=== PATIENT | female | born 1960 | race Caucasian/White ===

== ENCOUNTER 2018-04-24 11:05 | Emergency (ER) | payer MEDICARE, SELFPAY ==
[2018-04-24 11:06] VITALS: BP 139/82; PULSE 108; RESP 17; TEMP 36.9; O2SAT 99; BMI 28.5
--- NOTE | 2018-04-24 11:23 | RAD_ITS ---
STUDY: X-RAY CHEST REASON FOR EXAM: Female, 57 years old. cough TECHNIQUE: PA and lateral COMPARISON: None. FINDINGS: The lungs are clear and expanded. There is no demonstrated pleural abnormality. Normal size heart. Normal mediastinum and wilma. Normal visualized pulmonary arteries. There is atherosclerotic tortuosity of the aortic arch and descending thoracic aorta. Normal visualized thoracic spine. Normal visualized ribs, clavicles, and shoulders. There is no demonstrated abnormality of the visualized soft tissue structures of the upper abdomen. RAD/Chest PA and Lateral IMPRESSION: Normal x-ray examination of the chest. Electronically Signed: Gerardo Carl MD at 12:17 EST , Service support ,
[2018-04-24 11:25] VITALS: PULSE 108; TEMP 36.9
--- NOTE | 2018-04-24 11:26 | ED.VISSUMM ---
- ER Visit Summary Date of Service: 04/24/18 Chief Complaint: Fever, cough, short of breath, nausea and vomiting History of Present Illness: The patient is a 57 F who reports generalized body aches and joint pain for the past 3 days. She does get injections because of fibromyalgia and arthritis and states they are wearing off. She does, however, have a temperature reported of 103-104, cough with shortness of breath and wheezing. She also reports nausea, vomiting, and diarrhea. Her symptoms started on April 22. She did get flu vaccine this year. Physical Examination: Blood pressure is 139/82, temperature 98.5, heart rate 108, respiratory rate 17, pulse ox 99% on room air. Patient sitting upright in bed no acute distress. She is speaking full sentences. She is nontoxic appearing. Head neck examination reveals cerumen in the bilateral ear canals. She has moist mucous membranes with normal posterior pharynx. She does have bilateral anterior cervical lymphadenopathy. No meningismus. Heart is regular rate and rhythm. Lungs sounds are clear. Abdomen is soft with no focal tenderness. Extremity examination reveals no joint edema or erythema. She has full range of motion of all joints. Test Results: CBC was a white count 3.7, otherwise unremarkable. Chemistry studies normal. Urinalysis normal. Two-view chest x-ray is unremarkable. Emergency Department Course and Treatment: Patient was given IV fluids, Toradol, Zofran. She is also treated with Tamiflu. On repeat evaluation she is improved. She is able to tolerate p.o. She will be given home prescriptions for the same medication given here. Treatment Plan: [] Disposition: Discharge Impression: Influenza This note was generated with [employer] dictation software. It may contain incorrect words, spelling, and punctuation that were not noted in review of the chart prior to signing ED Disposition - Plan for ED Patient: Referrals: Brayden Rosas MD [STAFF PHYSICIAN] -
[2018-04-24] MEDS: Ketorolac 30 MG/ML Syringe IV (11:51)
[2018-04-24] MEDS: Ondansetron 4 MG/2 ML Vial IV (11:51)
[2018-04-24] MEDS: Oseltamivir Phosphate 75 MG Capsule PO (11:51)
[2018-04-24] MEDS: 0.9% Normal Saline 1,000 ML 1000 ML IV (11:51)
[2018-04-24 12:05] LABS: Absolute Lymphocyte Count 0.92 X10^3/ul (0.83-4.51); Absolute Neutrophil Count 2.5 X10^3/uL (2.0-7.7); Basophil# 0.02 X10^3/uL; Basophil% 0.5 % (0-1); Eosinophil# 0.02 X10^3/uL; Eosinophils% 0.5 % (0-5); Hematocrit 42.2 % (37-47); Hemoglobin 13.5 g/dl (12.0-15.0); Lymphocyte # 0.92 X10^3/ul (4.0); Lymphocyte % 24.9 % (19-41); Mean Corpuscular Hgb 27.7 pg (27.0-32.0); Mean Corpuscular Volume 86.7 fL (81-99); Mean Platelet Vol. 9.2 fl (6.2-12.0); Monocyte# 0.24 X10^3/uL; Monocyte% 6.5 % (0-10); Neutrophil # 2.49 X10^3/uL (2.7-7.7); Neutrophil % 67.3 % (47-70); POSITIVE COUNT NO; POSITIVE DIFFERENTIAL NO; POSITIVE MORPHOLOGY NO; Platelet Count 204 K/mm3 (150-450); RBC Distribution Width CV 13.6 % (11.6-14.6); RBC Distribution Width SD 42.9 fl (35.1-43.9); Red Blood Count 4.87 M/mm3 (4.2-5.4); White Blood Count 3.7 K/mm3 (4.4-11.0)
[2018-04-24 12:07] LABS: Bacteria 0 SEEN /hpf (None Seen); Mucous, Urine 0 SEEN /hpf (<or=2+); Red Blood Cells-Urine 0 SEEN /hpf (0-5); Squamous Epithelial Cells - UA 0 SEEN /hpf (5-10); White Blood Cells 0 SEEN /hpf (0-5)
[2018-04-24 12:09] LABS: Color, Urine Yellow (Yellow); Glucose, Dipstick Normal (Normal); Ketone-Dipstick Negative (Negative); Leukocyte Esterase-Dipstick Negative /ul (Negative); Nitrite-Dipstick Negative (Negative); Occult Blood-Urine Negative /ul (Negative); Protein-Dipstick Negative (Negative); Urine Bilirubin Dipstick Negative (Negative); Urine Clarity Clear (Clear); Urine Urobilinogen 1 mg/dl (Normal)
[2018-04-24 12:26] LABS: Anion Gap 8 (5-15); BUN 12 mg/dL (7-18); BUN/Creat Ratio 17.9 RATIO (10-20); Calcium,Total 9.4 mg/dL (8.5-10.1); Chloride 103 mmol/L (98-107); Creatinine, Serum 0.67 mg/dL (0.55-1.02); EST Glomerular Filtration Rate 96 mL/min (>60); Est Glom Filt Rate - Afr Amer 116 mL/min (>60); Estimated Creatinine Clearance 75.71 ml/min; Glucose 93 mg/dL (74-106); Potassium 3.6 mmol/L (3.5-5.1); Sodium Level 139 mmol/L (136-145)
--- NOTE | 2018-04-24 13:32 | ED.DEP ---
ED Disposition - Plan for ED Patient: Disposition: Home or Assisted Living Instructions: ED Flu Prescriptions: Ondansetron [Zofran Odt] 4 mg PO Q8H PRN PRN #10 tablet PRN Reason: Nausea Oseltamivir Phosphate [Tamiflu] 75 mg PO BID #10 capsule Ketorolac [Toradol] 10 mg PO Q6H PRN #20 tablet PRN Reason: Pain Referrals: David Rico MD [Primary Care Provider] - 1 Week
[2018-04-24 13:38] VITALS: BP 112/63; PULSE 72; RESP 16; TEMP 37.1; O2SAT 95
== END 2018-04-24 13:40 | disposition home or self-care (01) ==
PROVIDERS: Emergency Provider Emergency Medicine; Family Provider Family Medicine; PCP Family Medicine
DX: J11.1 Influenza due to unidentified influenza virus with other respiratory manifestations (principal); M79.7 Fibromyalgia; M19.90 Unspecified osteoarthritis, unspecified site; Z79.899 Other long term (current) drug therapy
CPT/HCPCS: 71046; 80048; 81001; 85025; 96361; 96374; 96375; 99284; J7030; A4216; J2405

== ENCOUNTER → 2018-08-01 | Outpatient (CLI) | payer MEDICARE, MEDICAID, SELFPAY ==
--- NOTE | 2018-08-01 15:07 | RAD_ITS ---
HISTORY: neck pain through shoulders EXAM/TECHNIQUE: XR Spine Cervical 2 or 3 Views: COMPARISON: None. FINDINGS: # of images incl. paperwork: 3 No fracture or dislocation or osseous destruction. Mild, 2 mm, anterolisthesis of C3 on C4 and retrolisthesis of C5 on C6. Prominent degenerative changes C3-6. No acute findings in the soft tissues. RAD/Cerv Spine 2 or 3 Views IMPRESSION: No acute findings. Prominent degenerative changes C3-6. at 0327 Reported and signed by: Roman Ji MD Electronically Signed: Roman Ji, at 3:26 EDT Tel , Service support ,
--- NOTE | 2018-08-01 15:07 | RAD_ITS ---
HISTORY: lower back pain EXAM/TECHNIQUE: XR Spine Lumbar 2 or 3 Views: COMPARISON: None. FINDINGS: # of images incl. paperwork: 3 No fracture or dislocation or osseous destruction. Alignment anatomic. Marked disc and facet degeneration L5-S1. No acute findings in the soft tissues. 2.6 cm oval calcification right upper abdomen. Pelvic surgical clips. RAD/Lumbar Spine 2 or 3 Views IMPRESSION: No acute findings. Marked disc and facet degeneration L5-S1. 2.6 cm oval calcification right upper abdomen. Most likely a gallstone. at 0328 Reported and signed by: Roman Ji MD Electronically Signed: Roman Ji, at 3:27 EDT Tel , Service support ,
== END | disposition home or self-care (01) ==
LOC: RAD 15:03
PROVIDERS: Family Provider Family Medicine; PCP Family Medicine; Referring Provider Anesthesiology Pain Medicine; Visit Provider Anesthesiology Pain Medicine
DX: M54.2 Cervicalgia (principal); M54.5 Low back pain
CPT/HCPCS: 72040; 72100

== ENCOUNTER 2018-09-26 11:30 | Outpatient (RCR) | payer MEDICARE, MEDICAID, SELFPAY ==
--- NOTE | 2018-08-15 12:53 | HP.PTEVAL_ITS ---
Patient's Visit Information BETY PERALES is a 58 year old F referred to Physical Therapy by Negra Watson MD with a diagnosis of NECK AND BACK PAIN. Date of Evaluation: 08/15/18 Physical Therapist: Dalton Spencer PT, Cert MDT, OCS - Visit Plan Frequency: 2x /Week Duration: 4 Weeks Plan: Aquatic PT for cervical /lumbar ROM,Strengthening BUE/LE,postural ex's ,DLS endurance - Subjective Findings: This 58 y/o female presents to physical therapy with neck and back pain. Patient has had cervical and lumbar pain since 2007. Intially,predisposing factors with a bed fell patient,then 2009 picking up trash ,felt a pop . Patient had PT in past. Most recent, patient had injections cervical spine which helped and patient planes to do injections in lumbar undercare of DR Fregoso. Location of symptoms in cervical spine and and lumbar pain symmmtrical with BUE/LE symptoms with parathesia/tingling. Aggraveting factors lifting,bending ,walking ,standing 10 mins ,stairs. Aleviating factors heat/MEDS. Bowel/bladder good. Coughing/sneezing -. Symptoms affect sleeping. Patient symptoms affect ADL'S and housework tasks. Symptom affect QOL. SOCIAL: single. VOCATION: disabled - Pain Bilateral Neck Pain Intensity (Out of 10): 2 Pain Intensity Range: 10 Bilateral Back Pain Intensity (Out of 10): 8 Pain Intensity Range: 10 - Objective POSTURE: mild foward posture. GAIT: ambulates with antalgic gait with cane slow triston. NEURO: c/o parathesia/tinglng,reflexes C5-6-7 ,L3-4,L4-5,L5-S1 1/3. PALPATION: L-S region. MMT: BUE 3+/5,Quads/hams/hip 3+/5 ,ankle 4-/5. CERVICAL ROM: flexion/extension /lateral flexion/rotation mod loss,retraction mod loss. FLEXABLITY: hams mod tight. LUMBAR ROM: flexion mod ,extension mod loss,side glides mod loss - Special Tests C/S Radiculapathy - Left Upper limb tension test: Negative C/S Radiculapathy - Right Upper limb tension test: Negative C/S Radiculapathy - Left Spurlings: Negative C/S Radiculapathy - Right Spurlings: Negative C/S Radiculapathy - Left Cervical distraction: Negative C/S Radiculapathy - Right Cervical distraction: Negative C/S Radiculapathy - Left Relief test: Negative C/S Radiculapathy - Right Relief test: Negative Sharp Josie: Negative Vertebral Artery Test: Negative Alar Ligament Test: Negative Cervical Sitting: Protrusion - Mechanical Response: No effect Cervical Sitting: Protrusion - Symptoms During Testing: Increases Cervical Sitting: Protrusion - Symptoms After Testing: Worse Cervical Sitting: Retraction - Mechanical Response: No effect Cervical Sitting: Retraction - Symptoms During Testing: Increases Cervical Sitting: Retraction - Symptoms After Testing: Worse L/S Slump test left side: Negative L/S Slump test right side: Negative L/S Left Straight Leg Raise: Negative L/S Right Straight Leg Raise: Negative Lumbar Standing: Flexion - Mechanical Response: No effect Lumbar Standing: Flexion - Symptoms During Testing: Increases Lumbar Standing: Flexion - Symptoms After Testing: Worse Lumbar Standing: Extension - Mechanical Response: No effect Lumbar Standing: Extension - Symptoms During Testing: Increases Lumbar Standing: Extension - Symptoms After Testing: Worse - Goals Goal 1:: Independant with Aquatic PT Goal Time Frame: 4-6 Weeks Goal 2:: Patient decrease neck and back pain by 40 % or greater to improve function. Goal Time Frame: 4-6 Weeks Goal 3:: Patient improve cervical and lumbar ROM for function pof recovery Goal Time Frame: 4-6 Weeks Goal 4:: Patient increase strength BUE/LE to 4-/5 to improve function Goal Time Frame: 4-6 Weeks Goal 5:: Patient to improve back owestry score by 5 points or greater to improve QOL. Goal Time Frame: 4-6 Weeks - Rehabilitation Potential Physical Therapy Diagnosis: This patient has neck and back pain with decrease ROM,strength ,impairs gait and ADL'S. Rehabilitation Potential: Fair - Anticipated Interventions Patient/Client Instruction: Educate patient on: Condition, Plan of Care For the Purpose of:: To decrease pain, To increase ROM, To improve muscle performance and motor function, To improve ability to perform ADL's, To increase tolerance to activity/condition/position, To improve performance and independence with ADL's, To improve ability of physical actions for home/community/work/leisure, To improve health of tissue, To decrease soft tissue restriction, To increase flexibility/ROM, To improve endurance, To improve ability to perform tasks related to life management Therapeutic Exercise to Include: Strength training, Power training, Body mechanics, Postural training, Flexibilty training, In an aquatic setting, Active ROM, Dynamic Lumbar Stabilization For the Purpose of:: To decrease pain, To increase ROM, To improve muscle performance and motor function, To improve ability to perform ADL's, To increase tolerance to activity/condition/position, To improve performance and independence with ADL's, To improve ability of physical actions for home/community/work/leisure, To improve health of tissue, To decrease soft tissue restriction, To increase flexibility/ROM, To improve endurance, To improve ability to perform tasks related to life management Thank you for the opportunity to evaluate your patient. For Medicare and Medicare HMO plans, please review the plan of care and approve it. It will need to be FAXED BACK to us at [phone] for Medicare purposes. For Medicare only, by signing this I certify the plan of care. Please let me know if there are questions or concerns regarding this plan of ca re. Physician Signature: Date:
--- NOTE | 2018-09-26 11:51 | HP.PTDCSUM ---
HP - PT D/C Summary It has been my pleasure to treat BETY PERALES under orders from Negra Watson MD, for the diagnosis of NECK AND BACK PAIN for a total of 7 visit(s). Discharge Date: Please see the following information for a summary of their discharge status. - Subjective Subjective: Doing well . Aquatic therapy has helped with walking and ADL'S. Patient seen Dr Castillo for injections in August. - Pain Bilateral Neck Pain Intensity (Out of 10): 3 Bilateral Back Pain Intensity (Out of 10): 3 - Overall Improvement % Improvement: 75 - Objective Objective/Function: POSTURE: mild foward posture. GAIT: reciprocal pattern. NEURO: denies parathesia/tingling 1/3 L3-4,L4-5,L5-S1. CERVICAL ROM: flexion min loss,extension min/mod loss,rotation/lateral flexion mod loss. MMT: ABUE 4/5 except shoulder 4-/5. quads/hams 4/5 hip flexion 4-/5. LUMBAR ROM: flexion min/mod ,extension mod - Goals Goal 1:: Independant with Aquatic PT Goal 2:: Patient decrease neck and back pain by 40 % or greater to improve function. Goal 3:: Patient improve cervical and lumbar ROM for function pof recovery Goal 4:: Patient increase strength BUE/LE to 4-/5 to improve function Goal 5:: Patient to improve back owestry score by 5 points or greater to improve QOL. - Plan Plan: D/C TO HEP - D/C Information If there are questions or concerns regarding this patient's physical therapy, please feel free to call me at [phone]. Thank you for the referral of this patient. Sincerely, Dalton Spencer, PT, Cert MDT, OCS
== END 2018-09-26 19:00 | disposition home or self-care (01) ==
LOC: PT 11:30
PROVIDERS: Family Provider Family Medicine; PCP Family Medicine; Referring Provider Anesthesiology Pain Medicine; Visit Provider Anesthesiology Pain Medicine
DX: M54.2 Cervicalgia (principal); M54.9 Dorsalgia, unspecified
CPT/HCPCS: 97113; 97162; 97530

== ENCOUNTER → 2018-12-07 | Outpatient (CLI) | payer MEDICARE, MEDICAID, SELFPAY ==
--- NOTE | 2018-12-07 09:37 | MRI_ITS ---
STUDY: MRI CERVICAL SPINE WITHOUT CONTRAST REASON FOR EXAM: Female, 58 years old. neck and arm pain, injury 2008, reinjury 2014, bilat extrremity pain/numbness TECHNIQUE: Standardized fat and water weighted pulse sequences were obtained in the sagittal and axial planes. COMPARISON: Cervical spine x-ray August 01, 2018 FINDINGS: Normal foramen magnum and brainstem-cervical cord junction. Normal craniovertebral junction. Normal anterior atlantoaxial articulation. Normal odontoid process. There is mild reversal of the normal cervical lordosis. Normal vertebral bodies and posterior osseous elements. C2-3: Disc desiccation is noted. There is no evidence of central canal stenosis. There is no evidence of significant foraminal encroachment. C3-4: Disc desiccation is noted. There is mild disc height loss and a subtle disc bulge as well as mild uncovertebral joint hypertrophy. There is mild to moderate right facet arthropathy and mild left facet arthropathy. There is mild right neural foraminal encroachment. The left neural foramen is patent. C4-5: Disc desiccation with disc height loss is noted. There is mild to moderate bilateral facet arthropathy. There is no evidence of significant central or right neural foraminal encroachment. Disc osteophyte complex and facet arthropathy contribute to moderate left neural foraminal encroachment. C5-6: Disc desiccation is noted with anterior and posterior marginal osteophytes. There is mild flattening of the ventral aspect of the thecal sac. AP diameter of the thecal sac measures approximately 0.74 cm. This is a mild central canal stenosis. There is minimal facet arthropathy asymmetric to the left with mild left neural foraminal encroachment. C6-7: Normal endplates. Normal disc height, signal and morphology. Normal central canal and intervertebral neural foramina. Mild left facet arthropathy. C7-T1: Normal endplates. Normal disc height, signal and morphology. Normal central canal and intervertebral neural foramina. Normal cervical cord. Normal visualized soft tissue structures. MRI/Spine Cervical (Routine) IMPRESSION: Degenerative spondylosis as described. There does appear mild central canal stenosis at C5-C6. See above for details. Electronically Signed: Roxy Dominique MD at 14:09 EDT , Service support ,
== END | disposition home or self-care (01) ==
LOC: MRI 09:35
PROVIDERS: Family Provider Family Medicine; PCP Family Medicine; Referring Provider Anesthesiology Pain Medicine; Visit Provider Anesthesiology Pain Medicine
DX: M54.2 Cervicalgia (principal); M79.603 Pain in arm, unspecified
CPT/HCPCS: 72141

== ENCOUNTER 2018-12-08 12:00 | Outpatient (RCR) | payer MEDICARE, MEDICAID, SELFPAY ==
--- NOTE | 2018-11-10 15:17 | HP.PTEVAL_ITS ---
Patient's Visit Information BETY PERALES is a 58 year old F referred to Physical Therapy by David Rico MD with a diagnosis of B Knee Pain. Date of Evaluation: 11/10/18 Physical Therapist: Alesia Lewis DPT - Visit Plan Frequency: 2x /Week Duration: 4 Weeks Plan: Aquatic Setting- focus on LE and core s/s - Subjective Findings: Pain at B knees (R>L), intermittent since 2013, has progressively gotten worse. Stabbing, dull, N/T. Pain at all times, relieving factors: heat & ice. Never pain free, at worst -12/22. Intermittent pain w/ walking, playing Grankids 2 years old & 10 years old. Has her grandchildren a lot. Stairs increase pain. 2 story house - steps into the house, and to 2nd floor. Walks small dog daily. Walks freq. (incline worse than decline). Pain w/ groceriy shopping, gets worse as the day goes on. Interrupts sleep on occassion (sleeping on back & sides). Ambulates with cane all the time. PMH: HTN, fibromylagia - Objective Posture: RS,FH - could correct, but not maintained. Gait: Increased stance phase on the left- poor heel/toe pattern- decreased triston- SOB with ambulation>300 feet. Stairs: Step-to pattern w/ use of AD and handrail to vault herself to next step. Descending was uncontrolled w/ bent-over posture- single rail with cane. HR/TR: 25% w/ increase in knee pain. SLS: unable to perform d/t pain & weakness- did not attempt to lift LE for SLS on either side. Palpation: TTP throughout R knee. R knee>L knee. Strength: R Knee: flex 3+/5 ext 3+/5, L knee: flex 4-/5 ext 4-/5, R Ankle: 3+ throughout, L ankle: 4-/5 throughout. ROM: L knee: ext -7 degrees, flex 115 degrees, R knee: ext -5 degrees, flex 120 degrees, Flexibility: SLR: B WFL - painful at end-range Gastroc: severe. - Goals Goal 1:: Pt. will be I w/ HEP & progression. Goal Time Frame: 4-6 Weeks Goal 2:: Pt. will be able to ambulate >300 ft w/ normalized gait pattern LRD Goal Time Frame: 4-6 Weeks Goal 3:: Pt. will be able to ascend/descend stairs with a reciprocal pattern with 1 HR Goal Time Frame: 4-6 Weeks Goal 4:: Pt. will be able to perform ADL's w/ pain level of 0/10. Goal Time Frame: 4-6 Weeks - Rehabilitation Potential Physical Therapy Diagnosis: Pt. presents w/ hypomobility, antlagic gait, deconditioning, poor posture, weakness, and pain which leads to impaired tolerance of ADL's. Rehabilitation Potential: Good - Anticipated Interventions Patient/Client Instruction: Educate patient on: Condition, Plan of Care For the Purpose of:: To decrease pain Therapeutic Exercise to Include: Strength training, Endurance training, Balance training, Body mechanics, Postural training, Flexibilty training, Gait and locomotor training, In an aquatic setting, Active ROM, Dynamic Lumbar Stabilization For the Purpose of:: To improve muscle performance and motor function Cryotherapy (ice pack, ice massage): Yes Thermo therapy (hot pack): Yes Thank you for the opportunity to evaluate your patient. For Medicare and Medicare HMO plans, please review the plan of care and approve it. It will need to be FAXED BACK to us at [phone] for Medicare purposes. For Medicare only, by signing this I certify the plan of care. Please let me know if there are questions or concerns regarding this plan of care. Physician Signature: Date:
--- NOTE | 2019-02-28 11:55 | HP.PT.NRP ---
HP - Discharge Summary (1) - Patient Information BETY PERALES was seen in my office for initial evaluation on 11/10/18. The following Plan of Care was established for this patient: Initial Frequency: 2x /Week Initial Duration: 4 Weeks - Anticipated Interventions Patient/Client Instruction: Educate patient on: Condition, Plan of Care For the Purpose of:: To decrease pain Therapeutic Exercise to Include: Strength training, Endurance training, Balance training, Body mechanics, Postural training, Flexibilty training, Gait and locomotor training, In an aquatic setting, Active ROM, Dynamic Lumbar Stabilization For the Purpose of:: To improve muscle performance and motor function Cryotherapy (ice pack, ice massage): Yes Thermo therapy (hot pack): Yes This patient was last seen in our office . Pertinent comments regarding their Physical therapy will appear below: Patient has not attended physical therapy in over 4 weeks- appropriate for d/c and return to MD as appropriate. At this point I will be discontinuing this patient from physical therapy. I would be happy to see this patient again in the future if found appropriate by the physician. Thank you! Alesia Lewis DPT
== END 2018-12-08 19:00 | disposition home or self-care (01) ==
LOC: PT 12:00
PROVIDERS: Family Provider Family Medicine; PCP Family Medicine; Referring Provider Family Medicine; Visit Provider Family Medicine
DX: M17.0 Bilateral primary osteoarthritis of knee (principal)
CPT/HCPCS: 97113; 97161

== ENCOUNTER → 2018-12-20 | Outpatient (CLI) | payer MEDICARE, MEDICAID, SELFPAY ==
[2018-12-20 11:54] LABS: Amphetamine Urine VISTA NEGATIVE (<1000 ng/mL); Barbiturate Urine VISTA NEGATIVE (< 200 ng/mL); Benzodiazepine Urine VISTA NEGATIVE (< 200 ng/mL); Cocaine Urine VISTA NEGATIVE (< 300 ng/mL); Ecstacy Urine VISTA NEGATIVE (< 500 ng/mL); Methadone Urine VISTA NEGATIVE (< 300 ng/mL); PCP Urine VISTA NEGATIVE (< 25 ng/mL); THC Urine VISTA NEGATIVE (< 50 ng/mL); Vista UDS pH Range 7
== END | disposition home or self-care (01) ==
PROVIDERS: Family Provider Family Medicine; PCP Family Medicine; Referring Provider Anesthesiology Pain Medicine; Visit Provider Anesthesiology Pain Medicine
DX: F11.20 Opioid dependence, uncomplicated (principal)
CPT/HCPCS: 80307

== ENCOUNTER → 2019-02-13 13:58 | Outpatient (CLI) | payer MEDICARE, MEDICAID, SELFPAY ==
[2019-02-13 15:25] LABS: Amphetamine Urine VISTA NEGATIVE (<1000 ng/mL); Barbiturate Urine VISTA NEGATIVE (< 200 ng/mL); Benzodiazepine Urine VISTA NEGATIVE (< 200 ng/mL); Cocaine Urine VISTA NEGATIVE (< 300 ng/mL); Ecstacy Urine VISTA NEGATIVE (< 500 ng/mL); Methadone Urine VISTA NEGATIVE (< 300 ng/mL); PCP Urine VISTA NEGATIVE (< 25 ng/mL); THC Urine VISTA NEGATIVE (< 50 ng/mL); Vista UDS pH Range 6
== END ==
PROVIDERS: Family Provider Family Medicine; PCP Family Medicine; Referring Provider Anesthesiology Pain Medicine; Visit Provider Anesthesiology Pain Medicine
DX: F11.20 Opioid dependence, uncomplicated (principal)
CPT/HCPCS: 80307

== ENCOUNTER 2019-09-05 08:26 | Emergency (ER) | payer MEDICARE, MEDICAID, SELFPAY ==
[2019-09-05 08:27] VITALS: BP 149/92; PULSE 103; RESP 16; TEMP 36.2; BMI 29.2
--- NOTE | 2019-09-05 08:44 | ED.DCSUM_ITS ---
History of Present Illness Chief Complaint: Rash Informant: Patient Narrative: Patient states that Wednesday she began to have some discomfort in the left forehead and left preauricular area. She states over the next couple days the pain increased and she developed headache in that area. She is woke today with rash on the forehead. She notes that the eye hurts. No change in her vision no redness of the eye no eye drainage. No fevers. No change in sensation of the tip of her nose. Past Medical History - Allergies and Home Meds Allergies/Adverse Reactions: Allergies atorvastatin [From Lipitor] Allergy (Verified 09/05/19 08:29) Rash Primary Care Physician: David Rico MD [Primary Care Provider] - Smoking Status: Never smoker Review of Systems General: Denies: Chills, Fever, Sweats Eyes: Reports: - - Left thigh pain. Denies: Visual changes - bilaterally, Diplopia ENT: Denies: Rhinorrhea, Sore throat Cardiovascular: Denies: Chest pain, Palpitations Respiratory: Denies: Dyspnea, Cough, Dyspnea on exertion Gastrointestinal: Denies: Abdominal pain, Nausea, Vomiting, Diarrhea, Melena, Hematochezia Genitourinary: Denies: Dysuria, Hematuria, Frequency Musculoskeletal: Denies: Back pain, Extremity Pain Skin: Reports: Rash. Denies: Wounds Neurological: Reports: Headache. Denies: Weakness, Numbness Physical Exam Vital Signs/Narrative: Vital Signs Temp Pulse Resp BP 09/05/19 08:27 97.2 F L 103 H 16 149/92 H Inital Vital Signs reviewed: Yes General: Well nourished, Well developed, No Acute Distress Head: Normocephalic, Atraumatic Eyes: Perrl, EOMI, - - There is no conjunctival injection. There are no obvious dendritic lesions of the eye. ENT: Moist mucous membranes, No rhinorrhea Neck: Supple, Nontender Cardiovascular: Regular rate, Regular rhythm, No murmurs Respiratory: No distress, CTA bilaterally, Chest nontender Abdomen: Soft, Nontender, Nondistended, Normal bowel sounds Back: Nontender, Normal Inspection Extremities: Nontender, No edema Skin: Normal color, - - There are vesicular lesions in V1 distribution. There are no lesions on the tip of the nose. There are no lesions in the ear canal around the tympanic membrane. Neurological: Alert, Oriented x3, Cranial nerves II-XII grossly intact, Normal Strength, Normal Sensation Psychological: Normal affect, Normal Mood Diagnostic/Tx/Re-eval - Medical Decision Making Patient was started on valacyclovir, [place], and prednisone. She is to follow-up with ophthalmology and primary care. ED Disposition - Plan for ED Patient: Disposition: Home or Assisted Living Diagnosis: Shingles Instructions: ED Shingles Prescriptions: Hydrocodone Bitart/Apap 5-325 [[place] 5MG-325MG] 1 tab PO Q6H PRN PRN 3 Days #12 tab PRN Reason: Pain Prescription Printed predniSONE tablet 60 mg PO DAILY #15 tab Prescription Printed Valacyclovir HCl [Valacyclovir] 1,000 mg PO TID #21 tab Prescription Printed Referrals: David Rico MD [Primary Care Provider] - 5-7 Days Lyndon Marina MD [STAFF PHYSICIAN] - As soon as possible
== END 2019-09-05 09:07 | disposition home or self-care (01) ==
PROVIDERS: Emergency Provider Emergency Medicine; PCP Family Medicine
DX: B02.9 Zoster without complications (principal)
CPT/HCPCS: 99282

== ENCOUNTER 2019-09-07 12:22 | Inpatient (IN) | payer MEDICARE, MEDICAID, SELFPAY ==
[2019-09-07 12:25] VITALS: BP 156/95; PULSE 89; RESP 16; TEMP 36.1; O2SAT 95; BMI 29.2
--- NOTE | 2019-09-07 13:08 | ED.DCSUM_ITS ---
- ER Visit Summary Date of Service: 09/07/19 Chief Complaint: Shingles History of Present Illness: The patient is a 59 F who was seen in this ED several days ago. She was diagnosed with shingles. This involves her left thigh and left upper face. She saw her director check earlier this week on Wednesday, and then again today. She was started on medications but has increasing lid swelling and was referred to the ED. Physical Examination: Afebrile and vital signs unremarkable. There is a vesicular rash to her left upper face involving her left thigh. She has left upper and lower lid edema and conjunctival injection on the left. Test Results: Pending Emergency Department Course and Treatment: IV placed. We will check basic labs and visual acuity. Ophthalmology was contacted for further guidance. Dr. Marina was concerned for a complicating or additional process such as bacterial infection. Her labs were unremarkable. CT showed periorbital cellulitis. Patient was started on vancomycin and Zosyn. Ophthalmology recommended continuing oral valacyclovir, which she is already on. Hospitalist was contacted to admit. Treatment Plan: As above Disposition: Admission Impression: Left face shingles, left eye periorbital cellulitis This note was generated with [employer] dictation software. It may contain incorrect words, spelling, and punctuation that were not noted in review of the chart prior to signing ED Disposition - Plan for ED Patient: Referrals: David Rico MD [Primary Care Provider] -
[2019-09-07 13:18] LABS: Absolute Lymphocyte Count 1.67 X10^3/uL (0.83-4.51); Absolute Neutrophil Count 4.5 X10^3/uL (2.0-7.7); Basophil# 0.02 X10^3/uL; Basophil% 0.3 % (0-1); Eosinophil# 0.05 X10^3/uL; Eosinophils% 0.7 % (0-5); Hematocrit 43.4 % (37-47); Hemoglobin 14.6 g/dL (12.0-15.0); Lymphocyte # 1.67 X10^3/ul (4.0); Lymphocyte % 24.3 % (19-41); Mean Corp Hgb Conc 33.6 g/dL (32-36); Mean Corpuscular Hgb 29.3 pg (27.0-32.0); Mean Platelet Vol. 9.4 fl (6.2-12.0); Monocyte# 0.55 X10^3/uL; NRBC Flagged by Analyzer 0 % (0-5); Neutrophil # 4.54 X10^3/uL (2.7-7.7); Neutrophil % 66.3 % (47-70); Platelet Count 237 K/mm3 (150-450); RBC Distribution Width CV 14.1 % (11.6-14.6); RBC Distribution Width SD 44.1 fl (35.1-43.9); Red Blood Count 4.99 M/mm3 (4.2-5.4); White Blood Count 6.9 K/mm3 (4.4-11.0)
--- NOTE | 2019-09-07 13:19 | CT_ITS ---
STUDY: CT FACIAL BONES WITH CONTRAST REASON FOR EXAM: Female, 59 years old. CELLULITIS LT EYE/SHINGLES, SWELLING, PUSTULES RADIATION DOSAGE (If Supplied By Facility): CTDIvol = ( 29.38 ) mGy, DLP = ( 576.84 ) mGycm TECHNIQUE: The patient was scanned in a multi detector CT scanner. Transaxial imaging was performed following the intravenous administration of IV 100mL Isovue-300. Sagittal and coronal images were reconstructed. Individualized dose optimization techniques were used for this CT. COMPARISON: None. FINDINGS: Diffuse soft tissue swelling anterior to the left globe with induration of the subcutaneous fat cellulitis. There is no evidence of involvement of the extraocular muscles or within the orbital cone. Right orbit and globe free of abnormality. There is also subtle induration of the subcutaneous fat along the left maxilla also suggestive of cellulitis. Normal orbital pearson and orbital contents. Normal nasal bones and anterior nasal spine. Normal facial bones. There is no demonstrated fracture. Normal visualized paranasal sinuses. CT/Sinus/Facial Bone WITH Contras IMPRESSION: Left periorbital cellulitis, there is no involvement of the left extraocular muscles or orbital cone Cellulitis of the soft tissues anterior to the left maxilla No fracture or suspicious osseous lesion Electronically Signed: Sarkis Law MD at 13:56 EDT , Service support ,
[2019-09-07 13:28] LABS: Anion Gap 7 (5-15); BUN 15 mg/dL (7-18); BUN/Creat Ratio 22.1 RATIO (10-20); Calcium,Total 9.4 mg/dL (8.5-10.1); Chloride 98 mmol/L (98-107); Creatinine, Serum 0.68 mg/dL (0.55-1.02); EST Glomerular Filtration Rate 94 mL/min (>60); Est Glom Filt Rate - Afr Amer 114 mL/min (>60); Estimated Creatinine Clearance 72.78 ml/min; Glucose 107 mg/dL (74-106); Sodium Level 137 mmol/L (136-145)
[2019-09-07 14:57] VITALS: BP 148/75; PULSE 87; RESP 16; TEMP 36.9; O2SAT 99
[2019-09-07 15:12] VITALS: BP 129/78; PULSE 73; RESP 16; TEMP 37.1; O2SAT 98
--- NOTE | 2019-09-07 15:21 | HP.PCM_ITS ---
<Rad Tan - Last Filed: 09/07/19 15:21> Problem List (1) Periorbital cellulitis Status: Acute (2) Shingles Status: Acute (3) HTN (hypertension) Status: Chronic History of Present Illness Date of Admission: 09/07/19 Chief Complaint: left eye swelling The patient is a 59 year old F with pmhx of recent dx of shingles on valtrex, who presents to the ER with c/o increased swelling in her right eye. On wednesday she began having severe headaches. The next day she developed a rash of the left forehead and side of face c/w zoster. She was placed on valtrex as an o/p. She later developed increased redness, pain, and swelling of the left eyelid and face. She has some increased discharge and difficulty opening the eyelid all the way. Her vision remains unchanged and without pain on moving the eye. She went to see the eye doctor today who advised her to come to the ER. She appears to have periorbital cellulitis in addition to the zoster rash on the left forehead. She does not appear septic.[] Past Medical History Past Medical History (Chronic Problems): Chronic Problems HTN (hypertension) (Chronic) Allergies atorvastatin [From Lipitor] Allergy (Verified 09/07/19 12:23) Rash Home Medications: Ambulatory Orders Medication Instructions Recorded cycloBENZAPRine HCl [Flexeril] 10 mg PO 4X/DAY PRN 05/29/13 Fluoxetine HCl 40 mg PO DAILY 04/24/18 Gabapentin 1,200 mg PO TID 04/24/18 Hydrochlorothiazide [Hctz] 25 mg PO DAILY 04/24/18 Ketorolac [Toradol] 10 mg PO Q6H PRN #20 tablet 04/24/18 Meloxicam 15 mg PO DAILY 04/24/18 traZODone [Desyrel] 100 mg PO QHS 04/24/18 Hydrocodone Bitart/Apap 5-325 1 tab PO Q6H PRN PRN 3 Days #12 tab 09/05/19 [[place] 5MG-325MG] Valacyclovir HCl [Valacyclovir] 1,000 mg PO TID #21 tab 09/05/19 predniSONE tablet 60 mg PO DAILY #15 tab 09/05/19 Albuterol IH (ProAir) [Proair Hfa] 2 puff INHALATION Q4H PRN PRN 09/07/19 Fenofibrate 160 mg PO DAILY 09/07/19 Fluoxetine HCl [Prozac] 20 mg PO DAILY 09/07/19 Mono/Polymyx B Sulf/Dexameth 3.5 gm OP 4X/DAY 09/07/19 [Altmgx-Yuaom-Rcewxsf Eye Ointm] Simvastatin 40 mg PO QHS 09/07/19 Surgical History: no surgical history Psychiatric History: No pertinent psych hx 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 Denies: Blurred vision, Double vision, Pain, Vision Change HEENT: Denies: Head Aches, Sinus Congestion, Sinus Drainage Cardiovascular: Denies: Chest Pain, Palpitations Respiratory: Denies: Cough, Shortness of breath at rest, Sputum production Gastrointestinal: Denies: Abdominal Pain, Nausea, Vomiting Genitourinary: Denies: Dysuria Musculoskeletal: Denies: Joint Pain, Joint Tenderness Skin: Reports: Rash - left forehead. Denies: Wounds Neurological: Denies: Numbness, Tingling, Focal weakness Psychiatric: Denies: Anxiety, Depression, Homicidal Ideations, Suicidal Ideations Hematologic/ Lymphatic: Denies: Easy Bruising, Easy Bleeding VTE Information - Inpt Only VTE Present on Admission: No VTE Mechan Device Prophylaxis: None VTE Pharm Prophylaxis ordered?: Yes Patient Problems: Active and Suspected Problems Periorbital cellulitis (Acute) Shingles (Acute) - Physical Exam Vitals/I&O's: Vital Signs Temp Pulse Resp BP Pulse Ox 98.5 F 87 16 148/75 H 99 09/07/19 14:57 09/07/19 14:57 09/07/19 14:57 09/07/19 14:57 09/07/19 14:57 Oxygen Delivery Method Room Air Weight: 165 lb Body Mass Index (BMI) 29.2 General: Alert, Oriented x3, Cooperative HEENT: Atraumatic, PERRLA, EOMI, Normocephalic, - - swelling around the left eyelid with increased erythema, tenderness, drainage. Neck: Supple, No JVD, Negative Carotid Bruits Lungs: Clear to auscultation, Normal air movement Cardiovascular: Regular rate, No murmurs Abdomen: Bowel Sounds Present, Soft, Non Tender Extremities: No edema, Capillary Refill Less than 3 Seconds Skin: - - zoster rash on left forehead Musculoskeletal: No Tenderness to Palpation of Joints or Extremities Neurological: Cranial nerves II-XII grossly intact Psych/Mental Status: Normal Affect, Appropriate Laboratory Results 09/07/19 13:05: WBC 6.9, RBC 4.99, Hgb 14.6, Hct 43.4, MCV 87.0, MCH 29.3, MCHC 33.6, RDW Std Deviation 44.1 H, RDW Coeff of Sheldon 14.1, Plt Count 237, MPV 9.4, Immature Gran % (Auto) 0.400, Neut % (Auto) 66.3, Lymph % (Auto) 24.3, Dent % (Auto) 8.0, Eos % (Auto) 0.7, Baso % (Auto) 0.3, Absolute Neuts (auto) 4.5, Absolute Lymphs (auto) 1.67, Nucleated RBC % 0 09/07/19 13:05: Sodium 137, Potassium 3.0 L, Chloride 98, Carbon Dioxide 32.0, Anion Gap 7, BUN 15, Creatinine 0.68, Estim Creat Clear Calc 72.78, Est GFR (MDRD) Af Amer 114, Est GFR (MDRD) Non-Af 94, BUN/Creatinine Ratio 22.1 H, Glucose 107 H, Calcium 9.4 Current Medications Acetaminophen (Tylenol) 650 mg PO Q6H PRN PRN PRN Reason: Pain Score 1-10/Temp > 100.7 F Al Hydroxide/Mg Hydroxide (Mylanta Ii) 30 ml PO Q6H PRN PRN PRN Reason: Gastric Burning Enoxaparin Sodium (Lovenox) 40 mg SC DAILY [facility] Sodium Chloride () 1,000 mls @ 75 mls/hr IV .[id number] [facility] Stop: 09/08/19 11:13 Ondansetron HCl (Zofran) 4 mg IV Q8H PRN PRN PRN Reason: NAUSEA/VOMITING Assessment/Plan All Active Problems Periorbital cellulitis (Acute) Shingles (Acute) 1. Periorbital cellulitis - vanc/zosyn. consult opthalmology. no fever/leukocytosis. CT of the face/sinus shows left periorbital cellulitis no involvement of the extraocular muscles or orbital cone, cellulitis of the anterior to the elft maxilla. Continue drops from opthalmo, nursing to confirm Rx. Nonseptic. 2. Shingles - continue valtrex 3. HTN - hctz 4. Anx/depresion - prozac, trazodone 5. HLD -statin, fenofibrate. 6. Chronic pain syndrome - pt of Dr. Watson - continue flexeril, meloxicam, norco, gabapentin DVT ppx: lovenox This patient was seen by Rad Tan PA-C under the supervision of Doctor Inga. <[place] - Last Filed: 09/07/19 15:58> History of Present Illness The patient is a 59 year old F [] Past Medical History Allergies atorvastatin [From Lipitor] Allergy (Verified 09/07/19 12:23) Rash - Physical Exam Vitals/I&O's: Vital Signs Temp Pulse Resp BP Pulse Ox 98.5 F 87 16 148/75 H 99 09/07/19 14:57 09/07/19 14:57 09/07/19 14:57 09/07/19 14:57 09/07/19 14:57 Oxygen Delivery Method Room Air Weight: 74.843 kg Body Mass Index (BMI) 29.2 Laboratory Results 09/07/19 13:05: WBC 6.9, RBC 4.99, Hgb 14.6, Hct 43.4, MCV 87.0, MCH 29.3, MCHC 33.6, RDW Std Deviation 44.1 H, RDW Coeff of Sheldon 14.1, Plt Count 237, MPV 9.4, Immature Gran % (Auto) 0.400, Neut % (Auto) 66.3, Lymph % (Auto) 24.3, Dent % (Auto) 8.0, Eos % (Auto) 0.7, Baso % (Auto) 0.3, Absolute Neuts (auto) 4.5, Absolute Lymphs (auto) 1.67, Nucleated RBC % 0 09/07/19 13:05: Sodium 137, Potassium 3.0 L, Chloride 98, Carbon Dioxide 32.0, Anion Gap 7, BUN 15, Creatinine 0.68, Estim Creat Clear Calc 72.78, Est GFR (MDRD) Af Amer 114, Est GFR (MDRD) Non-Af 94, BUN/Creatinine Ratio 22.1 H, Glucose 107 H, Calcium 9.4 Current Medications Acetaminophen (Tylenol) 650 mg PO Q6H PRN PRN PRN Reason: Pain Score 1-10/Temp > 100.7 F Hydrocodone Bitart/Acetaminophen ([place] 5mg-325mg) tablet PO Q6H PRN PRN PRN Reason: P Al Hydroxide/Mg Hydroxide (Mylanta Ii) 30 ml PO Q6H PRN PRN PRN Reason: Gastric Burning Albuterol Sulfate (Proair Hfa (Sp) Surgery/Vent Pts) 2 puff INHALATION Q4H PRN PRN PRN Reason: SOB &/OR WHEEZING Cyclobenzaprine HCl (Flexeril) 10 mg PO 4X/DAY PRN PRN Reason: MUSCLE SPASM Enoxaparin Sodium (Lovenox) 40 mg SC DAILY [facility] Fluoxetine HCl (Prozac) 20 mg PO DAILY [facility] Gabapentin (Neurontin) 1,200 mg PO TID [facility] Hydrochlorothiazide (Hctz) 25 mg PO DAILY [facility] Sodium Chloride () 1,000 mls @ 75 mls/hr IV .[id number] [facility] Stop: 09/08/19 11:13 Ketorolac Tromethamine (Toradol) 10 mg PO Q6H PRN PRN Reason: Pain Score 1-10/10 Meloxicam (Mobic) 15 mg PO DAILY [facility] Neomycin/Polymyxin/Dexamethasone (Maxitrol) applic OPHTHALMIC 4X/DAY [facility] Non-Formulary Medication (Fenofibrate) 160 mg PO DAILY [facility] Non-Formulary Medication (Fluoxetine Hcl) 40 mg PO DAILY [facility] Non-Formulary Medication (Simvastatin) 40 mg PO QHS [facility] Non-Formulary Medication (Valacyclovir Hcl [Valacyclovir]) 1,000 mg PO TID [facility] Ondansetron HCl (Zofran) 4 mg IV Q8H PRN PRN PRN Reason: NAUSEA/VOMITING Potassium Chloride (K-Dur) 60 meq PO X1 ONE Stop: 09/07/19 15:37 Prednisone () 60 mg PO DAILY [facility] Trazodone HCl (Desyrel) 100 mg PO QHS [facility] Assessment/Plan This patient was seen in conjunction with JORGE Chapa. I have independently interviewed and examined the patient and reviewed pertinent historical, laboratory, and other data. Please refer to JORGE Chapa note for his patient's presentation, findings, and recommendations. I have reviewed and his note and concur with his documentation 59-year-old female with past medical history of hypertension, hyperlipidemia, arthritis, back pain with chronic pain syndrome, on multiple pain regimens as well as steroid insulin injection to the back. Patient was seen in the ED on 09/05/19 with a 1 day history of rash, discomfort and swelling in the left forehead and periauricular region. She was diagnosed with shingles and went to see the office rn on 09/05/19. She developed headache on 09/06/19 which was on and off. This morning she realized that the swelling over her eyelids were progressively getting worse and she also had an eye discharge and decided to see the office rn. He reexamine her eyes and referred her to the ED. Denies any fever or chills or headaches or shortness of breath or chest pain at the time of admission. Discussed with Dr. Marina on phone, there was no eye involvement from heparin- induced, no iritis or vesicles seen. She has a follow-up appointment with him on 09/09/19 Physical Exam: Gen: Looks in some discomfort, not pale, not jaundiced, periorbital swelling, erythema and swelling of both eyelids, conjunctivitis present, discharge from left eye Erythematous rash over the left forehead and left pre-auricular/auricular region CVS:HS I +II, regular, no murmurs RESP: CTA GI: BS present and normal, soft, nontender, no palpable organs EXT:No edema CT scan of face/sinus ASSESSMENT: 1. Acute left periorbital cellulitis 2. Acute V1 herpes zoster infection, without involvement of the eye 3. Hypertension 4. Hyperlipidemia 5. Chronic back pain/chronic pain syndrome 6. Anxiety/depression Plan: Continue on IV vancomycin and Zosyn started in the ED De-escalate antibiotics if patient improves Continue on valacyclovir Continue with topical eyedrops Follow-up with ophthalmology planning outpatient, appointment on 09/09/[address] Marina's office Continue on home chronic pain regimen as well as antidepressant Inpatient E&M: [id number] Init Hosp L3
[2019-09-07 15:44] VITALS: BMI 29.2; BMI 29.9
[2019-09-07] MEDS: 0.9% Normal Saline 1,000 ML 75 ML IV (16:15)
[2019-09-07] MEDS: Vancomycin IV 1,000 MG/200 ML BAG 200 MG IV (16:16)
[2019-09-07 16:42] LABS: AST(SGOT) 128 U/L (15-37); Alanine Aminotransfer ALT/SGPT 134 U/L (13-56); Albumin, Serum 4.4 g/dL (3.2-5.0); Alkaline Phosphatase 235 U/L (45-117); Globulin 3.9 g/dL (2.2-4.2); Protein, Total 8.3 g/dL (6.4-8.2)
[2019-09-07] MEDS: Acyclovir 800 MG Tablet PO ×2 (18:34→22:49)
[2019-09-07] MEDS: Neomycin/Polymyxin/Dexameth 5ML OPTH.BTL 1 DRP OPHTHALMIC ×2 (18:35→22:48)
--- NOTE | 2019-09-07 18:51 | PCM.RX.CS ---
Consult Pharmacy has been consulted to manage selected antiobiotic: Vancomycin Type of Consult: New start Suspected Infection: Skin/Soft tissue Prior Doses of Antibiotics Received/Current Regimen: 1GM IV X 1 IN ER 09.07.19 @3829 Labs: Sodium 137 mmol/L (136-145) 09/07/19 13:05 Potassium 3.0 mmol/L (3.5-5.1) L 09/07/19 13:05 Chloride 98 mmol/L (98-107) 09/07/19 13:05 Carbon Dioxide 32.0 mmol/L (21.0-32.0) 09/07/19 13:05 Anion Gap 7 (5-15) 09/07/19 13:05 BUN 15 mg/dL (7-18) 09/07/19 13:05 Creatinine 0.68 mg/dL (0.55-1.02) 09/07/19 13:05 Est GFR (MDRD) Af Amer 114 mL/min (>60) 09/07/19 13:05 Est GFR (MDRD) Non-Af 94 mL/min (>60) 09/07/19 13:05 BUN/Creatinine Ratio 22.1 RATIO (10-20) H 09/07/19 13:05 Glucose 107 mg/dL (74-106) H 09/07/19 13:05 Weight used for dosin.7 kg Estimated Creatinine Clearance: ~73ML/MIN Goal Trough: 15-20 mcg/mL Pharmacy Plan for Drug Dosing: Will begin 1gm iv q12h per protocol. Trough level ordered for before 4th dose. Pharmacy Service will continue to monitor and adjust dosing as required. Follow-Up Labs: Trough Vancomycin - 09.09.19 @5863
[2019-09-07 20:50] VITALS: BP 148/80; PULSE 88; RESP 16; TEMP 36.9; O2SAT 95
--- NOTE | 2019-09-07 21:15 | NURSING ---
Gave report to Flower [id number] RN she will now be taking over for the patients care
[2019-09-07] MEDS: traZODone 100 MG Tablet PO (22:47)
[2019-09-07] MEDS: Gabapentin 600 MG Tablet 1200 MG PO (22:48)
[2019-09-07] MEDS: Simvastatin 20 MG Tablet 40 MG PO (22:48)
[2019-09-07] MEDS: HYDROcodone Bitartrate/Apap 5/325 Tablet PO (23:01)
[2019-09-08 03:14] VITALS: BP 120/80; PULSE 88; RESP 16; TEMP 37.1; O2SAT 96
[2019-09-08] MEDS: Vancomycin IV 1,000 MG/200 ML BAG 200 MG IV ×2 (04:07→18:15)
[2019-09-08 05:31] LABS: Absolute Lymphocyte Count 2.01 X10^3/uL (0.83-4.51); Absolute Neutrophil Count 3.3 X10^3/uL (2.0-7.7); Basophil# 0.03 X10^3/uL; Basophil% 0.5 % (0-1); Eosinophil# 0.08 X10^3/uL; Eosinophils% 1.3 % (0-5); Hematocrit 39.1 % (37-47); Hemoglobin 12.4 g/dL (12.0-15.0); Lymphocyte # 2.01 X10^3/ul (4.0); Lymphocyte % 33.3 % (19-41); Mean Corp Hgb Conc 31.7 g/dL (32-36); Mean Corpuscular Hgb 28.1 pg (27.0-32.0); Mean Corpuscular Volume 88.7 fL (81-99); Mean Platelet Vol. 9.4 fl (6.2-12.0); Monocyte# 0.55 X10^3/uL; Monocyte% 9.1 % (0-10); NRBC Flagged by Analyzer 0 % (0-5); Neutrophil # 3.33 X10^3/uL (2.7-7.7); Neutrophil % 55.3 % (47-70); Platelet Count 217 K/mm3 (150-450); RBC Distribution Width CV 14.4 % (11.6-14.6); RBC Distribution Width SD 46.2 fl (35.1-43.9); Red Blood Count 4.41 M/mm3 (4.2-5.4)
[2019-09-08 05:52] LABS: ALB/GLOB Ratio 1.3 RATIO (0.9-2.4); AST(SGOT) 94 U/L (15-37); Alanine Aminotransfer ALT/SGPT 124 U/L (13-56); Albumin, Serum 3.8 g/dL (3.2-5.0); Alkaline Phosphatase 211 U/L (45-117); Anion Gap 9 (5-15); BUN 13 mg/dL (7-18); BUN/Creat Ratio 16.4 RATIO (10-20); Calcium,Total 8.9 mg/dL (8.5-10.1); Chloride 102 mmol/L (98-107); EST Glomerular Filtration Rate 78 mL/min (>60); Est Glom Filt Rate - Afr Amer 95 mL/min (>60); Estimated Creatinine Clearance 61.86 ml/min; Glucose 155 mg/dL (74-106); Potassium 3.6 mmol/L (3.5-5.1); Protein, Total 6.8 g/dL (6.4-8.2); Sodium Level 139 mmol/L (136-145)
[2019-09-08] MEDS: Gabapentin 600 MG Tablet 1200 MG PO ×2 (05:59→22:09)
[2019-09-08] MEDS: Acyclovir 800 MG Tablet PO ×5 (05:59→22:09)
[2019-09-08] MEDS: predniSONE 20 MG Tablet 60 MG PO (09:00)
[2019-09-08] MEDS: FLUoxetine 20 MG Capsule 40 MG PO (10:47)
[2019-09-08] MEDS: Fenofibrate 145 MG Tablet PO (10:47)
[2019-09-08] MEDS: hydroCHLOROthiazide 25 MG Tablet PO (10:47)
[2019-09-08] MEDS: Meloxicam 15 MG Tablet PO (10:47)
[2019-09-08] MEDS: Enoxaparin 40 MG/0.4 ML Syringe SC (10:47)
[2019-09-08] MEDS: Neomycin/Polymyxin/Dexameth 5ML OPTH.BTL 1 DRP OPHTHALMIC ×4 (10:49→22:11)
--- NOTE | 2019-09-08 10:49 | PCM.PN.HOSP ---
<Rad Tan - Last Filed: 09/08/19 10:49> Patient Problems: Active and Suspected Problems Periorbital cellulitis (Acute) Shingles (Acute) Reason for Visit: left eyelid swelling Subjective: Left eyelid swelling and pain improved. No pain or itching around left forehead rash. No visual disturbance or pain with eye movement. No fever/chills. Vitals/I&O's: Vital Signs Temp Pulse Resp BP Pulse Ox 98.8 F 88 16 120/80 96 09/08/19 03:14 09/08/19 03:14 09/08/19 03:14 09/08/19 03:14 09/08/19 03:14 Oxygen Delivery Method Room Air Weight: 169 lb 1.513 oz Body Mass Index (BMI) 29.9 Intake and Output for Last 24 Hours 09/06/19 09/07/19 09/08/19 23:59 23:59 23:59 Intake Total 1345 / 1345 563.75 / 563.75 Balance 1345 / 1345 563.75 / 563.75 General: Alert, Oriented x3, Cooperative HEENT: Atraumatic, PERRLA, EOMI, Normocephalic, - - improved erythema, swelling, and tenderness left eyelid. left forehead with vesicular rash with excoriations, no drainage. Neck: Supple, No JVD, Negative Carotid Bruits Lungs: Clear to auscultation, Normal air movement Cardiovascular: Regular rate, No murmurs Abdomen: Bowel Sounds Present, Soft, Non Tender Extremities: No edema, Capillary Refill Less than 3 Seconds Skin: No rashes, No breakdown, - - zoster rash as noted above, left forehead. mild erythema and excoration, non tender Musculoskeletal: No Tenderness to Palpation of Joints or Extremities Neurological: Cranial nerves II-XII grossly intact Psych/Mental Status: Normal Affect, Appropriate, Alert and oriented to time, place, person, mood and affect Laboratory Results 09/07/19 13:05: WBC 6.9, RBC 4.99, Hgb 14.6, Hct 43.4, MCV 87.0, MCH 29.3, MCHC 33.6, RDW Std Deviation 44.1 H, RDW Coeff of Sheldon 14.1, Plt Count 237, MPV 9.4, Immature Gran % (Auto) 0.400, Neut % (Auto) 66.3, Lymph % (Auto) 24.3, [place] % (Auto) 8.0, Eos % (Auto) 0.7, Baso % (Auto) 0.3, Absolute Neuts (auto) 4.5, Absolute Lymphs (auto) 1.67, Nucleated RBC % 0 09/07/19 13:05: Sodium 137, Potassium 3.0 L, Chloride 98, Carbon Dioxide 32.0, Anion Gap 7, BUN 15, Creatinine 0.68, Estim Creat Clear Calc 72.78, Est GFR (MDRD) Af Amer 114, Est GFR (MDRD) Non-Af 94, BUN/Creatinine Ratio 22.1 H, Glucose 107 H, Calcium 9.4 09/07/19 13:05: Total Bilirubin 2.00 H, Direct Bilirubin 0.70 H, AST 128 H, ALT 134 H, Alkaline Phosphatase 235 H, Total Protein 8.3 H, Albumin 4.4, Globulin 3.9 09/08/19 05:14: WBC 6.0, RBC 4.41, Hgb 12.4, Hct 39.1, MCV 88.7, MCH 28.1, MCHC 31.7 L D, RDW Std Deviation 46.2 H, RDW Coeff of Sheldon 14.4, Plt Count 217, MPV 9.4, Immature Gran % (Auto) 0.500, Neut % (Auto) 55.3, Lymph % (Auto) 33.3, [place] % (Auto) 9.1, Eos % (Auto) 1.3, Baso % (Auto) 0.5, Absolute Neuts (auto) 3.3, Absolute Lymphs (auto) 2.01, Nucleated RBC % 0 09/08/19 05:14: Sodium 139, Potassium 3.6, Chloride 102, Carbon Dioxide 28.0, Anion Gap 9, BUN 13, Creatinine 0.80, Estim Creat Clear Calc 61.86, Est GFR (MDRD) Af Amer 95, Est GFR (MDRD) Non-Af 78, BUN/Creatinine Ratio 16.4, Glucose 155 H, Calcium 8.9, Total Bilirubin 1.90 H, AST 94 H, ALT 124 H, Alkaline Phosphatase 211 H, Total Protein 6.8, Albumin 3.8, Globulin 3.0, Albumin/Globulin Ratio 1.3 Current Medications Acetaminophen (Tylenol) 650 mg PO Q6H PRN PRN PRN Reason: Pain Score 1-10/Temp > 100.7 F Hydrocodone Bitart/Acetaminophen ([place] 5mg-325mg) 1 tablet PO Q6H PRN PRN PRN Reason: .PAIN Last Admin: 09/07/19 23:01 Dose: 1 tablet Documented by: Acyclovir (Zovirax) 800 mg PO 5X/DAY [facility] Last Admin: 09/08/19 10:47 Dose: 800 mg Documented by: Al Hydroxide/Mg Hydroxide (Mylanta Ii) 30 ml PO Q6H PRN PRN PRN Reason: Gastric Burning Albuterol Sulfate (Ventolin Aerosols) 2.5 mg INHALATION Q4H PRN PRN PRN Reason: SOB/WHEEZING Cyclobenzaprine HCl (Flexeril) 10 mg PO 4X/DAY PRN PRN Reason: MUSCLE SPASM Enoxaparin Sodium (Lovenox) 40 mg SC DAILY [facility] Last Admin: 09/08/19 10:47 Dose: 40 mg Documented by: Fenofibrate (Tricor) 145 mg PO DAILY [facility] Last Admin: 09/08/19 10:47 Dose: 145 mg Documented by: Fluoxetine HCl (Prozac) 40 mg PO DAILY [facility] Last Admin: 09/08/19 10:47 Dose: 40 mg Documented by: Fluoxetine HCl (Prozac) 20 mg PO DAILY [facility] Gabapentin (Neurontin) 1,200 mg PO TID [facility] Last Admin: 09/08/19 05:59 Dose: 1,200 mg Documented by: Hydrochlorothiazide (Hctz) 25 mg PO DAILY [facility] Last Admin: 09/08/19 10:47 Dose: 25 mg Documented by: Sodium Chloride () 1,000 mls @ 75 mls/hr IV .[id number] [facility] Stop: 09/08/19 11:13 Last Infusion: 09/08/19 05:56 Dose: 0 mls/hr Documented by: Piperacillin Sod/Tazobactam (Sod 3.375 gm/ Sodium Chloride) 50 mls @ 12.5 mls/hr IV Q8 [facility] Last Admin: 09/08/19 05:56 Dose: 12.5 mls/hr Documented by: Vancomycin IV Pharmacy to Dose (1 ea/ Sodium Chloride) 500 mls @ 250 mls/hr IV PRN PRN; Protocol PRN Reason: Rx to Dose Vancomycin HCl (Vancomycin) 1,000 mg in 200 mls @ 200 mls/hr IV Q12H [facility] Last Infusion: 09/08/19 05:07 Dose: Infused Documented by: Ketorolac Tromethamine (Toradol) 10 mg PO Q6H PRN PRN Reason: Pain Score 1-10/10 Meloxicam (Mobic) 15 mg PO DAILY [facility] Last Admin: 09/08/19 10:47 Dose: 15 mg Documented by: Neomycin/Polymyxin/Dexamethasone (Maxitrol) 1 drop OPHTHALMIC 4X/DAY [facility] Last Admin: 09/07/19 22:48 Dose: 1 drop Documented by: Ondansetron HCl (Zofran) 4 mg IV Q8H PRN PRN PRN Reason: NAUSEA/VOMITING Prednisone () 60 mg PO DAILYCM [facility] Last Admin: 09/08/19 09:00 Dose: 60 mg Documented by: Simvastatin (Zocor) 40 mg PO QHS [facility] Last Admin: 09/07/19 22:48 Dose: 20 mg Documented by: Sodium Chloride () 10 - 40 ml IV UD PRN PRN Reason: SALINE FLUSH Trazodone HCl (Desyrel) 100 mg PO QHS [facility] Last Admin: 09/07/19 22:47 Dose: 100 mg Documented by: Medical Necessity - Tobacco Use Smoking Status: Never smoker Assessment/Plan All Active Problems Periorbital cellulitis (Acute) Shingles (Acute) 1. Periorbital cellulitis - vanc/zosyn. consult opthalmology. no fever/leukocytosis. CT of the face/sinus shows left periorbital cellulitis no involvement of the extraocular muscles or orbital cone, cellulitis of the anterior to the elft maxilla. Continue drops from opthalmo, nursing to confirm Rx. Nonseptic. -good improvement in swelling and pain overnight. continue current course. 2. Shingles - continue valtrex. nonpainful at this time. 3. HTN - hctz 4. Anx/depresion - prozac, trazodone 5. HLD -statin, fenofibrate. 6. Chronic pain syndrome - pt of Dr. Watson - continue flexeril, meloxicam, norco, gabapentin DVT ppx: lovenox This patient was seen by Rad Tan PA-C under the supervision of Doctor Kaiser <Hao Saab - Last Filed: 09/08/19 12:35> Subjective: Eyelid swelling improving Vitals/I&O's: Vital Signs Temp Pulse Resp BP Pulse Ox 37.4 C H 95 18 121/76 H 95 09/08/19 10:53 09/08/19 10:53 09/08/19 10:53 09/08/19 10:53 09/08/19 10:53 Oxygen Delivery Method Room Air Weight: 76.7 kg Body Mass Index (BMI) 29.9 Intake and Output for Last 24 Hours 09/06/19 09/07/19 09/08/19 23:59 23:59 23:59 Intake Total 1345 / 1345 613.75 / 613.75 Balance 1345 / 1345 613.75 / 613.75 General: Alert, Cooperative HEENT: Atraumatic, Normocephalic, - Lungs: Clear to auscultation, Normal air movement Cardiovascular: Regular rate, No murmurs Abdomen: Bowel Sounds Present, Soft, Non Tender Extremities: No edema, No Calf Tenderness Skin: No rashes, No breakdown, - Psych/Mental Status: Normal Affect, Appropriate Laboratory Results 09/07/19 13:05: WBC 6.9, RBC 4.99, Hgb 14.6, Hct 43.4, MCV 87.0, MCH 29.3, MCHC 33.6, RDW Std Deviation 44.1 H, RDW Coeff of Sheldon 14.1, Plt Count 237, MPV 9.4, Immature Gran % (Auto) 0.400, Neut % (Auto) 66.3, Lymph % (Auto) 24.3, [place] % (Auto) 8.0, Eos % (Auto) 0.7, Baso % (Auto) 0.3, Absolute Neuts (auto) 4.5, Absolute Lymphs (auto) 1.67, Nucleated RBC % 0 09/07/19 13:05: Sodium 137, Potassium 3.0 L, Chloride 98, Carbon Dioxide 32.0, Anion Gap 7, BUN 15, Creatinine 0.68, Estim Creat Clear Calc 72.78, Est GFR (MDRD) Af Amer 114, Est GFR (MDRD) Non-Af 94, BUN/Creatinine Ratio 22.1 H, Glucose 107 H, Calcium 9.4 09/07/19 13:05: Total Bilirubin 2.00 H, Direct Bilirubin 0.70 H, AST 128 H, ALT 134 H, Alkaline Phosphatase 235 H, Total Protein 8.3 H, Albumin 4.4, Globulin 3.9 09/08/19 05:14: WBC 6.0, RBC 4.41, Hgb 12.4, Hct 39.1, MCV 88.7, MCH 28.1, MCHC 31.7 L D, RDW Std Deviation 46.2 H, RDW Coeff of Sheldon 14.4, Plt Count 217, MPV 9.4, Immature Gran % (Auto) 0.500, Neut % (Auto) 55.3, Lymph % (Auto) 33.3, [place] % (Auto) 9.1, Eos % (Auto) 1.3, Baso % (Auto) 0.5, Absolute Neuts (auto) 3.3, Absolute Lymphs (auto) 2.01, Nucleated RBC % 0 09/08/19 05:14: Sodium 139, Potassium 3.6, Chloride 102, Carbon Dioxide 28.0, Anion Gap 9, BUN 13, Creatinine 0.80, Estim Creat Clear Calc 61.86, Est GFR (MDRD) Af Amer 95, Est GFR (MDRD) Non-Af 78, BUN/Creatinine Ratio 16.4, Glucose 155 H, Calcium 8.9, Total Bilirubin 1.90 H, AST 94 H, ALT 124 H, Alkaline Phosphatase 211 H, Total Protein 6.8, Albumin 3.8, Globulin 3.0, Albumin/Globulin Ratio 1.3 Current Medications Acetaminophen (Tylenol) 650 mg PO Q6H PRN PRN PRN Reason: Pain Score 1-10/Temp > 100.7 F Hydrocodone Bitart/Acetaminophen ([place] 5mg-325mg) 1 tablet PO Q6H PRN PRN PRN Reason: .PAIN Last Admin: 09/07/19 23:01 Dose: 1 tablet Documented by: Acyclovir (Zovirax) 800 mg PO 5X/DAY [facility] Last Admin: 09/08/19 10:47 Dose: 800 mg Documented by: Al Hydroxide/Mg Hydroxide (Mylanta Ii) 30 ml PO Q6H PRN PRN PRN Reason: Gastric Burning Albuterol Sulfate (Ventolin Aerosols) 2.5 mg INHALATION Q4H PRN PRN PRN Reason: SOB/WHEEZING Cyclobenzaprine HCl (Flexeril) 10 mg PO 4X/DAY PRN PRN Reason: MUSCLE SPASM Enoxaparin Sodium (Lovenox) 40 mg SC DAILY [facility] Last Admin: 09/08/19 10:47 Dose: 40 mg Documented by: Fenofibrate (Tricor) 145 mg PO DAILY [facility] Last Admin: 09/08/19 10:47 Dose: 145 mg Documented by: Fluoxetine HCl (Prozac) 40 mg PO DAILY [facility] Last Admin: 09/08/19 10:47 Dose: 40 mg Documented by: Fluoxetine HCl (Prozac) 20 mg PO DAILY [facility] Last Admin: 09/08/19 11:01 Dose: 20 mg Documented by: Gabapentin (Neurontin) 1,200 mg PO TID [facility] Last Admin: 09/08/19 05:59 Dose: 1,200 mg Documented by: Hydrochlorothiazide (Hctz) 25 mg PO DAILY [facility] Last Admin: 09/08/19 10:47 Dose: 25 mg Documented by: Piperacillin Sod/Tazobactam (Sod 3.375 gm/ Sodium Chloride) 50 mls @ 12.5 mls/hr IV Q8 [facility] Last Infusion: 09/08/19 09:56 Dose: Infused Documented by: Vancomycin IV Pharmacy to Dose (1 ea/ Sodium Chloride) 500 mls @ 250 mls/hr IV PRN PRN; Protocol PRN Reason: Rx to Dose Vancomycin HCl (Vancomycin) 1,000 mg in 200 mls @ 200 mls/hr IV Q12H [facility] Last Infusion: 09/08/19 05:07 Dose: Infused Documented by: Ketorolac Tromethamine (Toradol) 10 mg PO Q6H PRN PRN Reason: Pain Score 1-10/10 Meloxicam (Mobic) 15 mg PO DAILY [facility] Last Admin: 09/08/19 10:47 Dose: 15 mg Documented by: Neomycin/Polymyxin/Dexamethasone (Maxitrol) 1 drop OPHTHALMIC 4X/DAY [facility] Last Admin: 09/08/19 10:49 Dose: 1 drop Documented by: Ondansetron HCl (Zofran) 4 mg IV Q8H PRN PRN PRN Reason: NAUSEA/VOMITING [facility] Last Admin: 09/08/19 09:00 Dose: 60 mg Documented by: Simvastatin (Zocor) 40 mg PO QHS [facility] Last Admin: 09/07/19 22:48 Dose: 20 mg Documented by: Sodium Chloride () 10 - 40 ml IV UD PRN PRN Reason: SALINE FLUSH Trazodone HCl (Desyrel) 100 mg PO QHS [facility] Last Admin: 09/07/19 22:47 Dose: 100 mg Documented by: STROKE Vital Signs/Narrative: Vital Signs Temp Pulse Resp BP Pulse Ox 09/08/19 10:53 37.4 C H 95 18 121/76 H 95 Assessment/Plan Patient seen and examined independently. Data reviewed. I agree with the above note by the physician bilingual teacher assistant. 1. Periorbital cellulitis: Overall improving. On vancomycin and Zosyn. Complicated by underlying zoster. Ophthalmology on consult 2. Herpes zoster: Continue with acyclovir Inpatient E&M: 04547 Subs Hosp L2
[2019-09-08 10:53] VITALS: BP 121/76; PULSE 95; RESP 18; TEMP 37.4; O2SAT 95
[2019-09-08] MEDS: FLUoxetine 20 MG Capsule PO (11:01)
--- NOTE | 2019-09-08 11:32 | CASEMGMT ---
Social Work Note SW received referral for advanced directives. SW in to speak with pt. SW introduced self and role at [facility]. Pt is alert and orientated x4. SW spoke with pt regarding advanced directives. Pt states she would like to take the documents home to complete. SW provided the documents to pt. Saskia Reynolds MSW, EMBOSSING PRESS OPERATOR
--- NOTE | 2019-09-08 13:25 | CASEMGMT ---
RN CM called patient for initial transition planning/care coordination assessment. RN CM introduced self and role at [facility]. Patient alert and oriented. Patient willing to participate in assessment and is able to answer all questions appropriately. Care providers, pharmacy, and demographics verified. Patient wishes to discharge home, denies need for home health at this time. Patient states she has no further needs or concerns at this time. CM to follow for discharge planning needs that may arise. PCP: Trisha Specialists: JENN Elise Preferred Pharmacy: [facility] Insurance: [facility] dual Prescription Benefit: yes Living Will/HPOA: look at papers LNOK: daughter Living Arrangements: Patient lives alone in first floor apartment with no steps. Patient states she is independent Transportation: self/daughter DME/HHC: Patient has cane and grab bars at home. Denies previous HHC. Disposition Plan: Patient to discharge home with family support and follow-up plans in place. Saskia HENLEY, RN, CM
[2019-09-08 14:57] VITALS: BP 121/69; PULSE 91; RESP 16; TEMP 37.2; O2SAT 94
[2019-09-08 16:57] VITALS: BP 133/73; PULSE 87; RESP 16; TEMP 37.1; O2SAT 94
[2019-09-08 20:16] VITALS: BP 137/75; PULSE 92; RESP 18; TEMP 36.9; O2SAT 94
[2019-09-08] MEDS: HYDROcodone Bitartrate/Apap 5/325 Tablet PO (20:20)
[2019-09-08] MEDS: Simvastatin 20 MG Tablet 40 MG PO (22:09)
[2019-09-08] MEDS: traZODone 100 MG Tablet PO (22:09)
[2019-09-09 02:15] VITALS: BP 119/73; PULSE 73; RESP 18; TEMP 37; O2SAT 95
[2019-09-09 04:45] LABS: Vancomycin, Trough Level 8.3 ug/mL (5.0-15.0)
[2019-09-09] MEDS: Vancomycin IV 1,000 MG/200 ML BAG 200 MG IV (04:47)
--- NOTE | 2019-09-09 05:05 | PCM.RX.CS ---
Consult Pharmacy has been consulted to manage selected antiobiotic: Vancomycin Type of Consult: Follow-up Suspected Infection: Skin/Soft tissue Prior Doses of Antibiotics Received/Current Regimen: Medications Vancomycin HCl (Vancomycin) 1,000 mg in 200 mls @ 200 mls/hr IV Q8H [facility] Vancomycin HCl (Vancomycin) 1,000 mg in 200 mls @ 200 mls/hr IV Q12H [facility] Stop: 09/09/19 05:46 Last Admin: 09/09/19 04:47 Dose: 200 mls/hr Labs: Sodium 139 mmol/L (136-145) 09/08/19 05:14 Potassium 3.6 mmol/L (3.5-5.1) 09/08/19 05:14 Chloride 102 mmol/L (98-107) 09/08/19 05:14 Carbon Dioxide 28.0 mmol/L (21.0-32.0) 09/08/19 05:14 Anion Gap 9 (5-15) 09/08/19 05:14 BUN 13 mg/dL (7-18) 09/08/19 05:14 Creatinine 0.80 mg/dL (0.55-1.02) 09/08/19 05:14 Est GFR (MDRD) Af Amer 95 mL/min (>60) 09/08/19 05:14 Est GFR (MDRD) Non-Af 78 mL/min (>60) 09/08/19 05:14 BUN/Creatinine Ratio 16.4 RATIO (10-20) 09/08/19 05:14 Glucose 155 mg/dL (74-106) H 09/08/19 05:14 Vancomycin Trough 8.3 ug/mL (5.0-15.0) 09/09/19 03:35 Weight used for dosin.7 kg Estimated Creatinine Clearance: 62 Goal Trough: 15-20 mcg/mL Pharmacy Plan for Drug Dosing: Trough level of 8.3 was well below target range of 15-20. Per vancomycin dosing calculator, the frequency was increased to 1g q8h. Will re-draw trough level prior to 4th dose of new regimen. Pharmacy Service will continue to monitor and adjust dosing as required. Follow-Up Labs: Trough Vancomycin Labs to be done on [date and time ordered]: 09/10/19 @1230
[2019-09-09] MEDS: Gabapentin 600 MG Tablet 1200 MG PO (05:58)
[2019-09-09] MEDS: Acyclovir 800 MG Tablet PO ×2 (05:58→09:05)
[2019-09-09 08:53] VITALS: BP 138/73; PULSE 78; RESP 16; TEMP 36.8; O2SAT 96
[2019-09-09] MEDS: predniSONE 20 MG Tablet 60 MG PO (09:00)
[2019-09-09] MEDS: hydroCHLOROthiazide 25 MG Tablet PO (09:02)
[2019-09-09] MEDS: Enoxaparin 40 MG/0.4 ML Syringe SC (09:03)
[2019-09-09] MEDS: Meloxicam 15 MG Tablet PO (09:03)
[2019-09-09] MEDS: Neomycin/Polymyxin/Dexameth 5ML OPTH.BTL 1 DRP OPHTHALMIC (09:03)
[2019-09-09] MEDS: FLUoxetine 20 MG Capsule 40 MG PO (09:04)
[2019-09-09] MEDS: FLUoxetine 20 MG Capsule PO (09:04)
[2019-09-09] MEDS: Fenofibrate 145 MG Tablet PO (09:05)
--- NOTE | 2019-09-09 09:19 | PCM.DC ---
- Discharge Diagnoses Current Active Problems: Current Active and Chronic Problems Periorbital cellulitis (Acute) Shingles (Acute) HTN (hypertension) (Chronic) You will use the following diet at home:: No restrictions Your food should be the consistency of: Regular Your liquids should be the consistency of: Regular/Thin Discharge Activity: Return to Normal Activity Call your doctor if your incision/area has: Continuous Slow Oozing, Sudden Increased Bleeding, Increased Pain/ Swelling, Increased Redness Call your doctor if you observe: Fever of 101 or Higher Allergies/Adverse Reactions: Allergies atorvastatin [From Lipitor] Allergy (Verified 09/07/19 12:23) Rash Medications to take at Discharge cycloBENZAPRine HCl [Flexeril] 10 mg PO 4X/DAY PRN 05/29/13 Fluoxetine HCl 40 mg PO DAILY 04/24/18 Gabapentin 1,200 mg PO TID 04/24/18 Hydrochlorothiazide [Hctz] 25 mg PO DAILY 04/24/18 Ketorolac [Toradol] 10 mg PO Q6H PRN #20 tablet 04/24/18 Meloxicam 15 mg PO DAILY 04/24/18 traZODone [Desyrel] 100 mg PO QHS 04/24/18 Hydrocodone Bitart/Apap 5-325 [[place] 5/325] 1 tab PO Q6H PRN PRN 3 Days #12 tab 09/05/19 Valacyclovir HCl [Valacyclovir] 1,000 mg PO TID #21 tab 09/05/19 predniSONE tablet 60 mg PO DAILY #15 tab 09/05/19 Albuterol IH (ProAir) [Proair Hfa] 2 puff INHALATION Q4H PRN PRN 09/07/19 Fenofibrate 160 mg PO DAILY 09/07/19 Fluoxetine HCl [Prozac] 20 mg PO DAILY 09/07/19 Neomycin/Polymyxin B/Dexametha [Ptduon-Xbkcy-Ttlszdde Eye Drop] 1 drp LEFT EYE 4X/DAY 09/07/19 Simvastatin 40 mg PO QHS 09/07/19 Smz/Tmp Ds [Bactrim Ds] 1 tab PO BID #14 tab 09/09/19 The following prescriptions were given: Smz/Tmp Ds [Bactrim Ds] 1 tab PO BID #14 tab Transmission Status: Pending to [employer] [facility] Primary Care Physician: David Rico MD [Primary Care Provider] - Within 2 Weeks Test Results: Test results from this visit will be discussed in further detail at your follow-up appointment, if applicable. Proposed Discharge Date: 09/09/19
--- NOTE | 2019-09-09 09:20 | PCM.DC.SUM ---
Discharge Date and Diagnosis - Problem List Patient Problems: Active and Suspected Problems Periorbital cellulitis (Acute) Shingles (Acute) Date of Admission: 09/07/19 Date of Discharge: 09/09/19 - Primary Discharge Diagnosis Acute Problems: Active Problems Periorbital cellulitis (Acute) Shingles (Acute) - Secondary Discharge Diagnosis Chronic Problems: Chronic Problems HTN (hypertension) (Chronic) Hospital Course and Treatment Imaging Results: Clinical Impression(s) from Imaging Studies Facial/Sinus 09/07/19 13:19 IMPRESSION: Left periorbital cellulitis, there is no involvement of the left extraocular muscles or orbital cone Cellulitis of the soft tissues anterior to the left maxilla No fracture or suspicious osseous lesion Electronically Signed: Sarkis Law MD at 13:56 EDT , Service support , Operations: None Procedures: None Summary of Care Provided: The patient is a 59 year old F who developed shingles on the left side of her face beginning Wednesday. She was started on valacyclovir and prednisone. Currently, patient developed increased swelling over her left eye worse close shot. Patient presented to the emergency room was diagnosed with periorbital cellulitis after going to her tool liaison. Patient was started on Pipracil and/tazobactam and vancomycin. Patient swelling and erythema have greatly improved. Plan is to change patient over to trimethoprim sulfamethoxazole for 7 more days to complete treatment. Patient is already on valacyclovir which she will continue for the shingles. Patient additionally is also on prednisone as well. Patient advised if she has any kind of changes in taste or smell or hearing changes on her left side to notify her doctor immediately. [] Patient Problems: Active and Suspected Problems Periorbital cellulitis (Acute) Shingles (Acute) - Physical Exam Vitals/I&O's: Vital Signs Temp Pulse Resp BP Pulse Ox 36.8 C 78 16 138/73 H 96 09/09/19 08:53 09/09/19 08:53 09/09/19 08:53 09/09/19 08:53 09/09/19 08:53 Oxygen Delivery Method Room Air Weight: 77.7 kg Body Mass Index (BMI) 29.9 Intake and Output for Last 24 Hours 09/07/19 09/08/19 09/09/19 23:59 23:59 23:59 Intake Total 1345 / 1345 2415.00 / 2415.00 750 / 750 Output Total 550 / 550 900 / 900 Balance 1345 / 1345 1865.00 / 1865.00 -150 / -150 General: Alert, No apparent distress HEENT: Atraumatic, Normocephalic Oral: Moist Mucosa, No Gingival or Mucosal Lesions/ Ulcerations Neck: No Nodes, Thyroid Normal Size and Texture Lungs: Clear to auscultation, Normal air movement, No rhonchi, No wheeze, No rales Cardiovascular: Regular rate, Regular Rhythm, Normal S1, Normal S2, No murmurs Abdomen: Bowel Sounds Present, Soft, Non Tender, Non-Distended, No Hepato-splenomegaly Extremities: No edema, No Calf Tenderness Laboratory Results 09/09/19 03:35: Vancomycin Trough 8.3 Current Medications Acetaminophen (Tylenol) 650 mg PO Q6H PRN PRN PRN Reason: Pain Score 1-10/Temp > 100.7 F Hydrocodone Bitart/Acetaminophen ([place] 5mg-325mg) 1 tablet PO Q6H PRN PRN PRN Reason: .PAIN Last Admin: 09/08/19 20:20 Dose: 1 tablet Documented by: Acyclovir (Zovirax) 800 mg PO 5X/DAY [facility] Last Admin: 09/09/19 09:05 Dose: 800 mg Documented by: Al Hydroxide/Mg Hydroxide (Mylanta Ii) 30 ml PO Q6H PRN PRN PRN Reason: Gastric Burning Albuterol Sulfate (Ventolin Aerosols) 2.5 mg INHALATION Q4H PRN PRN PRN Reason: SOB/WHEEZING Cyclobenzaprine HCl (Flexeril) 10 mg PO 4X/DAY PRN PRN Reason: MUSCLE SPASM Enoxaparin Sodium (Lovenox) 40 mg SC DAILY [facility] Last Admin: 09/09/19 09:03 Dose: 40 mg Documented by: Fenofibrate (Tricor) 145 mg PO DAILY [facility] Last Admin: 09/09/19 09:05 Dose: 145 mg Documented by: Fluoxetine HCl (Prozac) 40 mg PO DAILY [facility] Last Admin: 09/09/19 09:04 Dose: 40 mg Documented by: Fluoxetine HCl (Prozac) 20 mg PO DAILY [facility] Last Admin: 09/09/19 09:04 Dose: 20 mg Documented by: Gabapentin (Neurontin) 1,200 mg PO TID [facility] Last Admin: 09/09/19 05:58 Dose: 1,200 mg Documented by: Hydrochlorothiazide (Hctz) 25 mg PO DAILY [facility] Last Admin: 09/09/19 09:02 Dose: 25 mg Documented by: Piperacillin Sod/Tazobactam (Sod 3.375 gm/ Sodium Chloride) 50 mls @ 12.5 mls/hr IV Q8 [facility] Last Admin: 09/09/19 05:58 Dose: 12.5 mls/hr Documented by: Vancomycin IV Pharmacy to Dose (1 ea/ Sodium Chloride) 500 mls @ 250 mls/hr IV PRN PRN; Protocol PRN Reason: Rx to Dose Vancomycin HCl (Vancomycin) 1,000 mg in 200 mls @ 200 mls/hr IV Q8H [facility] Ketorolac Tromethamine (Toradol) 10 mg PO Q6H PRN PRN Reason: Pain Score 1-10/10 Meloxicam (Mobic) 15 mg PO DAILY [facility] Last Admin: 09/09/19 09:03 Dose: 15 mg Documented by: Neomycin/Polymyxin/Dexamethasone (Maxitrol) 1 drop OPHTHALMIC 4X/DAY [facility] Last Admin: 09/09/19 09:03 Dose: 1 drop Documented by: Ondansetron HCl (Zofran) 4 mg IV Q8H PRN PRN PRN Reason: NAUSEA/VOMITING [facility] Admin: 09/09/19 09:00 Dose: 60 mg Documented by: Simvastatin (Zocor) 40 mg PO QHS [facility] Last Admin: 09/08/19 22:09 Dose: 40 mg Documented by: Sodium Chloride () 10 - 40 ml IV UD PRN PRN Reason: SALINE FLUSH Trazodone HCl (Desyrel) 100 mg PO QHS [facility] Last Admin: 09/08/19 22:09 Dose: 100 mg Documented by: Discharge Diet: No Restrictions Discharge Activity: Return to Normal Activity Call your doctor if your incision/area has: Continuous Slow Oozing, Sudden Increased Bleeding, Increased Pain/ Swelling, Increased Redness Call your doctor if you observe: Fever of 101 or Higher Home Medications: Medications to take at Discharge cycloBENZAPRine HCl [Flexeril] 10 mg PO 4X/DAY PRN 05/29/13 Fluoxetine HCl 40 mg PO DAILY 04/24/18 Gabapentin 1,200 mg PO TID 04/24/18 Hydrochlorothiazide [Hctz] 25 mg PO DAILY 04/24/18 Ketorolac [Toradol] 10 mg PO Q6H PRN #20 tablet 04/24/18 Meloxicam 15 mg PO DAILY 04/24/18 traZODone [Desyrel] 100 mg PO QHS 04/24/18 Hydrocodone Bitart/Apap 5-325 [[place] 5/325] 1 tab PO Q6H PRN PRN 3 Days #12 tab 09/05/19 Valacyclovir HCl [Valacyclovir] 1,000 mg PO TID #21 tab 09/05/19 predniSONE tablet 60 mg PO DAILY #15 tab 09/05/19 Albuterol IH (ProAir) [Proair Hfa] 2 puff INHALATION Q4H PRN PRN 09/07/19 Fenofibrate 160 mg PO DAILY 09/07/19 Fluoxetine HCl [Prozac] 20 mg PO DAILY 09/07/19 Neomycin/Polymyxin B/Dexametha [Hyaaiy-Bcswy-Eeufinig Eye Drop] 1 drp LEFT EYE 4X/DAY 09/07/19 Simvastatin 40 mg PO QHS 09/07/19 Smz/Tmp Ds [Bactrim Ds] 1 tab PO BID #14 tab 09/09/19 Following Prescrptions Were Given to Patient: Smz/Tmp Ds [Bactrim Ds] 1 tab PO BID #14 tab Transmission Status: Pending to [facility]30 Primary Care Physician: David Rico MD [Primary Care Provider] - Within 2 Weeks Disposition: Home Minutes spent on discharge:: 32 Patient Condition:: Good Medical Necessity - Tobacco Use Smoking Status: Never smoker Meaningful Use Info Meaningful Use Diagnoses (Choose all that apply): None applicable Inpatient E&M: 11043 [facility]
--- NOTE | 2019-09-27 10:17 | CASEMGMT ---
Social Work Discharge follow up Phone call: Discharge Date: 09/09/19 Call Date: 09/27/19 Callt Time: 1015 Reason for Follow up: advanced care planning Summary of Call: During hospital stay Pt was given advanced directive information to take home. SW inquired with pt if she had completed or would like assistance. Pt stating she is not interested in completing documents at this time. Interventions: SW encouraged pt to contact [facility] if she would like assistance completing advance directives. No further needs requested or indicated. ROGELIO Driver
== END 2019-09-09 11:22 | disposition home or self-care (01) | DRG 603 ==
LOC: ED 12:52 → PCU 14:37 → MS3 21:29
PROVIDERS: Admitting Provider Internal Medicine; Emergency Provider Emergency Medicine; PCP Family Medicine
DX: L03.213 Periorbital cellulitis (principal); B02.9 Zoster without complications; I10 Essential (primary) hypertension; M79.7 Fibromyalgia; G89.4 Chronic pain syndrome; E78.5 Hyperlipidemia, unspecified; F32.9 Major depressive disorder, single episode, unspecified; F41.9 Anxiety disorder, unspecified; Z79.1 Long term (current) use of non-steroidal anti-inflammatories (NSAID); Z79.899 Other long term (current) drug therapy
CPT/HCPCS: 36415; 70487; 80048; 80053; 80076; 80202; 85025; 97802; 99282; 99284; J7030; J7040; Q9967; A4216

== ENCOUNTER → 2019-10-25 14:00 | Outpatient (CLI) | payer MEDICARE, MEDICAID, SELFPAY ==
[2019-09-07 15:44] VITALS: BMI 29.9
[2019-10-25 15:30] LABS: Amphetamine Urine VISTA NEGATIVE (<1000 ng/mL); Barbiturate Urine VISTA NEGATIVE (< 200 ng/mL); Benzodiazepine Urine VISTA NEGATIVE (< 200 ng/mL); Cocaine Urine VISTA NEGATIVE (< 300 ng/mL); Ecstacy Urine VISTA NEGATIVE (< 500 ng/mL); Methadone Urine VISTA NEGATIVE (< 300 ng/mL); PCP Urine VISTA NEGATIVE (< 25 ng/mL); THC Urine VISTA NEGATIVE (< 50 ng/mL); Vista UDS pH Range 5
== END ==
PROVIDERS: PCP Family Medicine; Referring Provider Anesthesiology Pain Medicine; Visit Provider Anesthesiology Pain Medicine
DX: F11.20 Opioid dependence, uncomplicated (principal)
CPT/HCPCS: 80307

== ENCOUNTER → 2020-01-18 13:08 | Outpatient (CLI) | payer MEDICARE, MEDICAID, SELFPAY ==
[2019-09-07 15:44] VITALS: BMI 29.9
--- NOTE | 2020-01-18 13:15 | RAD_ITS ---
STUDY: X-RAY - LUMBAR SPINE REASON FOR EXAM: Female, 59 years old. CHRONIC PAIN TECHNIQUE: 3 view(s) of the lumbar spine were obtained. COMPARISON: None FINDINGS: Normal lumbar lordosis. There is a minimal levoscoliosis of the lumbar spine. There is a normal alignment of the vertebrae. Disc space narrowing and spondylosis at the L5-S1 level. There is a 1.9 cm x 2.7 cm rounded calcification overlying the lower pole of the right kidney. RAD/Lumbar Spine 2 or 3 Views IMPRESSION: Mild degree of disc space narrowing and disc degeneration at the L5-S1 level. Stable 1 7 cm x 1.9 cm oval calcification overlying the lower pole of the right kidney. Electronically Signed: Cristian German, at 14:55 EST , Service support ,
--- NOTE | 2020-01-18 13:15 | RAD_ITS ---
STUDY: X-RAY - THORACIC SPINE REASON FOR EXAM: Female, 59 years old. CHRONIC PAIN TECHNIQUE: 3 view(s) of the thoracic spine were obtained. COMPARISON: None. FINDINGS: There is an increase in the normal thoracic kyphosis. There is no substantial scoliosis. There is mild endplate spondylosis of the thoracic vertebrae. There is mild disc space narrowing of the thoracic spine. The soft tissue structures are unremarkable. RAD/Thoracic Spine 2 Views IMPRESSION: Mild degree of spondylosis and disc space narrowing. Electronically Signed: Cristian German, at 14:56 EST , Service support ,
== END ==
PROVIDERS: PCP Family Medicine; Referring Provider Anesthesiology Pain Medicine; Visit Provider Anesthesiology Pain Medicine
DX: M54.9 Dorsalgia, unspecified (principal)
CPT/HCPCS: 72070; 72100

== ENCOUNTER → 2020-03-14 12:54 | Outpatient (CLI) | payer MEDICARE, MEDICAID, SELFPAY ==
[2019-09-07 15:44] VITALS: BMI 29.9
[2020-03-14 13:53] LABS: Amphetamine Urine VISTA NEGATIVE (<1000 ng/mL); Barbiturate Urine VISTA NEGATIVE (< 200 ng/mL); Benzodiazepine Urine VISTA NEGATIVE (< 200 ng/mL); Cocaine Urine VISTA NEGATIVE (< 300 ng/mL); Ecstacy Urine VISTA NEGATIVE (< 500 ng/mL); Methadone Urine VISTA NEGATIVE (< 300 ng/mL); PCP Urine VISTA NEGATIVE (< 25 ng/mL); THC Urine VISTA NEGATIVE (< 50 ng/mL); Vista UDS pH Range 5
== END ==
PROVIDERS: PCP Family Medicine; Visit Provider Anesthesiology Pain Medicine
DX: F11.20 Opioid dependence, uncomplicated (principal)
CPT/HCPCS: 80307

== ENCOUNTER 2020-07-30 09:00 | Outpatient (RCR) | payer MEDICARE, MEDICAID, SELFPAY ==
[2019-09-07 15:44] VITALS: BMI 29.9
--- NOTE | 2020-06-28 10:00 | HP.PTEVAL ---
Patient's Visit Information BETY PERALES is a 59 year old F referred to Physical Therapy by Dr. Negra Watson MD with a diagnosis of NECK AND ARM PAIN. Date of Evaluation: 06/28/20 Physical Therapist: Dalton Spencer PT, Cert MDT, OCS - Visit Plan Frequency: 2x /Week Duration: 4 Weeks Plan: PT INTERVENTIONS MODALTIES FOR PAIN,CERVICAL /POSTURAL STRENGTHENING AND UE STRENGTHENING - Subjective This 59 y/o feamle presents o physical therapy with neck and arm pain.Patient has had cervical radiculopathy 2007. 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 Had PT which go better.Patient symptoms became worse over time. Patient has beed getting cervical epidursl injections and recommmeded PT with. Patient located cervical pain arm bilaterally , Patient epidural injections help some. Patient c/o parathesia/tingling. C/O HEARD right side ,denies tinnutus. Aggraveting lifting,turning,flexion and weather. Meds gabepetin,flexeral,tramodal. Patient has TENS units which helps. Patient uses MEDS for sleeping. Patient uses cane for walking. Last epidural injection yesterday. Patient conditio naffects QOL and function.X-ryas showed DDD and h/o fibromyalgia. SOCIAL: single. VOCATION: disability - Pain Bilateral Shoulder Pain Intensity (Out of 10): 3 Pain Intensity Range: 10 - Objective POSTURE: mild foward head. PALAPTION: tender UT/levator. NEURO: c/o parathesia/tingling ,reflexes C5-6-7 1/3. MMT: BUE 3+/5 ,shoulders 3/4. CERVICAL ROM: flexion min loss,extension/rotation/lateral flexion mod losd ,retraction /protraction min loss. 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 - Special Tests C/S Radiculapathy - Left Upper limb tension test: Negative C/S Radiculapathy - Right Upper limb tension test: Negative C/S Radiculapathy - Left Spurlings: Negative C/S Radiculapathy - Right Spurlings: Negative C/S Radiculapathy - Left Cervical distraction: Negative C/S Radiculapathy - Right Cervical distraction: Negative C/S Radiculapathy - Left Relief test: Negative C/S Radiculapathy - Right Relief test: Negative Alar Ligament Test: Negative Cervical Sitting: Protrusion - Symptoms During Testing: Increases Cervical Sitting: Protrusion - Symptoms After Testing: Worse Cervical Sitting: Retraction - Mechanical Response: No effect Cervical Sitting: Retraction - Symptoms During Testing: Increases Cervical Sitting: Flexion - Mechanical Response: No effect Cervical Sitting: Flexion - Symptoms During Testing: Increases Cervical Sitting: Flexion - Symptoms After Testing: Worse - Goals Goal 1:: I with HEP Goal Time Frame: 4-6 Weeks Goal 2:: Patient to improve posture for ADLS;' Goal Time Frame: 4-6 Weeks Goal 3:: Patient to improve c ervical ROM for function of recovery Goal Time Frame: 4-6 Weeks Goal 4:: Patient to decrease pain by 40% cervical or> to improve function and QOL. 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 Rehabilitation Potential: Fair - Anticipated Interventions Patient/Client Instruction: Educate patient on: Condition, Plan of Care For the Purpose of:: To decrease pain, To increase ROM, To improve muscle performance and motor function, To improve ability to perform ADL's, To increase tolerance to activity/condition/position, To improve ability of physical actions for home/community/work/leisure, To improve health of tissue, To decrease soft tissue restriction, To increase flexibility/ROM Therapeutic Exercise to Include: Strength training, Postural training, Flexibilty training, Active ROM, Scapular Strength/Stabilization Comment: BUE For the Purpose of:: To decrease pain, To increase ROM, To improve nutrient delivery to tissue, To increase oxygenation perfusion, To improve muscle performance and motor function, To increase tolerance to activity/condition/position, To improve ability of physical actions for home/community/work/leisure, To improve health of tissue, To decrease soft tissue restriction, To increase flexibility/ROM TENS: Yes IF ES: Yes Cryotherapy (ice pack, ice massage): Yes Thermo therapy (hot pack): Yes Ultrasound (thermal/non thermal): Yes For the Purpose of:: To decrease pain, To decrease swelling/inflammation, To improve health of tissue, To decrease soft tissue restriction, To increase flexibility/ROM Thank you for the opportunity to evaluate your patient. For Medicare and Medicare HMO plans, please review the plan of care and approve it. It will need to be FAXED BACK to us at [phone] for Medicare purposes. For Medicare only, by signing this I certify the plan of care. Please let me know if there are questions or concerns regarding this plan of care. Physician Signature: Date:
== END 2020-07-30 19:00 | disposition home or self-care (01) ==
LOC: PT 09:00
PROVIDERS: PCP Family Medicine; Referring Provider Anesthesiology Pain Medicine; Visit Provider Anesthesiology Pain Medicine
DX: M54.2 Cervicalgia (principal); M79.603 Pain in arm, unspecified
CPT/HCPCS: 97014; 97110; 97162; G0283

== ENCOUNTER → 2020-08-15 15:01 | Outpatient (CLI) | payer MEDICARE, MEDICAID, SELFPAY ==
[2019-09-07 15:44] VITALS: BMI 29.9
--- NOTE | 2020-08-15 15:08 | RAD_ITS ---
HISTORY: BACK PAIN EXAMINATION/TECHNIQUE: XR Spine Thoracic 3 Views: 3 views COMPARISON: 01/18/20 FINDINGS: VERTEBRAE: Preserved vertebral body height. No fracture. No spondylolisthesis. Preservation of the normal thoracic kyphosis. No significant facet arthropathy. DISCS: Disc spaces are maintained. INCLUDED CHEST/ABDOMEN: No acute abnormalities. RAD/Thoracic Spine 3 Views IMPRESSION: Stable, mild thoracic spondylosis. at 1633 Reported and signed by: Darrius Hylton MD Electronically Signed: Darrius Hylton MD at 16:31 EDT Tel , Service support ,
== END ==
PROVIDERS: PCP Family Medicine; Referring Provider Anesthesiology Pain Medicine; Visit Provider Anesthesiology Pain Medicine
DX: M54.5 Low back pain (principal)
CPT/HCPCS: 72072

== ENCOUNTER → 2020-11-06 11:23 | Outpatient (CLI) | payer MEDICARE, MEDICAID, SELFPAY ==
[2020-11-06 11:56] LABS: Amphetamine Urine VISTA NEGATIVE (<1000 ng/mL); Barbiturate Urine VISTA NEGATIVE (< 200 ng/mL); Benzodiazepine Urine VISTA NEGATIVE (< 200 ng/mL); Cocaine Urine VISTA NEGATIVE (< 300 ng/mL); Ecstacy Urine VISTA NEGATIVE (< 500 ng/mL); Methadone Urine VISTA NEGATIVE (< 300 ng/mL); PCP Urine VISTA NEGATIVE (< 25 ng/mL); THC Urine VISTA NEGATIVE (< 50 ng/mL); Vista UDS pH Range 5
== END ==
PROVIDERS: PCP Family Medicine; Visit Provider Anesthesiology Pain Medicine
DX: F11.20 Opioid dependence, uncomplicated (principal)
CPT/HCPCS: 80307

== ENCOUNTER → 2021-05-22 11:04 | Outpatient (CLI) | payer MEDICARE, MEDICAID, SELFPAY ==
[2021-05-22 12:38] LABS: Amphetamine Urine VISTA NEGATIVE (<1000 ng/mL); Barbiturate Urine VISTA NEGATIVE (< 200 ng/mL); Benzodiazepine Urine VISTA NEGATIVE (< 200 ng/mL); Cocaine Urine VISTA NEGATIVE (< 300 ng/mL); Ecstacy Urine VISTA NEGATIVE (< 500 ng/mL); Methadone Urine VISTA NEGATIVE (< 300 ng/mL); PCP Urine VISTA NEGATIVE (< 25 ng/mL); THC Urine VISTA NEGATIVE (< 50 ng/mL); Vista UDS pH Range 5
== END ==
PROVIDERS: PCP Family Medicine; Visit Provider Anesthesiology Pain Medicine
DX: F11.20 Opioid dependence, uncomplicated (principal)
CPT/HCPCS: 80307

== ENCOUNTER → 2022-01-01 | Outpatient (CLI) | payer MEDICARE, MEDICAID, SELFPAY ==
[2022-01-01 15:29] LABS: Amphetamine Urine VISTA NEGATIVE (<1000 ng/mL); Barbiturate Urine VISTA NEGATIVE (< 200 ng/mL); Benzodiazepine Urine VISTA NEGATIVE (< 200 ng/mL); Cocaine Urine VISTA NEGATIVE (< 300 ng/mL); Ecstacy Urine VISTA NEGATIVE (< 500 ng/mL); Methadone Urine VISTA NEGATIVE (< 300 ng/mL); PCP Urine VISTA NEGATIVE (< 25 ng/mL); THC Urine VISTA NEGATIVE (< 50 ng/mL); Vista UDS pH Range 5
== END | disposition home or self-care (01) ==
PROVIDERS: PCP Family Medicine; Referring Provider Anesthesiology Pain Medicine; Visit Provider Anesthesiology Pain Medicine
DX: F11.20 Opioid dependence, uncomplicated (principal)
CPT/HCPCS: 80307

== ENCOUNTER → 2022-06-22 | Outpatient (CLI) | payer MEDICARE, MEDICAID, SELFPAY ==
[2022-06-22 11:24] LABS: Amphetamine Urine VISTA NEGATIVE (<1000 ng/mL); Barbiturate Urine VISTA NEGATIVE (< 200 ng/mL); Benzodiazepine Urine VISTA NEGATIVE (< 200 ng/mL); Cocaine Urine VISTA NEGATIVE (< 300 ng/mL); Ecstacy Urine VISTA NEGATIVE (< 500 ng/mL); Methadone Urine VISTA NEGATIVE (< 300 ng/mL); PCP Urine VISTA NEGATIVE (< 25 ng/mL); THC Urine VISTA NEGATIVE (< 50 ng/mL); Vista UDS pH Range 6
== END | disposition home or self-care (01) ==
PROVIDERS: PCP Family Medicine; Referring Provider Anesthesiology Pain Medicine; Visit Provider Anesthesiology Pain Medicine
DX: F11.20 Opioid dependence, uncomplicated (principal)
CPT/HCPCS: 80307

== ENCOUNTER 2024-12-01 20:18 | Emergency (ER) | payer MEDICARE, MEDICAID, SELFPAY ==
[2024-12-01 20:19] VITALS: BP 197/102; PULSE 91; RESP 18; TEMP 37.2; O2SAT 98; BMI 31.2
[2024-12-02 00:27] VITALS: BP 146/86; PULSE 77; RESP 20; O2SAT 100
--- OUTSIDE RECORDS SUMMARY | 2024-12-02 00:46 | XMS RPT_ITS | CCD ---
Author Organization [facility] CliniSynv Care Team Providers Care Supervisor Inventory Merchandising Name Role Phone David Longoria MD Primary Care Provider Negra Watson Attending Unavailable David Longoria Primary Care Unavailable Negra Watson Referring Unavailable David Longoria Primary Care Unavailable Negra Watson Referring Unavailable Negra Watson Attending Unavailable David Longoria MD Primary Care Provider David Longoria MD Primary Care Provider David Lnogoria MD Primary Care Provider Azalia VACUUM FRAME OPERATOR.ZION, Piper Unavailable Trang Berkowitz PA-C Unavailable Kndaren VACUUM FRAME OPERATOR.ZION, Piper Unavailable Trang Berkowitz PA-C Unavailable PIPER MONGE Attending Unavailable VON, DAVID A Primary Care Unavailable VON, DAVID A Referring Unavailable VON, DAVID A Primary Care Unavailable VON, DAVID A Referring Unavailable VON, DAVID A Primary Care Unavailable VON, DAVID A Referring Unavailable VON, DAVID A Primary Care Unavailable VON, DAVID A Attending Unavailable VON, DAVID A Primary Care Unavailable VON, DAVID A Primary Care Unavailable PIPER MONGE Referring Unavailable VON, DAVID A Primary Care Unavailable PIPER MONGE Attending Unavailable KIA CAM Referring Unavailable VON, DAVID A Primary Care Unavailable VON, DAVID A Primary Care Unavailable VON, DAVID A Primary Care Unavailable KNDAREN, PIPER Referring Unavailable VON, DAVID A Primary Care Unavailable Allergies Allergy Classification Reported Allergen(s) Allergy Type Date of Onset Reaction(s) Facility HMG-CoA Reductase Inhibitors (statins) (1 source) atorvastatin Drug Allergy 04-11-201 8 Other: See Comments [facility] Work Phone: (20 sources) atorvastatin; Translations: [ATORVASTATIN CALCIUM] Drug Allergy 8 Other: See Comments [facility] Work Phone: (2 sources) atorvastatin Drug Allergy 0 Rash [facility] (1 source) atorvastatin Drug Allergy 0 [facility] Repository Medications Current Medications Medication Drug Class(es) Dates Sig (Normalized) Sig (Original) [id number] 200 actuat albuterol 0.09 mg/actuat metered dose inhaler (20 sources) beta2-Adrenergic Agonist Start: 08-06-2022 End: 06-30-2024 take 2 puff(s) by inhalation every four hours as needed albuterol HFA (PROVENTIL HFA, VENTOLIN HFA) 90 mcg/actuation inhaler Inhale 2 puffs as instructed every 4 hours as needed. 18 g 3 06/30/2024 Active Start: 12-11-2020 End: 07-09-2021 take 2 puff(s) by inhalation every four hours as needed albuterol HFA (PROVENTIL HFA, VENTOLIN HFA) 90 mcg/actuation inhaler Inhale 2 Puffs as instructed every 4 hours as needed. 18 g 3 07/10/2021 Active Start: 09-07-2019 take 1 puff(s) by in halation every four hours as needed Albuterol Sulfate Active 2 PUFF inhalation EVERY 4 HOURS NEEDED September 07, 2019 12:00am Comment on above: Inhale 2 Puffs as in structed every 4 hours as needed. azithromycin 250 mg oral tablet (1 source) Macrolide Antimicrobial Start: End: azithromycin (ZITHROMAX Z-JOSH) 250 mg tablet Indications: Moderate persistent asthma with (acute) exacerbation Take 2 tablets day one, then, 1 tablet daily until gone. 6 tablet 02/07/2024 02/12/2024 Active benzonatate 100 mg oral capsule (6 sources) Non-narcotic Antitussive Start: End: take 1 capsule by mouth every eight hours as needed for cough benzonatate (TESSALON PERLE) 100 mg capsule Indications: Acute cough Take 1 capsule by mouth every 8 hours as needed for cough for up to 15 days. 30 capsule 01/22/2024 02/06/2024 Active cholecalciferol 1.25 mg oral capsule (9 sources) Vitamin D Start: 025 End: take 1 capsule by mouth every week cholecalciferol, Vitamin D3, (VITAMIN D3) 1,250 mcg (50,000 unit) cap capsule Take 1 capsule by mouth one time a week. 12 capsule 3 08/29/2024 Active cyclobenzaprine hydrochloride 10 mg oral tablet (20 sources) Muscle Relaxant Start: 023 End: take 1 tablet by mouth three times daily as needed cyclobenzaprine (FLEXERIL) 10 mg tablet Indications: Osteoarthritis of spine with radiculopathy, lumbar region Take 1 tablet by mouth three times a day as needed. 90 tablet 3 08/30/2024 Active Start: 03-11-2021 End: 11-07-2021 take 1 tablet by mouth three times daily as needed cyclobenzaprine (FLEXERIL) 10 mg tablet Indications: Osteoarthritis of spine with radiculopathy, lumbar region Take 1 tablet by mouth three times daily as needed. 90 tablet 3 11/07/2021 Active Start: 05-29-2013 take 10 mg by mouth four times daily Cyclobenzaprine Active 10 MG PO 4 TIMES DAILY May 29, 2013 12:00am Comment on above: Take 1 tablet by kartik three times daily as needed. dexamethasone 1 mg/ml / neomycin 3.5 mg/ml / polymyxin b [id number] unt/ml ophthalmic suspension (2 sources) Aminoglycoside Antibacterial, Polymyxin-class Antibacterial, Corticosteroid Start: 09-07-19 Neomycin-Polymyxin B-Dexameth Active 1 DRP LEFT EYE 4 TIMES DAILY September 07, 2019 12:00am doxycycline hyclate 100 mg oral tablet (4 sources) Tetracycline-class Drug Start: 01-28-20 End: 02-04-20 take 1 tablet by mouth twice daily doxycycline (VIBRA-TABS) 100 mg tablet Take 1 tablet by mouth two times a day for 7 days. 14 tablet 01/28/2024 02/04/2024 Active ezetimibe 10 mg oral tablet (20 sources) Dietary Cholesterol Absorption Inhibitor Start: 10-03-19 take 1 tablet by mouth once daily ezetimibe (ZETIA) 10 mg tablet Take 1 tablet by mouth once daily. 90 tablet 1 10/02/2024 Active Start: 10-04-2023 End: 09-30-2024 take 1 tablet by mouth once daily ezetimibe (ZETIA) 10 mg tablet Take 1 tablet by mouth once daily. 90 tablet 1 04/03/2024 09/30/2024 Discontinued Start: 04-05-2023 End: 10-02-2023 take 1 tablet by mouth once daily ezetimibe (ZETIA) 10 mg tablet Take 1 tablet by mouth once daily. 90 tablet 1 04/05/2023 10/02/2023 Discontinued Start: 09-29-2022 take 1 tablet by kartik th once daily ezetimibe (ZETIA) 10 mg tablet Take 1 tablet by mouth once daily. 90 tablet 1 09/29/2022 Active Comment on above: Take 1 tablet by kartik th once daily. fenofibrate 160 mg oral tablet (20 sources) Peroxisome Proliferator Receptor alpha Agonist Start: take 1 tablet by mouth once daily Fenofibrate (LOFIBRA) 160 mg tablet Take 1 tablet by mouth once daily. 30 tablet 5 09/07/2022 Active Start: 09-07-2019 End: 09-05-2022 take 1 tablet by mouth once daily Fenofibrate (LOFIBRA) 160 mg tablet Take 1 tablet by mouth once daily. 30 tablet 5 03/06/2022 09/05/2022 Discontinued Comment on above: Take 1 tablet by kartik th once daily. FLUoxetine 20 mg oral capsule (20 sources) Serotonin Reuptake Inhibitor Start: 08-06-2022 End: 07-31-2024 take 1 capsule by mouth once daily FLUoxetine (PROZAC) 20 mg capsule Take 1 capsule by mouth once daily. Take in addition to the 40mg cap for total dose of 60mg 90 capsule 1 08/01/2024 Active Start: 08-06-2022 End: 06-01-2024 take 1 capsule by mouth once daily FLUoxetine (PROZAC) 40 mg capsule Take 1 capsule by mouth once daily. Take with the 20mg capsule for total daily dose of 60mg 90 capsule 1 06/02/2024 Active Start: 02-04-2022 take 1 capsule by mo uth once daily FLUoxetine (PROZAC) 40 mg capsule Take 1 capsule by mouth once daily. Take with the 20mg capsule for total daily dose of 60mg 90 capsule 1 02/04/2022 Active Start: 09-07-2019 take 1 capsule by mo uth once daily FLUoxetine (PROZAC) 20 mg capsule Take 1 capsule by mouth once daily. Take in addition to the 40mg cap for total dose of 60mg 90 capsule 1 02/04/2022 Active Start: 04-24-2018 End: 08-08-2021 take 1 capsule by mouth once daily FLUoxetine (PROZAC) 40 mg capsule Take 1 capsule by mouth once daily. Take with the 20mg capsule for total daily dose of 60mg 90 capsule 1 02/04/2022 Active Comment on above: Take 1 capsule by mo uth once daily. Take with the 20mg capsule for total daily dose of 60mg Take 1 capsule by mo uth once daily. Take in addition to the 40mg cap for total dose of 60mg gabapentin 600 mg oral tablet (20 sources) Anti-epileptic Agent Start: End: take 2 tablets by mouth three times daily gabapentin (NEURONTIN) 600 mg tablet Indications: Osteoarthritis of spine with radiculopathy, lumbar region Take 2 tablets by mouth three times a day for 180 days. 180 tablet 5 08/29/2024 02/25/2025 Active Start: 08-06-2022 End: 02-29-2024 take 2 tablets by mouth three times daily gabapentin (NEURONTIN) 600 mg tablet Indications: Osteoarthritis of spine with radiculopathy, lumbar region Take 2 tablets by mouth three times a day for 180 days. 180 tablet 5 09/02/2023 02/29/2024 Active Start: 02-04-2022 End: 08-03-2022 take 2 tablets by mouth three times daily gabapentin (NEURONTIN) 600 mg tablet Indications: Osteoarthritis of spine with radiculopathy, lumbar region Take 2 tablets by mouth three times daily for 180 days. 180 tablet 5 02/04/2022 08/03/2022 Active Start: 01-13-2021 End: 01-06-2022 take 2 tablets by mouth three times daily gabapentin (NEURONTIN) 600 mg tablet Indications: Osteoarthritis of spine with radiculopathy, lumbar region Take 2 tablets by mouth three times daily for 180 days. 180 tablet 5 07/10/2021 01/06/2022 Active Start: 04-24-2018 take 1200 mg by mout h three times daily Gabapentin Active 1200 MG PO THREE TIMES A DAY April 24, 2018 1:00am Comment on above: Take 2 tablets by mo uth three times daily for 180 days. Take 2 tablets by mo uth three times a day for 180 days. Glucosamine (20 sources) GLUCOSAMINE SULF ATE (GLUCOSAMINE ORAL) Take by mouth four times daily. Active GLUCOSAMINE SULF ATE (GLUCOSAMINE ORAL) Take by mouth four times daily. 0 Active Comment on above: Take by mouth four t imes daily. hydroCHLOROthiazide 25 mg oral tablet (20 sources) Thiazide Diuretic Start: 023 End: 025 take 1 tablet by mouth once daily hydroCHLOROthiazide 25 mg tablet Take 1 tablet by mouth once daily. For blood pressure 90 tablet 1 08/01/2024 Active Start: 02-04-2022 take 1 tablet by kartik th once daily hydroCHLOROthiazide (HYDRODIURIL, ESIDRIX) 25 mg tablet Take 1 tablet by mouth once daily. For blood pressure 90 tablet 1 02/04/2022 Active Start: 04-24-2018 End: 08-08-2021 take 1 tablet by mouth once daily hydroCHLOROthiazide (HYDRODIURIL, ESIDRIX) 25 mg tablet Take 1 tablet by mouth once daily. For blood pressure 90 tablet 1 02/04/2022 Active Comment on above: Take 1 tablet by kartik th once daily. For blood pressure ketorolac tromethamine 10 mg oral tablet (2 sources) Nonsteroidal Anti-inflammatory Drug, Cyclooxygenase Inhibitor Start: 9 take 10 mg by mouth every six hours Ketorolac Active 10 MG PO EVERY 6 HOURS April 24, 2018 2:33pm meloxicam 15 mg oral tablet (20 sources) Nonsteroidal Anti-inflammatory Drug Start: 5 take 1 tablet by mouth once daily meloxicam (MOBIC) 15 mg tablet TAKE 1 TABLET BY MOUTH EVERY DAY FOR 30 DAYS 30 tablet 3 10/02/2024 Active Start: 10-04-2023 End: 09-30-2024 take 1 tablet by mouth once daily meloxicam (MOBIC) 15 mg tablet TAKE 1 TABLET BY MOUTH EVERY DAY FOR 30 DAYS 30 tablet 3 06/02/2024 09/30/2024 Discontinued Start: 09-07-2022 End: 10-02-2023 take 1 tablet by mouth once daily meloxicam (MOBIC) 15 mg tablet TAKE 1 TABLET BY MOUTH EVERY DAY FOR 30 DAYS 30 tablet 3 05/05/2023 10/02/2023 Discontinued Start: 03-10-2022 End: 09-05-2022 take 1 tablet by mouth once daily meloxicam (MOBIC) 15 mg tablet TAKE 1 TABLET BY MOUTH EVERY DAY FOR 30 DAYS 30 tablet 3 03/10/2022 09/05/2022 Discontinued Start: 04-24-2018 End: 03-06-2022 take 1 tablet by mouth once daily meloxicam (MOBIC) 15 mg tablet TAKE 1 TABLET BY MOUTH EVERY DAY FOR 30 DAYS 30 tablet 3 03/10/2022 Active Comment on above: [facility] 30 DAYS omega-3 fatty acids 1,000 mg cap (20 sources) Start: 5 take 2 capsules by mouth twice daily omega-3 fatty acids 1,000 mg cap Take 2 capsules by mouth twice daily. 0 05/23/2014 Active Comment on above: Take 2 capsules by [facility] twice daily. microencapsulated potassium chloride 20 meq extended release oral tablet (20 sources) Start: End: take 2 tablets by mouth once daily potassium chloride ER (KLOR-CON) 20 mEq tablet Take 2 tablets by mouth once daily. 180 tablet 1 08/01/2024 Active Start: 02-04-2022 take 2 tablets by mo [facility] once daily potassium chloride ER (K-DUR, KLOR-CON) 20 mEq tablet Take 2 tablets by mouth once daily. 180 tablet 1 02/04/2022 Active Start: 02-07-2021 End: 08-08-2021 take 2 tablets by mouth once daily potassium chloride ER (K-DUR, KLOR-CON) 20 mEq tablet Take 2 tablets by mouth once daily. 180 tablet 1 08/08/2021 Active Comment on above: Take 2 tablets by mo [facility] once daily. predniSONE 20 mg oral tablet (4 sources) Start: 02-07-2024 End: 02-11-2024 take 1 tablet by mouth once daily at mealtime predniSONE (DELTASONE) 20 mg tablet Indications: Moderate persistent asthma with (acute) exacerbation Take 1 tablet by mouth once daily for 4 days. Take daily with food. 4 tablet 02/07/2024 02/11/2024 Active Start: 01-22-2024 End: 01-27-2024 take 5 tablets by mouth once daily, then take 4 tablets by mouth once daily, then take 3 tablets by mouth once daily, then take 2 tablets by mouth once daily, then take 1 tablet by mouth once daily predniSONE (DELTASONE) 10 mg tablet Indications: Wheeze Take 5 tablets by mouth once daily for 1 day, THEN 4 tablets once daily for 1 day, THEN 3 tablets once daily for 1 day, THEN 2 tablets once daily for 1 day, THEN 1 tablet once daily for 1 day. 15 tablet 01/22/2024 01/27/2024 Active Start: 09-05-2019 take 60 mg by mouth once daily Prednisone Active 60 MG PO DAILY September 05, 2019 12:00am rosuvastatin calcium 40 mg oral tablet (20 sources) HMG-CoA Reductase Inhibitor Start: 10-02-2024 take 1 tablet by mouth once daily rosuvastatin (CRESTOR) 40 mg tablet Take 1 tablet by mouth once daily. 90 tablet 1 10/02/2024 Active Start: 10-04-2023 End: 09-30-2024 take 1 tablet by mouth once daily rosuvastatin (CRESTOR) 40 mg tablet Take 1 tablet by mouth once daily. 90 tablet 1 04/03/2024 09/30/2024 Discontinued Start: 04-05-2023 End: 10-02-2023 take 1 tablet by mouth once daily rosuvastatin (CRESTOR) 40 mg tablet Take 1 tablet by mouth once daily. 90 tablet 1 04/05/2023 10/02/2023 Discontinued Start: 10-06-2022 take 1 tablet by kartik th once daily rosuvastatin (CRESTOR) 40 mg tablet Take 1 tablet by mouth once daily. 90 tablet 1 10/06/2022 Active Start: 03-21-2021 End: 04-08-2022 take 1 tablet by mouth once daily rosuvastatin (CRESTOR) 40 mg tablet Take 1 tablet by mouth once daily. 90 tablet 1 04/08/2022 Active Comment on above: Take 1 tablet by kartik th once daily. simvastatin 40 mg oral tablet (2 sources) HMG-CoA Reductase Inhibitor Start: 09-07-19 take 40 mg by mouth at bedtime Simvastatin Active 40 MG PO AT BEDTIME September 07, 2019 12:00am sulfamethoxazole 800 mg / trimethoprim 160 mg oral tablet (2 sources) Dihydrofolate Reductase Inhibitor Antibacterial, Sulfonamide Antimicrobial Start: 09-09-19 20 take 1 tablet by mouth twice daily Sulfamethoxazole-T rimethoprim Active 1 TABLET PO TWICE A DAY September 09, 2019 12:00am TENS unit and electrodes cmpk (20 sources) Start: 05-27-19 TENS unit and electrodes cmpk For daily use as directed 1 Device 05/26/2018 Active Start: 05-26-2018 TENS unit and electrodes cmpk For daily use as directed 1 Device 0 05/26/2018 Active Comment on above: For daily use as dir ected traMADol hydrochloride 50 mg oral tablet (20 sources) Opioid Agonist Start: 9 take 1 tablet by mouth twice daily traMADol (ULTRAM) 50 mg tablet Take 50 mg by mouth twice daily. 1 10/25/2018 Active Comment on above: Take 50 mg by mouth twice daily. traZODone hydrochloride 100 mg oral tablet (20 sources) Serotonin Reuptake Inhibitor Start: 3 End: 5 take 1 tablet by mouth once daily at bedtime traZODone (DESYREL) 100 mg tablet Take 1 tablet by mouth daily at bedtime. 90 tablet 1 06/02/2024 Active Start: 02-04-2022 take 1 tablet by kartik th once daily at bedtime traZODone (DESYREL) 100 mg tablet Take 1 tablet by mouth daily at bedtime. 30 tablet 5 02/04/2022 Active Start: 04-24-2018 End: 08-08-2021 take 1 tablet by mouth once daily at bedtime traZODone (DESYREL) 100 mg tablet Take 1 tablet by mouth daily at bedtime. 30 tablet 5 02/04/2022 Active Comment on above: Take 1 tablet by kartik th daily at bedtime. valACYclovir 1000 mg oral tablet (2 sources) Herpesvirus Nucleoside Analog DNA Polymerase Inhibitor, Herpes Simplex Virus Nucleoside Analog DNA Polymerase Inhibitor, Herpes Zoster Virus Nucleoside Analog DNA Polymerase Inhibitor Start: 0 take 1000 mg by mouth three times daily Valacyclovir Active 1000 MG PO THREE TIMES A DAY September 05, 2019 12:00am Completed/Discontinued Medications Medication Drug Class(es) Dates Sig (Normalized) Sig (Original) acetaminophen 325 mg / HYDROcodone bitartrate 5 mg oral tablet (2 sources) Opioid Agonist Start: 09-09-2019 End: 09-10-2019 take 1 tablet by mouth every six hours as needed Hydrocodone-Acetam inophen Discontinued 1 TABLET PO EVERY 6 HOURS NEEDED 12 3 September 09, 2019 September 10, 2019 12:02am 12 hr guaiFENesin 600 mg extended release oral tablet (20 sources) Start: 03-20-2019 End: 02-07-2024 take 2 tablets by mouth twice daily guaiFENesin (MUCINEX) 600 mg 12 hr tablet Indications: Bronchitis Take 2 tablets by mouth twice daily. 30 tablet 03/20/2019 02/07/2024 Discontinued Comment on above: Take 2 tablets by mo ut twice daily. Problems Active Problems Problem Classification Problem Date Documented Date Episodic/Chronic Asthma (2 sources) Exacerbation of moderate persistent asthma; Translations: [Moderate persistent asthma with (acute) exacerbation] Onset: 10-19-2024 02-07-2024 Chronic Disorders of lipid metabolism (20 sources) Mixed hyperlipidemia; Translations: [Mixed hyperlipidemia] Onset: 01-02-2015 01-02-2015 Chronic Essential hypertension (20 sources) Benign essential hypertension; Translations: [Essential (primary) hypertension] Onset: 06-12-2013 05-16-2014 Chronic Hepatitis (20 sources) Cirrhosis - non-alcoholic; Translations: [Nonalcoholic steatohepatitis (ORELLANA)] Onset: 09-12-2020 09-12-2020 Chronic Immunizations and screening for infectious disease (3 sources) Vaccination needed; Translations: [Encounter for immunization] Episodic Menopausal disorders (1 source) Menopausal flushing; Translations: [Menopausal and female climacteric states] 09-28-2022 Chronic Mood disorders (20 sources) Dysthymia; Translations: [Dysthymic disorder] Onset: 08-22-2015 08-22-2015 Chronic Nonmalignant breast conditions (1 source) Breast finding ; Translations: [Dense breast tissue] 05-25-2023 Episodic Nutritional deficiencies (1 source) Vitamin D deficiency, unspecified; Translations: [Vitamin D deficiency] Onset: 10-19-2024 Chronic Osteoarthritis (20 sources) Bilateral arthritis of knees; Translations: [Bilateral primary osteoarthritis of knee] Onset: 06-12-2013 02-28-2019 Chronic Other bone disease and musculoskeletal deformities (2 sources) Osteopenia; Translations: [Other specified disorders of bone density and structure, left thigh] 05-25-2023 Episodic Other connective tissue disease (15 sources) Weakness of right leg; Translations: [Other symptoms and signs involving the musculoskeletal system] Onset: 09-17-2021 09-17-2021 Episodic Other ear and sense organ disorders (1 source) Impacted cerumen in right ear; Translations: [Impacted cerumen, right ear] Episodic Other hematologic conditions (1 source) Increased serum protein level; Translations: [Abnormality of plasma protein, unspecified] 04-24-2024 Episodic Other liver diseases (4 sources) Steatosis of liver; Translations: [Fatty (change of) liver, not elsewhere classified] Onset: 09-27-2015 09-27-2015 Chronic Other liver diseases (20 sources) Non-alcoholic fatty liver; Translations: [Fatty (change of) liver, not elsewhere classified] Onset: 09-27-2015 Chronic Other liver diseases (20 sources) Fatty (change of) liver, not elsewhere classified; Translations: [Other chronic nonalcoholic liver disease] Onset: 09-27-2015 09-05-2021 Chronic Other liver diseases (1 source) Unspecified cirrhosis of liver; Translations: [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)] Onset: 04-21-2024 Chronic Other lower respiratory disease (5 sources) Cough; Translations: [Acute cough] 01-22-2024 Episodic Other lower respiratory disease (3 sources) Wheezing; Translations: [Wheezing] 01-22-2024 Episodic Other lower respiratory disease (2 sources) Dyspnea; Translations: [Shortness of breath] 02-07-2024 Episodic Other nervous system disorders (20 sources) Chronic pain syndrome; Translations: [Chronic pain syndrome] Onset: 01-02-2015 03-10-2019 Chronic Other nervous system disorders (1 source) Chronic pain syndrome; Translations: [Chronic pain syndrome] Onset: 03-10-2019 Chronic Other nutritional; endocrine; and metabolic disorders (20 sources) Hyperammonemia; Translations: [Disorder of urea cycle metabolism, unspecified] Onset: 06-23-2017 07-28-2017 Chronic Other nutritional; endocrine; and metabolic disorders (9 sources) Hypercalcemia; Translations: [Hypercalcemia] Onset: 09-17-2020 09-17-2020 Chronic Other nutritional; endocrine; and metabolic disorders (1 source) Hypercalcemia; Translations: [Hypercalcemia] Onset: 10-19-2024 Chronic Other nutritional; endocrine; and metabolic disorders (1 source) Disorder of urea cycle metabolism, unspecified; Translations: [Hyperammonemia (HCC)] Onset: 07-28-2017 Chronic Other upper respiratory infections (1 source) Acute upper respiratory infection; Translations: [Acute upper respiratory infection, unspecified] 01-28-2024 Episodic Screening and history of mental health and substance abuse codes (1 source) Encounter for screening examination for other mental health and behavioral disorders; Translations: [Encounter for screening examination for other mental health and behavioral disorders] Onset: 10-19-2024 Episodic Skin and subcutaneous tissue infections (2 sources) Cellulitis of periorbital region; Translations: [Periorbital cellulitis] 09-07-2019 Episodic Spondylosis; intervertebral disc disorders; other back problems (20 sources) Lumbar spondylosis; Translations: [Spondylosis without myelopathy or radiculopathy, lumbar region] Onset: 12-22-2013 12-24-2015 Chronic Substance-related disorders (1 source) Opioid dependence, uncomplicated; Translations: [Opioid dependence, uncomplicated] Onset: 07-15-2022 Chronic Thyroid disorders (3 sources) Subclinical hypothyroidism; Translations: [Other specified hypothyroidism] Onset: 10-19-2024 09-29-2022 Chronic Unclassified (1 source) NAFLD (nonalcoholic fatty liver disease) 04-25-2024 Unclassified (1 source) Acute cough; Translations: [Acute cough] Onset: 02-07-2024 Viral infection (9 sources) Disease caused by 2019-nCoV; Translations: [COVID-19] Onset: 03-31-2021 03-31-2021 Episodic Past or Other Problems Problem Classification Problem Date Documented Date Episodic/Chronic Administrative/social admission (20 sources) Advance directive discussed with patient; Translations: [Other specified counseling] Onset: 03-31-2022 03-31-2022 Episodic Biliary tract disease (20 sources) Biliary calculus; Translations: [Calculus of gallbladder without cholecystitis without obstruction] Onset: 07-24-2013 05-16-2014 Episodic Diabetes mellitus without complication (20 sources) High hemoglobin A1c level; Translations: [Other abnormal glucose] Onset: 09-29-2022 09-29-2022 Episodic Fluid and electrolyte disorders (20 sources) Hypokalemia; Translations: [Hypokalemia] Onset: 07-24-2013 05-16-2014 Episodic Headache; including migraine (20 sources) Cervicogenic headache; Translations: [Cervicogenic headache] Onset: 11-07-2014 08-22-2015 Episodic Other aftercare (20 sources) Patient encounter status; Translations: [Other snf (current) drug therapy] Onset: 10-27-2017 02-29-2020 Episodic Other aftercare (1 source) Other terminal superintendent (current) drug therapy; Translations: [Medication management] Onset: 02-29-2020 Episodic Other and unspecified benign neoplasm (20 sources) Adrenal adenoma; Translations: [Benign neoplasm of unspecified adrenal gland] Onset: 10-17-2013 08-28-2016 Episodic Other connective tissue disease (20 sources) Myofascial pain; Translations: [Myalgia, other site] Onset: 12-22-2013 12-24-2015 Episodic Other connective tissue disease (20 sources) Other symptoms and signs involving the musculoskeletal system; Translations: [Other musculoskeletal symptoms referable to limbs] Onset: 09-17-2021 09-17-2021 Episodic Other hematologic conditions (1 source) Abnormality of plasma protein, unspecified; Translations: [Elevated serum protein level] Onset: 04-26-2024 Episodic Other infections; including parasitic (20 sources) History of herpes zoster; Translations: [Personal history of other infectious and parasitic diseases] Onset: 09-07-2019 09-07-2019 Episodic Other infections; including parasitic (20 sources) Personal history of other infectious and parasitic diseases; Translations: [History of COVID-19] Onset: 03-31-2021 09-17-2021 Episodic Other liver diseases (20 sources) Alkaline phosphatase raised; Translations: [Abnormal levels of other serum enzymes] Onset: 02-24-2016 09-12-2020 Episodic Other liver diseases (20 sources) Gamma-glutamyl transferase raised; Translations: [Abnormal levels of other serum enzymes] Onset: 12-20-2016 07-01-2021 Episodic Other liver diseases (20 sources) Hepatic encephalopathy; Translations: [Hepatic failure, unspecified without coma] Onset: 06-29-2017 06-29-2017 Episodic Other lower respiratory disease (1 source) Wheezing; Translations: [Wheezing] Onset: 02-07-2024 Episodic Other lower respiratory disease (1 source) Shortness of breath; Translations: [SOB (shortness of breath)] Onset: 02-07-2024 Episodic Other screening for suspected conditions (not mental disorders or infectious disease) (20 sources) Other specified abnormal findings of blood chemistry; Translations: [Other abnormal blood chemistry] Onset: 09-23-2015 09-12-2020 Episodic Residual codes; unclassified (20 sources) Insomnia; Translations: [Insomnia, unspecified] Onset: 01-02-2015 07-28-2017 Episodic Residual codes; unclassified (20 sources) Hepatitis B immune; Translations: [Other specified health status] Onset: 09-27-2015 09-17-2021 Episodic Residual codes; unclassified (1 source) Insomnia, unspecified; Translations: [Insomnia, unspecified type] Onset: 07-28-2017 Episodic Spondylosis; intervertebral disc disorders; other back problems (20 sources) Backache; Translations: [Dorsalgia, unspecified] Onset: 01-19-2008 12-24-2015 Episodic Sprains and strains (20 sources) Neck sprain; Translations: [Sprain of joints and ligaments of unspecified parts of neck, initial encounter] Onset: 01-19-2008 12-24-2015 Episodic Unclassified (1 source) Patient encounter status 05-02-2024 Results Test Name Value Interpretation Reference Range Facility 25(OH)D3 [facility] 2024 25-hydroxyvitamin D3 [Mass/Vol] 9.7 ng/mL Low 31.0-80.0 [facility] Comment on above: Order Comment: Speci men Type: BLOOD SPECIMENOrdering Facility: [facility] Address: [address] [place] [address] [place] [address] Performed By: #### 1 989-3 ####[facility] LABCLIA [id number] [place] [address] [place] CNOVon 10-19-2024 CNOV Office Visit (FAMPWS ) -------- BETY PERALES ([id number]) 1960 F Date Time Provider Department 10/19/24 10:20 AM PIPER MONGE During your visit today, we recorded the following information about you: Pulse Blood pressure Weight 78/minute 125/78 78 kg 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 Patient presents for routine follow up. Patient is overdue for mammogram and has not scheduled with Gen Surg for colonoscopy. Past medical history, appointments, medications, allergies reviewed. Previous Medical History PAST MEDICAL HISTORY Diagnosis Date Adrenal adenoma 10/17/2013 Arthritis of both knees 06/12/2013 Backache, unspecified 01/19/2008 Brachial neuritis or radiculitis NOS 01/17/2014 Cervical radiculopathy Cervicogenic headache 11/07/2014 Cholelithiasis 07/24/2013 Chronic pain syndrome 01/02/[address] [facility] [address] Bradshaw. Was instructed needed to get pain meds through one of them DDD (degenerative disc disease), cervical 12/22/2013 DDD (degenerative disc disease), lumbar 03/28/2014 Depression 11/03/2013 Dysthymia 08/22/2015 Elevated alkaline phosphatase level 02/24/2016 Neg w/u Elevated hemoglobin A1c 09/29/2022 Elevated LFTs 09/23/2015 Elevated serum GGT level 03/03/[address] Wayne Essential hypertension, benign 06/12/2013 Hepatic encephalopathy (HCC) 06/29/2017 Hepatitis B immune 09/27/2015 History of COVID-19 03/31/202103/2021 History of shingles 09/07/201908/2019 Hyperammonemia (HCC) 06/23/2017 Hypokalemia 07/24/2013 Insomnia 11/03/2013 Lumbago 01/17/2014 Lumbar radiculopathy 12/22/2013 Lumbar spondylosis 12/22/2013 Medicare annual wellness visit, initial 07/01/2018 Last done 07/01/18 Medicare eligible 09/12/2016 Mixed hyperlipidemia 01/02/2015 Myofascial pain 12/22/2013 Osteoarthritis of spine with radiculopathy, lumbar region 11/07/2014 Osteopenia after menopause 06/21/2023 Spinal stenosis of cervical region 06/12/2013 Sprain of neck 01/19/2008 Weakness of right lower extremity 09/17/2021 Chronic from low back diease. Previous Surgical History PAST SURGICAL HISTORY Procedure Laterality Date CORTISONE, SERUM Neck and Spine injections ESOPHAGOGASTRODUODENOSCO PY TRANSORAL DIAGNOSTIC 11/01/2017 EGD EXTRACTION, ERUPTED TOOTH OR EXPOSED ROOT (ELEVATION AND/OR FORCEPS REMOVAL) complete teeth extraction upper and lower IMMUNOCHEMICAL FECAL OCCULT BLOOD TEST 09/07/2016 negative LIG/TRNSXJ FLP TUBE ABDL/VAG APPR UNI/BI STRESS TEST 09/07/2016 WNL TONSILLECTOMY PRIMARY/SECONDARY Tonsillectomy Family History FAMILY HISTORY Problem Relation Age of Onset Blood Disease Mother anemic No Known Problems Brother No Known Problems Brother Hypertension Maternal Grandmother Asthma Maternal Grandfather Diabetes Maternal Uncle Patient Allergies ALLERGIES Allergen Reactions Lipitor [Atorvastat* Other: See Comments elevated LFT's Current Medications Current Outpatient Medications on File Prior to Visit Medication Sig ezetimibe (ZETIA) 10 mg tablet Take 1 tablet by mouth once daily. rosuvastatin (CRESTOR) 40 mg tablet Take 1 tablet by mouth once daily. meloxicam (MOBIC) 15 mg tablet TAKE 1 TABLET BY MOUTH EVERY DAY FOR 30 DAYS cyclobenzaprine (FLEXERIL) 10 mg tablet Take 1 tablet by mouth three times a day as needed. gabapentin (NEURONTIN) 600 mg tablet Take 2 tablets by mouth three times a day for 180 days. cholecalciferol, Vitamin D3, (VITAMIN D3) 1,250 mcg (50,000 unit) cap capsule Take 1 capsule by mouth one time a week. FLUoxetine (PROZAC) 20 mg capsule Take 1 capsule by mouth once daily. Take in addition to the 40mg cap for total dose of 60mg hydroCHLOROthiazide 25 mg tablet Take 1 tablet by mouth once daily. For blood pressure potassium chloride ER (KLOR-CON) 20 mEq tablet Take 2 tablets by mouth once daily. albuterol HFA (PROVENTIL HFA, VENTOLIN HFA) 90 mcg/actuation inhaler Inhale 2 puffs as instructed every 4 hours as needed. FLUoxetine (PROZAC) 40 mg capsule Take 1 capsule by mouth once daily. Take with the 20mg capsule for total daily dose of 60mg traZODone (DESYREL) 100 mg tablet Take 1 tablet by mouth daily at bedtime. Fenofibrate (LOFIBRA) 160 mg tablet Take 1 tablet by mouth once daily. traMADol (ULTRAM) 50 mg tablet Take 50 mg by mouth twice daily. TENS unit and electrodes cmpk For daily use as directed GLUCOSAMINE SULFATE (GLUCOSAMINE ORAL) Take by mouth four times daily. omega-3 fatty acids 1,000 mg cap Take 2 capsules by mouth twice daily. No current facility-administered medications on file prior to visit. Social History Social History Tobacco Use Smoking status: Never Passive exposure: Never Smokeles (more content not included)... Normal [facility] Comprehensive metabolic 2000 panelon 10-19-2024 Albumin [Mass/Vol] 4.9 g/dL Normal 3.9-4.9 [facility] Comment on above: Order Comment: Speci men Type: BLOOD SPECIMENOrdering Facility: [facility] Address: [address] [place] [address] Performed By: #### 2 4323-8, LIPNF, 3015-3 ####[facility] LABIA [id number] [place] [address] [place] ALP [Catalytic activity/Vol] 179 U/L High 34-123 [facility] Comment on above: Order Comment: Speci men Type: BLOOD SPECIMENOrdering Facility: [facility] Address: [address] [place] [address] Performed By: #### 2 4323-8, LIPNF, 3015-3 ####[facility] LABCLIA [id number] [place] [address] [place] ALT [Catalytic activity/Vol] 73 U/L High 7-38 [facility] Comment on above: Order Comment: Speci men Type: BLOOD SPECIMENOrdering Facility: [facility] Address: [address] [place], [place] [address] Performed By: #### 2 4323-8, LIPNF, 6-3 ####[facility] LABCLIA [id number] [address] [address] [place] Anion gap [Moles/Vol] 15 mmol/L Normal 8-15 [facility] Comment on above: Order Comment: Speci men Type: BLOOD SPECIMENOrdering Facility: [facility] Address: [address] [place], [place] [address] Performed By: #### 2 4323-8, LIPNF, 6-3 ####[facility] LABCLIA [id number] [place] [id number] [place] AST [Catalytic activity/Vol] 78 U/L High 13-35 [facility] Comment on above: Order Comment: Speci men Type: BLOOD SPECIMENOrdering Facility: [facility] Address: [address] [place], [place] [address] Performed By: #### 2 4323-8, LIPNF, 6-3 ####[facility] LABCLIA [id number] [place] [id number] [place] Bilirubin [Mass/Vol] 0.7 mg/dL Normal 0.2-1.3 [facility] Comment on above: Order Comment: Speci men Type: BLOOD SPECIMENOrdering Facility: [facility] Address: [address] [place], [place] [address] Performed By: #### 2 4323-8, LIPNF, 6-3 ####[facility] LABIA [id number] [address] [address] [place] Calcium [Mass/Vol] 10.2 mg/dL Normal 8.5-10.2 [facility] Comment on above: Order Comment: Speci men Type: BLOOD SPECIMENOrdering Facility: [facility] Address: [address] [place], [place] [address] Performed By: #### 2 4323-8, LIPNF, 3016-3 ####[facility] LABCLIA [id number] [address] [address] [place] Chloride [Moles/Vol] 99 mmol/L Normal 98-107 [facility] Comment on above: Order Comment: Speci men Type: BLOOD SPECIMENOrdering Facility: [facility] Address: [address] [place] [address] Performed By: #### 2 4323-8, LIPNF, 3016-3 ####[facility] LABCLIA [id number] [place] [address] [place] CO2 [Moles/Vol] 25 mmol/L Normal 22-30 [facility] Comment on above: Order Comment: Speci men Type: BLOOD SPECIMENOrdering Facility: [facility] Address: [address] [place] [address] Performed By: #### 2 4323-8, LIPNF, 3016-3 ####[facility] LABIA [id number] [place] [address] [place] Creatinine [Mass/Vol] 0.51 mg/dL Low 0.58-0.96 [facility] Comment on above: Order Comment: Speci men Type: BLOOD SPECIMENOrdering Facility: [facility] Address: [address] [place] [address] Performed By: #### 2 4323-8, LIPNF, 3016-3 ####[facility] LABIA [id number] [address] [address] [place] eGFRcr SerPlBld CKD-EPI 2020 104 mL/min/1.73m??? Normal >=60 [facility] Comment on above: Order Comment: Speci men Type: BLOOD SPECIMENOrdering Facility: [facility] Address: [address] [place] [address] Result Comment: Lory mated Glomerular Filtration Rate (eGFR) is calculated using the 2020 CKD-EPI creatinine equation. This equation utilizes serum creatinine, sex, and age as parameters. The creatinine assay has traceable calibration to isotope dilution-mass spectrometry. Refer to KDIGO guidelines for clinical interpretation. In patients with unstable renal function, e.g. those with acute kidney injury, the eGFR may not accurately reflect actual GFR. Performed By: #### 2 4323-8, NEELAM, 3015-3 ####[facility] LABCLIA [id number] [facility] [address] [address] [place] Glucose [Mass/Vol] 143 mg/dL High 74-99 [facility] Comment on above: Order Comment: Speci men Type: BLOOD SPECIMENOrdering Facility: [facility] Address: [address] [place] [address] Result Comment: The [place] Diabetes Association (ADA) provides guidance for cutoff values for fasting glucose and random glucose. The ADA defines fasting as no caloric intake for at least 8 hours. Fasting plasma glucose results between 100 to 125 mg/dL indicate increased risk for diabetes (prediabetes). Fasting plasma glucose results greater than or equal to 126 mg/dL meet the criteria for diagnosis of diabetes. In the absence of unequivocal hyperglycemia, results should be confirmed by repeat testing. In a patient with classic symptoms of hyperglycemia or hyperglycemic crisis, random plasma glucose results greater than or equal to 200 mg/dL meet the criteria for diagnosis of diabetes. Reference: Standards of Medical Care in Diabetes 2016, [place] Diabetes Association. Diabetes Care. 2016.39(Suppl 1). Performed By: #### 2 4323-8, NEELAM, 3015-3 ####[facility] LABIA [id number] [facility] [address] [address] [place] Potassium [Moles/Vol] 4.1 mmol/L Normal 3.7-5.1 [facility] Comment on above: Order Comment: Tadeoi tea Type: BLOOD SPECIMENOrdering Facility: [facility] Address: [address] [place] [address] Performed By: #### 2 4323-8, NEELAM, 3015-3 ####[facility] LABIA [id number] [address] [address] [place] Protein [Mass/Vol] 7.5 g/dL Normal 6.3-8.0 [facility] Comment on above: Order Comment: Speci men Type: BLOOD SPECIMENOrdering Facility: [facility] Address: [address] [place] [address] Performed By: #### 2 4323-8, LIPNF, 3016-3 ####[facility] LABCLIA [id number] [place] [address] [place] Sodium [Moles/Vol] 139 mmol/L Normal 136-144 [facility] Comment on above: Order Comment: Speci men Type: BLOOD SPECIMENOrdering Facility: [facility] Address: [address] [place] [address] Performed By: #### 2 4323-8, LIPNF, 6-3 ####[facility] LABCLIA [id number] [place] [address] [place] Urea nitrogen [Mass/Vol] 13 mg/dL Normal 7-21 [facility] Comment on above: Order Comment: Speci men Type: BLOOD SPECIMENOrdering Facility: [facility] Address: [address] [place] [address] Performed By: #### 2 4323-8, LIPNF, 3016-3 ####[facility] LABCLIA [id number] [place] [id number] [place] HbA1c (Bld)on 10-19-2024 Average glucose Estimated from glycated hemoglobin (Bld) [Mass/Vol] 131 mg/dL Normal [facility] Comment on above: Order Comment: Speci men Type: BLOOD SPECIMENOrdering Facility: [facility] Address: [address] [place] [address] Result Comment: eAG: (Estimated average glucose) is a calculated value from HgbA1c and is field sales representative of the average blood glucose level in the last 2-3 month period. Performed By: #### 5 5454-3 ####[facility] LABCLIA [id number] [facility] [address] [address] [place] HbA1c (Bld) [Mass fraction] 6.2 % High 4.3-5.6 [facility] Comment on above: Order Comment: Joaquin tea Type: BLOOD SPECIMENOrdering Facility: [facility] Address: [address] [place] [address] Result Comment: [place] Diabetes Association guidelines indicate that patients with HgbA1c in the range 5.7-6.4% are at increased risk for development of diabetes, and intervention by lifestyle modification may be beneficial. HgbA1c greater or equal to 6.5% is considered diagnostic of diabetes. Performed By: #### 5 5454-3 ####[facility] LABCLIA [id number] [address] [address] [place] LIPID PANEL, NONFASTINGon Cholesterol [Mass/Vol] 203 mg/dL High <200 [facility] Comment on above: Order Comment: Joaquin metcalf Type: BLOOD SPECIMENOrdering Facility: [facility] Address: [address] [place] [address] Result Comment: <200 mg/dL, Desirable 200-239 mg/dL, Borderline high >239 mg/dL, High Performed By: #### 2 4323-8, LIPNF, 3016-3 ####[facility] LABCLIA [id number] [place] [id number] [place] HDL CHOLESTEROL, NF 43 mg/dL Normal >39 [facility] Comment on above: Order Comment: Joaquin metcalf Type: BLOOD SPECIMENOrdering Facility: [facility] Address: [address] [place] [id number] Result Comment: 40-5 9 mg/dL, Acceptable >59 mg/dL, High: Negative risk factor for coronary heart disease <40 mg/dL, Low: Positive risk factor for coronary heart disease Performed By: #### 2 4323-8, LIPNF, 3016-3 ####[facility] LABCLIA [id number] [place] [address] OF [facility] LDL CHOLESTEROL CALCULATED, NF 88 mg/dL Normal <100 [facility] Comment on above: Order Comment: Joaquin tea Type: BLOOD SPECIMENOrdering Facility: [facility] Address: [address] [place] [address] Result Comment: <100 mg/dL, Optimal 100-129 mg/dL, Near optimal/above optimal 130-159 mg/dL, Borderline high 160-189 mg/dL, High >189 mg/dL, Very high Secondary prevention optimal LDL Cholesterol levels are recommended to be <70 mg/dL LDL cholesterol is calculated using the Byers-NIH equation. Performed By: #### 2 4323-8, LIPNF, 3015-3 ####[facility] LABCLIA [id number] [address] LDL/HDL RATIO, NF 2.05 mg/dL Normal <2.54 [facility] Comment on above: Order Comment: Joaquin metcalf Type: BLOOD SPECIMENOrdering Facility: [facility] Address: [address] [place] [address] Result Comment: Refe jeffce: 1. National Cholesterol Education Program ATP III Guideline At-A-Glance Quick Desk Reference: National Heart, Lung, and Blood [place]. National Institutes of Health. 2001: NIH Publication No. 01-3305. 2. An International Atherosclerosis Society position paper: global recommendations for the management of dyslipidemia: executive summary, Atherosclerosis. 2014: 232(2):410-413. Performed By: #### 2 4323-8, LIPNF, 3015-3 ####[facility] LABCLIA [id number] [address] STATES OF [facility] NON HDL CHOL, NF 160 mg/dL High <130 [facility] Comment on above: Order Comment: Joaquin tea Type: BLOOD SPECIMENOrdering Facility: [facility] Address: [address] [place] [address] Result Comment: <130 mg/dL, Optimal 130-159 mg/dL, Near optimal/above optimal 160-189 mg/dL, Borderline high 190-219 mg/dL, High >219 mg/dL, Very high Secondary prevention optimal non HDL Cholesterol levels are recommended to be <100 mg/dL Performed By: #### 2 4323-8, LIPNF, 6-3 ####[facility] LABCLIA [id number] [address] [place] [address] [place] T CHOL/HDL RATIO NF 4.72 mg/dL Normal <5.10 [facility] Comment on above: Order Comment: Speci men Type: BLOOD SPECIMENOrdering Facility: [facility] Address: [address] [place], [place] [address] Performed By: #### 2 4323-8, LIPNF, 6-3 ####[facility] LABIA [id number] [place] [id number] [place] TRIGLYCERIDES, NF 441 mg/dL High <150 [facility] Comment on above: Order Comment: Speci men Type: BLOOD SPECIMENOrdering Facility: [facility] Address: [address] [place], [place] [address] Result Comment: <150 mg/dL, Normal 150-199 mg/dL, Borderline high 200-499 mg/dL, High >499 mg/dL, Very high Performed By: #### 2 4323-8, LIPNF, 6-3 ####[facility] LABCLIA [id number] [address] [address] [place] VLDL CHOLESTEROL, NF 71 mg/dL High <30 [facility] Comment on above: Order Comment: Speci men Type: BLOOD SPECIMENOrdering Facility: [facility] Address: [address] [place], [place] [address] Performed By: #### 2 4323-8, LIPNF, 6-3 ####[facility] LABCLIA [id number] [address] [address] [place] TSH SerPl-aCncon 10-19-2024 TSH Qn 4.470 m[IU]/L High 0.270-4.200 [facility] Comment on above: Order Comment: Speci men Type: BLOOD SPECIMENOrdering Facility: [facility] Address: [address] [place] [address] Performed By: #### 2 4323-8, NEELAM, 3016-3 ####[facility] LABCLIA [id number] [address] [place] [address] [place] 25(OH)D3 [facility] 2024 25-hydroxyvitamin D3 [Mass/Vol] 8.8 ng/mL Low 31.0-80.0 [facility] Comment on above: Order Comment: Speci men Type: BLOOD SPECIMENOrdering Facility: [facility] Address: [address] [place] [address] Result Comment: Clas sification of 25 [place] Vitamin D status: Deficiency/Insufficiency: < or = 30 ng/ml. Sufficiency/Optimal Levels: 31-80 ng/mL Toxicity: > 100 ng/mL. Test performed by chemiluminescent immunoassay. Performed By: #### 1 989-3 ####[facility] LABCLIA [id number] [address] [address] [place] 25-hydroxyvitamin D3 [Mass/V ol]on 05-22-2024 Interpretation and review of laboratory results Abnormal [facility] The reference range interval was based on an analysis of samples from healthy adults and may not pertain to children from 0-18 years old. [facility] CALCIUM, TOTALon 05-22-2024 Calcium [Mass/Vol] 10.6 mg/dL High 8.5 - 10. 2 mg/dL [facility] Calcium SerPl-ncon 025 Calcium [Mass/Vol] 10.6 mg/dL High 8.5-10.2 [facility] Comment on above: Order Comment: Joaquin metcalf Type: BLOOD SPECIMENOrdering Facility: [facility] Address: [address] [place] [address] Performed By: #### 1 7861-6 ####[facility] LABCLIA [id number] [address] [place] [address] [place] Calcium [Mass/Vol]on 025 Interpretation and review of laboratory results Abnormal [facility] VITAMIN D 25 HYDROXYon 05-22 25-hydroxyvitamin D3 [Mass/Vol] 8.8 ng/mL Low 31.0 - 80.0 ng/mL [facility] Comment on above: Classification of 25 [place] Vitamin D status: Deficiency/Insufficiency: < or = 30 ng/ml. Sufficiency/Optimal Levels: 31-80 ng/mL Toxicity: > 100 ng/mL. Test performed by chemiluminescent immunoassay. Hemoccult Stl Ql IAon 2024 Lower GI hemoglobin IA Ql (Stl) Positive Abnormal Negative [facility] Comment on above: Order Comment: Speci men Type: STOOL SPECIMENOrdering Facility: [facility] Address: [address] [place] [address] Performed By: #### 2 9771-3 ####[facility] LABIA [id number] [place] [address] [place] Calcium SerPl-mCncon 025 Calcium [Mass/Vol] 10.8 mg/dL High 8.5-10.2 [facility] Comment on above: Order Comment: Speci men Type: BLOOD SPECIMENOrdering Facility: [facility] Address: [address] [place] [address] Performed By: #### 1 7861-6, 2885-2, 2731-8 ####[facility] LABCLIA [id number] [place] [address] [place] PROTEIN ELECTROPHORESIS SERU M (P)on 04-26-2024 Albumin [Mass/Vol] 5.08 g/dL Normal 3.43-5.41 [facility] Comment on above: Order Comment: Speci men Type: BLOOD SPECIMENOrdering Facility: [facility] Address: [address] [place] [address] Performed By: #### L [id number] ####[facility] LABCLIA [id number] [place] [id number] [place] Alpha 1 globulin Elph [Mass/Vol] 0.25 g/dL Normal 0.18-0.43 [facility] Comment on above: Order Comment: Speci men Type: BLOOD SPECIMENOrdering Facility: [facility] Address: [address] [place] [address] Performed By: #### L [id number] ####[facility] LABIA [id number] [place] [address] [place] Alpha 2 globulin Elph [Mass/Vol] 0.67 g/dL Normal 0.42-0.98 [facility] Comment on above: Order Comment: Speci men Type: BLOOD SPECIMENOrdering Facility: [facility] Address: [address] [place] [address] Performed By: #### L [id number] ####[facility] LABIA [id number] [place] [address] [place] Beta globulin Elph [Mass/Vol] 0.80 g/dL Normal 0.61-1.17 [facility] Comment on above: Order Comment: Speci men Type: BLOOD SPECIMENOrdering Facility: [facility] Address: [address] [place] [address] Performed By: #### L [id number] ####[facility] LABIA [id number] [place] [address] [place] Gamma globulin Elph [Mass/Vol] 0.80 g/dL Normal 0.53-1.51 [facility] Comment on above: Order Comment: Speci men Type: BLOOD SPECIMENOrdering Facility: [facility] Address: [address] [place] [address] Performed By: #### L [id number] ####[facility] LABIA [id number] [place] [address] [place] M-PROTEIN LOCATION Normal [facility] Comment on above: Order Comment: Speci men Type: BLOOD SPECIMENOrdering Facility: [facility] Address: [address] [place] [address] Result Comment: Not Applicable. Performed By: #### L [id number] ####[facility] LABIA [id number] [place] [address] [place] Protein Fractions [Interp] No definitive M protein is identified on protein electrophoresis. Normal No definitive M protein is identified on protein electrophores is. [facility] Comment on above: Order Comment: Speci men Type: BLOOD SPECIMENOrdering Facility: [facility] Address: [address] [place] [address] Performed By: #### L [id number] ####[facility] LABIA [id number] [place] [address] [place] Protein.monoclonal Elph [Mass/Vol] 0.00 g/dL Normal <=0.00 [facility] Comment on above: Order Comment: Speci men Type: BLOOD SPECIMENOrdering Facility: [facility] Address: [address] [place] [address] Performed By: #### L [id number] ####[facility] LABIA [id number] [place] [address] [place] SPE STAFF REVIEW Reviewed by Christy Serrano MD Normal [facility] Comment on above: Order Comment: Speci men Type: BLOOD SPECIMENOrdering Facility: [facility] Address: [address] [place] [address] Performed By: #### L [id number] ####[facility] LABIA [id number] [place] [address] [place] [facility] Par[facility]in.intact [Mass/Vol] 48 pg/mL Normal 15-65 [facility] Comment on above: Order Comment: Speci men Type: BLOOD SPECIMENOrdering Facility: [facility] Address: [address] [place] [address] Performed By: #### 1 7861-6, 2885-2, 2731-8 ####[facility] LABIA [id number] [place] [id number] [place] Prot SerPl-mCncon 04-26-2024 Protein [Mass/Vol] 7.6 g/dL Normal 6.3-8.0 [facility] Comment on above: Order Comment: Speci men Type: BLOOD SPECIMENOrdering Facility: [facility] Address: [address] [place] [address] Performed By: #### 1 7861-6, 2885-2, 2731-8 ####[facility] LABIA [id number] [address] [place] Prot Ur-mCncon 04-26-2024 Protein (U) [Mass/Vol] 7 mg/dL Normal 0-20 [facility] Comment on above: Order Comment: Speci men Type: URINE SPECIMENOrdering Facility: [facility] Address: [address] [place] [address] Performed By: #### 2 888-6 ####[facility] LABIA [id number] [place] [address] [place] [facility] Comprehensive metabolic 2000 panelon 04-22-2024 Albumin [Mass/Vol] 5.2 g/dL High 3.9 - 4.9 g/dL [facility] ALP [Catalytic activity/Vol] 178 U/L High 34 - 123 U/L [facility] ALT [Catalytic activity/Vol] 59 U/L High 7 - 38 U/L [facility] Anion gap [Moles/Vol] 15 mmol/L 8 - 15 mmol/L [facility] AST [Catalytic activity/Vol] 68 U/L High 13 - 35 U/L [facility] Bilirubin [Mass/Vol] 0.8 mg/dL 0.2 - 1 .3 mg/dL [facility] Calcium [Mass/Vol] 10.6 mg/dL High 8.5 - 10. 2 mg/dL [facility] Chloride [Moles/Vol] 98 mmol/L 98 - 10 7 mmol/L [facility] CO2 [Moles/Vol] 27 mmol/L 22 - 30 mmol/L [facility] Creatinine [Mass/Vol] 0.52 mg/dL Low 0.58 - 0.96 mg/dL [facility] GFR/1.73 sq M.predicted among non-blacks MDRD (S/P/Bld) [Vol rate/Area] 104 mL/min/{1.73_m2} - PINF [facility] Comment on above: Estimated Glomerular Filtration Rate (eGFR) is calculated using the 2020 CKD-EPI creatinine equation. This equation utilizes serum creatinine, sex, and age as parameters. The creatinine assay has traceable calibration to isotope dilution-mass spectrometry. Refer to KDIGO guidelines for clinical interpretation. In patients with unstable renal function, e.g. those with acute kidney injury, the eGFR may not accurately reflect actual GFR. Glucose [Mass/Vol] 123 mg/dL High 74 - 99 mg/dL [facility] Comment on above: The [place] Diabete s Association (ADA) provides guidance for cutoff values for fasting glucose and random glucose. The ADA defines fasting as no caloric intake for at least 8 hours. Fasting plasma glucose results between 100 to 125 mg/dL indicate increased risk for diabetes (prediabetes). Fasting plasma glucose results greater than or equal to 126 mg/dL meet the criteria for diagnosis of diabetes. In the absence of unequivocal hyperglycemia, results should be confirmed by repeat testing. In a patient with classic symptoms of hyperglycemia or hyperglycemic crisis, random plasma glucose results greater than or equal to 200 mg/dL meet the criteria for diagnosis of diabetes. Reference: Standards of Medical Care in Diabetes 2016, [place] Diabetes Association. Diabetes Care. 2016.39(Suppl 1). Potassium [Moles/Vol] 4.4 mmol/L 3.7 - 5.1 mmol/L [facility] Protein [Mass/Vol] 8.2 g/dL High 6.3 - 8.0 g/dL [facility] Sodium [Moles/Vol] 140 mmol/L 136 - 144 mmol/L [facility] Urea nitrogen [Mass/Vol] 14 mg/dL 7 - 21 mg/dL [facility] HbA1c (Bld)on 04-22-2024 Average glucose Estimated from glycated hemoglobin (Bld) [Mass/Vol] 97 mg/dL [facility] Comment on above: eAG: (Estimated aver age glucose) is a calculated value from HgbA1c and is field sales representative of the average blood glucose level in the last 2-3 month period. HbA1c (Bld) [Mass fraction] 5 % 4.3 - 5.6 % [facility] Comment on above: [place] Diabetes As sociation guidelines indicate that patients with HgbA1c in the range 5.7-6.4% are at increased risk for development of diabetes, and intervention by lifestyle modification may be beneficial. HgbA1c greater or equal to 6.5% is considered diagnostic of diabetes. [facility] LIPID PANEL, NONFASTINGon Cholesterol [Mass/Vol] 206 mg/dL High NINF - 200 mg/dL [facility] Comment on above: <200 mg/dL, Desirabl e 200-239 mg/dL, Borderline high >239 mg/dL, High HDL Cholesterol, Nonfasting 43 mg/dL 39 - PINF mg/dL [facility] Comment on above: 40-59 mg/dL, Accepta ble >59 mg/dL, High: Negative risk factor for coronary heart disease <40 mg/dL, Low: Positive risk factor for coronary heart disease LDL Cholesterol, Nonfasting 83 mg/dL NINF - 100 mg/dL [facility] Comment on above: <100 mg/dL, Optimal 100-129 mg/dL, Near optimal/above optimal 130-159 mg/dL, Borderline high 160-189 mg/dL, High >189 mg/dL, Very high Secondary prevention optimal LDL Cholesterol levels are recommended to be < 70 mg/dL LDL/HDL Ratio, Nonfasting 1.93 mg/dL [facility] - 2.54 mg/dL [facility] Comment on above: Reference: 1. National Cholesterol Education Program ATP III Guideline At-A-Glance Quick Desk Reference: National Heart, Lung, and Blood [place]. National Institutes of Health. 2001: NIH Publication No. 01-3305. 2. An International Atherosclerosis Society position paper: global recommendations for the management of dyslipidemia: executive summary, Atherosclerosis. 2014: 232(2):410-413. Non HDL Cholesterol, Nonfasting 163 mg/dL High NINF - 130 mg/dL [facility] Comment on above: <130 mg/dL, Optimal 130-159 mg/dL, Near optimal/above optimal 160-189 mg/dL, Borderline high 190-219 mg/dL, High >219 mg/dL, Very high Secondary prevention optimal non HDL Cholesterol levels are recommended to be <100 mg/dL Total Chol/HDL Ratio, Nonfasting 4.79 mg/dL NINF - 5.10 mg/dL [facility] Triglycerides, Nonfasting 399 mg/dL High [facility] - 150 mg/dL [facility] Comment on above: <150 mg/dL, Normal 150-199 mg/dL, Borderline high 200-499 mg/dL, High >499 mg/dL, Very high VLDL Cholesterol, Nonfasting 80 mg/dL High NINF - 30 mg/dL [facility] No Panel Informationon 04-22 Interpretation and review of laboratory results Abnormal [facility] THYROID STIMULATING HORMONEo n 04-22-2024 TSH Qn 3.58 m[IU]/L [facility] TSH Qnon 04-22-2024 Interpretation and review of laboratory results Normal [facility] CBC W Auto Differential pane l (Bld)on 04-21-2024 Basophils (Bld) [#/Vol] 0.05 10*3/uL [facility] Basophils/100 WBC (Bld) 0.8 % [facility] Differential cell count method Nom (Bld) Auto [facility] Eosinophils (Bld) [#/Vol] 0.07 10*3/uL [facility] Eosinophils/100 WBC (Bld) 1.1 % [facility] Erythrocyte distribution width (RBC) [Ratio] 14.4 % 11.5 - 15.0 % [facility] Hematocrit (Bld) [Volume fraction] 42.6 % 36.0 - 46.0 % [facility] Hemoglobin (Bld) [Mass/Vol] 13.8 g/dL 11.5 - 15.5 g/dL [facility] Immature granulocytes (Bld) [#/Vol] [facility] Immature granulocytes/100 WBC (Bld) 0.3 % [facility] Lymphocytes (Bld) [#/Vol] 2.05 10*3/uL [facility] Lymphocytes/100 WBC (Bld) 32.7 % [facility] MCH (RBC) [Entitic mass] 28.6 pg 26.0 - 34.0 pg [facility] MCHC (RBC) [Mass/Vol] 32.4 g/dL 30.5 - 36.0 g/dL [facility] MCV (RBC) [Entitic vol] 88.2 fL 80.0 - 100.0 fL [facility] Monocytes (Bld) [#/Vol] 0.4 10*3/uL [facility] Monocytes/100 WBC (Bld) 6.4 % [facility] Neutrophils (Bld) [#/Vol] 3.68 10*3/uL [facility] Neutrophils/100 WBC (Bld) 58.7 % [facility] Nucleated RBC (Bld) [#/Vol] NINF [facility] Nucleated RBC/100 WBC (Bld) [Ratio] 0 % /100 WBC [facility] Platelet mean volume (Bld) [Entitic vol] 10 fL 9.0 - 12.7 fL [facility] Platelets (Bld) [#/Vol] 280 10*3/uL [facility] RBC (Bld) [#/Vol] 4.83 10*6/uL 3.90 - 5.2 0 m/uL [facility] WBC (Bld) [#/Vol] 6.27 10*3/uL [facility] Basophils (Bld) [#/Vol] 0.05 10*3/uL Normal <0.11 [facility] Comment on above: Order Comment: Speci men Type: BLOOD SPECIMENOrdering Facility: [facility] Address: [address] [place] [address] Performed By: #### 5 7021-8 ####[facility] LABIA [id number] [place] [address] [place] Basophils/100 WBC (Bld) 0.8 % Normal [facility] Comment on above: Order Comment: Speci men Type: BLOOD SPECIMENOrdering Facility: [facility] Address: [address] [place] [address] Performed By: #### 5 7021-8 ####[facility] LABCLIA [id number] [place] [address] [place] Differential cell count method Nom (Bld) Auto Normal [facility] Comment on above: Order Comment: Speci men Type: BLOOD SPECIMENOrdering Facility: [facility] Address: [address] [place] [address] Performed By: #### 5 7021-8 ####[facility] LABCLIA [id number] [place] [address] [place] Eosinophils (Bld) [#/Vol] 0.07 10*3/uL Normal <0.46 [facility] Comment on above: Order Comment: Speci men Type: BLOOD SPECIMENOrdering Facility: [facility] Address: [address] [place] [address] Performed By: #### 5 7021-8 ####[facility] LABCLIA [id number] [place] [address] [place] Eosinophils/100 WBC (Bld) 1.1 % Normal [facility] Comment on above: Order Comment: Speci men Type: BLOOD SPECIMENOrdering Facility: [facility] Address: [address] [place] [address] Performed By: #### 5 7021-8 ####[facility] LABCLIA [id number] [place] [address] [place] Erythrocyte distribution width (RBC) [Ratio] 14.4 % Normal 11.5-15.0 [facility] Comment on above: Order Comment: Speci men Type: BLOOD SPECIMENOrdering Facility: [facility] Address: [address] [place] [address] Performed By: #### 5 7021-8 ####[facility] LABCLIA [id number] [place] [address] [place] Hematocrit (Bld) [Volume fraction] 42.6 % Normal 36.0-46.0 [facility] Comment on above: Order Comment: Speci men Type: BLOOD SPECIMENOrdering Facility: [facility] Address: [address] [place] [address] Performed By: #### 5 7021-8 ####[facility] LABCLIA [id number] [place] [address] [place] Hemoglobin (Bld) [Mass/Vol] 13.8 g/dL Normal 11.5-15.5 [facility] Comment on above: Order Comment: Speci men Type: BLOOD SPECIMENOrdering Facility: [facility] Address: [address] [place] [address] Performed By: #### 5 7021-8 ####[facility] LABCLIA [id number] [place] [address] [place] Immature granulocytes (Bld) [#/Vol] 10*3/uL Normal <0.10 [facility] Comment on above: Order Comment: Speci men Type: BLOOD SPECIMENOrdering Facility: [facility] Address: [address] [place] [address] Performed By: #### 5 7021-8 ####[facility] LABCLIA [id number] [place] [address] [place] Immature granulocytes/100 WBC (Bld) 0.3 % Normal [facility] Comment on above: Order Comment: Speci men Type: BLOOD SPECIMENOrdering Facility: [facility] Address: [address] [place] [address] Performed By: #### 5 7021-8 ####[facility] LABCLIA [id number] [place] [address] [place] Lymphocytes (Bld) [#/Vol] 2.05 10*3/uL Normal 1.00-4.00 [facility] Comment on above: Order Comment: Speci men Type: BLOOD SPECIMENOrdering Facility: [facility] Address: [address] [place] [address] Performed By: #### 5 7021-8 ####[facility] LABCLIA [id number] [place] [address] [place] Lymphocytes/100 WBC (Bld) 32.7 % Normal [facility] Comment on above: Order Comment: Speci men Type: BLOOD SPECIMENOrdering Facility: [facility] Address: [address] [place] [address] Performed By: #### 5 7021-8 ####[facility] LABCLIA [id number] [place] [address] [place] MCH (RBC) [Entitic mass] 28.6 pg Normal 26.0-34.0 [facility] Comment on above: Order Comment: Speci men Type: BLOOD SPECIMENOrdering Facility: [facility] Address: [address] [place] [address] Performed By: #### 5 7021-8 ####[facility] LABIA [id number] [place] [address] [place] MCHC (RBC) [Mass/Vol] 32.4 g/dL Normal 30.5-36.0 [facility] Comment on above: Order Comment: Speci men Type: BLOOD SPECIMENOrdering Facility: [facility] Address: [address] [place] [address] Performed By: #### 5 7021-8 ####[facility] LABIA [id number] [place] [address] [place] MCV (RBC) [Entitic vol] 88.2 fL Normal 80.0-100.0 [facility] Comment on above: Order Comment: Speci men Type: BLOOD SPECIMENOrdering Facility: [facility] Address: [address] [place] [address] Performed By: #### 5 7021-8 ####[facility] [id number] [place] [address] [place] Monocytes (Bld) [#/Vol] 0.40 10*3/uL Normal <0.87 [facility] Comment on above: Order Comment: Speci men Type: BLOOD SPECIMENOrdering Facility: [facility] Address: [address] [place] [address] Performed By: #### 5 7021-8 ####[facility] LABIA [id number] [place] [address] [place] Monocytes/100 WBC (Bld) 6.4 % Normal [facility] Comment on above: Order Comment: Speci men Type: BLOOD SPECIMENOrdering Facility: [facility] Address: [address] [place] [address] Performed By: #### 5 7021-8 ####[facility] LABCLIA [id number] [place] [address] [place] Neutrophils (Bld) [#/Vol] 3.68 10*3/uL Normal 1.45-7.50 [facility] Comment on above: Order Comment: Speci men Type: BLOOD SPECIMENOrdering Facility: [facility] Address: [address] [place] [address] Performed By: #### 5 7021-8 ####[facility] LABCLIA [id number] [place] [address] [place] Neutrophils/100 WBC (Bld) 58.7 % Normal [facility] Comment on above: Order Comment: Speci men Type: BLOOD SPECIMENOrdering Facility: [facility] Address: [address] [place] [address] Performed By: #### 5 7021-8 ####[facility] LABIA [id number] [place] [address] [place] Nucleated RBC (Bld) [#/Vol] 10*3/uL Normal <0.01 [facility] Comment on above: Order Comment: Speci men Type: BLOOD SPECIMENOrdering Facility: [facility] Address: [address] [place] [address] Performed By: #### 5 7021-8 ####[facility] LABCLIA [id number] [place] [address] [place] Nucleated RBC/100 WBC (Bld) [Ratio] 0.0 /100 WBC Normal [facility] Comment on above: Order Comment: Speci men Type: BLOOD SPECIMENOrdering Facility: [facility] Address: [address] [place] [address] Performed By: #### 5 7021-8 ####[facility] LABCLIA [id number] [address] [address] [place] Platelet mean volume (Bld) [Entitic vol] 10.0 fL Normal 9.0-12.7 [facility] Comment on above: Order Comment: Speci men Type: BLOOD SPECIMENOrdering Facility: [facility] Address: [address] [place] [address] Performed By: #### 5 7021-8 ####[facility] LABCLIA [id number] [place] [address] [place] Platelets (Bld) [#/Vol] 280 10*3/uL Normal 150-400 [facility] Comment on above: Order Comment: Speci men Type: BLOOD SPECIMENOrdering Facility: [facility] Address: [address] [place] [address] Performed By: #### 5 7021-8 ####[facility] LABIA [id number] [place] [address] [place] RBC (Bld) [#/Vol] 4.83 10*6/uL Normal 3.90-5.20 [facility] Comment on above: Order Comment: Speci men Type: BLOOD SPECIMENOrdering Facility: [facility] Address: [address] [place] [address] Performed By: #### 5 7021-8 ####[facility] LABIA [id number] [place] [address] [place] WBC (Bld) [#/Vol] 6.27 10*3/uL Normal 3.70-11.00 [facility] Comment on above: Order Comment: Speci men Type: BLOOD SPECIMENOrdering Facility: [facility] Address: [address] [place] [address] Performed By: #### 5 7021-8 ####[facility] LABIA [id number] [place] [address] [place] CNOVon 02-07-2025 CNOV Office Visit (FAMPWS ) -------- BETY PERALES ([id number]) 1960 F Date Time Provider Department 04/21/24 10:20 AM DAVID LONGORIA FAMPWS During your visit today, we recorded the following information about you: Pulse Respiration Blood pressure Weight 84/minute 16/minute 126/78 75.3 kg Height 1.575 m David Longoria MD 04/24/2024 10:08 PM Signed Bety Dunlap Diaz is a 63 year old female here for a Medicare wellness visit. Medicare Health Risk Assessment General Health Fair Exercise: Minutes/Day 30 min Exercise: Days/Week 3 days Alcohol: Daily Use Never Alcohol: Drinks/Day Patient does not drink Alcohol: 6 or more drinks Never Feel off balance No Concerns: Teeth/Dentures No Concerns: Sexual function No Troubled by feelings Anxious; Stressed; Angry; Irritable Frequency: Eating healthy diet Nearly every day ADLs requiring help None of the above Safety precautions in home/vehicle Yes Smoke, vape, chews tobacco No Difficulty hearing No Difficulty seeing No Current Providers Specialists: I have reviewed specialist-related care of the patient in the medical record. Current care team: Patient Care Team: David Longoria MD as PCP - General (Family Medicine) Piper Monge APRN.CNP as Cloth Tearer (Family Medicine) Trang Berkowitz PA-C as Cloth Tearer (Family Medicine) Medical/Family history review Reviewed and updated problem list, medical/surgical/family/ social history, medications, and allergies. Opioid use review Opioid Medications (last 90 days) 04/21/2024 Opioid Medications tramadol HCl 50 mg BID ORAL (50 mg tab) Details Patient-reported medication Prescribed No opioid use on file in the last 90 days Does patient have risk factors for opioid abuse? No Pain overview Pain Location: Back Description: Aching, Dull, Numbness, Sharp, Shooting, Sore, Spasm, Stabbing, Stiffness, Tenderness, Throbbing, Tingling Duration Units: Months Frequency: Continuous Intervention/Comfort measure: Medication, Reposition, Cold, Exercise, Heat, Pillow support Current pain concerns and treatment plan reviewed. Patient under the care of a specialist. Anxiety/Depression screening PHQ-9 Score: 8 (Mild Depression) Recommendation: continuing current treatment plan Cognitive screening Score: 5 Cognitive screening reviewed and No further action needed (score 3-5). Functional Observation Was the patient's Timed Up AND Go test unsteady or >= 12 seconds? No Advance Care Planning Patient did not wish or was not able to name a surrogate decision maker or provide an advance care plan Measurements BP 142/92 Pulse 84 Resp 16 Ht 157.5 cm (5' 2) Wt 75.3 kg (166 lb) LMP 09/25/2009 BMI 30.36 kg/m? Vision Screening: Follows with optometry/ophthalmology Assessment/Plan Medicare annual wellness visit, subsequent (Z00.00) - Counseled on healthy diet and regular exercise - Fall avoidance information provided - Personalized prevention plan provided See below Chief Complaint Patient presents with: Medicare Wellness Exam HPI Bety Perales is a 63 year old female who presents here today for Chronic Medical Conditions. and Medicare Annual Visit. Patient with hx of HTN, Hyperlipidemia, Dysthymia, insomnia, ORELLANA with hx of encephalopathy and hyperammonemia seeing Gastro, chronic pain form arthritis and DDD seeing pain management As well as those reviewed and addressed below and in ROS Patient has been doing well. No new issues or concerns. Past medical history, appointments, medications, allergies reviewed. Previous Medical History PAST MEDICAL HISTORY Diagnosis Date Adrenal adenoma 10/17/2013 Arthritis of both knees 06/12/2013 Backache, unspecified 01/19/2008 Brachial neuritis or radiculitis NOS 01/17/2014 Cervical radiculopathy Cervicogenic headache 11/07/2014 Cholelithiasis 07/24/2013 Chronic pain syndrome 01/02/2015 [facility]. Bradshaw. Was instructed needed to get pain meds through one of them DDD (degenerative disc disease), cervical 12/22/2013 DDD (degenerative disc disease), lumbar 03/28/2014 Depression 11/03/2013 Dysthymia 08/22/2015 Elevated alkaline phosphatase level 02/24/2016 Neg w/u Elevated LFTs 09/23/2015 Elevated serum GGT level 03/03/[address] Wayne Essential hypertension, benign 06/12/2013 Hepatic encephalopathy (HCC) 06/29/2017 Hepatitis B immune 09/27/2015 History of COVID-19 03/31/202103/2021 History of shingles 09/07/201908/2019 Hyperammonemia (HCC) 06/23/2017 Hypokalemia 07/24/2013 Insomnia 11/03/2013 Lumbago 01/17/2014 Lumbar radiculopathy 12/22/2013 Lumbar spondylosis 12/22/2013 Medicare annual wellness visit, initial 07/01/2018 Last done 07/01/18 Medicare eligible 09/12/2016 Mixed hyperlipidemia 01/02/2015 Myofascial pain 12/22/2013 Osteoarthritis of spine with (more content not included)... Normal [facility] Comprehensive metabolic 2000 panelon 04-21-2024 Albumin [Mass/Vol] 5.2 g/dL High 3.9-4.9 [facility] Comment on above: Order Comment: Speci men Type: BLOOD SPECIMENOrdering Facility: [facility] Address: [address] [place] [address] Performed By: #### 2 4323-8, LIPNF, 3016-3 ####[facility] LABIA [id number] [place] [address] [place] ALP [Catalytic activity/Vol] 178 U/L High 34-123 [facility] Comment on above: Order Comment: Speci men Type: BLOOD SPECIMENOrdering Facility: [facility] Address: [address] [place] [address] Performed By: #### 2 4323-8, LIPNF, 3016-3 ####[facility] LABIA [id number] [place] [address] [place] ALT [Catalytic activity/Vol] 59 U/L High 7-38 [facility] Comment on above: Order Comment: Speci men Type: BLOOD SPECIMENOrdering Facility: [facility] Address: [address] [place] [address] Performed By: #### 2 4323-8, LIPNF, 6-3 ####[facility] LABCLIA [id number] [place] [address] [place] Anion gap [Moles/Vol] 15 mmol/L Normal 8-15 [facility] Comment on above: Order Comment: Speci men Type: BLOOD SPECIMENOrdering Facility: [facility] Address: [address] [place] [address] Performed By: #### 2 4323-8, LIPNF, 3015-3 ####[facility] LABCLIA [id number] [place] [address] [place] AST [Catalytic activity/Vol] 68 U/L High 13-35 [facility] Comment on above: Order Comment: Speci men Type: BLOOD SPECIMENOrdering Facility: [facility] Address: [address] [place] [address] Performed By: #### 2 4323-8, LIPNF, 3015-3 ####[facility] LABCLIA [id number] [place] [address] [place] Bilirubin [Mass/Vol] 0.8 mg/dL Normal 0.2-1.3 [facility] Comment on above: Order Comment: Speci men Type: BLOOD SPECIMENOrdering Facility: [facility] Address: [address] [place] [address] Performed By: #### 2 4323-8, LIPNF, 3015-3 ####[facility] LABCLIA [id number] [place] [id number] [place] Calcium [Mass/Vol] 10.6 mg/dL High 8.5-10.2 [facility] Comment on above: Order Comment: Speci men Type: BLOOD SPECIMENOrdering Facility: [facility] Address: [address] [place] [address] Performed By: #### 2 4323-8, LIPNF, 6-3 ####[facility] LABCLIA [id number] [place] [address] [place] Chloride [Moles/Vol] 98 mmol/L Normal 98-107 [facility] Comment on above: Order Comment: Speci men Type: BLOOD SPECIMENOrdering Facility: [facility] Address: [address] [place] [address] Performed By: #### 2 4323-8, LIPNF, 3016-3 ####[facility] LABIA [id number] [place] [address] [place] CO2 [Moles/Vol] 27 mmol/L Normal 22-30 [facility] Comment on above: Order Comment: Speci men Type: BLOOD SPECIMENOrdering Facility: [facility] Address: [address] [place] [address] Performed By: #### 2 4323-8, LIPNF, 3016-3 ####[facility] LABIA [id number] [place] [address] [place] Creatinine [Mass/Vol] 0.52 mg/dL Low 0.58-0.96 [facility] Comment on above: Order Comment: Speci men Type: BLOOD SPECIMENOrdering Facility: [facility] Address: [address] [place] [address] Performed By: #### 2 4323-8, LIPNF, 3016-3 ####[facility] [id number] [place] [address] [place] Creatinine and Glomerular filtration rate.predicted panel (S/P/Bld) 104 mL/min/1.73m??? Normal >=60 [facility] Comment on above: Order Comment: Speci men Type: BLOOD SPECIMENOrdering Facility: [facility] Address: [address] [place] [address] Result Comment: Lory mated Glomerular Filtration Rate (eGFR) is calculated using the 2020 CKD-EPI creatinine equation. This equation utilizes serum creatinine, sex, and age as parameters. The creatinine assay has traceable calibration to isotope dilution-mass spectrometry. Refer to KDIGO guidelines for clinical interpretation. In patients with unstable renal function, e.g. those with acute kidney injury, the eGFR may not accurately reflect actual GFR. Performed By: #### 2 4323-8, NEELAM, 3015-3 ####[facility] LABCLIA [id number] [address] [address] [place] Glucose [Mass/Vol] 123 mg/dL High 74-99 [facility] Comment on above: Order Comment: Speci men Type: BLOOD SPECIMENOrdering Facility: [facility] Address: [address] [place] [address] Result Comment: The [place] Diabetes Association (ADA) provides guidance for cutoff values for fasting glucose and random glucose. The ADA defines fasting as no caloric intake for at least 8 hours. Fasting plasma glucose results between 100 to 125 mg/dL indicate increased risk for diabetes (prediabetes). Fasting plasma glucose results greater than or equal to 126 mg/dL meet the criteria for diagnosis of diabetes. In the absence of unequivocal hyperglycemia, results should be confirmed by repeat testing. In a patient with classic symptoms of hyperglycemia or hyperglycemic crisis, random plasma glucose results greater than or equal to 200 mg/dL meet the criteria for diagnosis of diabetes. Reference: Standards of Medical Care in Diabetes 2016, [place] Diabetes Association. Diabetes Care. 2016.39(Suppl 1). Performed By: #### 2 4323-8, NEELAM, 3015-3 ####[facility] LABCLIA [id number] [address] [address] [place] Potassium [Moles/Vol] 4.4 mmol/L Normal 3.7-5.1 [facility] Comment on above: Order Comment: Joaquin metcalf Type: BLOOD SPECIMENOrdering Facility: [facility] Address: [address] [place] [address] Performed By: #### 2 4323-8, NEELAM, 3015-3 ####[facility] LABCLIA [id number] [address] [address] [place] Protein [Mass/Vol] 8.2 g/dL High 6.3-8.0 [facility] Comment on above: Order Comment: Speci men Type: BLOOD SPECIMENOrdering Facility: [facility] Address: [address] [place] [address] Performed By: #### 2 4323-8, LIPNF, 3015-3 ####[facility] LABCLIA [id number] [place] [address] [place] Sodium [Moles/Vol] 140 mmol/L Normal 136-144 [facility] Comment on above: Order Comment: Speci men Type: BLOOD SPECIMENOrdering Facility: [facility] Address: [address] [place] [address] Performed By: #### 2 4323-8, LIPNF, 3015-3 ####[facility] LABCLIA [id number] [place] [address] [place] Urea nitrogen [Mass/Vol] 14 mg/dL Normal 7-21 [facility] Comment on above: Order Comment: Speci men Type: BLOOD SPECIMENOrdering Facility: [facility] Address: [address] [place] [address] Performed By: #### 2 4323-8, LIPNF, 3015-3 ####[facility] LABCLIA [id number] [place] [address] [place] HbA1c (Bld)on 04-21-2024 Average glucose Estimated from glycated hemoglobin (Bld) [Mass/Vol] 97 mg/dL Normal [facility] Comment on above: Order Comment: Speci men Type: BLOOD SPECIMENOrdering Facility: [facility] Address: [address] [place] [address] Result Comment: eAG: (Estimated average glucose) is a calculated value from HgbA1c and is field sales representative of the average blood glucose level in the last 2-3 month period. Performed By: #### 5 5454-3 ####[facility] LABCLIA [id number] [address] [id number] [address] [place] HbA1c (Bld) [Mass fraction] 5.0 % Normal 4.3-5.6 [facility] Comment on above: Order Comment: Joaquin metcalf Type: BLOOD SPECIMENOrdering Facility: [facility] Address: [address] [place] [address] Result Comment: [place] Diabetes Association guidelines indicate that patients with HgbA1c in the range 5.7-6.4% are at increased risk for development of diabetes, and intervention by lifestyle modification may be beneficial. HgbA1c greater or equal to 6.5% is considered diagnostic of diabetes. Performed By: #### 5 5454-3 ####[facility] LABCLIA [id number] [address] [place] LIPID PANEL, NONFASTINGon Cholesterol [Mass/Vol] 206 mg/dL High <200 [facility] Comment on above: Order Comment: Joaquin metcalf Type: BLOOD SPECIMENOrdering Facility: [facility] Address: [address] [place] [address] Result Comment: <200 mg/dL, Desirable 200-239 mg/dL, Borderline high >239 mg/dL, High Performed By: #### 2 4323-8, LIPTAMICA, 3016-3 ####[facility] LABCLIA [id number] [place] [address] [place] HDL CHOLESTEROL, NF 43 mg/dL Normal >39 [facility] Comment on above: Order Comment: Joaquin metcalf Type: BLOOD SPECIMENOrdering Facility: [facility] Address: [address] [place] [address] Result Comment: 40-5 9 mg/dL, Acceptable >59 mg/dL, High: Negative risk factor for coronary heart disease <40 mg/dL, Low: Positive risk factor for coronary heart disease Performed By: #### 2 4323-8, LIPNF, 3016-3 ####[facility] LABCLIA [id number] [place] [address] [place] LDL CHOLESTEROL, NF 83 mg/dL Normal <100 [facility] Comment on above: Order Comment: Joaquin tea Type: BLOOD SPECIMENOrdering Facility: [facility] Address: [address] [place] [address] Result Comment: <100 mg/dL, Optimal 100-129 mg/dL, Near optimal/above optimal 130-159 mg/dL, Borderline high 160-189 mg/dL, High >189 mg/dL, Very high Secondary prevention optimal LDL Cholesterol levels are recommended to be < 70 mg/dL Performed By: #### 2 4323-8, LIPNF, 6-3 ####[facility] LABCLIA [id number] [place] [address] [place] LDL/HDL RATIO, NF 1.93 mg/dL Normal <2.54 [facility] Comment on above: Order Comment: Joaquin metcalf Type: BLOOD SPECIMENOrdering Facility: [facility] Address: [address] [place] [address] Result Comment: Refruby aguilarce: 1. National Cholesterol Education Program ATP III Guideline At-A-Glance Quick Desk Reference: National Heart, Lung, and Blood [place]. National Institutes of Health. 2001: NIH Publication No. 01-3305. 2. An International Atherosclerosis Society position paper: global recommendations for the management of dyslipidemia: executive summary, Atherosclerosis. 2014: 232(2):410-413. Performed By: #### 2 4323-8, LIPNF, 3015-3 ####[facility] LABCLIA [id number] [place] [address] [place] NON HDL CHOL, NF 163 mg/dL High <130 [facility] Comment on above: Order Comment: Tadeobasilio metcalf Type: BLOOD SPECIMENOrdering Facility: [facility] Address: [address] [place] [address] Result Comment: <130 mg/dL, Optimal 130-159 mg/dL, Near optimal/above optimal 160-189 mg/dL, Borderline high 190-219 mg/dL, High >219 mg/dL, Very high Secondary prevention optimal non HDL Cholesterol levels are recommended to be <100 mg/dL Performed By: #### 2 4323-8, LIPNF, 3016-3 ####[facility] LABCLIA [id number] [place] [address] [place] T CHOL/HDL RATIO NF 4.79 mg/dL Normal <5.10 [facility] Comment on above: Order Comment: Speci men Type: BLOOD SPECIMENOrdering Facility: [facility] Address: [address] [place] [address] Performed By: #### 2 4323-8, LIPNF, 3016-3 ####[facility] LABCLIA [id number] [place] [address] [place] TRIGLYCERIDES, NF 399 mg/dL High <150 [facility] Comment on above: Order Comment: Speci men Type: BLOOD SPECIMENOrdering Facility: [facility] Address: [address] [place] [address] Result Comment: <150 mg/dL, Normal 150-199 mg/dL, Borderline high 200-499 mg/dL, High >499 mg/dL, Very high Performed By: #### 2 4323-8, LIPNF, 6-3 ####[facility] LABCLIA [id number] [place] [address] [place] VLDL CHOLESTEROL, NF 80 mg/dL High <30 [facility] Comment on above: Order Comment: Speci men Type: BLOOD SPECIMENOrdering Facility: [facility] Address: [address] [place] [address] Performed By: #### 2 4323-8, LIPNF, 6-3 ####[facility] LABCLIA [id number] [place] [id number] [place] TSH SerPl-aCncon 04-21-2024 TSH Qn 3.580 m[IU]/L Normal 0.270-4.200 [facility] Comment on above: Order Comment: Speci men Type: BLOOD SPECIMENOrdering Facility: [facility] Address: [address] [place] [address] Performed By: #### 2 4323-8, LIPNF, 3016-3 ####[facility] LABCLIA [id number] [place] [address] [place] Urinalysis complete panel (U )on 04-21-2024 Bacteria LM.HPF (Urine sed) [#/Area] Negative Negative /HPF [facility] Bilirubin Ql (U) Negative Negative [facility] Clarity (Unsp spec) Clear Clear [facility] Color (U) Yellow Yellow [facility] Epithelial cells LM.HPF (Urine sed) [#/Area] None Seen /HPF [facility] Glucose Test strip (U) [Mass/Vol] Negative Negative [facility] Hemoglobin Ql (U) Negative Negative [facility] Hyaline casts (Urine sed) [#/Area] 0 /[LPF] 0 /LPF [facility] Ketones Ql (U) Negative Negative [facility] Leukocyte esterase Test strip Ql (U) Negative Negative [facility] Nitrite Ql (U) Negative Negative [facility] pH (U) 6.5 [pH] NINF - 8.5 [facility] Protein (U) [Mass/Vol] Negative Negative [facility] RBC LM.HPF (Urine sed) [#/Area] 0-2 /HPF 0-2 /HPF [facility] Specific gravity (U) [Rel density] 1.011 1.005 - 1.030 [facility] Urobilinogen Ql (U) 0.2 EU/dL 0.2-1.0 EU/dL [facility] WBC LM.HPF (Urine sed) [#/Area] 0-5 /HPF 0-5 /HPF [facility] This test was jovan trevizo and its performance characteristics determined by [facility]'s Charly JKhanh [facility] Pathology and Laboratory Medicine [place] (RT-PLMI). It has not been cleared or approved by the FDA. RT-PLNV is regulated under CLIA as qualified to perform high-complexity testing. This test is used for clinical purposes. It should not be regarded as investigational or for research. [facility] Bacteria LM.HPF (Urine sed) [#/Area] Negative Normal Negative [facility] Comment on above: Order Comment: Speci men Type: URINE SPECIMENOrdering Facility: [facility] Address: [address] [place] [address] Performed By: #### 2 4356-8 ####[facility] LABCLIA [id number] [place] [address] [place] Bilirubin Ql (U) Negative Normal Negative [facility] Comment on above: Order Comment: Speci men Type: URINE SPECIMENOrdering Facility: [facility] Address: [address] [place] [address] Performed By: #### 2 4356-8 ####[facility] LABCLIA [id number] [place] [address] [place] Clarity (Unsp spec) Clear Normal Clear [facility] Comment on above: Order Comment: Speci men Type: URINE SPECIMENOrdering Facility: [facility] Address: [address] [place] [address] Performed By: #### 2 4356-8 ####[facility] LABCLIA [id number] [place] [address] [place] Color (U) Yellow Normal Yellow [facility] Comment on above: Order Comment: Speci men Type: URINE SPECIMENOrdering Facility: [facility] Address: [address] [place] [address] Performed By: #### 2 4356-8 ####[facility] LABCLIA [id number] [place] [address] [place] Epithelial cells LM.HPF (Urine sed) [#/Area] None Seen Normal [facility] Comment on above: Order Comment: Speci men Type: URINE SPECIMENOrdering Facility: [facility] Address: [address] [place] [address] Performed By: #### 2 4356-8 ####[facility] LABCLIA [id number] [place] [address] [place] Glucose Test strip (U) [Mass/Vol] Negative Normal Negative [facility] Comment on above: Order Comment: Speci men Type: URINE SPECIMENOrdering Facility: [facility] Address: [address] [place] [address] Performed By: #### 2 4356-8 ####[facility] LABCLIA [id number] [place] [address] [place] Hemoglobin Ql (U) Negative Normal Negative [facility] Comment on above: Order Comment: Speci men Type: URINE SPECIMENOrdering Facility: [facility] Address: [address] [place] [address] Performed By: #### 2 4356-8 ####[facility] LABCLIA [id number] [place] [address] [place] Hyaline casts (Urine sed) [#/Area] 0 /[LPF] Normal 0 /LPF [facility] Comment on above: Order Comment: Speci men Type: URINE SPECIMENOrdering Facility: [facility] Address: [address] [place] [address] Performed By: #### 2 4356-8 ####[facility] LABIA [id number] [place] [address] [place] Ketones Ql (U) Negative Normal Negative [facility] Comment on above: Order Comment: Speci men Type: URINE SPECIMENOrdering Facility: [facility] Address: [address] [place] [address] Performed By: #### 2 4356-8 ####[facility] LABCLIA [id number] [place] [address] [place] Leukocyte esterase Test strip Ql (U) Negative Normal Negative [facility] Comment on above: Order Comment: Speci men Type: URINE SPECIMENOrdering Facility: [facility] Address: [address] [place] [address] Performed By: #### 2 4356-8 ####[facility] LABCLIA [id number] [place] [address] [place] Nitrite Ql (U) Negative Normal Negative [facility] Comment on above: Order Comment: Speci men Type: URINE SPECIMENOrdering Facility: [facility] Address: [address] [place] [address] Performed By: #### 2 4356-8 ####[facility] LABIA [id number] [place] [address] [place] pH (U) 6.5 [pH] Normal <8.5 [facility] Comment on above: Order Comment: Speci men Type: URINE SPECIMENOrdering Facility: [facility] Address: [address] [place] [address] Performed By: #### 2 4356-8 ####[facility] [id number] [place] [address] [place] Protein (U) [Mass/Vol] Negative Normal Negative [facility] Comment on above: Order Comment: Speci men Type: URINE SPECIMENOrdering Facility: [facility] Address: [address] [place] [address] Performed By: #### 2 4356-8 ####[facility] LABIA [id number] [place] [address] [place] RBC LM.HPF (Urine sed) [#/Area] 0-2 /HPF Normal 0-2 /HPF [facility] Comment on above: Order Comment: Speci men Type: URINE SPECIMENOrdering Facility: [facility] Address: [address] [place] [address] Performed By: #### 2 4356-8 ####[facility] LABIA [id number] [place] [address] [place] Specific gravity (U) [Rel density] 1.011 Normal 1.005-1.030 [facility] Comment on above: Order Comment: Speci men Type: URINE SPECIMENOrdering Facility: [facility] Address: [address] [place] [address] Performed By: #### 2 4356-8 ####[facility] LABIA [id number] [place] [address] [place] Urobilinogen Ql (U) 0.2 EU/dL Normal 0.2-1.0 EU/dL Cl [facility] Comment on above: Order Comment: Speci men Type: URINE SPECIMENOrdering Facility: [facility] Address: [address] [place] [address] Performed By: #### 2 4356-8 ####[facility] LABIA [id number] [place] [address] [place] WBC LM.HPF (Urine sed) [#/Area] 0-5 /HPF Normal 0-5 /HPF [facility] Comment on above: Order Comment: Speci men Type: URINE SPECIMENOrdering Facility: [facility] Address: [address] [place] [address] Performed By: #### 2 4356-8 ####[facility] LABIA [id number] [place] [address] [place] CNOVon 02-07-2024 [facility] -------- BETY PERALES ([id number]) 1960 F Date Time Provider Department 02/07/24 1:40 PM [facility] During your visit today, we recorded the following information about you: Pulse Blood pressure Weight 103/minute 146/91 77.1 kg Piper Monge APRN.SEWING MACHINE ADJUSTER 02/08/2024 4:03 PM Signed Chief Complaint Patient presents with: Cough Breathing Problem HPI Betyruby Perales is a 63 year old female who presents here today for Above Complaints.. Patient presents for continue cough and SOB. Patient was seen 01/21 and treated with prednisone and tessalon perles. Cough and SOB persisted and she was seen 01/27, CXR showed atelectasis but was otherwise normal. Treated with doxycycline and still no improvement. Patient reports cough, SOB worsening, not responding well to albuterol. Past medical history, appointments, medications, allergies reviewed. Previous Medical History PAST MEDICAL HISTORY Diagnosis Date Adrenal adenoma 10/17/2013 Arthritis of both knees 06/12/2013 Backache, unspecified 01/19/2008 Brachial neuritis or radiculitis NOS 01/17/2014 Cervical radiculopathy Cervicogenic headache 11/07/2014 Cholelithiasis 07/24/2013 Chronic pain syndrome 01/02/2015 [facility]. Bradshaw. Was instructed needed to get pain meds through one of them DDD (degenerative disc disease), cervical 12/22/2013 DDD (degenerative disc disease), lumbar 03/28/2014 Depression 11/03/2013 Dysthymia 08/22/2015 Elevated alkaline phosphatase level 02/24/2016 Neg w/u Elevated LFTs 09/23/2015 Elevated serum GGT level 03/03/[address] Wayne Essential hypertension, benign 06/12/2013 Hepatic encephalopathy (HCC) 06/29/2017 Hepatitis B immune 09/27/2015 History of COVID-19 03/31/202103/2021 History of shingles 09/07/201908/2019 Hyperammonemia (HCC) 06/23/2017 Hypokalemia 07/24/2013 Insomnia 11/03/2013 Lumbago 01/17/2014 Lumbar radiculopathy 12/22/2013 Lumbar spondylosis 12/22/2013 Medicare annual wellness visit, initial 07/01/2018 Last done 07/01/18 Medicare eligible 09/12/2016 Mixed hyperlipidemia 01/02/2015 Myofascial pain 12/22/2013 Osteoarthritis of spine with radiculopathy, lumbar region 11/07/2014 Osteopenia after menopause 06/21/2023 Spinal stenosis of cervical region 06/12/2013 Sprain of neck 01/19/2008 Weakness of right lower extremity 09/17/2021 Chronic from low back diease. Previous Surgical History PAST SURGICAL HISTORY Procedure Laterality Date CORTISONE, SERUM Neck and Spine injections ESOPHAGOGASTRODUODENOSCO PY TRANSORAL DIAGNOSTIC 11/01/2017 EGD EXTRACTION, ERUPTED TOOTH OR EXPOSED ROOT (ELEVATION AND/OR FORCEPS REMOVAL) complete teeth extraction upper and lower FECAL OCCULT BLOOD TEST 09/07/2016 negative LIG/TRNSXJ FLP TUBE ABDL/VAG APPR UNI/BI STRESS TEST 09/07/2016 WNL TONSILLECTOMY PRIMARY/SECONDARY Tonsillectomy Family History FAMILY HISTORY Problem Relation Age of Onset Blood Disease Mother anemic No Known Problems Brother No Known Problems Brother Hypertension Maternal Grandmother Asthma Maternal Grandfather Diabetes Maternal Uncle Patient Allergies ALLERGIES Allergen Reactions Lipitor [Atorvastat* Other: See Comments elevated LFT's Current Medications Current Outpatient Medications on File Prior to Visit Medication Sig meloxicam (MOBIC) 15 mg tablet TAKE 1 TABLET BY MOUTH EVERY DAY FOR 30 DAYS FLUoxetine (PROZAC) 20 mg capsule Take 1 capsule by mouth once daily. Take in addition to the 40mg cap for total dose of 60mg hydroCHLOROthiazide 25 mg tablet Take 1 tablet by mouth once daily. For blood pressure potassium chloride ER (KLOR-CON) 20 mEq tablet Take 2 tablets by mouth once daily. FLUoxetine (PROZAC) 40 mg capsule Take 1 capsule by mouth once daily. Take with the 20mg capsule for total daily dose of 60mg traZODone (DESYREL) 100 mg tablet Take 1 tablet by mouth daily at bedtime. ezetimibe (ZETIA) 10 mg tablet Take 1 tablet by mouth once daily. rosuvastatin (CRESTOR) 40 mg tablet Take 1 tablet by mouth once daily. gabapentin (NEURONTIN) 600 mg tablet Take 2 tablets by mouth three times a day for 180 days. albuterol HFA (PROVENTIL HFA, VENTOLIN HFA) 90 mcg/actuation inhaler Inhale 2 Puffs as instructed every 4 hours as needed. cyclobenzaprine (FLEXERIL) 10 mg tablet Take 1 tablet by mouth three times daily as needed. Fenofibrate (LOFIBRA) 160 mg tablet Take 1 tablet by mouth once daily. guaiFENesin (MUCINEX) 600 mg 12 hr tablet Take 2 tablets by mouth twice daily. (Patient taking differently: Take 1,200 mg by mouth two times a day. PRN) traMADol (ULTRAM) 50 mg tablet Take 50 mg by mouth twice daily. TENS unit and electrodes cmpk For daily use as directed GLUCOSAMINE SULFATE (GLUCOSAMINE ORAL) Take by mouth four times daily. omega-3 fatty acids 1,000 mg cap T (more content not included)... Normal [facility]07[facility] BETY PERALES ([id number]) 1960 F Date Time Provider Department 02/07/24 PIPER MONGE [facility] During your visit today, we recorded the following information about you: Piper Monge APRN.SEWING MACHINE ADJUSTER 02/07/2024 4:28 PM Signed Please let patient know their xray is normal. I have sent in antibiotics. She should let me know how she is feeling on Wednesday. Tia Anderson MA 02/07/2024 4:37 PM Signed Call to pt and notified her of results and recommendations below from Provider. Pt verbalized understanding. Tia Anderson MA Allergies As of Date: 02/07/2024 Noted Allergy Reaction LIPITOR (ATORVASTATIN CALCIUM) 06/23/2017 14 - Other: See Comments Comments: elevated LFT's Date Reviewed: 02/07/2024 Reviewed by: Adela Soliz MA - Fully Assessed Reason for Visit: Results [95] Primary Visit Diagnosis:Moderate persistent asthma with (acute) exacerbation [J45.41] Order(s):azithromycin (ZITHROMAX Z-JOSH) 250 mg tabletTake 2 tablets day one, then, 1 tablet daily until gone.Disp: 6 tabletRfl: 0 predniSONE (DELTASONE) 20 mg tabletTake 1 tablet by mouth once daily for 4 days. Take daily with food.Disp: 4 tabletRfl: 0 Prescriptions as of 02/07/2024 - azithromycin (ZITHROMAX Z-JOSH) 250 mg tablet Take 2 tablets day one, then, 1 tablet daily until gone. - predniSONE (DELTASONE) 20 mg tablet Take 1 tablet by mouth once daily for 4 days. Take daily with food. - meloxicam (MOBIC) 15 mg tablet TAKE 1 TABLET BY MOUTH EVERY DAY FOR 30 DAYS - FLUoxetine (PROZAC) 20 mg capsule Take 1 capsule by mouth once daily. Take in addition to the 40mg cap for total dose of 60mg - hydroCHLOROthiazide 25 mg tablet Take 1 tablet by mouth once daily. For blood pressure - potassium chloride ER (KLOR-CON) 20 mEq tablet Take 2 tablets by mouth once daily. - FLUoxetine (PROZAC) 40 mg capsule Take 1 capsule by mouth once daily. Take with the 20mg capsule for total daily dose of 60mg - traZODone (DESYREL) 100 mg tablet Take 1 tablet by mouth daily at bedtime. - ezetimibe (ZETIA) 10 mg tablet Take 1 tablet by mouth once daily. - rosuvastatin (CRESTOR) 40 mg tablet Take 1 tablet by mouth once daily. - gabapentin (NEURONTIN) 600 mg tablet Take 2 tablets by mouth three times a day for 180 days. - albuterol HFA (PROVENTIL HFA, VENTOLIN HFA) 90 mcg/actuation inhaler Inhale 2 Puffs as instructed every 4 hours as needed. - cyclobenzaprine (FLEXERIL) 10 mg tablet Take 1 tablet by mouth three times daily as needed. - Fenofibrate (LOFIBRA) 160 mg tablet Take 1 tablet by mouth once daily. - traMADol (ULTRAM) 50 mg tablet Take 50 mg by mouth twice daily. - TENS unit and electrodes cmpk For daily use as directed - GLUCOSAMINE SULFATE (GLUCOSAMINE ORAL) Take by mouth four times daily. - omega-3 fatty acids 1,000 mg cap Take 2 capsules by mouth twice daily. Problem List As Of Date 02/07/2024 Noted Resolved Sprain of neck [S13.9XXA] 01/19/2008 Backache, unspecified [M54.9] 01/19/2008 Cervical radiculopathy [M54.12] 06/12/2013 Spinal stenosis of cervical region [M48.02] 06/12/2013 Essential hypertension, benign [I10] 06/12/2013 Arthritis of both knees [M17.0] 06/12/2013 Cholelithiasis [K80.20] 07/24/2013 Hypokalemia [E87.6] 07/24/2013 Adrenal adenoma [D35.00] 10/17/2013 Myofascial pain [M79.18] 12/22/2013 Lumbar spondylosis [M47.816] 12/22/2013 Lumbar radiculopathy [M54.16] 12/22/2013 DDD (degenerative disc disease), cervical [M50.*12/22/2013 Brachial neuritis or radiculitis NOS [M54.12] 01/17/2014 Lumbago [M54.50] 01/17/2014 DDD (degenerative disc disease), lumbar [M51.36*03/28/2014 Osteoarthritis of spine with radiculopathy, lum*11/07/2014 Cervicogenic headache [G44.86] 11/07/2014 Mixed hyperlipidemia [E78.2] 01/02/2015 Insomnia [G47.00] 01/02/2015 Chronic pain syndrome [G89.4] 01/02/2015 Dysthymia [F34.1] 08/22/2015 NAFLD (nonalcoholic fatty liver disease) [K76.0]09/27/2015 Elevated alkaline phosphatase level [R74.8] 02/24/2016 Elevated serum GGT level [R74.8] 03/03/2016 Hyperammonemia (HCC) [E72.20] 06/23/2017 Hepatic encephalopathy (HCC) [K76.82] 06/29/2017 Encounter for gynecological examination [Z01.41*10/27/2017 Encounter for screening mammogram for breast ca*10/27/2017 Medicare annual wellness visit, subsequent [Z00*07/01/2018 History of shingles [Z86.19] 09/07/2019 Medication management [Z79.899] 02/29/2020 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 Normal [facility] XR CHEST 2V FRONTAL/LATon 11 -25-2024 XR CHEST 2V FRONTAL/LAT * * *Final Report* * * DATE OF EXAM: Feb 07 2024 2:07PM WOX [id number] - XR CHEST 2V FRONTAL/LAT / PROCEDURE REASON: multiple diagnoses * * * * Physician Interpretation * * * * EXAMINATION: CHEST RADIOGRAPH (2 VIEW FRONTAL and LATERAL) CLINICAL HISTORY: Acute cough Wheezing MQ: XC2_6 EXAM DATE/TIME: 02/07/2024 2:07 PM COMPARISON: Chest x-ray 01/28/2024 RESULT: Lines, tubes, and devices: None. Lungs and pleura: No consolidation. No lung mass. No pleural effusion. No pneumothorax. Cardiomediastinal silhouette: Normal cardiomediastinal silhouette. Bones and soft tissues: Unremarkable. IMPRESSION: No acute radiographic abnormality. [facility] Trans[facility] Date/Time: Feb 07 2024 2:07P Dictated by : MECHELLE VEGA MD This examination was interpreted and the report reviewed and electronically signed by: MECHELLE VEGA MD on Feb 07 2024 2:11PM EST [id number] Normal [facility] XR Chest PA and Lateralon IMPRESSION: No acute radiographic abnormality. Surgical Scheduler: [facility] Transcribe Date/Time: Feb 07 2024 2:07P Dictated by : MECHELLE VEGA MD This examination was interpreted and the report reviewed and electronically signed by: MECHELLE VEGA MD on Feb 07 2024 2:11PM EST DIVISION OF RADIOLOGY * * *Final Report* * * DATE OF EXAM: Feb 07 2024 2:07PM WOX [id number] - XR CHEST 2V FRONTAL/LAT / PROCEDURE REASON: multiple diagnoses * * * * Physician Interpretation * * * * EXAMINATION: CHEST RADIOGRAPH (2 VIEW FRONTAL & LATERAL) CLINICAL HISTORY: Acute cough Wheezing MQ: XC2_6 EXAM DATE/TIME: 02/07/2024 2:07 PM COMPARISON: Chest x-ray 01/28/2024 RESULT: Lines, tubes, and devices: None. Lungs and pleura: No consolidation. No lung mass. No pleural effusion. No pneumothorax. Cardiomediastinal silhouette: Normal cardiomediastinal silhouette. Bones and soft tissues: Unremarkable. DIVISION OF RADIOLOGY Provider, [facility] [place] - 02/07/2024 * * *Final Report* * * DATE OF EXAM: Feb 07 2024 2:07PM WOX [id number] - XR CHEST 2V FRONTAL/LAT / PROCEDURE REASON: multiple diagnoses * * * * Physician Interpretation * * * * EXAMINATION: CHEST RADIOGRAPH (2 VIEW FRONTAL & LATERAL) CLINICAL HISTORY: Acute cough Wheezing MQ: XC2_6 EXAM DATE/TIME: 02/07/2024 2:07 PM COMPARISON: Chest x-ray 01/28/2024 RESULT: Lines, tubes, and devices: None. Lungs and pleura: No consolidation. No lung mass. No pleural effusion. No pneumothorax. Cardiomediastinal silhouette: Normal cardiomediastinal silhouette. Bones and soft tissues: Unremarkable. IMPRESSION IMPRESSION: No acute radiographic abnormality. Surgical Scheduler: [facility] Transcribe Date/Time: Feb 07 2024 2:07P Dictated by : MECHELLE VEGA MD This examination was interpreted and the report reviewed and electronically signed by: MECHELLE VEGA MD on Feb 07 2024 2:11PM EST [facility] Radiology Study observation (narrative) [facility] XR Chest PA and LateralOrder ed By: [facility] Provider on 02-07-2024 [facility] CNOVon 01-28-2024 CNOV Office Visit (WSTR ) -------- BETY PERALES ([id number]) 1960 F Date Time Provider Department 01/28/24 10:45 AM KIA CAM [facility] During your visit today, we recorded the following information about you: Temperature Pulse Respiration Blood pressure 98.5 degrees 105/minute 20/minute 112/80 Weight 78.9 kg Kia Cam APRN.SEWING MACHINE ADJUSTER 01/28/2024 12:19 PM Signed This note was created using NoteWriter. Subjective Bety Germán Diaz is a 63 year old female. 63 year old female with PMH HTN, hyperlipidemia, NAFLD, presents for illness. Acute onset 2 weeks ago + cough +wheezing +SOB Denies eye, nose or ear complaints Denies hemoptysis Denies CP Denies dyspnea Of note, seeen 01/22/24 [facility] Diagnosed with viral RX Prednisone and Tessalon Perles Denies relief of symptoms Presents today related to worsening symptoms. Denies tobacco usage The history is provided by the patient. No russian language professor was used. Cough This is a new problem. The current episode started more than 1 week ago. The problem occurs constantly. The problem has been gradually worsening. The cough is Productive of sputum. There has been no fever. Associated symptoms include headaches, shortness of breath and wheezing. Pertinent negatives include no chest pain, no chills, no sweats, no weight loss, no ear congestion, no ear pain, no rhinorrhea, no sore throat, no myalgias and no eye redness. Treatments tried: Tessalon Perles and Prednisone. The treatment provided no relief. She is not a smoker. Her past medical history is significant for asthma. Her past medical history does not include bronchitis, pneumonia, bronchiectasis, COPD or emphysema. PAST MEDICAL HISTORY Diagnosis Date Adrenal adenoma 10/17/2013 Arthritis of both knees 06/12/2013 Backache, unspecified 01/19/2008 Brachial neuritis or radiculitis NOS 01/17/2014 Cervical radiculopathy Cervicogenic headache 11/07/2014 Cholelithiasis 07/24/2013 Chronic pain syndrome 01/02/[address] [facility] [address] Brad[facility]. Was instructed needed to get pain meds through one of them DDD (degenerative disc disease), cervical 12/22/2013 DDD (degenerative disc disease), lumbar 03/28/2014 Depression 11/03/2013 Dysthymia 08/22/2015 Elevated alkaline phosphatase level 02/24/2016 Neg w/u Elevated LFTs 09/23/2015 Elevated serum GGT level 03/03/[address] Wayne Essential hypertension, benign 06/12/2013 Hepatic encephalopathy (HCC) 06/29/2017 Hepatitis B immune 09/27/2015 History of COVID-19 03/31/202103/2021 History of shingles 09/07/201908/2019 Hyperammonemia (HCC) 06/23/2017 Hypokalemia 07/24/2013 Insomnia 11/03/2013 Lumbago 01/17/2014 Lumbar radiculopathy 12/22/2013 Lumbar spondylosis 12/22/2013 Medicare annual wellness visit, initial 07/01/2018 Last done 07/01/18 Medicare eligible 09/12/2016 Mixed hyperlipidemia 01/02/2015 Myofascial pain 12/22/2013 Osteoarthritis of spine with radiculopathy, lumbar region 11/07/2014 Osteopenia after menopause 06/21/2023 Spinal stenosis of cervical region 06/12/2013 Sprain of neck 01/19/2008 Weakness of right lower extremity 09/17/2021 Chronic from low back diease. PAST SURGICAL HISTORY Procedure Laterality Date CORTISONE, SERUM Neck and Spine injections ESOPHAGOGASTRODUODENOSCO PY TRANSORAL DIAGNOSTIC 11/01/2017 EGD EXTRACTION, ERUPTED TOOTH OR EXPOSED ROOT (ELEVATION AND/OR FORCEPS REMOVAL) complete teeth extraction upper and lower FECAL OCCULT BLOOD TEST 09/07/2016 negative LIG/TRNSXJ FLP TUBE ABDL/VAG APPR UNI/BI STRESS TEST 09/07/2016 WNL TONSILLECTOMY PRIMARY/SECONDARY Tonsillectomy ALLERGIES Lipitor [Atorvastatin Calcium] MEDICATIONS benzonatate (TESSALON PERLE) 100 mg capsule Take 1 capsule by mouth every 8 hours as needed for cough for up to 15 days. FLUoxetine (PROZAC) 40 mg capsule Take 1 capsule by mouth once daily. Take with the 20mg capsule for total daily dose of 60mg traZODone (DESYREL) 100 mg tablet Take 1 tablet by mouth daily at bedtime. meloxicam (MOBIC) 15 mg tablet TAKE 1 TABLET BY MOUTH EVERY DAY FOR 30 DAYS ezetimibe (ZETIA) 10 mg tablet Take 1 tablet by mouth once daily. rosuvastatin (CRESTOR) 40 mg tablet Take 1 tablet by mouth once daily. gabapentin (NEURONTIN) 600 mg tablet Take 2 tablets by mouth three times a day for 180 days. hydroCHLOROthiazide 25 mg tablet Take 1 tablet by mouth once daily. For blood pressure potassium chloride ER (KLOR-CON) 20 mEq tablet Take 2 tablets by mouth once daily. albuterol HFA (PROVENTIL HFA, VENTOLIN HFA) 90 mcg/actuation inhaler Inhale 2 Puffs as instructed every 4 hours as needed. FLUoxetine (PROZAC) 20 mg capsule Take 1 capsule by mouth once daily. Take in addition to the 40mg cap for total dose of 60mg cyclobenzaprine (FLEXERIL) 10 mg tablet Take 1 tablet by mouth three times (more content not included)... Normal [facility] XR CHEST 2V FRONTAL/LATon XR CHEST 2V FRONTAL/LAT * * *Final Report* * * DATE OF EXAM: Jan 28 2024 11:13AM WOX [id number] - XR CHEST 2V FRONTAL/LAT / PROCEDURE REASON: Acute cough * * * * Physician Interpretation * * * * EXAMINATION: CHEST RADIOGRAPH (2 VIEW FRONTAL and LATERAL) PATIENT/TECHNOLOGIST PROVIDED HISTORY: cough and congestion for 2 weeks CLINICAL HISTORY: 63 years old Female with Acute cough MQ: XC2_6 EXAM DATE/TIME: 01/28/2024 11:13 AM COMPARISON: Chest radiograph(s) dated 03/20/2019 RESULT: Lines, tubes, and devices: None. Lungs and pleura: Linear subsegmental atelectasis in the LEFT midlung. No consolidation, pleural effusion or pneumothorax. Cardiomediastinal silhouette: Normal cardiomediastinal silhouette. Bones and soft tissues: Unremarkable. IMPRESSION: Linear subsegmental atelectasis in the LEFT mid lung. No consolidation. Surgical Scheduler: [facility] Transcribe Date/Time: Jan 28 2024 11:39A Dictated by : MAGO MARQUEZ DO This examination was interpreted and the report reviewed and electronically signed by: MAGO MARQUEZ DO on Jan 28 2024 11:41AM EST [id number] Normal [facility] XR Chest PA and Lateralon IMPRESSION: Linear subsegmental atelectasis in the LEFT mid lung. No consolidation. Surgical Scheduler: [facility] Transcribe Date/Time: Jan 28 2024 11:39A Dictated by : MAGO MARQUEZ DO This examination was interpreted and the report reviewed and electronically signed by: MAGO MARQUEZ DO on Jan 28 2024 11:41AM EST DIVISION OF RADIOLOGY * * *Final Report* * * DATE OF EXAM: Jan 28 2024 11:13AM WOX [id number] - XR CHEST 2V FRONTAL/LAT / PROCEDURE REASON: Acute cough * * * * Physician Interpretation * * * * EXAMINATION: CHEST RADIOGRAPH (2 VIEW FRONTAL & LATERAL) PATIENT/TECHNOLOGIST PROVIDED HISTORY: cough and congestion for 2 weeks CLINICAL HISTORY: 63 years old Female with Acute cough MQ: XC2_6 EXAM DATE/TIME: 01/28/2024 11:13 AM COMPARISON: Chest radiograph(s) dated 03/20/2019 RESULT: Lines, tubes, and devices: None. Lungs and pleura: Linear subsegmental atelectasis in the LEFT midlung. No consolidation, pleural effusion or pneumothorax. Cardiomediastinal silhouette: Normal cardiomediastinal silhouette. Bones and soft tissues: Unremarkable. DIVISION OF RADIOLOGY Provider, Gonzalo Russell - 01/28/2024 * * *Final Report* * * DATE OF EXAM: Jan 28 2024 11:13AM WOX [id number] - XR CHEST 2V FRONTAL/LAT / PROCEDURE REASON: Acute cough * * * * Physician Interpretation * * * * EXAMINATION: CHEST RADIOGRAPH (2 VIEW FRONTAL & LATERAL) PATIENT/TECHNOLOGIST PROVIDED HISTORY: cough and congestion for 2 weeks CLINICAL HISTORY: 63 years old Female with Acute cough MQ: XC2_6 EXAM DATE/TIME: 01/28/2024 11:13 AM COMPARISON: Chest radiograph(s) dated 03/20/2019 RESULT: Lines, tubes, and devices: None. Lungs and pleura: Linear subsegmental atelectasis in the LEFT midlung. No consolidation, pleural effusion or pneumothorax. Cardiomediastinal silhouette: Normal cardiomediastinal silhouette. Bones and soft tissues: Unremarkable. IMPRESSION IMPRESSION: Linear subsegmental atelectasis in the LEFT mid lung. No consolidation. Surgical Scheduler: [facility] Transcribe Date/Time: Jan 28 2024 11:39A Dictated by : MAGO MARQUEZ DO This examination was interpreted and the report reviewed and electronically signed by: MAGO MARQUEZ DO on Jan 28 2024 11:41AM EST [facility] Radiology Study observation (narrative) [facility] XR Chest PA and LateralOrder ed By: [facility] Provider on 01-28-2024 [facility] CNOVon 01-22-2024 CNOV Office Visit (UCWSTR ) -------- BETY PERALES ([id number]) 1960 F Date Time Provider Department 01/22/24 10:45 AM IRAJ TALAVERA [facility] During your visit today, we recorded the following information about you: Temperature Pulse Respiration Blood pressure 98.4 degrees 88/minute 20/minute 146/86 Weight 78.5 kg Iraj Talavera MD 01/22/2024 11:19 AM Signed Patient presents with: Cough: Chest congestion x1.5 weeks, fever at start HPI: Coughing for 1 and half weeks. Initially had a fever which resolved. The cough has been worse the last 5 days and is disturbing her sleep because of persistence. Positive symptoms: dry Cough, wheezing, resolved Fever, slight sore throat, Negative symptoms: Shortness of breath, Chest pain, Sinus pressure, Nasal Congestion, Rhinorrhea, OTC: Robitussin, Delsym, inhaler MEDICATIONS: Current Outpatient Medications Medication Sig FLUoxetine (PROZAC) 40 mg capsule Take 1 capsule by mouth once daily. Take with the 20mg capsule for total daily dose of 60mg traZODone (DESYREL) 100 mg tablet Take 1 tablet by mouth daily at bedtime. meloxicam (MOBIC) 15 mg tablet TAKE 1 TABLET BY MOUTH EVERY DAY FOR 30 DAYS ezetimibe (ZETIA) 10 mg tablet Take 1 tablet by mouth once daily. rosuvastatin (CRESTOR) 40 mg tablet Take 1 tablet by mouth once daily. gabapentin (NEURONTIN) 600 mg tablet Take 2 tablets by mouth three times a day for 180 days. hydroCHLOROthiazide 25 mg tablet Take 1 tablet by mouth once daily. For blood pressure potassium chloride ER (KLOR-CON) 20 mEq tablet Take 2 tablets by mouth once daily. albuterol HFA (PROVENTIL HFA, VENTOLIN HFA) 90 mcg/actuation inhaler Inhale 2 Puffs as instructed every 4 hours as needed. FLUoxetine (PROZAC) 20 mg capsule Take 1 capsule by mouth once daily. Take in addition to the 40mg cap for total dose of 60mg cyclobenzaprine (FLEXERIL) 10 mg tablet Take 1 tablet by mouth three times daily as needed. Fenofibrate (LOFIBRA) 160 mg tablet Take 1 tablet by mouth once daily. guaiFENesin (MUCINEX) 600 mg 12 hr tablet Take 2 tablets by mouth twice daily. (Patient taking differently: Take 1,200 mg by mouth two times a day. PRN) traMADol (ULTRAM) 50 mg tablet Take 50 mg by mouth twice daily. TENS unit and electrodes cmpk For daily use as directed GLUCOSAMINE SULFATE (GLUCOSAMINE ORAL) Take by mouth four times daily. omega-3 fatty acids 1,000 mg cap Take 2 capsules by mouth twice daily. No current facility-administered medications for this visit. ALLERGIES: ALLERGIES Allergen Reactions Lipitor [Atorvastat* Other: See Comments elevated LFT's VITALS: BP 146/86 Pulse 88 Temp 36.9 ?C (98.4 ?F) Resp 20 Wt 78.5 kg (173 lb 1 oz) LMP 09/25/2009 SpO2 95% BMI 32.17 kg/m? PHYSICAL EXAM: GEN: mildly ill appearing HEENT: PERRL, EOMI, conjunctiva clear Ears: Right canal impacted with cerumen. Left canal clear. LTM without erythema, bulge, or effusion Sinuses: non-tender frontal sinus, non-tender maxillary sinuses Throat: moist mucous membranes, mild erythema, no exudate Neck: supple, no thyromegaly, no lymphadenopathy HEART: regular rate and rhythm, no murmurs LUNGS: Coarse wheezes throughout, no increased WOB; nonproductive frequent cough ASSESSMENT/PLAN: 1. Acute cough - ICD9: 786.2, ICD10: R05.1 (primary diagnosis) 2. Wheeze - ICD9: 786.07, ICD10: R06.2 Patient reports she has asthma although not officially diagnosed in the chart. She would like to undergo steroid and follow-up for CXR if her cough is not improving. - PREDNISONE 10 MG TABLET taper. Denies side effects with prior use. - BENZONATATE 100 MG CAPSULE Follow up with worsening cough, worsening shortness of breath, increasing chest pain, or late onset fever. Iraj Talavera MD Allergies As of Date: 01/22/2024 Noted Allergy Reaction LIPITOR (ATORVASTATIN CALCIUM) 06/23/2017 14 - Other: See Comments Comments: elevated LFT's Date Reviewed: 01/22/2024 Reviewed by: Galina Lucas MA - Fully Assessed Reason for Visit: Cough [28] Cmt: Chest congestion x1.5 weeks, fever at start Primary Visit Diagnosis:Acute cough [R05.1] Other Visit Diagnosis:Wheeze [R06.2] Order(s):predniSONE (DELTASONE) 10 mg tabletTake 5 tablets by mouth once daily for 1 day, THEN 4 tablets once daily for 1 day, THEN 3 tablets once daily for 1 day, THEN 2 tablets once daily for 1 day, THEN 1 tablet once daily for 1 day.Disp: 15 tabletRfl: 0 benzonatate (TESSALON PERLE) 100 mg capsuleTake 1 capsule by mouth every 8 hours as needed for cough for up to 15 days.Disp: 30 capsuleRfl: 0 Prescriptions as of 01/22/2024 - predniSONE (DELTASONE) 10 mg tablet Take 5 tablets by mouth once daily for 1 day, THEN 4 tablets once daily for 1 day, THEN 3 tablets once daily for 1 day, THEN 2 tablets once daily for 1 day, THEN 1 tablet once daily for 1 day. - benzonatate (TESSALON (more content not included)... Normal [facility] ÁLVARO DIAG W TIMBO BILATERALon 11-10-2022 [facility] HbA1c (Bld)on 09-28-2022 Average glucose Estimated from glycated hemoglobin (Bld) [Mass/Vol] 126 mg/dL [facility] HbA1c (Bld) [Mass fraction] 6.0 % High 4.3 - 5.6 % [facility] Miscellaneous Lab Procedureo n 07-09-2022 [facility] LAB TEST Normal [facility] Comment on above: Order Comment: #[id number] MEDTOX Result Comment: [id number] 6+OXYCODONE-BUND (ng/mL) DRUG RESULT SCREEN CUTOFF ____ Amphetamines,Urine Negative ng/mL 1000 Amphetamine test includes Amphetamine and Methamphetamine. Barbiturates Negative ng/mL 200 Benzodiazepines Negative ng/mL 200 Cannabinoid Negative ng/mL 20 Cocaine (Metab) Negative ng/mL 300 Opiates Negative ng/mL 300 Opiates test includes Codeine, Morphine, Hydromorphone, Hydrocodone. Oxycodone/Oxymorphone,Urine Negative ng/mL 300 Test includes Oxydodone and Oxymorphone. TESTING PERFORMED AT [facility]. ORIGINAL REPORT ON FILE IN LAB CONTAINS ADDITIONAL TEST SITE INFORMATION. Performed By: #### L 505.5000, L801.1541, L801.1543 #### [facility] Laboratory [address] [place], [address] [facility] 07-09-2022 [facility] LAB TEST 2 Normal [facility] Comment on above: Order Comment: #[id number] TRAMADOL URINE Result Comment: TEST RESULTS LIMITS Tramadol Positive Wnikza=287 [place] [address] ng/mL Cuzhxk=521 TESTING PERFORMED AT [facility]. ORIGINAL REPORT ON FILE IN LAB CONTAINS ADDITIONAL TEST SITE INFORMATION. Performed By: #### L 505.5000, L801.1541, L801.1543 #### [facility] [address] [place], [place], [address] Laboratory - Drug toxicology Ordered By: Dr. Watson on 06-22-2022 Amphetamines Ql (U) Negative <1000 ng/mL [facility] Benzodiazepines Ql (U) Negative < 200 ng/mL [facility] Cannabinoids Screen Ql (U) Negative < 50 ng/mL [facility] Cocaine Ql (U) Negative < 300 ng/mL [facility] Opiates Ql (U) Negative < 300 ng/mL [facility] No Panel InformationOrdered By: Dr. Watson on 06-22-2022 MDMA (Ecstasy) Screen Negative < 500 ng/mL [facility] Urine Barbiturates Screen Negative < 200 ng/mL [facility] Urine Drug Screen Comment [facility] Comment on above: CONFIRMATORY TESTING FOR ALL POSITIVE URINE DRUG SCREENRESULTS WILL ONLY BE SENT OUT UPON PHYSICIAN ORDER. [facility]IST[facility] Urine Drug Screen methods provide only preliminaryanalytical test results. A more specific alternate chemicalmethod must be used in order to obtain a confirmedanalytical result. Gas chromatography/mass spectrometery(GC/MS) is the preferred confirmatory method. Clinicalconsideration and professional judgement should be appliedto any drug of abuse test result, particularly whenpreliminary positive results are used. URINE TCA TESTING MUST BE ORDERED SEPARATELY. USE TESTMNEMONIC: UTCA Urine Methadone Screen Negative < 300 ng/mL [facility] Urine Drug Screen (VISTA)on 06-22-2022 AMPHETAMINES Negative Normal <1000 ng/mL [facility] Comment on above: Order Comment: U Performed By: #### L 505.5000, L801.1541, L801.1543 #### [facility] [address] [place], [address] BARBITIURATES Negative Normal < 200 ng/mL [facility] Comment on above: Order Comment: U Performed By: #### L 505.5000, L801.1541, L801.1543 #### [facility] [address] [place], [address] BENZODIAZIPINE Negative Normal < 200 ng/mL [facility] Comment on above: Order Comment: U Performed By: #### L 505.5000, L801.1541, L801.1543 #### [facility] [address] [place], [address] COCAINE Negative Normal < 300 ng/mL [facility] Comment on above: Order Comment: U Performed By: #### L 505.5000, L801.1541, L801.1543 #### [facility] [address] [place], [address] ECSTACY Negative Normal < 500 ng/mL [facility] Comment on above: Order Comment: U Performed By: #### L 505.5000, L801.1541, L801.1543 #### [facility] [address] [place], [address] METHADONE Negative Normal < 300 ng/mL [facility] Comment on above: Order Comment: U Performed By: #### L 505.5000, L801.1541, L801.1543 #### [facility] [address] [place], [address] OPIATES Negative Normal < 300 ng/mL [facility] Comment on above: Order Comment: U Performed By: #### L 505.5000, L801.1541, L801.1543 #### [facility] [address] [place], [address] PCP Negative Normal < 25 ng/mL [facility] Comment on above: Order Comment: U Performed By: #### L 505.5000, L801.1541, L801.1543 #### [facility] [address] [place], [address] THC Negative Normal < 50 ng/mL [facility] Comment on above: Order Comment: U Performed By: #### L 505.5000, L801.1541, L801.1543 #### [facility] [address] [place], [address] VISTA UDS PH 6 Normal [facility] Comment on above: Order Comment: U Performed By: #### L 505.5000, L801.1541, L801.1543 #### [facility] [address] [place], [place], [address] Urine phencyclidine (PCP) de tectionOrdered By: Dr. Watson on 06-22-2022 Phencyclidine Ql (U) Negative < 25 ng/mL [facility] Miscellaneous Lab Procedureo n 01-08-2022 [facility] Normal [facility] Comment on above: Order Comment: TRAMA DOL URINE [id number] URINE TOX [id number] RUN LOWEST TEST* Result Comment: [id number] 63 6+OXYCODONE-BUND (ng/mL) DRUG RESULT SCREEN CUTOFF ____ Amphetamines,Urine Negative ng/mL 1000 Amphetamine test includes Amphetamine and Methamphetamine. Barbiturates Negative ng/mL 200 Benzodiazepines Negative ng/mL 200 Cannabinoid Negative ng/mL 20 Cocaine (Metab) Negative ng/mL 300 Opiates Negative ng/mL 300 Opiates test includes Codeine, Morphine, Hydromorphone, Hydrocodone. Oxycodone/Oxymorphone,Urine Negative ng/mL 300 Test includes Oxydodone and Oxymorphone. TESTING PERFORMED AT [facility]. ORIGINAL REPORT ON FILE IN LAB CONTAINS ADDITIONAL TEST SITE INFORMATION. Performed By: #### L 801.1543, L801.1541, L505.5000 #### [facility] [address] [place], [address] Miscellaneous Lab Procedure 2on 01-08-2022 MISC LAB TEST 2 Normal [facility] Comment on above: Order Comment: TRAMA DOL URINE [id number] TRAMADOL URINE [id number] Result Comment: TEST RESULT LIMITS Tramadol Positive [id number]=157 [place] [id number] Pksmel=643 TESTING PERFORMED AT [facility]. ORIGINAL REPORT ON FILE IN LAB CONTAINS ADDITIONAL TEST SITE INFORMATION. Performed By: #### L 801.1543, L801.1541, L505.5000 #### [facility] [address] [place], [place], [id number] Laboratory - Drug toxicology on 01-01-2022 Amphetamines Ql (U) Negative <1000 ng/mL [facility] Work Phone: Benzodiazepines Ql (U) Negative < 200 ng/mL [facility] Work Phone: Cannabinoids Screen Ql (U) Negative < 50 ng/mL [facility] Work Phone: Cocaine Ql (U) Negative < 300 ng/mL [facility] Work Phone: Opiates Ql (U) Negative < 300 ng/mL [facility] Work Phone: No Panel Informationon 01-01 MDMA (Ecstasy) Screen Negative < 500 ng/mL [facility] Work Phone: Urine Barbiturates Screen Negative < 200 ng/mL [facility] Work Phone: Urine Drug Screen Comment [facility] Work Phone: Comment on above: CONFIRMATORY TESTING FOR ALL POSITIVE URINE DRUG SCREENRESULTS WILL ONLY BE SENT OUT UPON PHYSICIAN ORDER. [facility]ISTA Urine Drug Screen methods provide only preliminaryanalytical test results. A more specific alternate chemicalmethod must be used in order to obtain a confirmedanalytical result. Gas chromatography/mass spectrometery(GC/MS) is the preferred confirmatory method. Clinicalconsideration and professional judgement should be appliedto any drug of abuse test result, particularly whenpreliminary positive results are used. URINE TCA TESTING MUST BE ORDERED SEPARATELY. USE TESTMNEMONIC: UTCA Urine Methadone Screen Negative < 300 ng/mL [facility] Work Phone: Urine Drug Screen (VISTA)on 01-01-2022 AMPHETAMINES Negative Normal <1000 ng/mL [facility] Comment on above: Order Comment: TRAMA DOL URINE [id number] UNK Performed By: #### L 801.1543, L801.1541, L505.5000 #### [facility] [address] [facility] [address] BARBITIURATES Negative Normal < 200 ng/mL [facility] Comment on above: Order Comment: TRAMA DOL URINE [id number] UNK Performed By: #### L 801.1543, L801.1541, L505.5000 #### [facility] [address] [facility] [address] BENZODIAZIPINE Negative Normal < 200 ng/mL [facility] Comment on above: Order Comment: TRAMA DOL URINE [id number] UNK Performed By: #### L 801.1543, L801.1541, L505.5000 #### [facility] [address] [facility] [address] COCAINE Negative Normal < 300 ng/mL [facility] Comment on above: Order Comment: TRAMA DOL URINE [id number] UNK Performed By: #### L 801.1543, L801.1541, L505.5000 #### [facility] [address] [facility] [address] ECSTACY Negative Normal < 500 ng/mL [facility] Comment on above: Order Comment: TRAMA DOL URINE [id number] UNK Performed By: #### L 801.1543, L801.1541, L505.5000 #### [facility] [address] [place], [address] METHADONE Negative Normal < 300 ng/mL [facility] Comment on above: Order Comment: TRAMA DOL URINE [id number] UNK Performed By: #### L 801.1543, L801.1541, L505.5000 #### [facility] [address] [place], [address] OPIATES Negative Normal < 300 ng/mL [facility] Comment on above: Order Comment: TRAMA DOL URINE [id number] UNK Performed By: #### L 801.1543, L801.1541, L505.5000 #### [facility] [address] [place], [address] PCP Negative Normal < 25 ng/mL [facility] Comment on above: Order Comment: TRAMA DOL URINE [id number] UNK Performed By: #### L 801.1543, L801.1541, L505.5000 #### [facility] [address] [place], [address] THC Negative Normal < 50 ng/mL [facility] Comment on above: Order Comment: TRAMA DOL URINE [id number] UNK Performed By: #### L 801.1543, L801.1541, L505.5000 #### [facility] [address] [place], [address] VISTA UDS PH 5 Normal [facility] Comment on above: Order Comment: TRAMA DOL URINE [id number] UNK Performed By: #### L 801.1543, L801.1541, L505.5000 #### [facility] [address] [place], [address] Urine phencyclidine (PCP) de tectionon 10-20-2022 Phencyclidine Ql (U) Negative < 25 ng/mL [facility] Work Phone: [phone] US ABD RT UPPER QUADRANTon 0 09-19-2021 [facility] US ABD SPLEEN - NBon 022 [facility] DDI VIBRATION CONTROLLED TRA NSIENT ELASTOGRAPHY (VCTE) [facility] Vital Signs Date Time Vital Sign Value Performing Clinician Faci lity 04-21-2024 11:23-0500 Diastolic blood pressure 78 mm[Hg] David Longoria MD Work Phone: [facility] 04-21-2024 11:23-0500 Systolic blood pressure 126 mm[Hg] David Longoria MD Work Phone: [facility] 04-21-2024 10:40-0500 Body height 157.5 cm David Longoria MD Work Phone: [facility] 04-21-2024 10:40-0500 Body mass index (BMI) [Ratio] 30.36 kg/m2 David Longoria MD Work Phone: [facility] 04-21-2024 10:40-0500 Body weight 75.3 kg David Longoria MD Work Phone: [facility] 04-21-2024 10:40-0500 Heart rate 84 /min David Longoria MD Work Phone: [facility] 04-21-2024 10:40-0500 Respiratory rate 16 /min David Longoria MD Work Phone: [facility] 02-07-2024 13:28-0500 Body mass index (BMI) [Ratio] 31.6 kg/m2 Piper Monge APRN.SEWING MACHINE ADJUSTER Work Phone: [facility] 02-07-2024 13:28-0500 Body weight 77.11 kg Piper Monge APRN.SEWING MACHINE ADJUSTER Work Phone: [facility] 02-07-2024 13:28-0500 Diastolic blood pressure 91 mm[Hg] Piper Monge APRN.SEWING MACHINE ADJUSTER Work Phone: [facility] 02-07-2024 13:28-0500 Heart rate 103 /min Piper Monge VACUUM FRAME OPERATOR.SEWING MACHINE ADJUSTER Work Phone: [facility] 02-07-2024 13:28-0500 SaO2% (BldA) [Mass fraction] 93 % Piper Monge VACUUM FRAME OPERATOR.SEWING MACHINE ADJUSTER Work Phone: [facility] 02-07-2024 13:28-0500 Systolic blood pressure 146 mm[Hg] Piper Monge VACUUM FRAME OPERATOR.SEWING MACHINE ADJUSTER Work Phone: [facility] 01-28-2024 10:49-0500 Body mass index (BMI) [Ratio] 32.33 kg/m2 Kia Cam VACUUM FRAME OPERATOR.SEWING MACHINE ADJUSTER Work Phone: [facility] 01-28-2024 10:49-0500 Body temperature 98.49 [degF] Kia Cam VACUUM FRAME OPERATOR.SEWING MACHINE ADJUSTER Work Phone: [facility] 01-28-2024 10:49-0500 Body weight 78.9 kg Kia Cam VACUUM FRAME OPERATOR.SEWING MACHINE ADJUSTER Work Phone: [facility] 01-28-2024 10:49-0500 Diastolic blood pressure 80 mm[Hg] Kia Cam VACUUM FRAME OPERATOR.SEWING MACHINE ADJUSTER Work Phone: [facility] 01-28-2024 10:49-0500 Heart rate 105 /min Kia Cam VACUUM FRAME OPERATOR.SEWING MACHINE ADJUSTER Work Phone: [facility] 01-28-2024 10:49-0500 Respiratory rate 20 /min Kia Cam VACUUM FRAME OPERATOR.SEWING MACHINE ADJUSTER Work Phone: [facility] 01-28-2024 10:49-0500 SaO2% (BldA) [Mass fraction] 94 % Kia Cam VACUUM FRAME OPERATOR.SEWING MACHINE ADJUSTER Work Phone: [facility] 01-28-2024 10:49-0500 Systolic blood pressure 112 mm[Hg] Kia Cam VACUUM FRAME OPERATOR.SEWING MACHINE ADJUSTER Work Phone: [facility] 01-22-2024 10:58-0500 Body mass index (BMI) [Ratio] 32.17 kg/m2 Iraj Talavera MD Work Phone: [facility] 01-22-2024 10:58-0500 Body temperature 98.4 [degF] Iraj Talavera MD Work Phone: [facility] 01-22-2024 10:58-0500 Body weight 78.5 kg Iraj Talavera MD Work Phone: [facility] 01-22-2024 10:58-0500 Diastolic blood pressure 86 mm[Hg] Iraj Talavera MD Work Phone: [facility] 01-22-2024 10:58-0500 Heart rate 88 /min Iraj Talavera MD Work Phone: [facility] 01-22-2024 10:58-0500 Respiratory rate 20 /min Iraj Talavera MD Work Phone: [facility] 01-22-2024 10:58-0500 SaO2% (BldA) [Mass fraction] 95 % Iraj Talavera MD Work Phone: [facility] 01-22-2024 10:58-0500 Systolic blood pressure 146 mm[Hg] Iraj Talavera MD Work Phone: [facility] 10-07-2023 10:30-0400 Body mass index (BMI) [Ratio] 32.34 kg/m2 Piper Monge APRN.SEWING MACHINE ADJUSTER Work Phone: [facility] 10-07-2023 10:30-0400 Body weight 78.93 kg Piper Monge APRN.SEWING MACHINE ADJUSTER Work Phone: [facility] 10-07-2023 10:30-0400 Diastolic blood pressure 83 mm[Hg] Piper Monge APRN.SEWING MACHINE ADJUSTER Work Phone: [facility] 10-07-2023 10:30-0400 Heart rate 87 /min Piper Monge APRN.SEWING MACHINE ADJUSTER Work Phone: [facility] 10-07-2023 10:30-0400 Respiratory rate 14 /min Piper Monge APRN.SEWING MACHINE ADJUSTER Work Phone: [facility] 10-07-2023 10:30-0400 Systolic blood pressure 121 mm[Hg] Piper Azalia VACUUM FRAME OPERATOR.SEWING MACHINE ADJUSTER Work Phone: [facility] 05-25-2023 11:08-0400 Body height 156.2 cm Audelia Destin VACUUM FRAME OPERATOR.SEWING MACHINE ADJUSTER Work Phone: [facility] 05-25-2023 11:08-0400 Body weight 75.3 kg Audelia Arcadia VACUUM FRAME OPERATOR.SEWING MACHINE ADJUSTER Work Phone: [facility] 05-25-2023 11:08-0400 Diastolic blood pressure 66 mm[Hg] Audelia Arcadia VACUUM FRAME OPERATOR.SEWING MACHINE ADJUSTER Work Phone: [facility] 05-25-2023 11:08-0400 Systolic blood pressure 108 mm[Hg] Audelia Arcadia VACUUM FRAME OPERATOR.SEWING MACHINE ADJUSTER Work Phone: [facility] 09-28-2022 10:29-0400 Body temperature 99 [degF] Trang Berkowitz PA-C Work Phone: [facility] 09-28-2022 10:29-0400 Body weight 77.56 kg Trang Berkowitz PA-C Work Phone: [facility] 09-28-2022 10:29-0400 Diastolic blood pressure 82 mm[Hg] Trang Berkowitz PA-C Work Phone: [facility] 09-28-2022 10:29-0400 Heart rate 80 /min Trang Berkowitz PA-C Work Phone: [facility] 09-28-2022 10:29-0400 Respiratory rate 16 /min Trang Berkowitz PA-C Work Phone: [facility] 09-28-2022 10:29-0400 Systolic blood pressure 110 mm[Hg] Trang Berkowitz PA-C Work Phone: [facility] 03-31-2022 10:09-0500 Diastolic blood pressure 78 mm[Hg] Trang Berkowitz PA-C Work Phone: [facility] 03-31-2022 10:09-0500 Systolic blood pressure 134 mm[Hg] Trang Berkowitz PA-C Work Phone: [facility] 03-31-2022 10:06-0500 Body height 159 cm Trang Berkowitz PA-C Work Phone: [facility] 03-31-2022 10:06-0500 Body weight 77.02 kg Trang Berkowitz PA-C Work Phone: [facility] 03-31-2022 10:06-0500 Heart rate 81 /min Trang Berkowitz PA-C Work Phone: [facility] 03-31-2022 10:06-0500 Respiratory rate 14 /min Trang Berkowitz PA-C Work Phone: [facility] 03-31-2022 10:06-0500 SaO2% (BldA) [Mass fraction] 93 % Trang Berkowitz PA-C Work Phone: [facility] 09-17-2021 09:51-0400 Body weight 77.11 kg David Longoria MD Work Phone: [facility] 09-17-2021 09:51-0400 Diastolic blood pressure 80 mm[Hg] David Longoria MD Work Phone: [facility] 09-17-2021 09:51-0400 Heart rate 60 /min David Longoria MD Work Phone: [facility] 09-17-2021 09:51-0400 Respiratory rate 14 /min David Longoria MD Work Phone: [facility] 09-17-2021 09:51-0400 Systolic blood pressure 136 mm[Hg] David Longoria MD Work Phone: [facility] 09-05-2021 08:14-0400 Body height 160 cm Mabel Jo MD Work Phone: [facility] 09-05-2021 08:14-0400 Body temperature 97.59 [degF] Mabel Jo MD Work Phone: [facility] 09-05-2021 08:14-0400 Body weight 76.57 kg Mabel Jo MD Work Phone: [facility] 09-05-2021 08:14-0400 Diastolic blood pressure 88 mm[Hg] Mabel Jo MD Work Phone: [facility] 09-05-2021 08:14-0400 Heart rate 80 /min Mabel Jo MD Work Phone: [facility] 09-05-2021 08:14-0400 SaO2% (BldA) [Mass fraction] 96 % Mabel Jo MD Work Phone: [facility] 09-05-2021 08:14-0400 Systolic blood pressure 149 mm[Hg] Mabel Jo MD Work Phone: [facility] Encounters Encounter Date Encounter Type Care Provider Facility Start: 10-19-2024 End: 10-19-2024 ambulatory PIPER MONGE Facility:[facility] Start: 09-30-2024 End: 10-02-2024 Refill Piper Monge VACUUM FRAME OPERATOR.SEWING MACHINE ADJUSTER Work Phone: [facility] Comment on above: Refill Request Start: 08-29-2024 End: 08-30-2024 Refill David Longoria MD Work Phone: [facility] Comment on above: Refill Request Start: 07-31-2024 End: 08-01-2024 Refill Trang Berkowitz PA-C Work Phone: [facility] Comment on above: Refill Request Start: 06-30-2024 End: 06-30-2024 Refill Piper Monge VACUUM FRAME OPERATOR.SEWING MACHINE ADJUSTER Work Phone: [facility] Comment on above: Refill Request Start: 06-01-2024 End: 06-02-2024 Refill David Longoria MD Work Phone: [facility] Comment on above: Refill Request Start: 05-22-2024 End: 05-23-2024 Follow-up encounter David Longoria MD Work Phone: [facility] Comment on above: Hypercalcemia (Prima ry Dx) Start: 05-22-2024 End: 05-22-2024 ambulatory DAVID LONGORIA Facility:[facility] Start: 05-15-2024 End: 05-22-2024 Follow-up encounter David Longoria MD Work Phone: [facility] Comment on above: Hypercalcemia (Prima ry Dx) Start: 05-02-2024 End: 06-02-2024 ambulatory David Longoria MD Work Phone: [facility] Start: 04-26-2024 End: 04-26-2024 ambulatory DAVID LONGORIA Facility: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 Start: 04-02-2024 End: 04-03-2024 Refill Ketan Allen MD Work Phone: [facility] Comment on above: Refill Request Start: 03-01-2024 End: 03-02-2024 Refill Trang Berkowitz PA-C Work Phone: [facility] Comment on above: Refill Request Start: 02-07-2024 End: 02-07-2024 Telephone encounter Piper Monge APRN.SEWING MACHINE ADJUSTER Work Phone: [facility] Comment on above: Results Start: 02-07-2024 End: 02-07-2024 Subsequent hospital visit by physician [facility] [facility] Work Phone: Radiology Comment on above: Acute cough [R05.1] Start: 02-07-2024 End: 02-07-2024 Patient encounter procedure Piper Monge APRN.SEWING MACHINE ADJUSTER Work Phone: [facility] Comment on above: Acute cough (Primary Dx); Wheezing; SOB (shortness of breath) Start: 02-07-2024 End: 02-07-2024 ambulatory [facility] Facility:[facility] Start: 01-31-2024 End: 01-31-2024 Refill Ketan Allen MD Work Phone: [facility] Comment on above: Refill Request Start: 01-28-2024 End: 01-28-2024 Subsequent hospital visit by physician Xr [facility] [place] Work Phone: Radiology Comment on above: Acute cough [R05.1] Start: 01-28-2024 End: 01-28-2024 [facility] Facility:[facility] Start: 01-28-2024 End: 01-28-2024 Patient encounter procedure Kia Cam APRN.SEWING MACHINE ADJUSTER Work Phone: [facility] Comment on above: Acute cough (Primary Dx); URI, acute Start: 01-22-2024 End: 01-22-2024 ambulatory [facility] Facility:[facility] Start: 01-22-2024 End: 01-22-2024 Office outpatient visit 25 minutes Iraj Talavera MD Work Phone: [facility] Comment on above: Acute cough (Primary Dx); Wheeze Start: 12-02-2023 End: 12-03-2023 Refill David Longoria MD Work Phone: [facility] Comment on above: Refill Request Start: 10-08-2023 Telephone encounter Piper urena APRN.SEWING MACHINE ADJUSTER Work Phone: [facility] Comment on above: Results Start: 10-07-2023 End: 10-07-2023 Patient encounter procedure Piper Monge APRN.SEWING MACHINE ADJUSTER Work Phone: [facility] Comment on above: Encounter for screen ing examination for other mental health and behavioral disorders (Primary Dx); Essential hypertension, benign; Mixed hyperlipidemia; NAFLD (nonalcoholic fatty liver disease); Medication management; Elevated hemoglobin A1c; Subclinical hypothyroidism; Encounter for immunization Start: 10-02-2023 Refill David sarmiento MD Work Phone: [facility] [place] Comment on above: Refill Request Start: 09-02-2023 Refill David sarmiento MD Work Phone: [facility] Comment on above: Refill Request Start: 08-03-2023 Refill Piper emanuel APRN.SEWING MACHINE ADJUSTER Work Phone: [facility] Comment on above: Refill Request Start: 06-17-2023 End: 06-17-2023 Subsequent hospital visit by physician Bone Density [facility] Work Phone: Radiology Comment on above: Osteopenia of neck o f left femur [M85.852] Start: 05-25-2023 End: 05-25-2023 Patient encounter procedure Audelia Weir APRN.SEWING MACHINE ADJUSTER Work Phone: OB/Gynecology Comment on above: Encounter for gyneco logical examination (general) (routine) without abnormal findings (Primary Dx); Well woman exam; Encounter for screening for human papillomavirus (HPV); Pap smear for cervical cancer screening; Encounter for screening mammogram for breast cancer; Dense breast tissue; Osteopenia of neck of left femur Start: 05-25-2023 End: 05-25-2023 Patient encounter status Audelai Weir APRN.SEWING MACHINE ADJUSTER Work Phone: [facility] Start: 05-05-2023 Refill Davdi sarmiento MD Work Phone: [facility] [place] Comment on above: Refill Request Start: 02-05-2023 Refill David sarmiento MD Work Phone: [facility] [place] Comment on above: Refill Request Start: 02-03-2023 Refill Trang Leyva on PA-C Work Phone: [facility] Comment on above: Refill Request Start: 01-04-2023 Refill David sarmiento MD Work Phone: [facility] [place] Comment on above: Refill Request Start: 12-07-2022 Refill Trang Leyva on PA-C Work Phone: [facility] Comment on above: Refill Request Start: 11-10-2022 Telephone encounter Trang martinez PA-C Work Phone: [facility] [place] Start: 11-10-2022 End: 11-10-2022 Subsequent hospital visit by physician Diagnostic Mammo [facility] Mammogram Start: 11-02-2022 Telephone encounter Trangerika martinez PA-C Work Phone: [facility] Comment on above: Results Start: 09-29-2022 Telephone encounter Trang Jeny martinez PA-C Work Phone: [facility] [place] Comment on above: Results Start: 09-28-2022 End: 09-28-2022 Patient encounter procedure Trang Berkowitz PA-C Work Phone: [facility] Comment on above: Mixed hyperlipidemia (Primary Dx); Essential hypertension, benign; Chronic pain syndrome; Hepatic encephalopathy (HCC); NAFLD (nonalcoholic fatty liver disease); 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); Hyperammonemia (HCC); Screening for diabetes mellitus; Hot flash, menopausal Start: 09-09-2022 Refill David sarmiento MD Work Phone: [facility] Comment on above: Refill Request Start: 09-05-2022 Refill Trang Leyva on PA-C Work Phone: [facility] Comment on above: Refill Request Start: 07-09-2022 Chart abstracting David fitzpatrick MD Work Phone: [facility] Comment on above: Results, Lab Start: 06-22-2022 Chart abstracting David fitzpatrick MD Work Phone: [facility] Comment on above: Outside Lab Results Start: 06-22-2022 End: 06-22-2022 ambulatory Negra Watson [facility] Work Phone: Start: 06-22-2022 End: 06-22-2022 Patient encounter procedure [facility] Start: 04-08-2022 Refill Trang almonte PA-C Work Phone: [facility] Comment on above: Refill Request Start: 04-01-2022 Telephone encounter Trang martinez PA-C Work Phone: [facility] Comment on above: Results Start: 03-31-2022 End: 03-31-2022 Patient encounter procedure Trang Berkowitz PA-C Work Phone: [facility] Comment on above: Medicare annual well ness visit, subsequent (Primary Dx); Essential hypertension, benign; Mixed hyperlipidemia; 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); NAFLD (nonalcoholic fatty liver disease); Hyperammonemia (HCC); DDD (degenerative disc disease), lumbar; Lumbar spondylosis; Spinal stenosis of cervical region; Dysthymia; Chronic pain syndrome; Osteoarthritis of spine with radiculopathy, lumbar region; Need for COVID-19 vaccine; Need for influenza vaccination; Impacted cerumen of right ear Start: 03-06-2022 Refill David sarmiento MD Work Phone: [facility] Comment on above: Refill Request Start: 01-01-2022 End: 01-01-2022 ambulatory David Longoria [facility] Work Phone: Start: 01-01-2022 End: 01-01-2022 Patient encounter procedure [facility] Start: 11-24-2021 Telephone encounter David Longoria MD Work Phone: [facility] Comment on above: Patient Update Start: 11-07-2021 Refill Trang Autumn on PA-C Work Phone: [facility] Comment on above: Refill Request Start: 10-30-2021 Documentation procedure Mammog juan david Coordinator [facility] Start: 10-30-2021 Letter encounter Mammography Coordinator [facility] Department Start: 10-30-2021 Telephone encounter Mabel kenney MD Work Phone: [facility] Comment on above: Appointment Start: 10-15-2021 Orders Only Carlie Huber RN Angio Comment on above: NAFLD (nonalcoholic fatty liver disease) (Primary Dx) Start: 10-09-2021 Refill Trangerika Leyva on PA-C Work Phone: [facility] Comment on above: Refill Request Start: 10-08-2021 ambulatory Amy Davila [facility] [place] Comment on above: Population Health Na vigation Outreach ([facility] care gaps) Start: 09-22-2021 Telephone encounter David Longoria MD Work Phone: [facility] Comment on above: Results Start: 09-19-2021 End: 09-19-2021 ambulatory Mabel Jo MD Work Phone: Gastroenterology Comment on above: Arrived NAFLD (nonalcoholic fatty liver disease) (Primary Dx) results and plan for liver biopsy Start: 09-19-2021 E-mail encounter fro m caregiver Mabel Jo MD Work Phone: [facility] Start: 09-19-2021 End: 09-19-2021 Patient encounter procedure Hepatology Procedures A5 Work Phone: [facility] Start: 09-19-2021 End: 09-19-2021 Subsequent hospital visit by physician [facility] A21 2 Radiology Comment on above: NAFLD (nonalcoholic fatty liver disease) [K76.0] Start: 09-17-2021 End: 09-17-2021 Patient encounter procedure David Longoria MD Work Phone: [facility] Comment on above: Essential hypertensi on, benign (Primary Dx); Mixed hyperlipidemia; Dysthymia; NAFLD (nonalcoholic fatty liver disease); Cervicogenic headache; Insomnia, unspecified type; Elevated serum GGT level; 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); Chronic pain syndrome; Hepatic encephalopathy (HCC); Hyperammonemia (HCC); Weakness of right lower extremity; Need for vaccination; Encounter for screening mammogram for breast cancer Start: 09-05-2021 End: 09-05-2021 Patient encounter procedure Mabel Jo MD Work Phone: Gastroenterology Comment on above: NAFLD (nonalcoholic fatty liver disease) (Primary Dx); 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) Start: 08-08-2021 Refill David sarmiento MD Work Phone: [facility] [place] Comment on above: Refill Request Start: 07-09-2021 Refill David sarmiento MD Work Phone: [facility] Comment on above: Refill Request Start: 07-02-2021 Telephone encounter [facility] Comment on above: Appointment Start: 03-18-2021 Patient encounter procedure Antonina Donnie [facility] Work Phone: Start: 10-27-2017 Patient encounter status Antonina Mooreacre [facility] Work Phone: Procedures Date Procedure Procedure Detail Performing Clinician Start: 04-21-2024 Lipid 1995 panel - S marianne or Plasma David Longoria MD Work Phone: Start: 02-07-2024 Radiologic exam ches t 2 views Piper Monge VACUUM FRAME OPERATOR.SEWING MACHINE ADJUSTER Work Phone: Start: 01-28-2024 Radiologic exam ches t 2 views Kia Cam VACUUM FRAME OPERATOR.SEWING MACHINE ADJUSTER Work Phone: Start: 10-07-2023 Lipid 1996 panel - S marianne or Plasma Piper Monge VACUUM FRAME OPERATOR.SEWING MACHINE ADJUSTER Work Phone: Start: 04-08-2023 Lipid 1995 panel - S marianne or Plasma David Longoria MD Work Phone: Start: 11-10-2022 End: 11-10-2022 Mammography Trang Monroy Work Phone: Start: 09-28-2022 Lipid 1996 panel - S marianne or Plasma Trang Berkowitz PA-C Work Phone: Start: 03-31-2022 INFLUENZA VACCINE QUADRIVALENT 6 MO - 64 YRS IM Trang Berkowitz PA-C Work Phone: Start: 03-31-2022 PFIZER-BIONTWattpad COVI D-19 BIVALENT BOOSTER VACCINE, AGE 12+ YR Trang Berkowitz PA-C Work Phone: Start: 10-30-2021 Mammography Mabel kenney MD Work Phone: Start: 09-19-2021 Us abdominal real ti me w/image limited Mabel Jo MD Work Phone: Start: 09-19-2021 Liver elastography w /o imag w/i&r Mabel Jo MD Work Phone: Start: 08-19-2020 Mammography Antonina Fields Start: 10-12-2013 Colonoscopy Antonina Fields Plan of Treatment Date Care Activity Detail Author Start: 04-21-2029 Lipid panel Lipid Screening [facility] Start: 10-06-2028 Lipid panel Lipid Screening [facility] Start: 05-24-2028 Screening for malign ant neoplasm of cervix [facility] Start: 04-08-2028 Lipid panel Lipid Screening [facility] Start: 09-29-2027 Lipid 1996 panel - S marianne or Plasma Lipid Screening [facility] Start: 09-29-2027 LIPID SCREEN LIPID SCREEN [facility] Start: 04-21-2027 Diabetes Screening Diabetes Screenin [facility] Start: 03-31-2027 LIPID SCREEN LIPID SCREEN [facility] Start: 10-06-2026 Diabetes Screening Diabetes Screenin [facility] Start: 09-19-2026 LIPID SCREEN LIPID SCREEN [facility] Start: 04-08-2026 Diabetes Screening Diabetes Screenin [facility] Start: 03-18-2026 LIPID SCREEN LIPID SCREEN [facility] Start: 09-28-2025 DIABETES SCREEN DIABETES SCREEN [facility] Start: 09-28-2025 Diabetes Screening Diabetes Screenin g [facility] Start: 09-12-2025 ONE PNEUMOVAX PRIOR TO AGE 65 ONE PNEUMOVAX PRIOR TO AGE 65 [facility] Comment on above: Postponed from 08/09 (Postponed To Appropriate Date) Start: 09-12-2025 PNEUMOCOCCAL (1 - PCV) PNEUMOCOCCAL (1 - PCV) [facility] Comment on above: Postponed from 08/09 (Postponed To Appropriate Date) Start: 09-12-2025 Pneumococcal vaccination [facility] Comment on above: Postponed from 08/09 (Postponed To Appropriate Date) Start: 09-12-2025 Pneumococcal Vaccine : 50+ (1 of 2 - PCV) Pneumococcal Vaccine: 50+ (1 of 2 - PCV) [facility] Comment on above: Postponed from 08/09 (Postponed To Appropriate Date) Start: 05-19-2025 Screening for malign ant neoplasm of colon Fecal Occult Blood [facility] Start: 04-21-2025 Annual PCP Team Wood Die Maker cecil Disease Visit Annual PCP Team Chronic Disease Visit [facility] Start: 04-21-2025 BP Controlled (<130/80) BP Controlle d (<130/80) [facility] Start: 04-21-2025 RSV Vaccine (1 - Ris k 60-74 years 1-dose series) RSV Vaccine (1 - Risk 60-74 years 1-dose series) [facility] Comment on above: Postponed from 08/09 (Insurance Coverage) Start: 04-21-2025 Urine microalbumin profile DTaP,Tdap,Td Vaccine (2 - Td or Tdap) [facility] Comment on above: Postponed from 06/12 (Insurance Coverage) Start: 03-31-2025 DIABETES SCREEN DIABETES SCREEN [facility] Start: 02-06-2025 Annual PCP Team Wood Die Maker cecil Disease Visit Annual PCP Team Chronic Disease Visit [facility] Start: 12-13-2024 Covid-19 Vaccine ( season) Covid-19 Vaccine ( season) [facility] Comment on above: Postponed from 02/24 (Postponed - Not Clinically Indicated) Start: 11-13-2024 Influenza vaccination Influenza Vacc ine (#1) [facility] Start: 10-21-2024 DIABETES SCREEN DIABETES SCREEN [facility] Start: 10-19-2024 End: 10-19-2024 Patient encounter procedure 10/19/2024 10:20 AM EDT Office Visit [facility] [address] [place] [address] Piper Monge APRN.SEWING MACHINE ADJUSTER [address] [facility] [place] [id number] 6 month follow up [facility] Comment on above: 6 month follow up Start: 10-06-2024 Annual PCP Team Wood Die Maker cecil Disease Visit Annual PCP Team Chronic Disease Visit [facility] Start: 10-06-2024 Anxiety Screening Anxiety Screening [facility] Start: 09-19-2024 DIABETES SCREEN DIABETES SCREEN [facility] Start: 08-09-2024 Advance Directive Discussion Advance Directive Discussion [facility] Start: 06-01-2024 End: 06-01-2024 Patient encounter procedure 06/01/2024 9:30 AM EDT Office Visit OB/Gynecology [address] [place] [address] Audelia Weir APRN.SEWING MACHINE ADJUSTER [address] [place] [id number] Annual Exam OB/Gynecology Comment on above: Annual Exam Start: 05-24-2024 BP Controlled (<130/80) BP Controlle d (<130/80) [facility] Start: 05-20-2024 Screening for malign ant neoplasm of colon Colorectal Cancer Screening [facility] Start: 04-26-2024 End: 04-26-2024 ambulatory 04/26/2024 10:30 AM EST Results Only [facility] [address] [facility] [place] [id number] [facility] Start: 04-24-2024 End: 07-24-2024 Calcium [Mass/volume] in Serum or Plasma CALCIUM, TOTAL Lab Routine Hypercalcemia Expected: 04/24/2024, Expires: 07/24/2024 [facility] Work Phone: Comment on above: Expected: 04/24/2024 , Expires: 07/24/2024 Start: 04-24-2024 End: 07-24-2024 Parathyrin.intact [Mass/volume] in Serum or Plasma PTH INTACT Lab Routine Hypercalcemia Expected: 04/24/2024, Expires: 07/24/2024 [facility] Comment on above: Expected: 04/24/2024 , Expires: 07/24/2024 Start: 04-24-2024 End: 07-24-2024 PROTEIN ELECT RND UR W/INTERP PROTEIN ELECT RND UR W/INTERP Lab Routine Elevated serum protein level Expected: 04/24/2024, Expires: 07/24/2024 [facility] Comment on above: Expected: 04/24/2024 , Expires: 07/24/2024 Start: 04-24-2024 End: 07-24-2024 PROTEIN ELECTROPHORESIS SERUM W/INTERP PROTEIN ELECTROPHORESIS SERUM W/INTERP Lab Routine Elevated serum protein level Expected: 04/24/2024, Expires: 07/24/2024 [facility] Comment on above: Expected: 04/24/2024 , Expires: 07/24/2024 Start: 04-21-2024 End: 04-21-2024 Patient encounter procedure 04/21/2024 10:20 AM EST Office Visit [facility] [address] [place] [address] David Longoria MD [address] [facility] [place], [place] [id number] medicare wellness [facility] Comment on above: medicare wellness Start: 04-11-2024 End: 04-11-2024 Patient encounter procedure 04/11/2024 10:40 AM EST Office Visit [facility] [address] [place] [address] David Longoria MD [address] [facility] [address] medicare wellness [facility] [place] Comment on above: medicare wellness Start: 04-08-2024 Annual PCP Team Wood Die Maker cecil Disease Visit Annual PCP Team Chronic Disease Visit [facility] Start: 04-08-2024 BP Controlled (<130/80) BP Controlle d (<130/80) [facility] Start: 03-18-2024 [facility] Start: 02-25-2024 Covid-19 Vaccine ( season) Covid-19 Vaccine ( season) [facility] Start: 12-13-2023 Fecal Occult Blood Fecal Occult Bloo d [facility] Start: 12-13-2023 Screening for malign ant neoplasm of colon Fecal Occult Blood [facility] Start: 11-14-2023 Influenza vaccination Influenza Vacc ine (#1) [facility] Start: 11-11-2023 Mammography [facility] Start: 11-11-2023 Screening for malign ant neoplasm of breast Mammogram Screening [facility] Start: 10-27-2023 End: 10-27-2023 Patient encounter procedure 10/27/2023 9:30 AM EDT Appointment Mammogram [address] [place] [address] Encounter for screening mammogram for breast cancer [Z12.31]; Dense breast tissue [R92.30] Mammogram Comment on above: Encounter for screen ing mammogram for breast cancer [Z12.31]; Dense breast tissue [R92.30] Start: 10-13-2023 Colonoscopy COLONOSCOPY [facility] Start: 10-13-2023 COLORECTAL CANCER SCREENING COLORECTAL CANCER SCREENING [facility] Start: 10-13-2023 Screening for malign ant neoplasm of colon [facility] Start: 10-07-2023 End: 01-06-2024 Comprehensive metabolic 2000 panel - Serum or Plasma [facility] Comment on above: Expected: 10/07/2023 , Expires: 01/06/2024 Start: 10-07-2023 End: 01-06-2024 Hemoglobin A1c in Blood [facility] Comment on above: Expected: 10/07/2023 , Expires: 01/06/2024 Start: 10-07-2023 End: 01-06-2024 LIPID PANEL, NONFASTING [facility] Work Phone: Comment on above: Expected: 10/07/2023 , Expires: 01/06/2024 Start: 10-07-2023 End: 01-06-2024 Thyrotropin [Units/volume] in Serum or Plasma [facility] Comment on above: Expected: 10/07/2023 , Expires: 01/06/2024 Start: 10-07-2023 End: 10-07-2023 Patient encounter procedure 10/07/2023 10:40 AM EDT Office Visit Family [facility] [address] [place], [place] [phone] Piper Monge APRN.SEWING MACHINE ADJUSTER [address] [place], [place] [phone] 6 month f/u [facility] Comment on above: 6 month f/u Start: 09-29-2023 ANNUAL PCP TEAM HEAT TREATING BLUER CECIL DISEASE VISIT ANNUAL PCP TEAM CHRONIC DISEASE VISIT [facility] Start: 06-13-2023 Urine microalbumin profile [facility] Start: 03-31-2023 ANNUAL PCP TEAM HEAT TREATING BLUER CECIL DISEASE VISIT ANNUAL PCP TEAM CHRONIC DISEASE VISIT [facility] Start: 11-13-2022 Covid-19 Vaccine () Covid-19 Vaccine () [facility] Start: 11-13-2022 Influenza vaccination C [facility] Start: 10-30-2022 Mammography MAMMOGRAM [facility] Start: 10-30-2022 End: 12-30-2022 THYROID PEROXIDASE ANTIBODY BLOOD THYROID PEROXIDASE ANTIBODY BLOOD Lab Routine Subclinical hypothyroidism Expected: 10/30/2022, Expires: 12/30/2022 [facility] Work Phone: Comment on above: Expected: 10/30/2022 , Expires: 12/30/2022 Start: 10-30-2022 End: 12-30-2022 Thyrotropin [Units/volume] in Serum or Plasma TSH BLD Lab Routine Subclinical hypothyroidism Expected: 10/30/2022, Expires: 12/30/2022 [facility] Work Phone: Comment on above: Expected: 10/30/2022 , Expires: 12/30/2022 Start: 10-30-2022 End: 12-30-2022 Thyroxine (T4) free [Mass/volume] in Serum or Plasma T4 FREE/FREE THYROX Lab Routine Subclinical hypothyroidism Expected: 10/30/2022, Expires: 12/30/2022 [facility] Work Phone: Comment on above: Expected: 10/30/2022 , Expires: 12/30/2022 Start: 10-29-2022 HPV TESTING HPV TESTING [facility] Start: 10-29-2022 PAP TESTING PAP TESTING [facility] Start: 10-29-2022 Screening for malign ant neoplasm of cervix [facility] Start: 09-28-2022 End: 11-28-2022 Comprehensive metabolic 2000 panel - Serum or Plasma [facility] Work Phone: Comment on above: Expected: 09/28/2022 , Expires: 11/28/2022 Start: 09-28-2022 End: 11-28-2022 LIPID PANEL, NONFASTING [facility] Work Phone: Comment on above: Expected: 09/28/2022 , Expires: 11/28/2022 Start: 09-28-2022 End: 11-28-2022 Thyrotropin [Units/volume] in Serum or Plasma [facility] Work Phone: Comment on above: Expected: 09/28/2022 , Expires: 11/28/2022 Start: 09-17-2022 ANNUAL PCP TEAM HEAT TREATING BLUER CECIL DISEASE VISIT ANNUAL PCP TEAM CHRONIC DISEASE VISIT [facility] Start: 09-17-2022 BP CONTROLLED (<130/80) BP CONTROLLE D (<130/80) [facility] Start: 06-22-2022 Procedure [facility] Start: 03-31-2022 End: 05-31-2022 Comprehensive metabolic 2000 panel - Serum or Plasma [facility] Work Phone: Comment on above: Expected: 03/31/2022 , Expires: 05/31/2022 Start: 03-31-2022 End: 05-31-2022 LIPID PANEL, NONFASTING [facility] Work Phone: Comment on above: Expected: 03/31/2022 , Expires: 05/31/2022 Start: 03-31-2022 End: 05-31-2022 Urinalysis complete panel - Urine [facility] Work Phone: Comment on above: Expected: 03/31/2022 , Expires: 05/31/2022 Start: 03-20-2022 HEPATITIS A (2 of 2 - Risk 2-dose series) HEPATITIS A (2 of 2 - Risk 2-dose series) [facility] Start: 03-18-2022 ANNUAL PCP TEAM HEAT TREATING BLUER CECIL DISEASE VISIT ANNUAL PCP TEAM CHRONIC DISEASE VISIT [facility] Start: 01-01-2022 Procedure [facility] Work Phone: Start: 11-13-2021 Influenza vaccination INFLUENZA (#1) [facility] Start: 10-23-2021 COVID-19 VACCINE (5 - Booster for Moderna series) COVID-19 VACCINE (5 - Booster for Moderna series) [facility] Start: 10-22-2021 End: 12-22-2021 CBC W Auto Differential panel - Blood CBC + DIFF Lab STAT NAFLD (nonalcoholic fatty liver disease) Expected: 10/22/2021 (Approximate), Expires: 12/22/2021 [facility] [facility] Work Phone: Comment on above: Expected: 10/22/2021 (Approximate), Expires: 12/22/2021 Start: 10-22-2021 End: 12-22-2021 Comprehensive metabolic 2000 panel - Serum or Plasma COMP METABOLIC PANEL Lab STAT NAFLD (nonalcoholic fatty liver disease) Expected: 10/22/2021 (Approximate), Expires: 12/22/2021 [facility] Work Phone: Comment on above: Expected: 10/22/2021 (Approximate), Expires: 12/22/2021 Start: 10-22-2021 End: 12-22-2021 PT panel - Platelet poor plasma by Coagulation assay PROTHROMBIN TIME/PT Lab STAT NAFLD (nonalcoholic fatty liver disease) Expected: 10/22/2021 (Approximate), Expires: 12/22/2021 [facility] Work Phone: Comment on above: Expected: 10/22/2021 (Approximate), Expires: 12/22/2021 Start: 09-05-2021 End: 11-05-2021 Basic metabolic 2000 panel - Serum or Plasma BASIC METABOLIC PNL Lab Routine NAFLD (nonalcoholic fatty liver disease) Expected: 09/05/2021, Expires: 11/05/2021 [facility] Work Phone: Comment on above: Expected: 09/05/2021 , Expires: 11/05/2021 Start: 09-05-2021 End: 11-05-2021 CBC W Auto Differential panel - Blood CBC + DIFF Lab Routine NAFLD (nonalcoholic fatty liver disease) Expected: 09/05/2021, Expires: 11/05/2021 [facility] Work Phone: Comment on above: Expected: 09/05/2021 , Expires: 11/05/2021 Start: 09-05-2021 End: 11-05-2021 Hemoglobin A1c in Blood HGB A1C Lab Routine NAFLD (nonalcoholic fatty liver disease) Expected: 09/05/2021, Expires: 11/05/2021 [facility] Work Phone: Comment on above: Expected: 09/05/2021 , Expires: 11/05/2021 Start: 09-05-2021 End: 11-05-2021 Hepatic function 2000 panel - Serum or Plasma HEPATIC FUNCTION PNL Lab Routine NAFLD (nonalcoholic fatty liver disease) Expected: 09/05/2021, Expires: 11/05/2021 [facility] Work Phone: Comment on above: Expected: 09/05/2021 , Expires: 11/05/2021 Start: 09-05-2021 End: 11-05-2021 Lipid 1996 panel - Serum or Plasma LIPID PANEL BASIC Lab Routine NAFLD (nonalcoholic fatty liver disease) Expected: 09/05/2021, Expires: 11/05/2021 [facility] Work Phone: Comment on above: Expected: 09/05/2021 , Expires: 11/05/2021 Start: 09-05-2021 End: 11-05-2021 PT panel - Platelet poor plasma by Coagulation assay PROTHROMBIN TIME/PT Lab Routine NAFLD (nonalcoholic fatty liver disease) Expected: 09/05/2021, Expires: 11/05/2021 [facility] Work Phone: Comment on above: Expected: 09/05/2021 , Expires: 11/05/2021 Start: 08-19-2021 Mammography MAMMOGRAM [facility] Start: 01-20-2021 COVID-19 VACCINE (3 - Booster for Moderna series) COVID-19 VACCINE (3 - Booster for Moderna series) [facility] Start: 09-25-2020 BP CONTROLLED (<130/80) BP CONTROLLE D (<130/80) [facility] Start: 2019 RSV Vaccine (1 - 1-d ose 60+ series) RSV Vaccine (1 - 1-dose 60+ series) [facility] Start: 2019 RSV Vaccine (1 - Ris k 60-74 years 1-dose series) RSV Vaccine (1 - Risk 60-74 years 1-dose series) [facility] Start: 09-03-2017 FECAL OCCULT BLOOD FECAL OCCULT BLOO D [facility] Start: 08-09-2004 COLOGUARD (FIT-DNA) COLOGUARD (FIT-D NA) [facility] Start: 08-09-[address] COLONOGRAPHY [facility] Start: 08-09-2004 Screening for malign ant neoplasm of colon [facility] Start: 08-09-2004 SIGMOIDOSCOPY SIGMOIDOSCOPY [facility] Start: 08-09-1961 HEPATITIS A (1 of 2 - Risk 2-dose series) HEPATITIS A (1 of 2 - Risk 2-dose series) [facility] End: 06-23-2024 BD DXA TRABECULAR BONE SCORE (TBS) BD DXA TRABECULAR BONE SCORE (TBS) Radiology Routine Osteopenia of neck of left femur 1 Occurrences starting 05/25/2023 until 06/23/2024 [facility] Work Phone: Comment on above: 1 Occurrences starti ng 05/25/2023 until 06/23/2024 BD DXA TRABECULAR LISA NE SCORE (TBS) BD DXA TRABECULAR BONE SCORE (TBS) Radiology Routine Osteopenia of neck of left femur 06/17/2023 9:50 AM EDT [facility] Work Phone: End: 06-23-2024 DBT Breast - bilateral screening ÁLVARO SCREENING W TIMBO Radiology Routine Encounter for screening mammogram for breast cancer Dense breast tissue 1 Occurrences starting 05/25/2023 until 06/23/2024 [facility] Work Phone: Comment on above: 1 Occurrences starti ng 05/25/2023 until 06/23/2024 End: 06-01-2025 DBT Breast - bilateral screening ÁLVARO SCREENING W TIMBO Radiology Routine Encounter for screening mammogram for breast cancer 1 Occurrences starting 05/02/2024 until 06/01/2025 [facility] Work Phone: Comment on above: 1 Occurrences starti ng 05/02/2024 until 06/01/2025 DDI VIBRATION CONTRO LLED TRANSIENT ELASTOGRAPHY (VCTE) DDI VIBRATION CONTROLLED TRANSIENT ELASTOGRAPHY (VCTE) Procedures Routine NAFLD (nonalcoholic fatty liver disease) Ordered: 09/05/2021 [facility] Work Phone: Comment on above: Ordered: 09/05/2021 End: 06-23-2024 DXA Skeletal system.axial Views for bone density DXA-AXIAL SKELETON Radiology Routine Osteopenia of neck of left femur 1 Occurrences starting 05/25/2023 until 06/23/2024 [facility] Work Phone: Comment on above: 1 Occurrences starti ng 05/25/2023 until 06/23/2024 DXA Skeletal system. axial Views for bone density DXA-AXIAL SKELETON Radiology Routine Osteopenia of neck of left femur 06/17/2023 9:50 AM EDT [facility] Work Phone: Hemoglobin.gastroint estin al.lower [Presence] in Stool by Immunoassay IMMUNOCHEMICAL FECAL OCCULT BLOOD TEST Lab Routine Screening for colon cancer Ordered: 04/21/2024 [facility] Work Phone: Comment on above: Ordered: 04/21/2024 Hepa vaccine adult d ose for intramuscular use HEPATITIS A VACCINE ADULT IM Immunization/Injection Routine Ordered: 09/05/2021 [facility] Work Phone: Comment on above: Ordered: 09/05/2021 HPV W/GENOTYPE THIN PREP HPV W/G ENOTYPE THIN PREP Lab Routine Well woman exam Encounter for gynecological examination (general) (routine) without abnormal findings Encounter for screening for human papillomavirus (HPV) Pap smear for cervical cancer screening 05/25/2023 11:43 AM EDT [facility] Work Phone: IR TRANSJUGULAR LIVE R BX W/PRESS IR TRANSJUGULAR LIVER BX W/PRESS Radiology Routine NAFLD (nonalcoholic fatty liver disease) Ordered: 09/19/2021 [facility] Work Phone: Comment on above: Ordered: 09/19/2021 PAP TEST PAP TEST Lab Rou bere Well woman exam Encounter for gynecological examination (general) (routine) without abnormal findings Encounter for screening for human papillomavirus (HPV) Pap smear for cervical cancer screening 05/25/2023 11:43 AM EDT [facility] Work Phone: Procedure [facility] Work Phone: End: 10-17-2022 Screening mammography bi 2-view breast inc cad ÁLVARO SCREENING Radiology Routine Encounter for screening mammogram for breast cancer 1 Occurrences starting 09/17/2021 until 10/17/2022 [facility] Work Phone: Comment on above: 1 Occurrences starti ng 09/17/2021 until 10/17/2022 End: 10-05-2022 Us abdominal real time w/image limited US ABD RT UPPER QUADRANT Radiology Routine NAFLD (nonalcoholic fatty liver disease) 1 Occurrences starting 09/05/2021 until 10/05/2022 [facility] Work Phone: Comment on above: 1 Occurrences starti ng 09/05/2021 until 10/05/2022 [facility] Immunizations Immunization Date Immunization Notes Care Provider [facility] 01-24-2024 influenza, seasonal, injectable David Longoria MD Work Phone: [facility] 01-24-2024 influenza virus vaccine, unspecified formulation Piper Monge APRN.SEWING MACHINE ADJUSTER Work Phone: [facility] 04-08-2023 COVID-19 vaccine, ag e 12+ yr, season ([facility]) David Longoria MD Work Phone: [facility] 04-08-2023 influenza, injectable, quadrivalent, contains preservative David Longoria MD Work Phone: [facility] 04-08-2023 influenza virus vaccine, unspecified formulation David Longoria MD Work Phone: [facility] 03-31-2022 COVID-19 booster vaccine, age 12+ yr, bivalent ([employer]) Trang PATEL-C Work Phone: [facility] 03-31-2022 hepatitis A vaccine, adult dosage Trang PATEL-C Work Phone: [facility] 03-31-2022 influenza, injectable, quadrivalent, contains preservative Trang PATEL-C Work Phone: [facility] 03-31-2022 influenza virus vaccine, unspecified formulation Trang PATEL-C Work Phone: [facility] 09-17-2021 hepatitis A vaccine, adult dosage Hepatology A5 Work Phone: [facility] 03-18-2021 influenza, injectable, quadrivalent, contains preservative Antonina Mooreacre [facility] 08-20-2020 COVID-19 vaccine, full dose (MODERNA) Antonina Donnie [facility] 07-22-2020 COVID-19 vaccine, full dose (MODERNA) Antonina Mooreacre [facility] 02-29-2020 influenza, injectable, quadrivalent, contains preservative Antonina Fields [facility] 02-29-2020 zoster vaccine recombinant Antonina Mooreacre [facility] 11-09-2019 zoster vaccine recombinant Antonina Donnie [facility] Work Phone: 03-16-2018 influenza, injectable, quadrivalent, contains preservative Antonina Mooreacre [facility] Work Phone: 10-24-2015 influenza virus vaccine, unspecified formulation Antonina Mooreacre [facility] Work Phone: 12-18-2014 influenza virus vaccine, unspecified formulation [facility] Work Phone: 01-04-2014 influenza, seasonal, injectable [facility] 06-12-2013 tetanus toxoid, reduced diphtheria toxoid, and acellular pertussis vaccine, adsorbed [facility] 12-22-2000 tetanus and diphtheria toxoids, adsorbed, preservative free, for adult use (2 Lf of tetanus toxoid and 2 Lf of diphtheria toxoid) [facility] NEGATED: Highlighted row has not occurred!09-05-2021 hepatitis A vaccine, adult dosage Mabel Jo MD Work Phone: [facility] Work Phone: Comment on above: Deferred: Postponed Payers Date Payer Category Payer Medicare (Managed Care) [facility] DUAL COMPLETE HMO POS SNP [id number] 2022 Self-pay [id number] 2022 Unknown [id number] 2017 Medicare UHC MEDICARE UHC DUAL COMPLETE HMO SNP [id number] 2017-Present [phone] [address] [place] [address] Medicare [id number] 2017 Medicare [id number] 2016 Medicaid MEDICAID [facility] MEDICAID [id number] 2016-Present [phone] [address] [place] [address] Medicaid [id number] 2016 Medicaid [id number] 2013 Medicaid [id number] 2007 Government (not [facility] or Medicaid) [id number] 2007 Unknown [id number] Unknown [id number] Unknown [id number] Social History Date Type Detail Facility Start: 06-28-2013 End: 05-25-2023 Tobacco smoking status FLIS Never smoked tobacco [facility] Start: 03-31-2021 End: 04-21-2024 Alcohol intake Current non-drinker of alcohol (finding) [facility] Start: 03-17-2021 History SDOH Alcohol Frequency 1 [facility] Start: 03-17-2021 History SDOH Social Connections Phone 2 [facility] Start: 03-17-2021 History SDOH Social Connections Living 7 [facility] Start: 03-17-2021 History SDOH Stress 5 [facility] Start: 1960 Sex Assigned At Not on file C [facility] Start: 06-27-2021 End: 11-03-2021 Exposure to SARS-CoV-2 (event) Not sure [facility] Start: 06-28-2013 End: 05-25-2023 Tobacco use and exposure Smokeless tobacco non-user [facility] Start: 09-07-2019 Tobacco smoking stat us NHIS Unknown if ever smoked [facility] Start: 09-07-2019 Alone [facility] Start: 1960 Sex Assigned At Female [facility] Start: 03-17-2021 End: 09-28-2022 History of Social function [facility] Start: 03-17-2021 End: 09-28-2022 Social connection and isolation panel [facility] Do you belong to any clubs or organizations such as scientologist groups, unions, fraternal or athletic groups, or school groups? No [facility] Are you now , , , , never or living with a partner? Never [facility] How often to you hav e a drink containing alcohol? Never [facility] Average Number of Drinks Not on file [facility] Do you feel stress - tense, restless, nervous, or anxious, or unable to sleep at night because your mind is troubled all the time - these days [OSQ] Very much [facility] (I/We) worried whemalena er (my/our) food would run out before (I/we) got money to buy more. Never true [facility] Do you feel stress - tense, restless, nervous, or anxious, or unable to sleep at night because your mind is troubled all the time - these days [OSQ] Only a little [facility] Start: 05-25-2023 Education 13 [facility] NEGATED: Highlighted rowStart: NINF History of tobacco use Passive smoker [facility] Functional Status Date Assessment Result Facility 07-05-2014 Are you deaf, or do you have serious difficulty hearing No 07/05/2014 7:53 AM Stephanie Page MA No [facility] 07-05-2014 Are you blind, or do you have serious difficulty seeing, even when wearing glasses No 07/05/2014 7:53 AM Stephanie Page MA No [facility] 07-05-2014 Do you have serious difficulty walking or climbing stairs Yes 07/05/2014 7:53 AM Stephanie Page MA Yes [facility] 07-05-2014 Do you have difficul ty dressing or bathing No 07/05/2014 7:53 AM EDT Stephanie Patel MA No [facility] 07-05-2014 Because of a physica l, mental, or emotional condition, do you have difficulty doing errands alone such as visiting a physician's office or shopping No 07/05/2014 7:53 AM EDT Stephanie Patel MA No [facility] Mental Status Date Assessment Result Facility 07-05-2014 Because of a physica l, mental, or emotional condition, do you have serious difficulty concentrating, remembering, or making decisions No 07/05/2014 7:53 AM EDT Stephanie Patel MA No [facility] Clinical Notes 07-02-2021 to 10-19-2024 Telephone Encounter - Gwen Ward LPN - 10/02/2024 3:48 PM EDTTelephone Encounter - Gwen Ward LPN - 10/02/2024 3:48 PM EDTTelephone Encounter - David Longoria MD - 08/30/2024 1:07 PM EDT Note Date & Type Note Facility 10-19-2024 Note HNO ID: [id number] Author: PIPER MONGE APRN.SEWING MACHINE ADJUSTER Service: ? Author Type: Nurse Practitioner Type: Progress Notes Filed: 10/19/2024 10:13 Note Text: Chief Complaint Patient presents with: 6 Month Exam HPI Bety Perales is a 64 year old female who presents here today for Above Complaints.. Patient presents for routine follow up. Patient is overdue for mammogram and has not scheduled with Gen Surg for colonoscopy. Past medical history, appointments, medications, allergies reviewed. Previous Medical History PAST MEDICAL HISTORY Diagnosis Date Adrenal adenoma 10/17/2013 Arthritis of both knees 06/12/2013 Backache, unspecified 01/19/2008 Brachial neuritis or radiculitis NOS 01/17/2014 Cervical radiculopathy Cervicogenic headache 11/07/2014 Cholelithiasis 07/24/2013 Chronic pain syndrome 01/02/[address] [facility] [address] Brad[facility]. Was instructed needed to get pain meds through one of them DDD (degenerative disc disease), cervical 12/22/2013 DDD (degenerative disc disease), lumbar 03/28/2014 Depression 11/03/2013 Dysthymia 08/22/2015 Elevated alkaline phosphatase level 02/24/2016 Neg w/u Elevated hemoglobin A1c 09/29/2022 Elevated LFTs 09/23/2015 Elevated serum GGT level 03/03/[address] Wayne Essential hypertension, benign 06/12/2013 Hepatic encephalopathy (HCC) 06/29/2017 Hepatitis B immune 09/27/2015 History of COVID-19 03/31/202103/2021 History of shingles 09/07/201908/2019 Hyperammonemia (HCC) 06/23/2017 Hypokalemia 07/24/2013 Insomnia 11/03/2013 Lumbago 01/17/2014 Lumbar radiculopathy 12/22/2013 Lumbar spondylosis 12/22/2013 Medicare annual wellness visit, initial 07/01/2018 Last done 07/01/18 Medicare eligible 09/12/2016 Mixed hyperlipidemia 01/02/2015 Myofascial pain 12/22/2013 Osteoarthritis of spine with radiculopathy, lumbar region 11/07/2014 Osteopenia after menopause 06/21/2023 Spinal stenosis of cervical region 06/12/2013 Sprain of neck 01/19/2008 Weakness of right lower extremity 09/17/2021 Chronic from low back diease. Previous Surgical History PAST SURGICAL HISTORY Procedure Laterality Date CORTISONE, SERUM Neck and Spine injections ESOPHAGOGASTRODUODENOSCOPY TRANSORAL DIAGNOSTIC 11/01/2017 EGD EXTRACTION, ERUPTED TOOTH OR EXPOSED ROOT (ELEVATION AND/OR FORCEPS REMOVAL) complete teeth extraction upper and lower IMMUNOCHEMICAL FECAL OCCULT BLOOD TEST 09/07/2016 negative LIG/TRNSXJ FLP TUBE ABDL/VAG APPR UNI/BI STRESS TEST 09/07/2016 WNL TONSILLECTOMY PRIMARY/SECONDARY Tonsillectomy Family History FAMILY HISTORY Problem Relation Age of Onset Blood Disease Mother anemic No Known Problems Brother No Known Problems Brother Hypertension Maternal Grandmother Asthma Maternal Grandfather Diabetes Maternal Uncle Patient Allergies ALLERGIES Allergen Reactions Lipitor [Atorvastat* Other: See Comments elevated LFT's Current Medications Current Outpatient Medications on File Prior to Visit Medication Sig ezetimibe (ZETIA) 10 mg tablet Take 1 tablet by mouth once daily. rosuvastatin (CRESTOR) 40 mg tablet Take 1 tablet by mouth once daily. meloxicam (MOBIC) 15 mg tablet TAKE 1 TABLET BY MOUTH EVERY DAY FOR 30 DAYS cyclobenzaprine (FLEXERIL) 10 mg tablet Take 1 tablet by mouth three times a day as needed. gabapentin (NEURONTIN) 600 mg tablet Take 2 tablets by mouth three times a day for 180 days. cholecalciferol, Vitamin D3, (VITAMIN D3) 1,250 mcg (50,000 unit) cap capsule Take 1 capsule by mouth one time a week. FLUoxetine (PROZAC) 20 mg capsule Take 1 capsule by mouth once daily. Take in addition to the 40mg cap for total dose of 60mg hydroCHLOROthiazide 25 mg tablet Take 1 tablet by mouth once daily. For blood pressure potassium chloride ER (KLOR-CON) 20 mEq tablet Take 2 tablets by mouth once daily. albuterol HFA (PROVENTIL HFA, VENTOLIN HFA) 90 mcg/actuation inhaler Inhale 2 puffs as instructed every 4 hours as needed. FLUoxetine (PROZAC) 40 mg capsule Take 1 capsule by mouth once daily. Take with the 20mg capsule for total daily dose of 60mg traZODone (DESYREL) 100 mg tablet Take 1 tablet by mouth daily at bedtime. Fenofibrate (LOFIBRA) 160 mg tablet Take 1 tablet by mouth once daily. traMADol (ULTRAM) 50 mg tablet Take 50 mg by mouth twice daily. TENS unit and electrodes cmpk For daily use as directed GLUCOSAMINE SULFATE (GLUCOSAMINE ORAL) Take by mouth four times daily. omega-3 fatty acids 1,000 mg cap Take 2 capsules by mouth twice daily. No current facility-administered medications on file prior to visit. Social History Social History Tobacco Use Smoking status: Never Passive exposure: Never Smokeless tobacco: Never Vaping Use Vaping status: Never Used Substance Use Topics Alcohol use: No Drug use: No Review of Symptoms REVIEW OF SYSTEMS SEE HPI EXAM: BP 125/78 Pulse 78 Wt 78 kg (171 lb 15.3 oz) LMP 09/25/2009 (more content not included)... [facility] 10-02-2024 Telephone encounter Note Prescription Refill Information The patient has been identified by name and date of : Yes Caregiver verified no other encounters exist for this prescription request: Yes Caregiver confirmed with patient/requestor that no other refills are due, in the near future, with this provider at this time: Yes The last office visit in the department: 04/21/24 Does the patient have a future office visit with this provider/department: Yes 10/19/24 Requested Prescriptions Pending Prescriptions Disp Refills ezetimibe (ZETIA) 10 mg tablet 90 tablet 1 Sig: Take 1 tablet by mouth once daily. rosuvastatin (CRESTOR) 40 mg tablet 90 tablet 1 Sig: Take 1 tablet by mouth once daily. meloxicam (MOBIC) 15 mg tablet 30 tablet 3 Sig: TAKE 1 TABLET BY MOUTH EVERY DAY FOR 30 DAYS Gwen Ward LPN October 02, 2024 3:49 PM [facility] 10-02-2024 Miscellaneous Notes Prescription Refill Information The patient has been identified by name and date of : Yes Caregiver verified no other encounters exist for this prescription request: Yes Caregiver confirmed with patient/requestor that no other refills are due, in the near future, with this provider at this time: Yes The last office visit in the department: 04/21/24 Does the patient have a future office visit with this provider/department: Yes 10/19/24 Requested Prescriptions Pending Prescriptions Disp Refills ezetimibe (ZETIA) 10 mg tablet 90 tablet 1 Sig: Take 1 tablet by mouth once daily. rosuvastatin (CRESTOR) 40 mg tablet 90 tablet 1 Sig: Take 1 tablet by mouth once daily. meloxicam (MOBIC) 15 mg tablet 30 tablet 3 Sig: TAKE 1 TABLET BY MOUTH EVERY DAY FOR 30 DAYS Gwen Ward LPN October 02, 2024 3:49 PM documented in this encounter [facility] 08-30-2024 Telephone encounter Note The following approved medication requests have been transmitted electronically. Requested Prescriptions Signed Prescriptions Disp Refills cyclobenzaprine (FLEXERIL) 10 mg tablet 90 tablet 3 Sig: Take 1 tablet by mouth three times a day as needed. Authorizing Provider: DAVID LONGORIA MD [facility] 08-30-2024 Miscellaneous Notes The following approved medication requests have been transmitted electronically. Requested Prescriptions Signed Prescriptions Disp Refills cyclobenzaprine (FLEXERIL) 10 mg tablet 90 tablet 3 Sig: Take 1 tablet by mouth three times a day as needed. Authorizing Provider: DAVID LONGORIA MD Prescription Refill Information The patient has been identified by name and date of : Yes Caregiver verified no other encounters exist for this prescription request: Yes Caregiver confirmed with patient/requestor that no other refills are due, in the near future, with this provider at this time: Yes The last office visit in the department: 04/21/24 Does the patient have a future office visit with this provider/department: Yes Requested Prescriptions Pending Prescriptions Disp Refills cyclobenzaprine (FLEXERIL) 10 mg tablet 90 tablet 3 Sig: Take 1 tablet by mouth three times a day as needed. Riky Menchaca LPN August 30, 2024 9:00 AM documented in this encounter [facility] 08-30-2024 Telephone encounter Note Prescription Refill Information The patient has been identified by name and date of : Yes Caregiver verified no other encounters exist for this prescription request: Yes Caregiver confirmed with patient/requestor that no other refills are due, in the near future, with this provider at this time: Yes The last office visit in the department: 04/21/24 Does the patient have a future office visit with this provider/department: Yes Requested Prescriptions Pending Prescriptions Disp Refills cyclobenzaprine (FLEXERIL) 10 mg tablet 90 tablet 3 Sig: Take 1 tablet by mouth three times a day as needed. Riky Menchaca LPN August 30, 2024 9:00 AM [facility] 08-29-2024 Telephone encounter Note The following approved medication requests have been transmitted electronically. Requested Prescriptions Signed Prescriptions Disp Refills gabapentin (NEURONTIN) 600 mg tablet 180 tablet 5 Sig: Take 2 tablets by mouth three times a day for 180 days. Authorizing Provider: DAVID LONGORIA cholecalciferol, Vitamin D3, (VITAMIN D3) 1,250 mcg (50,000 unit) cap capsule 12 capsule 3 Sig: Take 1 capsule by mouth one time a week. Authorizing Provider: DAVID LONGORIA MD [facility] 08-29-2024 Miscellaneous Notes The following approved medication requests have been transmitted electronically. Requested Prescriptions Signed Prescriptions Disp Refills gabapentin (NEURONTIN) 600 mg tablet 180 tablet 5 Sig: Take 2 tablets by mouth three times a day for 180 days. Authorizing Provider: DAVID LONGORIA cholecalciferol, Vitamin D3, (VITAMIN D3) 1,250 mcg (50,000 unit) cap capsule 12 capsule 3 Sig: Take 1 capsule by mouth one time a week. Authorizing Provider: DAVID LONGORIA MD Prescription Refill Information The patient has been identified by name and date of : Yes Caregiver verified no other encounters exist for this prescription request: Yes Caregiver confirmed with patient/requestor that no other refills are due, in the near future, with this provider at this time: Yes The last office visit in the department: Does the patient have a future office visit with this provider/department: Yes Requested Prescriptions Pending Prescriptions Disp Refills gabapentin (NEURONTIN) 600 mg tablet 180 tablet 5 Sig: Take 2 tablets by mouth three times a day for 180 days. cholecalciferol, Vitamin D3, (VITAMIN D3) 1,250 mcg (50,000 unit) cap capsule 12 capsule 3 Sig: Take 1 capsule by mouth one time a week. Angeline Hoffman MA August 29, 2024 3:40 PM documented in this encounter [facility] 08-29-2024 Telephone encounter Note Prescription Refill Information The patient has been identified by name and date of : Yes Caregiver verified no other encounters exist for this prescription request: Yes Caregiver confirmed with patient/requestor that no other refills are due, in the near future, with this provider at this time: Yes The last office visit in the department: Does the patient have a future office visit with this provider/department: Yes Requested Prescriptions Pending Prescriptions Disp Refills gabapentin (NEURONTIN) 600 mg tablet 180 tablet 5 Sig: Take 2 tablets by mouth three times a day for 180 days. cholecalciferol, Vitamin D3, (VITAMIN D3) 1,250 mcg (50,000 unit) cap capsule 12 capsule 3 Sig: Take 1 capsule by mouth one time a week. Angeline Hoffman MA August 29, 2024 3:40 PM [facility] 08-01-2024 Telephone encounter Note Prescription Refill Information The patient has been identified by name and date of : Yes Caregiver verified no other encounters exist for this prescription request: Yes Caregiver confirmed with patient/requestor that no other refills are due, in the near future, with this provider at this time: Yes The last office visit in the department: 04/21/24 Does the patient have a future office visit with this provider/department: Yes Requested Prescriptions Pending Prescriptions Disp Refills FLUoxetine (PROZAC) 20 mg capsule 90 capsule 1 Sig: Take 1 capsule by mouth once daily. Take in addition to the 40mg cap for total dose of 60mg hydroCHLOROthiazide 25 mg tablet 90 tablet 1 Sig: Take 1 tablet by mouth once daily. For blood pressure potassium chloride ER (KLOR-CON) 20 mEq tablet 180 tablet 1 Sig: Take 2 tablets by mouth once daily. Riky Menchaca LPN August 01, 2024 8:00 AM [facility] 08-01-2024 Miscellaneous Notes Prescription Refill Information The patient has been identified by name and date of : Yes Caregiver verified no other encounters exist for this prescription request: Yes Caregiver confirmed with patient/requestor that no other refills are due, in the near future, with this provider at this time: Yes The last office visit in the department: 04/21/24 Does the patient have a future office visit with this provider/department: Yes Requested Prescriptions Pending Prescriptions Disp Refills FLUoxetine (PROZAC) 20 mg capsule 90 capsule 1 Sig: Take 1 capsule by mouth once daily. Take in addition to the 40mg cap for total dose of 60mg hydroCHLOROthiazide 25 mg tablet 90 tablet 1 Sig: Take 1 tablet by mouth once daily. For blood pressure potassium chloride ER (KLOR-CON) 20 mEq tablet 180 tablet 1 Sig: Take 2 tablets by mouth once daily. Riky Menchaca LPN August 01, 2024 8:00 AM documented in this encounter [facility] 06-30-2024 Telephone encounter Note The following approved medication requests have been transmitted electronically. Requested Prescriptions Signed Prescriptions Disp Refills albuterol HFA (PROVENTIL HFA, VENTOLIN HFA) 90 mcg/actuation inhaler 18 g 3 Sig: Inhale 2 puffs as instructed every 4 hours as needed. Authorizing Provider: DAVID LONGORIA MD [facility] 06-30-2024 Miscellaneous Notes The following approved medication requests have been transmitted electronically. Requested Prescriptions Signed Prescriptions Disp Refills albuterol HFA (PROVENTIL HFA, VENTOLIN HFA) 90 mcg/actuation inhaler 18 g 3 Sig: Inhale 2 puffs as instructed every 4 hours as needed. Authorizing Provider: DAVID LONGORIA MD Prescription Refill Information The patient has been identified by name and date of : Yes Caregiver verified no other encounters exist for this prescription request: Yes Caregiver confirmed with patient/requestor that no other refills are due, in the near future, with this provider at this time: Yes The last office visit in the department: 04/21/24 Does the patient have a future office visit with this provider/department: Yes, 10/19/24 Requested Prescriptions Pending Prescriptions Disp Refills albuterol HFA (PROVENTIL HFA, VENTOLIN HFA) 90 mcg/actuation inhaler 18 g 3 Sig: Inhale 2 puffs as instructed every 4 hours as needed. Maximino Castañeda LPN June 30, 2024 9:22 AM documented in this encounter [facility] 06-30-2024 Telephone encounter Note Prescription Refill Information The patient has been identified by name and date of : Yes Caregiver verified no other encounters exist for this prescription request: Yes Caregiver confirmed with patient/requestor that no other refills are due, in the near future, with this provider at this time: Yes The last office visit in the department: 04/21/24 Does the patient have a future office visit with this provider/department: Yes, 10/19/24 Requested Prescriptions Pending Prescriptions Disp Refills ezetimibe (ZETIA) 10 mg tablet 90 tablet 1 Sig: Take 1 tablet by mouth once daily. *Last rx written 04/03/24 #90 with 1 refill. Pt is not due for refill. MC message to pt advising of the same. Maximino Castañeda LPN June 30, 2024 9:23 AM [facility] 06-30-2024 Miscellaneous Notes Prescription Refill Information The patient has been identified by name and date of : Yes Caregiver verified no other encounters exist for this prescription request: Yes Caregiver confirmed with patient/requestor that no other refills are due, in the near future, with this provider at this time: Yes The last office visit in the department: 04/21/24 Does the patient have a future office visit with this provider/department: Yes, 10/19/24 Requested Prescriptions Pending Prescriptions Disp Refills ezetimibe (ZETIA) 10 mg tablet 90 tablet 1 Sig: Take 1 tablet by mouth once daily. *Last rx written 04/03/24 #90 with 1 refill. Pt is not due for refill. MC message to pt advising of the same. Maximino Castañeda LPN June 30, 2024 9:23 AM documented in this encounter [facility] 06-30-2024 Telephone encounter Note Prescription Refill Information The patient has been identified by name and date of : Yes Caregiver verified no other encounters exist for this prescription request: Yes Caregiver confirmed with patient/requestor that no other refills are due, in the near future, with this provider at this time: Yes The last office visit in the department: 04/21/24 Does the patient have a future office visit with this provider/department: Yes, 10/19/24 Requested Prescriptions Pending Prescriptions Disp Refills albuterol HFA (PROVENTIL HFA, VENTOLIN HFA) 90 mcg/actuation inhaler 18 g 3 Sig: Inhale 2 puffs as instructed every 4 hours as needed. Maximino Castañeda LPN June 30, 2024 9:22 AM [facility] 06-01-2024 Telephone encounter Note The patient has been identified by name and date of : Yes Caregiver verified no other encounters exist for this prescription request: Yes Caregiver confirmed with patient/requestor that no other refills are due, in the near future, with this provider at this time: Yes The last office visit in the department: 04/21/2024 Does the patient have a future office visit with this provider/department: Yes 10/19/2024 Requested Prescriptions Pending Prescriptions Disp Refills FLUoxetine (PROZAC) 40 mg capsule 90 capsule 1 Sig: Take 1 capsule by mouth once daily. Take with the 20mg capsule for total daily dose of 60mg traZODone (DESYREL) 100 mg tablet 90 tablet 1 Sig: Take 1 tablet by mouth daily at bedtime. meloxicam (MOBIC) 15 mg tablet 30 tablet 3 Sig: TAKE 1 TABLET BY MOUTH EVERY DAY FOR 30 DAYS Ca Gardner RN June 01, 2024 7:38 PM [facility] 06-01-2024 Miscellaneous Notes The patient has been identified by name and date of : Yes Caregiver verified no other encounters exist for this prescription request: Yes Caregiver confirmed with patient/requestor that no other refills are due, in the near future, with this provider at this time: Yes The last office visit in the department: 04/21/2024 Does the patient have a future office visit with this provider/department: Yes 10/19/2024 Requested Prescriptions Pending Prescriptions Disp Refills FLUoxetine (PROZAC) 40 mg capsule 90 capsule 1 Sig: Take 1 capsule by mouth once daily. Take with the 20mg capsule for total daily dose of 60mg traZODone (DESYREL) 100 mg tablet 90 tablet 1 Sig: Take 1 tablet by mouth daily at bedtime. meloxicam (MOBIC) 15 mg tablet 30 tablet 3 Sig: TAKE 1 TABLET BY MOUTH EVERY DAY FOR 30 DAYS Ca Gardner RN June 01, 2024 7:38 PM documented in this encounter [facility] 05-23-2024 Telephone encounter Note Pt notified of results and provider message. Pt reports she will call back about who she wants to see for endo. Jazzmine Chacko LPN [facility] 05-23-2024 Miscellaneous Notes Pt notified of results and provider message. Pt reports she will call back about who she wants to see for endo. Jazzmine Chacko LPN Left message for pt to contact office. Riky Menchaca LPN Let patient know her Vit D level is very low. Typically this would cause a low calcium not an elevated calcium. Her repeat calcium is still elevated. I'm placing a referral to see endo for the elevated calcium and starting her on Vit D 50,000 international unit(s) 's once a week. documented in this encounter [facility] 05-23-2024 Telephone encounter Note Left message for pt to contact office. Riky Menchaca LPN [facility] 05-22-2024 Telephone encounter Note Let patient know her Vit D level is very low. Typically this would cause a low calcium not an elevated calcium. Her repeat calcium is still elevated. I'm placing a referral to see endo for the elevated calcium and starting her on Vit D 50,000 international unit(s) 's once a week. [facility] 05-22-2024 Telephone encounter Note Labs currently pending. [facility] 05-22-2024 Miscellaneous Notes Labs currently pending. Labs are currently in process today. Tia Anderson MA Please see both messages for patient. Angeline Hoffman MA Left message for patient to contact office. Sent my chart message. Angeline Hoffman MA Left message for patient to contact office. Angeline Hoffman MA Let patient know her repeat protein level was normal. Her urine protein was normal. Her calcium level was slightly higher but her parathyroid hormone level was ok. I want her to get a repeat calcium and vit D level at the [facility]. Orders placed. documented in this encounter [facility] 05-22-2024 Progress note Formatting of t his note might be different from the original. Labs are currently in process today. Tia Anderson MA [facility] 05-22-2024 Telephone encounter Note Please see both messages for patient. Angeline Hoffman MA [facility] 05-19-2024 Telephone encounter Note Left message for patient to contact office. Sent my chart message. Angeline Hoffman MA [facility] 05-17-2024 Telephone encounter Note Left message for patient to contact office. Angeline Hoffman MA [facility] 05-15-2024 Telephone encounter Note Let patient know her repeat protein level was normal. Her urine protein was normal. Her calcium level was slightly higher but her parathyroid hormone level was ok. I want her to get a repeat calcium and vit D level at the [facility]. Orders placed. [facility] 05-02-2024 Note Patient Outreach (FA MPWS) BETY PERALES ([id number]) 1960 F Date Time Provider Department 05/02/24 DAVID LONGORIA [facility] During your visit today, we recorded the following information about you: Allergies As of Date: 05/02/2024 Noted Allergy Reaction LIPITOR (ATORVASTATIN CALCIUM) 06/23/2017 14 - Other: See Comments Comments: elevated LFT's Date Reviewed: 04/21/2024 Reviewed by: David Lognoria MD - Fully Assessed Visit Diagnosis:Encounter for screening mammogram for breast cancer [Z12.31] Order(s):[facility] SCREENING [facility] [[id number]] Order #: [id number] FUTURE Prescriptions as of 06/02/2024 - cholecalciferol, Vitamin D3, (VITAMIN D3) 1,250 mcg (50,000 unit) cap capsule Take 1 capsule by mouth one time a week. - ezetimibe (ZETIA) 10 mg tablet Take 1 tablet by mouth once daily. - rosuvastatin (CRESTOR) 40 mg tablet Take 1 tablet by mouth once daily. - gabapentin (NEURONTIN) 600 mg tablet Take 2 tablets by mouth three times a day for 180 days. - albuterol HFA (PROVENTIL HFA, VENTOLIN HFA) 90 mcg/actuation inhaler Inhale 2 Puffs as instructed every 4 hours as needed. - meloxicam (MOBIC) 15 mg tablet TAKE 1 TABLET BY MOUTH EVERY DAY FOR 30 DAYS - FLUoxetine (PROZAC) 20 mg capsule Take 1 capsule by mouth once daily. Take in addition to the 40mg cap for total dose of 60mg - hydroCHLOROthiazide 25 mg tablet Take 1 tablet by mouth once daily. For blood pressure - potassium chloride ER (KLOR-CON) 20 mEq tablet Take 2 tablets by mouth once daily. - FLUoxetine (PROZAC) 40 mg capsule Take 1 capsule by mouth once daily. Take with the 20mg capsule for total daily dose of 60mg - traZODone (DESYREL) 100 mg tablet Take 1 tablet by mouth daily at bedtime. - cyclobenzaprine (FLEXERIL) 10 mg tablet Take 1 tablet by mouth three times daily as needed. - Fenofibrate (LOFIBRA) 160 mg tablet Take 1 tablet by mouth once daily. - traMADol (ULTRAM) 50 mg tablet Take 50 mg by mouth twice daily. - TENS unit and electrodes cmpk For daily use as directed - GLUCOSAMINE SULFATE (GLUCOSAMINE ORAL) Take by mouth four times daily. - omega-3 fatty acids 1,000 mg cap Take 2 capsules by mouth twice daily. Problem List As Of Date 05/02/2024 Noted Resolved Sprain of neck [S13.9XXA] 01/19/2008 Backache, unspecified [M54.9] 01/19/2008 Cervical radiculopathy [M54.12] 06/12/2013 Spinal stenosis of cervical region [M48.02] 06/12/2013 Essential hypertension, benign [I10] 06/12/2013 Arthritis of both knees [M17.0] 06/12/2013 Cholelithiasis [K80.20] 07/24/2013 Hypokalemia [E87.6] 07/24/2013 Adrenal adenoma [D35.00] 10/17/2013 Myofascial pain [M79.18] 12/22/2013 Lumbar spondylosis [M47.816] 12/22/2013 Lumbar radiculopathy [M54.16] 12/22/2013 DDD (degenerative disc disease), cervical [M50.*12/22/2013 Brachial neuritis or radiculitis NOS [M54.12] 01/17/2014 Lumbago [M54.50] 01/17/2014 DDD (degenerative disc disease), lumbar [M51.36*03/28/2014 Osteoarthritis of spine with radiculopathy, lum*11/07/2014 Cervicogenic headache [G44.86] 11/07/2014 Mixed hyperlipidemia [E78.2] 01/02/2015 Insomnia [G47.00] 01/02/2015 Chronic pain syndrome [G89.4] 01/02/2015 Dysthymia [F34.1] 08/22/2015 NAFLD (nonalcoholic fatty liver disease) [K76.0]09/27/2015 Elevated alkaline phosphatase level [R74.8] 02/24/2016 Elevated serum GGT level [R74.8] 03/03/2016 Hyperammonemia (HCC) [E72.20] 06/23/2017 Hepatic encephalopathy (HCC) [K76.82] 06/29/2017 Encounter for gynecological examination [Z01.41*10/27/2017 Encounter for screening mammogram for breast ca*10/27/2017 Medicare annual wellness visit, subsequent [Z00*07/01/2018 History of shingles [Z86.19] 09/07/2019 Medication management [Z79.899] 02/29/2020 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*09/12/2020 History of COVID-19 [Z86.16] 03/31/2021 Hepatitis B immune [Z78.9] 09/27/2015 Weakness of right lower extremity [R29.898] 09/17/2021 Advance directive discussed with patient [Z71.8*03/31/2022 Elevated hemoglobin A1c [R73.09] 09/29/2022 Advanced care planning/counseling discussion [Z*04/08/2023 Screening for colon cancer [Z12.11] 04/21/2024 Encounter Status:Closed by SANTINO BYRD on 06/02/24 [facility] 04-25-2024 Telephone encounter Note Pt notified [facility] 04-25-2024 Miscellaneous Notes Pt notified Lipid panel showed Trigs high at 399 (goal<150), HDL low at 43 (goal>50 however used to be in the mid 30's), LDL ok at 83. Trigs are related to the fat in our diet or if genetic we just make more then other people. This is the thing we want to get lower to reduce the risk of her liver cirrhosis from fatty infiltration getting worse. She is on [place] lipid lowering meds and fish oil so working on a 10-15 lbs weight loss would be the most beneficial at this point. Her liver functions are increased again and would advise she return to seeing Dr. Jo in [place]. Looking back in chart she was to f/u with her in June of 2022 but no appt was ever made by them. New consult placed. Her serum protein is elevated and calcium is high. Order placed for additional workup. Her UA, CBC, blood sugar screen and thyroid labs were all ok. documented in this encounter [facility] 04-24-2024 Telephone encounter Note Lipid panel showed Trigs high at 399 (goal<150), HDL low at 43 (goal>50 however used to be in the mid 30's), LDL ok at 83. Trigs are related to the fat in our diet or if genetic we just make more then other people. This is the thing we want to get lower to reduce the risk of her liver cirrhosis from fatty infiltration getting worse. She is on [place] lipid lowering meds and fish oil so working on a 10-15 lbs weight loss would be the most beneficial at this point. Her liver functions are increased again and would advise she return to seeing Dr. Jo in [place]. Looking back in chart she was to f/u with her in June of 2022 but no appt was ever made by them. New consult placed. Her serum protein is elevated and calcium is high. Order placed for additional workup. Her UA, CBC, blood sugar screen and thyroid labs were all ok. [facility] 04-21-2024 Instructions David Longoria MD - 04/21/2024 11:09 AM EST Screening schedule The following prevention plan is recommended: RSV Vaccine(1 - Risk 60-74 years 1-dose series) Never done BP Controlled (<130/80) due on 09/17/2022 DTaP,Tdap,Td Vaccine(2 - Td or Tdap) due on 06/13/2023 Colorectal Cancer Screening due on 10/13/2023 Mammogram Screening due on 11/11/2023 Covid-19 Vaccine( season) due on 02/25/2024 WHAT YOU CAN DO TO PREVENT FALLS Many falls can be prevented. By making some changes, you can lower your chances of falling. Four things YOU can do to prevent falls for you* and your caregiver 1. Begin a regular exercise program Exercise is one of the most important ways to lower your chances of falling. It makes you stronger and helps you feel better. Exercises that improve balance and coordination (like Torsten Chi) are the most helpful. Lack of exercise leads to weakness and increases your chances of falling. Ask your doctor or health care provider about the best type of exercise program for you. 2. Have your health care provider review your medicines Have your doctor or pharmacist review all the medicines you take, even nuyp-vco-hwesran medicines. As you get older, the way medicines work in your body can change. Some medicines, or combinations of medicines, can make you sleepy or dizzy and can cause you to fall. 3. Have your vision checked Have your eyes checked by an eye doctor at least once a year. You may be wearing the wrong glasses or have a condition like glaucoma or cataracts that limits your vision. Poor vision can increase your chances of falling. 4. Make your home safer About half of all falls happen at home. To make your home safer: Remove things you can trip over (like papers, books, clothes, and shoes) from stairs and places where you walk. Remove small throw rugs or use double-sided tape to keep the rugs from slipping. Keep items you use often in cabinets you can reach easily without using a step stool. Have grab bars put in next to your toilet and in the tub or shower. Use non-slip mats in the bathtub and on shower floors. Improve the lighting in your home. As you get older, you need brighter lights to see well. Hang light-weight curtains or shades to reduce glare. Have handrails and lights put in on all staircases. Wear shoes both inside and outside the house. Avoid going barefoot or wearing slippers. For more information, contact: Centers for Disease Control and Prevention www.cdc.gov/injury * This information may not apply if you have certain medical conditions. documented in this encounter [facility] 04-21-2024 Note HNO ID: [id number] Author: DAVID LONGORIA MD Service: ? Author Type: Physician Type: Progress Notes Filed: 04/24/2024 22:08 Note Text: Bety Perales is a 63 year old female here for a Medicare wellness visit. Medicare Health Risk Assessment General Health Fair Exercise: Minutes/Day 30 min Exercise: Days/Week 3 days Alcohol: Daily Use Never Alcohol: Drinks/Day Patient does not drink Alcohol: 6 or more drinks Never Feel off balance No Concerns: Teeth/Dentures No Concerns: Sexual function No Troubled by feelings Anxious; Stressed; Angry; Irritable Frequency: Eating healthy diet Nearly every day ADLs requiring help None of the above Safety precautions in home/vehicle Yes Smoke, vape, chews tobacco No Difficulty hearing No Difficulty seeing No Current Providers Specialists: I have reviewed specialist-related care of the patient in the medical record. Current care team: Patient Care Team: David Longoria MD as PCP - General (Family Medicine) Piper Monge APRN.SEWING MACHINE ADJUSTER as Cloth Tearer (Family Medicine) Trang Berkowitz PA-C as Cloth Tearer (Family Medicine) Medical/Family history review Reviewed and updated problem list, medical/surgical/family/social history, medications, and allergies. Opioid use review Opioid Medications (last 90 days) 04/21/2024 Opioid Medications tramadol HCl 50 mg BID ORAL (50 mg tab) Details Patient-reported medication Prescribed No opioid use on file in the last 90 days Does patient have risk factors for opioid abuse? No Pain overview Pain Location: Back Description: Aching, Dull, Numbness, Sharp, Shooting, Sore, Spasm, Stabbing, Stiffness, Tenderness, Throbbing, Tingling Duration Units: Months Frequency: Continuous Intervention/Comfort measure: Medication, Reposition, Cold, Exercise, Heat, Pillow support Current pain concerns and treatment plan reviewed. Patient under the care of a specialist. Anxiety/Depression screening PHQ-9 Score: 8 (Mild Depression) Recommendation: continuing current treatment plan Cognitive screening Score: 5 Cognitive screening reviewed and No further action needed (score 3-5). Functional Observation Was the patient's Timed Up AND Go test unsteady or >= 12 seconds? No Advance Care Planning Patient did not wish or was not able to name a surrogate decision maker or provide an advance care plan Measurements BP 142/92 Pulse 84 Resp 16 Ht 157.5 cm (5' 2) Wt 75.3 kg (166 lb) LMP 09/25/2009 BMI 30.36 kg/m? Vision Screening: Follows with optometry/ophthalmology Assessment/Plan Medicare annual wellness visit, subsequent (Z00.00) - Counseled on healthy diet and regular exercise - Fall avoidance information provided - Personalized prevention plan provided See below Chief Complaint Patient presents with: Medicare Wellness Exam HPI Bety Perales is a 63 year old female who presents here today for Chronic Medical Conditions. and Medicare Annual Visit. Patient with hx of HTN, Hyperlipidemia, Dysthymia, insomnia, ORELLANA with hx of encephalopathy and hyperammonemia seeing Gastro, chronic pain form arthritis and DDD seeing pain management As well as those reviewed and addressed below and in ROS Patient has been doing well. No new issues or concerns. Past medical history, appointments, medications, allergies reviewed. Previous Medical History PAST MEDICAL HISTORY Diagnosis Date Adrenal adenoma 10/17/2013 Arthritis of both knees 06/12/2013 Backache, unspecified 01/19/2008 Brachial neuritis or radiculitis NOS 01/17/2014 Cervical radiculopathy Cervicogenic headache 11/07/2014 Cholelithiasis 07/24/2013 Chronic pain syndrome 01/02/2015 [facility]. Bradshaw. Was instructed needed to get pain meds through one of them DDD (degenerative disc disease), cervical 12/22/2013 DDD (degenerative disc disease), lumbar 03/28/2014 Depression 11/03/2013 Dysthymia 08/22/2015 Elevated alkaline phosphatase level 02/24/2016 Neg w/u Elevated LFTs 09/23/2015 Elevated serum GGT level 03/03/[address] Wayne Essential hypertension, benign 06/12/2013 Hepatic encephalopathy (HCC) 06/29/2017 Hepatitis B immune 09/27/2015 History of COVID-19 03/31/202103/2021 History of shingles 09/07/201908/2019 Hyperammonemia (HCC) 06/23/2017 Hypokalemia 07/24/2013 Insomnia 11/03/2013 Lumbago 01/17/2014 Lumbar radiculopathy 12/22/2013 Lumbar spondylosis 12/22/2013 Medicare annual wellness visit, initial 07/01/2018 Last done 07/01/18 Medicare eligible 09/12/2016 Mixed hyperlipidemia 01/02/2015 Myofascial pain 12/22/2013 Osteoarthritis of spine with radiculopathy, lumbar region 11/07/2014 Osteopenia after menopause 06/21/2023 Spinal stenosis of cervical region 06/12/2013 Sprain of neck 01/19/2008 Weakness of right lower extremity 09/17/2021 Chronic from low back diease. Previous Surgical History PAST SURGICAL HISTORY Procedu (more content not included)... [facility] 04-21-2024 History of Present illness Narrative Images from the original note were not included. Bety Perales is a 63 year old female here for a Medicare wellness visit. Medicare Health Risk Assessment General Health Fair Exercise: Minutes/Day 30 min Exercise: Days/Week 3 days Alcohol: Daily Use Never Alcohol: Drinks/Day Patient does not drink Alcohol: 6 or more drinks Never Feel off balance No Concerns: Teeth/Dentures No Concerns: Sexual function No Troubled by feelings Anxious; Stressed; Angry; Irritable Frequency: Eating healthy diet Nearly every day ADLs requiring help None of the above Safety precautions in home/vehicle Yes Smoke, vape, chews tobacco No Difficulty hearing No Difficulty seeing No Current Providers Specialists: I have reviewed specialist-related care of the patient in the medical record. Current care team: Patient Care Team: David Longoria MD as PCP - General (Family Medicine) Piper Monge APRN.ZION as Cloth Tearer (Family Medicine) Trang Berkowitz PA-C as Cloth Tearer (Family Medicine) Medical/Family history review Reviewed and updated problem list, medical/surgical/family/social history, medications, and allergies. Opioid use review Opioid Medications (last 90 days) 04/21/2024 Opioid Medications tramadol HCl 50 mg BID ORAL (50 mg tab) Details Patient-reported medication Prescribed No opioid use on file in the last 90 days Does patient have risk factors for opioid abuse? No Pain overview Pain Location: Back Description: Aching, Dull, Numbness, Sharp, Shooting, Sore, Spasm, Stabbing, Stiffness, Tenderness, Throbbing, Tingling Duration Units: Months Frequency: Continuous Intervention/Comfort measure: Medication, Reposition, Cold, Exercise, Heat, Pillow support Current pain concerns and treatment plan reviewed. Patient under the care of a specialist. Anxiety/Depression screening PHQ-9 Score: 8 (Mild Depression) Recommendation: continuing current treatment plan Cognitive screening Score: 5 Cognitive screening reviewed and No further action needed (score 3-5). Functional Observation Was the patient's Timed Up & Go test unsteady or >= 12 seconds? No Advance Care Planning Patient did not wish or was not able to name a surrogate decision maker or provide an advance care plan Measurements BP 142/92 Pulse 84 Resp 16 Ht 157.5 cm (5' 2) Wt 75.3 kg (166 lb) LMP 09/25/2009 BMI 30.36 kg/m Vision Screening: Follows with optometry/ophthalmology Assessment/Plan Medicare annual wellness visit, subsequent (Z00.00) - Counseled on healthy diet and regular exercise - Fall avoidance information provided - Personalized prevention plan provided See below Chief Complaint Patient presents with: Medicare Wellness Exam HPI Bety Perales is a 63 year old female who presents here today for Chronic Medical Conditions. and Medicare Annual Visit. Patient with hx of HTN, Hyperlipidemia, Dysthymia, insomnia, ORELLANA with hx of encephalopathy and hyperammonemia seeing Gastro, chronic pain form arthritis and DDD seeing pain management As well as those reviewed and addressed below and in ROS Patient has been doing well. No new issues or concerns. Past medical history, appointments, medications, allergies reviewed. Previous Medical History PAST MEDICAL HISTORY Diagnosis Date Adrenal adenoma 10/17/2013 Arthritis of both knees 06/12/2013 Backache, unspecified 01/19/2008 Brachial neuritis or radiculitis NOS 01/17/2014 Cervical radiculopathy Cervicogenic headache 11/07/2014 Cholelithiasis 07/24/2013 Chronic pain syndrome 01/02/[address] [facility] [address]. Bradshaw. Was instructed needed to get pain meds through one of them DDD (degenerative disc disease), cervical 12/22/2013 DDD (degenerative disc disease), lumbar 03/28/2014 Depression 11/03/2013 Dysthymia 08/22/2015 Elevated alkaline phosphatase level 02/24/2016 Neg w/u Elevated LFTs 09/23/2015 Elevated serum GGT level 03/03/[address] Wayne Essential hypertension, benign 06/12/2013 Hepatic encephalopathy (HCC) 06/29/2017 Hepatitis B immune 09/27/2015 History of COVID-19 03/31/202103/2021 History of shingles 09/07/201908/2019 Hyperammonemia (HCC) 06/23/2017 Hypokalemia 07/24/2013 Insomnia 11/03/2013 Lumbago 01/17/2014 Lumbar radiculopathy 12/22/2013 Lumbar spondylosis 12/22/2013 Medicare annual wellness visit, initial 07/01/2018 Last done 07/01/18 Medicare eligible 09/12/2016 Mixed hyperlipidemia 01/02/2015 Myofascial pain 12/22/2013 Osteoarthritis of spine with radiculopathy, lumbar region 11/07/2014 Osteopenia after menopause 06/21/2023 Spinal stenosis of cervical region 06/12/2013 Sprain of neck 01/19/2008 Weakness of right lower extremity 09/17/2021 Chronic from low back diease. Previous Surgical History PAST SURGICAL HISTORY Procedure Laterality Date CORTISONE, SERUM Neck and Spine injections ESOPHAGOGASTRODUODENOSCOPY TRANSORAL DIAGNOSTIC 11/01/2017 EGD EXTRACTION, ERUPTED TOOTH OR EXPOSED ROOT (ELEVATION AND/OR FORCEPS REMOVAL) complete teeth extraction upper and lower FECAL OCCULT BLOOD TEST 09/07/2016 negative LIG/TRNSXJ FLP TUBE ABDL/VAG APPR UNI/BI STRESS TEST 09/07/2016 WNL TONSILLECTOMY PRIMARY/SECONDARY <AGE 12 Tonsillectomy Family History FAMILY HISTORY Problem Relation Age of Onset Blood Disease Mother anemic No Known Problems Brother No Known Problems Brother Hypertension Maternal Grandmother Asthma Maternal Grandfather Diabetes Maternal Uncle Patient Allergies ALLERGIES Allergen Reactions Lipitor [Atorvastat* Other: See Comments elevated LFT's Current Medications Current Outpatient Medications on File Prior to Visit Medication Sig ezetimibe (ZETIA) 10 mg tablet Take 1 tablet by mouth once daily. rosuvastatin (CRESTOR) 40 mg tablet Take 1 tablet by mouth once daily. gabapentin (NEURONTIN) 600 mg tablet Take 2 tablets by mouth three times a day for 180 days. albuterol HFA (PROVENTIL HFA, VENTOLIN HFA) 90 mcg/actuation inhaler Inhale 2 Puffs as instructed every 4 hours as needed. meloxicam (MOBIC) 15 mg tablet TAKE 1 TABLET BY MOUTH EVERY DAY FOR 30 DAYS FLUoxetine (PROZAC) 20 mg capsule Take 1 capsule by mouth once daily. Take in addition to the 40mg cap for total dose of 60mg hydroCHLOROthiazide 25 mg tablet Take 1 tablet by mouth once daily. For blood pressure potassium chloride ER (KLOR-CON) 20 mEq tablet Take 2 tablets by mouth once daily. FLUoxetine (PROZAC) 40 mg capsule Take 1 capsule by mouth once daily. Take with the 20mg capsule for total daily dose of 60mg traZODone (DESYREL) 100 mg tablet Take 1 tablet by mouth daily at bedtime. cyclobenzaprine (FLEXERIL) 10 mg tablet Take 1 tablet by mouth three times daily as needed. Fenofibrate (LOFIBRA) 160 mg tablet Take 1 tablet by mouth once daily. traMADol (ULTRAM) 50 mg tablet Take 50 mg by mouth twice daily. TENS unit and electrodes cmpk For daily use as directed GLUCOSAMINE SULFATE (GLUCOSAMINE ORAL) Take by mouth four times daily. omega-3 fatty acids 1,000 mg cap Take 2 capsules by mouth twice daily. No current facility-administered medications on file prior to visit. Social History Social History Tobacco Use Smoking status: Never Passive exposure: Never Smokeless tobacco: Never Vaping Use Vaping status: Never Used Substance Use Topics Alcohol use: No Drug use: No Review of Symptoms REVIEW OF SYSTEMS GENERAL: No unintentional weight loss, malaise or fevers HEENT: Negative for frequent or significant headaches, No changes in hearing or vision, no nose bleeds or other nasal problems NECK: Negative for lumps, goiter, pain and significant neck swelling RESPIRATORY: Negative for cough, hemoptysis, wheezing, COPD, dyspnea or shortness of breath CARDIOVASCULAR: Negative for chest pain, increased leg swelling, hypertension, CHF or palpitations GI: No nausea, vomiting, or diarrhea, No heartburn or reflux symptoms, and no blood : No history of dysuria, frequency or incontinence MUSCULOSKELETAL: has chronic pain and sees pain management SKIN: Negative for lesions, rash, and itching PSYCH: Negative for sleep disturbance, mood disorder and recent psychosocial stressors. Doing welll on the Prozac and trazodone. HEMATOLOGY/LYMPHOLOGY: Negative for prolonged bleeding, bruising easily or swollen nodes ENDOCRINE: Negative for cold or heat intolerance, polyuria, polydipsia and goiter NEURO: No history of headaches, syncope, paralysis, seizures or tremors EXAM: BP 142/92 Pulse 84 Resp 16 Ht 157.5 cm (5' 2) Wt 75.3 kg (166 lb) LMP 09/25/2009 BMI 30.36 kg/m BP 126/78 Pulse 84 Resp 16 Ht 157.5 cm (5' 2) Wt 75.3 kg (166 lb) LMP 09/25/2009 BMI 30.36 kg/m Last 5 Encounter Wt Readings: Date: Wt: 04/21/2024 75.3 kg (166 lb) 02/07/2024 77.1 kg (170 lb) 01/28/2024 78.9 kg (173 lb 15.1 oz) 01/22/2024 78.5 kg (173 lb 1 oz) 10/07/2023 78.9 kg (174 lb) General Appearance: Well appearing, alert, in no acute distress, well-hydrated, well nourished. and Overweight. Skin: Skin color, texture, turgor normal, no suspicious rashes or lesions. Head: Normocephalic, no masses, lesions, tenderness or abnormalities. Eyes: Anicteric sclera. Pupils are equally round and reactive to light. Extraocular movements are intact. . Ears: External ears, TM's normal, canals clear. Nose/Sinuses: Nares normal, septum midline, mucosa normal, no drainage or sinus tenderness. Oropharynx: Lips, mucosa, and tongue normal, teeth and gums normal, oropharynx normal. Neck: Supple, no adenopathy; thyroid symmetric, normal size, no bruits. Lungs: Lungs clear to auscultation. No wheezing, rhonchi, rales.. Heart: RRR without murmur, gallop, or rubs. No ectopy. Abdomen: Normal abdominal exam, Abdomen soft, non-tender. Bowel sounds normal. No masses, organomegaly. Extremities: No deformities, edema, skin discoloration, Good capillary refill. . Musculoskeletal: Muscular strength intact, No joint swelling, deformity, or tenderness. Peripheral Pulses: Normal. Neurologic: Gait normal. Reflexes normal and symmetric. Sensation to light touch and crainal nerves 2-12 intact.. Health Maintenance List RSV Vaccine(1 - Risk 60-74 years 1-dose series) Never done BP Controlled (<130/80) due on 09/17/2022 DTaP,Tdap,Td Vaccine(2 - Td or Tdap) due on 06/13/2023 Colorectal Cancer Screening due on 10/13/2023 Mammogram Screening due on 11/11/2023 Covid-19 Vaccine( season) due on 02/25/2024 Pneumococcal Vaccine: 50+(1 of 2 - PCV) due on 09/12/2025 Anxiety Screening due on 10/06/2024 Annual PCP Team Chronic Disease Visit due on 02/06/2025 Diabetes Screening due on 10/06/2026 Cervical Cancer Screening due on 05/24/2028 Lipid Screening due on 10/06/2028 Hepatitis A Vaccine Completed Influenza Vaccine Completed Hepatitis C Screening Completed Shingrix Vaccine Completed HIV Screening Discontinued Data reviewed A/P ASSESSMENT/PLAN: 1. Medicare annual wellness visit, subsequent - ICD9: V70.0, ICD10: Z00.00 (primary diagnosis) - Counseled on healthy diet and regular exercise - Discussed need and benefit for weight loss. BMI 30.36 kg/(m^2) - Follow up for annual exam in one year 2. Essential hypertension, benign - ICD9: 401.1, ICD10: I10 - Controlled - Continue current medications - Recommend home blood pressure monitoring, to bring results to next visit - Encouraged sodium restriction, DASH or Mediterranean diet - Recommend regular aerobic exercise - Discussed need for and benefit of weight loss. BMI 30.36 kg/(m^2) Check - COMPREHENSIVE METABOLIC PANEL - URINALYSIS, WITH MICROSCOPIC - LIPID PANEL, NONFASTING 3. Mixed hyperlipidemia - ICD9: 272.2, ICD10: E78.2 - Control undetermined, due for labs - Continue current medications - Counseled on healthy diet and regular exercise - Discussed need for and benefit of weight loss. BMI 30.36 kg/(m^2) Check - COMPREHENSIVE METABOLIC PANEL - URINALYSIS, WITH MICROSCOPIC - LIPID PANEL, NONFASTING 4. Elevated hemoglobin A1c - ICD9: 790.29, ICD10: R73.09 Check - HEMOGLOBIN A1C - patient to cont work on life style changes for control 5. Dysthymia - ICD9: 300.4, ICD10: F34.1 - stable on current dose of Prozac. Check - THYROID STIMULATING HORMONE 6. Insomnia, unspecified type - ICD9: 780.52, ICD10: G47.00 - stable on current dose of Trazodone. 7. NAFLD (nonalcoholic fatty liver disease) - ICD9: 571.8, ICD10: K76.0 Check - COMPREHENSIVE METABOLIC PANEL - LIPID PANEL, NONFASTING - COMPLETE BLOOD COUNT AND DIFFERENTIAL FIB-4 Calculation: 2.02 at 04/21/2024 11:51 AM Calculated from: SGOT/AST: 68 U/L at 04/21/2024 11:51 AM SGPT/ALT: 59 U/L at 04/21/2024 11:51 AM Platelets: 280 k/uL at 04/21/2024 11:51 AM Age: 63 years 8. 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 9. Hyperammonemia (HCC) - ICD9: 270.6, ICD10: E72.20 - has being ok without recurrence in the last 2 years. 10. Hepatic encephalopathy (HCC) - ICD9: 572.2, ICD10: K76.82 - as per #9 11. Chronic pain syndrome - ICD9: 338.4, ICD10: G89.4 - follows with pain management for treatment 12. Advanced care planning/counseling discussion - ICD9: V65.49, ICD10: Z71.89 - patient has packets. 13. Medication management - ICD9: V58.69, ICD10: Z79.899 Check - THYROID STIMULATING HORMONE 14. Screening for colon cancer - ICD9: V76.51, ICD10: Z12.11 Check - IMMUNOCHEMICAL FECAL OCCULT BLOOD TEST F/u in 6 months routine I spent a total of 40 minutes on the date of the service which included preparing to see the patient, [id number] patient care, completing clinical documentation, performing a medically appropriate examination, counseling and educating the patient/family/caregiver and ordering medications, tests, or procedures. David Longoria MD documented in this encounter [facility] 04-03-2024 Telephone encounter Note Prescription Refill Information The patient has been identified by name and date of : Yes Caregiver verified no other encounters exist for this prescription request: Yes Caregiver confirmed with patient/requestor that no other refills are due, in the near future, with this provider at this time: Yes The last office visit in the department: 09/2023 Does the patient have a future office visit with this provider/department: Yes Requested Prescriptions Pending Prescriptions Disp Refills ezetimibe (ZETIA) 10 mg tablet 90 tablet 1 Sig: Take 1 tablet by mouth once daily. rosuvastatin (CRESTOR) 40 mg tablet 90 tablet 1 Sig: Take 1 tablet by mouth once daily. Angeline Hoffman MA April 03, 2024 8:14 AM [facility] 04-03-2024 Miscellaneous Notes Prescription Refill Information The patient has been identified by name and date of : Yes Caregiver verified no other encounters exist for this prescription request: Yes Caregiver confirmed with patient/requestor that no other refills are due, in the near future, with this provider at this time: Yes The last office visit in the department: 09/2023 Does the patient have a future office visit with this provider/department: Yes Requested Prescriptions Pending Prescriptions Disp Refills ezetimibe (ZETIA) 10 mg tablet 90 tablet 1 Sig: Take 1 tablet by mouth once daily. rosuvastatin (CRESTOR) 40 mg tablet 90 tablet 1 Sig: Take 1 tablet by mouth once daily. Angeline Hoffman MA April 03, 2024 8:14 AM documented in this encounter [facility] 03-02-2024 Telephone encounter Note The following approved medication requests have been transmitted electronically. Requested Prescriptions Signed Prescriptions Disp Refills albuterol HFA (PROVENTIL HFA, VENTOLIN HFA) 90 mcg/actuation inhaler 18 g 3 Sig: Inhale 2 Puffs as instructed every 4 hours as needed. Authorizing Provider: DAVID LONGORIA MD [facility] 03-02-2024 Miscellaneous Notes The following approved medication requests have been transmitted electronically. Requested Prescriptions Signed Prescriptions Disp Refills albuterol HFA (PROVENTIL HFA, VENTOLIN HFA) 90 mcg/actuation inhaler 18 g 3 Sig: Inhale 2 Puffs as instructed every 4 hours as needed. Authorizing Provider: DAVID LONGORIA MD The patient has been identified by name and date of : Yes Caregiver verified no other encounters exist for this prescription request: Yes Caregiver confirmed with patient/requestor that no other refills are due, in the near future, with this provider at this time: Yes The last office visit in the department: 02/07/2024 Does the patient have a future office visit with this provider/department: Yes 04/11/2024 Requested Prescriptions Pending Prescriptions Disp Refills albuterol HFA (PROVENTIL HFA, VENTOLIN HFA) 90 mcg/actuation inhaler 18 g 3 Sig: Inhale 2 Puffs as instructed every 4 hours as needed. Iza Guy LPN March 02, 2024 4:42 PM documented in this encounter [facility] 03-02-2024 Telephone encounter Note The patient has been identified by name and date of : Yes Caregiver verified no other encounters exist for this prescription request: Yes Caregiver confirmed with patient/requestor that no other refills are due, in the near future, with this provider at this time: Yes The last office visit in the department: 02/07/2024 Does the patient have a future office visit with this provider/department: Yes 04/11/2024 Requested Prescriptions Pending Prescriptions Disp Refills albuterol HFA (PROVENTIL HFA, VENTOLIN HFA) 90 mcg/actuation inhaler 18 g 3 Sig: Inhale 2 Puffs as instructed every 4 hours as needed. Iza Guy LPN March 02, 2024 4:42 PM [facility] 03-02-2024 Telephone encounter Note The following approved medication requests have been transmitted electronically. Requested Prescriptions Signed Prescriptions Disp Refills gabapentin (NEURONTIN) 600 mg tablet 180 tablet 5 Sig: Take 2 tablets by mouth three times a day for 180 days. Authorizing Provider: DAVID LONGORIA MD [facility] 03-02-2024 Miscellaneous Notes The following approved medication requests have been transmitted electronically. Requested Prescriptions Signed Prescriptions Disp Refills gabapentin (NEURONTIN) 600 mg tablet 180 tablet 5 Sig: Take 2 tablets by mouth three times a day for 180 days. Authorizing Provider: DAVID LONGORIA MD Prescription Refill Information The patient has been identified by name and date of : Yes Caregiver verified no other encounters exist for this prescription request: Yes Caregiver confirmed with patient/requestor that no other refills are due, in the near future, with this provider at this time: Yes The last office visit in the department: 02/07/24 Does the patient have a future office visit with this provider/department: Yes Requested Prescriptions Pending Prescriptions Disp Refills gabapentin (NEURONTIN) 600 mg tablet 180 tablet 5 Sig: Take 2 tablets by mouth three times a day for 180 days. Riky Menchaca LPN March 02, 2024 7:28 AM documented in this encounter [facility] 03-02-2024 Telephone encounter Note Prescription Refill Information The patient has been identified by name and date of : Yes Caregiver verified no other encounters exist for this prescription request: Yes Caregiver confirmed with patient/requestor that no other refills are due, in the near future, with this provider at this time: Yes The last office visit in the department: 02/07/24 Does the patient have a future office visit with this provider/department: Yes Requested Prescriptions Pending Prescriptions Disp Refills gabapentin (NEURONTIN) 600 mg tablet 180 tablet 5 Sig: Take 2 tablets by mouth three times a day for 180 days. Riky Menchaca LPN March 02, 2024 7:28 AM [facility] 02-07-2024 Telephone encounter Note Call to pt and notified her of results and recommendations below from Provider. Pt verbalized understanding. Tia Anderson MA [facility] 02-07-2024 Miscellaneous Notes Call to pt and notified her of results and recommendations below from Provider. Pt verbalized understanding. Tia Anderson MA Please let patient know their xray is normal. I have sent in antibiotics. She should let me know how she is feeling on Wednesday. documented in this encounter [facility] 02-07-2024 Telephone encounter Note Please let patient know their xray is normal. I have sent in antibiotics. She should let me know how she is feeling on Wednesday. [facility] 02-07-2024 History of Present illness Narrative Radiology Service Progress Note PATIENT NAME: Bety Perales DATE OF SERVICE: February 07, 2024 TIME: 1:58 PM PATIENT IDENTITY VERIFICATION COMPLETED USING TWO (2) IDENTIFIERS: Name and Date of confirmed by patient verbally. FALL SCREENING: Has the patient had 2 falls in the last year or 1 fall with injury or currently using an Ambulatory Assistive Device (Walker, Cane, Wheelchair, Crutches, etc.)? No PATIENT GENDER DATA: Female. status: : No status: NO. PATIENT RELEVANT IMPLANT DATA REVIEWED: Not Applicable PATIENT PRESENTS WITH AN IMPLANTABLE OR ATTACHED PAINT ROLLER COVERS SUPERVISOR: No RADIOLOGY DEPARTMENT: General X-ray: Exam(s) Completed: Chest X-Ray PERIPHERAL IV DATA: Not applicable SIGNED BY: RT Bayron(R) February 07, 2024 1:58 PM documented in this encounter [facility] 02-07-2024 Note HNO ID: [id number] Author: TOM OLVERA RT(Wili) Service: ? Author Type: Technologist Type: Progress Notes Filed: 02/07/2024 14:07 Note Text: Radiology Service Progress Note PATIENT NAME: Bety Perales DATE OF SERVICE: February 07, 2024 TIME: 1:58 PM PATIENT IDENTITY VERIFICATION COMPLETED USING TWO (2) IDENTIFIERS: Name and Date of confirmed by patient verbally. FALL SCREENING: Has the patient had 2 falls in the last year or 1 fall with injury or currently using an Ambulatory Assistive Device (Walker, Cane, Wheelchair, Crutches, etc.)? No PATIENT GENDER DATA: Female. status: : No status: NO. PATIENT RELEVANT IMPLANT DATA REVIEWED: Not Applicable PATIENT PRESENTS WITH AN IMPLANTABLE OR ATTACHED PAINT ROLLER COVERS SUPERVISOR: No RADIOLOGY DEPARTMENT: General X-ray: Exam(s) Completed: Chest X-Ray PERIPHERAL IV DATA: Not applicable SIGNED BY: RT Bayron(Wili) February 07, 2024 1:58 PM [facility] 02-07-2024 Note HNO ID: [id number] Author: PIPER MONGE APRN.SEWING MACHINE ADJUSTER Service: ? Author Type: Nurse Practitioner Type: Progress Notes Filed: 02/08/2024 16:03 Note Text: Chief Complaint Patient presents with: Cough Breathing Problem HPI Bety Perales is a 63 year old female who presents here today for Above Complaints.. Patient presents for continue cough and SOB. Patient was seen 01/21 and treated with prednisone and tessalon perles. Cough and SOB persisted and she was seen 01/27, CXR showed atelectasis but was otherwise normal. Treated with doxycycline and still no improvement. Patient reports cough, SOB worsening, not responding well to albuterol. Past medical history, appointments, medications, allergies reviewed. Previous Medical History PAST MEDICAL HISTORY Diagnosis Date Adrenal adenoma 10/17/2013 Arthritis of both knees 06/12/2013 Backache, unspecified 01/19/2008 Brachial neuritis or radiculitis NOS 01/17/2014 Cervical radiculopathy Cervicogenic headache 11/07/2014 Cholelithiasis 07/24/2013 Chronic pain syndrome 01/02/2015 [facility] Dr[facility] Bradshaw. Was instructed needed to get pain meds through one of them DDD (degenerative disc disease), cervical 12/22/2013 DDD (degenerative disc disease), lumbar 03/28/2014 Depression 11/03/2013 Dysthymia 08/22/2015 Elevated alkaline phosphatase level 02/24/2016 Neg w/u Elevated LFTs 09/23/2015 Elevated serum GGT level 03/03/[address] Wayne Essential hypertension, benign 06/12/2013 Hepatic encephalopathy (HCC) 06/29/2017 Hepatitis B immune 09/27/2015 History of COVID-19 03/31/202103/2021 History of shingles 09/07/201908/2019 Hyperammonemia (HCC) 06/23/2017 Hypokalemia 07/24/2013 Insomnia 11/03/2013 Lumbago 01/17/2014 Lumbar radiculopathy 12/22/2013 Lumbar spondylosis 12/22/2013 Medicare annual wellness visit, initial 07/01/2018 Last done 07/01/18 Medicare eligible 09/12/2016 Mixed hyperlipidemia 01/02/2015 Myofascial pain 12/22/2013 Osteoarthritis of spine with radiculopathy, lumbar region 11/07/2014 Osteopenia after menopause 06/21/2023 Spinal stenosis of cervical region 06/12/2013 Sprain of neck 01/19/2008 Weakness of right lower extremity 09/17/2021 Chronic from low back diease. Previous Surgical History PAST SURGICAL HISTORY Procedure Laterality Date CORTISONE, SERUM Neck and Spine injections ESOPHAGOGASTRODUODENOSCOPY TRANSORAL DIAGNOSTIC 11/01/2017 EGD EXTRACTION, ERUPTED TOOTH OR EXPOSED ROOT (ELEVATION AND/OR FORCEPS REMOVAL) complete teeth extraction upper and lower FECAL OCCULT BLOOD TEST 09/07/2016 negative LIG/TRNSXJ FLP TUBE ABDL/VAG APPR UNI/BI STRESS TEST 09/07/2016 WNL TONSILLECTOMY PRIMARY/SECONDARY Tonsillectomy Family History FAMILY HISTORY Problem Relation Age of Onset Blood Disease Mother anemic No Known Problems Brother No Known Problems Brother Hypertension Maternal Grandmother Asthma Maternal Grandfather Diabetes Maternal Uncle Patient Allergies ALLERGIES Allergen Reactions Lipitor [Atorvastat* Other: See Comments elevated LFT's Current Medications Current Outpatient Medications on File Prior to Visit Medication Sig meloxicam (MOBIC) 15 mg tablet TAKE 1 TABLET BY MOUTH EVERY DAY FOR 30 DAYS FLUoxetine (PROZAC) 20 mg capsule Take 1 capsule by mouth once daily. Take in addition to the 40mg cap for total dose of 60mg hydroCHLOROthiazide 25 mg tablet Take 1 tablet by mouth once daily. For blood pressure potassium chloride ER (KLOR-CON) 20 mEq tablet Take 2 tablets by mouth once daily. FLUoxetine (PROZAC) 40 mg capsule Take 1 capsule by mouth once daily. Take with the 20mg capsule for total daily dose of 60mg traZODone (DESYREL) 100 mg tablet Take 1 tablet by mouth daily at bedtime. ezetimibe (ZETIA) 10 mg tablet Take 1 tablet by mouth once daily. rosuvastatin (CRESTOR) 40 mg tablet Take 1 tablet by mouth once daily. gabapentin (NEURONTIN) 600 mg tablet Take 2 tablets by mouth three times a day for 180 days. albuterol HFA (PROVENTIL HFA, VENTOLIN HFA) 90 mcg/actuation inhaler Inhale 2 Puffs as instructed every 4 hours as needed. cyclobenzaprine (FLEXERIL) 10 mg tablet Take 1 tablet by mouth three times daily as needed. Fenofibrate (LOFIBRA) 160 mg tablet Take 1 tablet by mouth once daily. guaiFENesin (MUCINEX) 600 mg 12 hr tablet Take 2 tablets by mouth twice daily. (Patient taking differently: Take 1,200 mg by mouth two times a day. PRN) traMADol (ULTRAM) 50 mg tablet Take 50 mg by mouth twice daily. TENS unit and electrodes cmpk For daily use as directed GLUCOSAMINE SULFATE (GLUCOSAMINE ORAL) Take by mouth four times daily. omega-3 fatty acids 1,000 mg cap Take 2 capsules by mouth twice daily. No current facility-administered medications on file prior to visit. Social History Social History Tobacco Use Smoking status: Never Passive exposure: Never Smokeless tobacco: Never Vaping Use (more content not included)... [facility] 02-07-2024 History of Present illness Narrative Chief Complaint Patient presents with: Cough Breathing Problem HPI Bety Perales is a 63 year old female who presents here today for Above Complaints.. Patient presents for continue cough and SOB. Patient was seen 01/21 and treated with prednisone and tessalon perles. Cough and SOB persisted and she was seen 01/27, CXR showed atelectasis but was otherwise normal. Treated with doxycycline and still no improvement. Patient reports cough, SOB worsening, not responding well to albuterol. Past medical history, appointments, medications, allergies reviewed. Previous Medical History PAST MEDICAL HISTORY Diagnosis Date Adrenal adenoma 10/17/2013 Arthritis of both knees 06/12/2013 Backache, unspecified 01/19/2008 Brachial neuritis or radiculitis NOS 01/17/2014 Cervical radiculopathy Cervicogenic headache 11/07/2014 Cholelithiasis 07/24/2013 Chronic pain syndrome 01/02/[address] [facility] Bradshaw. Was instructed needed to get pain meds through one of them DDD (degenerative disc disease), cervical 12/22/2013 DDD (degenerative disc disease), lumbar 03/28/2014 Depression 11/03/2013 Dysthymia 08/22/2015 Elevated alkaline phosphatase level 02/24/2016 Neg w/u Elevated LFTs 09/23/2015 Elevated serum GGT level 03/03/[address] Wayne Essential hypertension, benign 06/12/2013 Hepatic encephalopathy (HCC) 06/29/2017 Hepatitis B immune 09/27/2015 History of COVID-19 03/31/202103/2021 History of shingles 09/07/201908/2019 Hyperammonemia (HCC) 06/23/2017 Hypokalemia 07/24/2013 Insomnia 11/03/2013 Lumbago 01/17/2014 Lumbar radiculopathy 12/22/2013 Lumbar spondylosis 12/22/2013 Medicare annual wellness visit, initial 07/01/2018 Last done 07/01/18 Medicare eligible 09/12/2016 Mixed hyperlipidemia 01/02/2015 Myofascial pain 12/22/2013 Osteoarthritis of spine with radiculopathy, lumbar region 11/07/2014 Osteopenia after menopause 06/21/2023 Spinal stenosis of cervical region 06/12/2013 Sprain of neck 01/19/2008 Weakness of right lower extremity 09/17/2021 Chronic from low back diease. Previous Surgical History PAST SURGICAL HISTORY Procedure Laterality Date CORTISONE, SERUM Neck and Spine injections ESOPHAGOGASTRODUODENOSCOPY TRANSORAL DIAGNOSTIC 11/01/2017 EGD EXTRACTION, ERUPTED TOOTH OR EXPOSED ROOT (ELEVATION AND/OR FORCEPS REMOVAL) complete teeth extraction upper and lower FECAL OCCULT BLOOD TEST 09/07/2016 negative LIG/TRNSXJ FLP TUBE ABDL/VAG APPR UNI/BI STRESS TEST 09/07/2016 WNL TONSILLECTOMY PRIMARY/SECONDARY <AGE 12 Tonsillectomy Family History FAMILY HISTORY Problem Relation Age of Onset Blood Disease Mother anemic No Known Problems Brother No Known Problems Brother Hypertension Maternal Grandmother Asthma Maternal Grandfather Diabetes Maternal Uncle Patient Allergies ALLERGIES Allergen Reactions Lipitor [Atorvastat* Other: See Comments elevated LFT's Current Medications Current Outpatient Medications on File Prior to Visit Medication Sig meloxicam (MOBIC) 15 mg tablet TAKE 1 TABLET BY MOUTH EVERY DAY FOR 30 DAYS FLUoxetine (PROZAC) 20 mg capsule Take 1 capsule by mouth once daily. Take in addition to the 40mg cap for total dose of 60mg hydroCHLOROthiazide 25 mg tablet Take 1 tablet by mouth once daily. For blood pressure potassium chloride ER (KLOR-CON) 20 mEq tablet Take 2 tablets by mouth once daily. FLUoxetine (PROZAC) 40 mg capsule Take 1 capsule by mouth once daily. Take with the 20mg capsule for total daily dose of 60mg traZODone (DESYREL) 100 mg tablet Take 1 tablet by mouth daily at bedtime. ezetimibe (ZETIA) 10 mg tablet Take 1 tablet by mouth once daily. rosuvastatin (CRESTOR) 40 mg tablet Take 1 tablet by mouth once daily. gabapentin (NEURONTIN) 600 mg tablet Take 2 tablets by mouth three times a day for 180 days. albuterol HFA (PROVENTIL HFA, VENTOLIN HFA) 90 mcg/actuation inhaler Inhale 2 Puffs as instructed every 4 hours as needed. cyclobenzaprine (FLEXERIL) 10 mg tablet Take 1 tablet by mouth three times daily as needed. Fenofibrate (LOFIBRA) 160 mg tablet Take 1 tablet by mouth once daily. guaiFENesin (MUCINEX) 600 mg 12 hr tablet Take 2 tablets by mouth twice daily. (Patient taking differently: Take 1,200 mg by mouth two times a day. PRN) traMADol (ULTRAM) 50 mg tablet Take 50 mg by mouth twice daily. TENS unit and electrodes cmpk For daily use as directed GLUCOSAMINE SULFATE (GLUCOSAMINE ORAL) Take by mouth four times daily. omega-3 fatty acids 1,000 mg cap Take 2 capsules by mouth twice daily. No current facility-administered medications on file prior to visit. Social History Social History Tobacco Use Smoking status: Never Passive exposure: Never Smokeless tobacco: Never Vaping Use Vaping status: Never Used Substance Use Topics Alcohol use: No Drug use: No Review of Symptoms REVIEW OF SYSTEMS SEE HPI EXAM: BP 146/91 Pulse 103 Wt 77.1 kg (170 lb) LMP 09/25/2009 SpO2 93% BMI 31.60 kg/m General Appearance: Well appearing, alert, in no acute distress, well-hydrated, well nourished.. Lungs: Positive findings: wheezing with expiration Shortness of breath: Upon exertion Cough. Heart: RRR without murmur, gallop, or rubs. No ectopy. Health Maintenance List RSV Vaccine(1 - Risk 60-74 years 1-dose series) Never done BP Controlled (<130/80) due on 09/17/2022 DTaP,Tdap,Td Vaccine(2 - Td or Tdap) due on 06/13/2023 Colorectal Cancer Screening due on 10/13/2023 Mammogram Screening due on 11/11/2023 Pneumococcal Vaccine(1 of 2 - PCV) due on 09/12/2025 Covid-19 Vaccine( season) due on 02/25/2024 Annual PCP Team Chronic Disease Visit due on 10/06/2024 Anxiety Screening due on 10/06/2024 Diabetes Screening due on 10/06/2026 Cervical Cancer Screening due on 05/24/2028 Lipid Screening due on 10/06/2028 Hepatitis A Vaccine Completed Influenza Vaccine Completed Hepatitis C Screening Completed Shingrix Vaccine Completed HIV Screening Discontinued ASSESSMENT/PLAN: 1. Acute cough - ICD9: 786.2, ICD10: R05.1 (primary diagnosis) - XR CHEST 2V FRONTAL/LAT 2. Wheezing - ICD9: 786.07, ICD10: R06.2 - XR CHEST 2V FRONTAL/LAT 3. SOB (shortness of breath) - ICD9: 786.05, ICD10: R06.02 - XR CHEST 2V FRONTAL/LAT Patient negative for PNA. Zpak and prednisone prescribed for Asthma exac, doxycycline was ineffective. Piper Monge APRN.SEWING MACHINE ADJUSTER documented in this encounter [facility] 01-31-2024 Telephone encounter Note Prescription Refill Information The patient has been identified by name and date of : Yes Caregiver verified no other encounters exist for this prescription request: Yes Caregiver confirmed with patient/requestor that no other refills are due, in the near future, with this provider at this time: Yes The last office visit in the department: 10/07/23 Does the patient have a future office visit with this provider/department: Yes 04/11/24 Requested Prescriptions Pending Prescriptions Disp Refills hydroCHLOROthiazide 25 mg tablet 90 tablet 1 Sig: Take 1 tablet by mouth once daily. For blood pressure potassium chloride ER (KLOR-CON) 20 mEq tablet 180 tablet 1 Sig: Take 2 tablets by mouth once daily. Yessenia Wu LPN January 31, 2024 2:16 PM [facility] 01-31-2024 Miscellaneous Notes Prescription Refill Information The patient has been identified by name and date of : Yes Caregiver verified no other encounters exist for this prescription request: Yes Caregiver confirmed with patient/requestor that no other refills are due, in the near future, with this provider at this time: Yes The last office visit in the department: 10/07/23 Does the patient have a future office visit with this provider/department: Yes 04/11/24 Requested Prescriptions Pending Prescriptions Disp Refills hydroCHLOROthiazide 25 mg tablet 90 tablet 1 Sig: Take 1 tablet by mouth once daily. For blood pressure potassium chloride ER (KLOR-CON) 20 mEq tablet 180 tablet 1 Sig: Take 2 tablets by mouth once daily. Yessenia Wu LPN January 31, 2024 2:16 PM documented in this encounter [facility] 01-31-2024 Telephone encounter Note Prescription Refill Information The patient has been identified by name and date of : Yes Caregiver verified no other encounters exist for this prescription request: Yes Caregiver confirmed with patient/requestor that no other refills are due, in the near future, with this provider at this time: Yes The last office visit in the department: 10/07/23 Does the patient have a future office visit with this provider/department: Yes 04/11/24 Requested Prescriptions Pending Prescriptions Disp Refills FLUoxetine (PROZAC) 20 mg capsule 90 capsule 1 Sig: Take 1 capsule by mouth once daily. Take in addition to the 40mg cap for total dose of 60mg Yessenia Wu LPN January 31, 2024 2:15 PM [facility] 01-31-2024 Miscellaneous Notes Prescription Refill Information The patient has been identified by name and date of : Yes Caregiver verified no other encounters exist for this prescription request: Yes Caregiver confirmed with patient/requestor that no other refills are due, in the near future, with this provider at this time: Yes The last office visit in the department: 10/07/23 Does the patient have a future office visit with this provider/department: Yes 04/11/24 Requested Prescriptions Pending Prescriptions Disp Refills FLUoxetine (PROZAC) 20 mg capsule 90 capsule 1 Sig: Take 1 capsule by mouth once daily. Take in addition to the 40mg cap for total dose of 60mg Yessenia Wu LPN January 31, 2024 2:15 PM documented in this encounter [facility] 01-31-2024 Telephone encounter Note Prescription Refill Information The patient has been identified by name and date of : Yes Caregiver verified no other encounters exist for this prescription request: Yes Caregiver confirmed with patient/requestor that no other refills are due, in the near future, with this provider at this time: Yes The last office visit in the department: 10/07/23 Does the patient have a future office visit with this provider/department: Yes 04/11/24 Requested Prescriptions Pending Prescriptions Disp Refills meloxicam (MOBIC) 15 mg tablet 30 tablet 3 Sig: TAKE 1 TABLET BY MOUTH EVERY DAY FOR 30 DAYS Yessenia Wu LPN January 31, 2024 2:12 PM [facility] 01-31-2024 Miscellaneous Notes Prescription Refill Information The patient has been identified by name and date of : Yes Caregiver verified no other encounters exist for this prescription request: Yes Caregiver confirmed with patient/requestor that no other refills are due, in the near future, with this provider at this time: Yes The last office visit in the department: 10/07/23 Does the patient have a future office visit with this provider/department: Yes 04/11/24 Requested Prescriptions Pending Prescriptions Disp Refills meloxicam (MOBIC) 15 mg tablet 30 tablet 3 Sig: TAKE 1 TABLET BY MOUTH EVERY DAY FOR 30 DAYS Yessenia Wu LPN January 31, 2024 2:12 PM documented in this encounter [facility] 01-28-2024 Kia Wallace APRN.SEWING MACHINE ADJUSTER - 01/28/2024 11:46 AM EST RESPIRATORY INFECTION GENERAL INFORMATION: An upper respiratory tract infection, or cold, is a viral infection of the airway passages. It can be caused by any one of almost 200 different viruses. Common symptoms include a runny or stuffy nose, sneezing, watery eyes, sore throat, cough, and slight fever. Colds are contagious, especially during the first 3 or 4 days and cannot be cured by antibiotics. They are spread by coughs, sneezes, and direct contact, especially [id number]. A respiratory tract infection usually clears up in a few days, but some people may be sick for a week or two. INSTRUCTIONS: 1. Be careful not to blow your nose too hard because this may cause a nosebleed. 2. Use a cool-mist humidifier (vaporizer) to increase air moisture. This will make it easier for you to breathe. Do not use hot steam. 3. Rest as much as possible and get plenty of sleep. 4. Wash your hands often, especially after you blow your nose. Cover your mouth and nose with a tissue when you sneeze or cough. 5. Drink plenty of clear fluids (8 glasses a day) such as water, fruit juice, tea, clear soups, and carbonated beverages. CONTACT YOUR DOCTOR IF : 1. Your fever lasts more than 3 days. 2. You have a sore throat that gets worse or you see white or yellow spots in your throat. 3. Your cough gets worse or lasts more than 10 days. 4. You develop a rash anywhere on your skin. 5. You have an earache or a headache. 6. You have thick greenish or yellowish discharge from your nose. RETURN IMMEDIATELY IF: 1. You cough up thick yellow, green, quiroz, or bloody sputum. 2. You have difficulty breathing, pain in your chest, or your skin or nails look quiroz or blue. 3. You have shaking chills or a temperature over 102 F (39 C). documented in this encounter [facility] 01-28-2024 History of Present illness Narrative Radiology Service Progress Note PATIENT NAME: Bety Perales DATE OF SERVICE: January 28, 2024 TIME: 11:09 AM PATIENT IDENTITY VERIFICATION COMPLETED USING TWO (2) IDENTIFIERS: Name and Date of confirmed by patient verbally. FALL SCREENING: Has the patient had 2 falls in the last year or 1 fall with injury or currently using an Ambulatory Assistive Device (Walker, Cane, Wheelchair, Crutches, etc.)? No PATIENT GENDER DATA: Female. status: : No status: NO. PATIENT RELEVANT IMPLANT DATA REVIEWED: Not Applicable PATIENT PRESENTS WITH AN IMPLANTABLE OR ATTACHED PAINT ROLLER COVERS SUPERVISOR: No RADIOLOGY DEPARTMENT: General X-ray: Exam(s) Completed: Chest X-Ray PERIPHERAL IV DATA: Not applicable SIGNED BY: RT Neo(R) January 28, 2024 11:09 AM documented in this encounter [facility] 01-28-2024 Note HNO ID: [id number] Author: JULIEN WARD RT(R) Service: Radiology Author Type: Technologist Type: Progress Notes Filed: 01/28/2024 11:13 Note Text: Radiology Service Progress Note PATIENT NAME: Bety Perales DATE OF SERVICE: January 28, 2024 TIME: 11:09 AM PATIENT IDENTITY VERIFICATION COMPLETED USING TWO (2) IDENTIFIERS: Name and Date of confirmed by patient verbally. FALL SCREENING: Has the patient had 2 falls in the last year or 1 fall with injury or currently using an Ambulatory Assistive Device (Walker, Cane, Wheelchair, Crutches, etc.)? No PATIENT GENDER DATA: Female. status: : No status: NO. PATIENT RELEVANT IMPLANT DATA REVIEWED: Not Applicable PATIENT PRESENTS WITH AN IMPLANTABLE OR ATTACHED PAINT ROLLER COVERS SUPERVISOR: No RADIOLOGY DEPARTMENT: General X-ray: Exam(s) Completed: Chest X-Ray PERIPHERAL IV DATA: Not applicable SIGNED BY: RT Neo(Wili) January 28, 2024 11:09 AM [facility] 01-28-2024 Note HNO ID: [id number] Author: KIA CAM APRN.SEWING MACHINE ADJUSTER Service: ? Author Type: Nurse Practitioner Type: Progress Notes Filed: 01/28/2024 12:19 Note Text: This note was created using NoteWriter. Subjective Bety Perales is a 63 year old female. 63 year old female with PMH HTN, hyperlipidemia, NAFLD, presents for illness. Acute onset 2 weeks ago + cough +wheezing +SOB Denies eye, nose or ear complaints Denies hemoptysis Denies CP Denies dyspnea Of note, seeen 01/22/24 [facility] Diagnosed with viral RX Prednisone and Tessalon Perles Denies relief of symptoms Presents today related to worsening symptoms. Denies tobacco usage The history is provided by the patient. No russian language professor was used. Cough This is a new problem. The current episode started more than 1 week ago. The problem occurs constantly. The problem has been gradually worsening. The cough is Productive of sputum. There has been no fever. Associated symptoms include headaches, shortness of breath and wheezing. Pertinent negatives include no chest pain, no chills, no sweats, no weight loss, no ear congestion, no ear pain, no rhinorrhea, no sore throat, no myalgias and no eye redness. Treatments tried: Tessalon Perles and Prednisone. The treatment provided no relief. She is not a smoker. Her past medical history is significant for asthma. Her past medical history does not include bronchitis, pneumonia, bronchiectasis, COPD or emphysema. PAST MEDICAL HISTORY Diagnosis Date Adrenal adenoma 10/17/2013 Arthritis of both knees 06/12/2013 Backache, unspecified 01/19/2008 Brachial neuritis or radiculitis NOS 01/17/2014 Cervical radiculopathy Cervicogenic headache 11/07/2014 Cholelithiasis 07/24/2013 Chronic pain syndrome 01/02/[facility] Bradshaw. Was instructed needed to get pain meds through one of them DDD (degenerative disc disease), cervical 12/22/2013 DDD (degenerative disc disease), lumbar 03/28/2014 Depression 11/03/2013 Dysthymia 08/22/2015 Elevated alkaline phosphatase level 02/24/2016 Neg w/u Elevated LFTs 09/23/2015 Elevated serum GGT level 03/03/[address] Wayne Essential hypertension, benign 06/12/2013 Hepatic encephalopathy (HCC) 06/29/2017 Hepatitis B immune 09/27/2015 History of COVID-19 03/31/202103/2021 History of shingles 09/07/201908/2019 Hyperammonemia (HCC) 06/23/2017 Hypokalemia 07/24/2013 Insomnia 11/03/2013 Lumbago 01/17/2014 Lumbar radiculopathy 12/22/2013 Lumbar spondylosis 12/22/2013 Medicare annual wellness visit, initial 07/01/2018 Last done 07/01/18 Medicare eligible 09/12/2016 Mixed hyperlipidemia 01/02/2015 Myofascial pain 12/22/2013 Osteoarthritis of spine with radiculopathy, lumbar region 11/07/2014 Osteopenia after menopause 06/21/2023 Spinal stenosis of cervical region 06/12/2013 Sprain of neck 01/19/2008 Weakness of right lower extremity 09/17/2021 Chronic from low back diease. PAST SURGICAL HISTORY Procedure Laterality Date CORTISONE, SERUM Neck and Spine injections ESOPHAGOGASTRODUODENOSCOPY TRANSORAL DIAGNOSTIC 11/01/2017 EGD EXTRACTION, ERUPTED TOOTH OR EXPOSED ROOT (ELEVATION AND/OR FORCEPS REMOVAL) complete teeth extraction upper and lower FECAL OCCULT BLOOD TEST 09/07/2016 negative LIG/TRNSXJ FLP TUBE ABDL/VAG APPR UNI/BI STRESS TEST 09/07/2016 WNL TONSILLECTOMY PRIMARY/SECONDARY Tonsillectomy ALLERGIES Lipitor [Atorvastatin Calcium] MEDICATIONS benzonatate (TESSALON PERLE) 100 mg capsule Take 1 capsule by mouth every 8 hours as needed for cough for up to 15 days. FLUoxetine (PROZAC) 40 mg capsule Take 1 capsule by mouth once daily. Take with the 20mg capsule for total daily dose of 60mg traZODone (DESYREL) 100 mg tablet Take 1 tablet by mouth daily at bedtime. meloxicam (MOBIC) 15 mg tablet TAKE 1 TABLET BY MOUTH EVERY DAY FOR 30 DAYS ezetimibe (ZETIA) 10 mg tablet Take 1 tablet by mouth once daily. rosuvastatin (CRESTOR) 40 mg tablet Take 1 tablet by mouth once daily. gabapentin (NEURONTIN) 600 mg tablet Take 2 tablets by mouth three times a day for 180 days. hydroCHLOROthiazide 25 mg tablet Take 1 tablet by mouth once daily. For blood pressure potassium chloride ER (KLOR-CON) 20 mEq tablet Take 2 tablets by mouth once daily. albuterol HFA (PROVENTIL HFA, VENTOLIN HFA) 90 mcg/actuation inhaler Inhale 2 Puffs as instructed every 4 hours as needed. FLUoxetine (PROZAC) 20 mg capsule Take 1 capsule by mouth once daily. Take in addition to the 40mg cap for total dose of 60mg cyclobenzaprine (FLEXERIL) 10 mg tablet Take 1 tablet by mouth three times daily as needed. Fenofibrate (LOFIBRA) 160 mg tablet Take 1 tablet by mouth once daily. guaiFENesin (MUCINEX) 600 mg 12 hr tablet Take 2 tablets by mouth twice daily. (Patient taking differently: Take 1,200 mg by mouth two times a day. PRN) traMADol (ULTRAM) 50 mg tablet Take 50 mg by kartik (more content not included)... [facility] 01-28-2024 History of Present illness Narrative This note was created using [employer]. Subjective Bety Perales is a 63 year old female. 63 year old female with PMH HTN, hyperlipidemia, NAFLD, presents for illness. Acute onset 2 weeks ago + cough +wheezing +SOB Denies eye, nose or ear complaints Denies hemoptysis Denies CP Denies dyspnea Of note, seeen 01/22/24 [facility] Diagnosed with viral RX Prednisone and Tessalon Perles Denies relief of symptoms Presents today related to worsening symptoms. Denies tobacco usage The history is provided by the patient. No russian language professor was used. Cough This is a new problem. The current episode started more than 1 week ago. The problem occurs constantly. The problem has been gradually worsening. The cough is Productive of sputum. There has been no fever. Associated symptoms include headaches, shortness of breath and wheezing. Pertinent negatives include no chest pain, no chills, no sweats, no weight loss, no ear congestion, no ear pain, no rhinorrhea, no sore throat, no myalgias and no eye redness. Treatments tried: Tessalon Perles and Prednisone. The treatment provided no relief. She is not a smoker. Her past medical history is significant for asthma. Her past medical history does not include bronchitis, pneumonia, bronchiectasis, COPD or emphysema. PAST MEDICAL HISTORY Diagnosis Date Adrenal adenoma 10/17/2013 Arthritis of both knees 06/12/2013 Backache, unspecified 01/19/2008 Brachial neuritis or radiculitis NOS 01/17/2014 Cervical radiculopathy Cervicogenic headache 11/07/2014 Cholelithiasis 07/24/2013 Chronic pain syndrome 01/02/2015 [facility] Dr. Bradshaw. Was instructed needed to get pain meds through one of them DDD (degenerative disc disease), cervical 12/22/2013 DDD (degenerative disc disease), lumbar 03/28/2014 Depression 11/03/2013 Dysthymia 08/22/2015 Elevated alkaline phosphatase level 02/24/2016 Neg w/u Elevated LFTs 09/23/2015 Elevated serum GGT level 03/03/[address] Wayne Essential hypertension, benign 06/12/2013 Hepatic encephalopathy (HCC) 06/29/2017 Hepatitis B immune 09/27/2015 History of COVID-19 03/31/202103/2021 History of shingles 09/07/201908/2019 Hyperammonemia (HCC) 06/23/2017 Hypokalemia 07/24/2013 Insomnia 11/03/2013 Lumbago 01/17/2014 Lumbar radiculopathy 12/22/2013 Lumbar spondylosis 12/22/2013 Medicare annual wellness visit, initial 07/01/2018 Last done 07/01/18 Medicare eligible 09/12/2016 Mixed hyperlipidemia 01/02/2015 Myofascial pain 12/22/2013 Osteoarthritis of spine with radiculopathy, lumbar region 11/07/2014 Osteopenia after menopause 06/21/2023 Spinal stenosis of cervical region 06/12/2013 Sprain of neck 01/19/2008 Weakness of right lower extremity 09/17/2021 Chronic from low back diease. PAST SURGICAL HISTORY Procedure Laterality Date CORTISONE, SERUM Neck and Spine injections ESOPHAGOGASTRODUODENOSCOPY TRANSORAL DIAGNOSTIC 11/01/2017 EGD EXTRACTION, ERUPTED TOOTH OR EXPOSED ROOT (ELEVATION AND/OR FORCEPS REMOVAL) complete teeth extraction upper and lower FECAL OCCULT BLOOD TEST 09/07/2016 negative LIG/TRNSXJ FLP TUBE ABDL/VAG APPR UNI/BI STRESS TEST 09/07/2016 WNL TONSILLECTOMY PRIMARY/SECONDARY <AGE 12 Tonsillectomy ALLERGIES Lipitor [Atorvastatin Calcium] MEDICATIONS benzonatate (TESSALON PERLE) 100 mg capsule Take 1 capsule by mouth every 8 hours as needed for cough for up to 15 days. FLUoxetine (PROZAC) 40 mg capsule Take 1 capsule by mouth once daily. Take with the 20mg capsule for total daily dose of 60mg traZODone (DESYREL) 100 mg tablet Take 1 tablet by mouth daily at bedtime. meloxicam (MOBIC) 15 mg tablet TAKE 1 TABLET BY MOUTH EVERY DAY FOR 30 DAYS ezetimibe (ZETIA) 10 mg tablet Take 1 tablet by mouth once daily. rosuvastatin (CRESTOR) 40 mg tablet Take 1 tablet by mouth once daily. gabapentin (NEURONTIN) 600 mg tablet Take 2 tablets by mouth three times a day for 180 days. hydroCHLOROthiazide 25 mg tablet Take 1 tablet by mouth once daily. For blood pressure potassium chloride ER (KLOR-CON) 20 mEq tablet Take 2 tablets by mouth once daily. albuterol HFA (PROVENTIL HFA, VENTOLIN HFA) 90 mcg/actuation inhaler Inhale 2 Puffs as instructed every 4 hours as needed. FLUoxetine (PROZAC) 20 mg capsule Take 1 capsule by mouth once daily. Take in addition to the 40mg cap for total dose of 60mg cyclobenzaprine (FLEXERIL) 10 mg tablet Take 1 tablet by mouth three times daily as needed. Fenofibrate (LOFIBRA) 160 mg tablet Take 1 tablet by mouth once daily. guaiFENesin (MUCINEX) 600 mg 12 hr tablet Take 2 tablets by mouth twice daily. (Patient taking differently: Take 1,200 mg by mouth two times a day. PRN) traMADol (ULTRAM) 50 mg tablet Take 50 mg by mouth twice daily. TENS unit and electrodes cmpk For daily use as directed GLUCOSAMINE SULFATE (GLUCOSAMINE ORAL) Take by mouth four times daily. omega-3 fatty acids 1,000 mg cap Take 2 capsules by mouth twice daily. doxycycline (VIBRA-TABS) 100 mg tablet Take 1 tablet by mouth two times a day for 7 days. FAMILY HISTORY Problem Relation Age of Onset Blood Disease Mother anemic No Known Problems Brother No Known Problems Brother Hypertension Maternal Grandmother Asthma Maternal Grandfather Diabetes Maternal Uncle Social History Tobacco Use Smoking status: Never Passive exposure: Never Smokeless tobacco: Never Vaping Use Vaping status: Never Used Substance Use Topics Alcohol use: No Drug use: No Review of Systems Constitutional: Negative for chills and weight loss. HENT: Positive for congestion. Negative for ear pain, rhinorrhea and sore throat. Eyes: Negative for pain, discharge, redness and itching. Respiratory: Positive for cough, shortness of breath and wheezing. Negative for apnea and chest tightness. Cardiovascular: Negative for chest pain. Gastrointestinal: Negative for abdominal pain, diarrhea, nausea and vomiting. Musculoskeletal: Negative for myalgias. Skin: Negative for color change, pallor and rash. Allergic/Immunologic: Negative for environmental allergies, food allergies and immunocompromised state. Neurological: Positive for headaches. Hematological: Negative for adenopathy. Does not bruise/bleed easily. Psychiatric/Behavioral: Negative for agitation and behavioral problems. Objective BP 112/80 Pulse 105 Temp 36.9 C (98.5 F) Resp 20 Wt 78.9 kg (173 lb 15.1 oz) LMP 09/25/2009 SpO2 94% BMI 32.33 kg/m Physical Exam Vitals and nursing note reviewed. Constitutional: General: She is not in acute distress. Appearance: Normal appearance. She is normal weight. She is not ill-appearing, toxic-appearing or diaphoretic. HENT: Head: Normocephalic and atraumatic. Right Ear: Ear canal and external ear normal. Left Ear: Ear canal and external ear normal. Nose: Rhinorrhea present. No congestion. Mouth/Throat: Mouth: Mucous membranes are moist. Pharynx: Posterior oropharyngeal erythema present. No oropharyngeal exudate. Eyes: General: Right eye: No discharge. Left eye: No discharge. Extraocular Movements: Extraocular movements intact. Conjunctiva/sclera: Conjunctivae normal. Pupils: Pupils are equal, round, and reactive to light. Cardiovascular: Rate and Rhythm: Normal rate and regular rhythm. Pulses: Normal pulses. Heart sounds: Normal heart sounds. No murmur heard. No friction rub. Pulmonary: Effort: Pulmonary effort is normal. No respiratory distress. Breath sounds: Normal breath sounds. No stridor. No wheezing, rhonchi or rales. Comments: Persistent harsh cough noted Chest: Chest wall: No tenderness. Abdominal: General: Abdomen is flat. There is no distension. Palpations: Abdomen is soft. There is no mass. Tenderness: There is no abdominal tenderness. There is no right CVA tenderness, left CVA tenderness, guarding or rebound. Hernia: No hernia is present. Musculoskeletal: General: No swelling, tenderness, deformity or signs of injury. Normal range of motion. Cervical back: Normal range of motion and neck supple. No rigidity. Right lower leg: No edema. Left lower leg: No edema. Lymphadenopathy: Cervical: Cervical adenopathy present. Skin: General: Skin is warm and dry. Coloration: Skin is not jaundiced or pale. Findings: No bruising, erythema, lesion or rash. Neurological: General: No focal deficit present. Mental Status: She is alert and oriented to person, place, and time. Cranial Nerves: No cranial nerve deficit. Sensory: No sensory deficit. Motor: No weakness. Coordination: Coordination normal. Gait: Gait normal. Psychiatric: Mood and Affect: Mood normal. Behavior: Behavior normal. Thought Content: Thought content normal. Judgment: Judgment normal. Assessment and Plan ASSESSMENT/PLAN: 1. Acute cough - ICD9: 786.2, ICD10: R05.1 (primary diagnosis) X 2 weeks History of asthma Progressively worsening - XR CHEST 2V FRONTAL/LAT-Linear subsegmental atelectasis in the LEFT mid lung. No consolidation. Given length of illness Will cover with Doxy F/U with PCP for continued sx 2. URI, acute - ICD9: 465.9, ICD10: J06.9 - Symptomatic treatment with prn analgesia - Supportive care with fluids and rest - The patient may also use OTC cough and cold meds as needed, warm salt water gargles, throat lozenges and/or OTC throat spray as needed, and nasal saline gtts and suction prn. - Follow up in 3-5 days if symptoms persist or sooner if worsening of symptoms Kia Cam APRN.SEWING MACHINE ADJUSTER documented in this encounter [facility] 01-22-2024 Note HNO ID: [id number] Author: IRAJ TALAVERA MD Service: ? Author Type: Physician Type: Progress Notes Filed: 01/22/2024 11:19 Note Text: Patient presents with: Cough: Chest congestion x1.5 weeks, fever at start HPI: Coughing for 1 and half weeks. Initially had a fever which resolved. The cough has been worse the last 5 days and is disturbing her sleep because of persistence. Positive symptoms: dry Cough, wheezing, resolved Fever, slight sore throat, Negative symptoms: Shortness of breath, Chest pain, Sinus pressure, Nasal Congestion, Rhinorrhea, OTC: Robitussin, Delsym, inhaler MEDICATIONS: Current Outpatient Medications Medication Sig FLUoxetine (PROZAC) 40 mg capsule Take 1 capsule by mouth once daily. Take with the 20mg capsule for total daily dose of 60mg traZODone (DESYREL) 100 mg tablet Take 1 tablet by mouth daily at bedtime. meloxicam (MOBIC) 15 mg tablet TAKE 1 TABLET BY MOUTH EVERY DAY FOR 30 DAYS ezetimibe (ZETIA) 10 mg tablet Take 1 tablet by mouth once daily. rosuvastatin (CRESTOR) 40 mg tablet Take 1 tablet by mouth once daily. gabapentin (NEURONTIN) 600 mg tablet Take 2 tablets by mouth three times a day for 180 days. hydroCHLOROthiazide 25 mg tablet Take 1 tablet by mouth once daily. For blood pressure potassium chloride ER (KLOR-CON) 20 mEq tablet Take 2 tablets by mouth once daily. albuterol HFA (PROVENTIL HFA, VENTOLIN HFA) 90 mcg/actuation inhaler Inhale 2 Puffs as instructed every 4 hours as needed. FLUoxetine (PROZAC) 20 mg capsule Take 1 capsule by mouth once daily. Take in addition to the 40mg cap for total dose of 60mg cyclobenzaprine (FLEXERIL) 10 mg tablet Take 1 tablet by mouth three times daily as needed. Fenofibrate (LOFIBRA) 160 mg tablet Take 1 tablet by mouth once daily. guaiFENesin (MUCINEX) 600 mg 12 hr tablet Take 2 tablets by mouth twice daily. (Patient taking differently: Take 1,200 mg by mouth two times a day. PRN) traMADol (ULTRAM) 50 mg tablet Take 50 mg by mouth twice daily. TENS unit and electrodes cmpk For daily use as directed GLUCOSAMINE SULFATE (GLUCOSAMINE ORAL) Take by mouth four times daily. omega-3 fatty acids 1,000 mg cap Take 2 capsules by mouth twice daily. No current facility-administered medications for this visit. ALLERGIES: ALLERGIES Allergen Reactions Lipitor [Atorvastat* Other: See Comments elevated LFT's VITALS: BP 146/86 Pulse 88 Temp 36.9 ?C (98.4 ?F) Resp 20 Wt 78.5 kg (173 lb 1 oz) LMP 09/25/2009 SpO2 95% BMI 32.17 kg/m? PHYSICAL EXAM: GEN: mildly ill appearing HEENT: PERRL, EOMI, conjunctiva clear Ears: Right canal impacted with cerumen. Left canal clear. LTM without erythema, bulge, or effusion Sinuses: non-tender frontal sinus, non-tender maxillary sinuses Throat: moist mucous membranes, mild erythema, no exudate Neck: supple, no thyromegaly, no lymphadenopathy HEART: regular rate and rhythm, no murmurs LUNGS: Coarse wheezes throughout, no increased WOB; nonproductive frequent cough ASSESSMENT/PLAN: 1. Acute cough - ICD9: 786.2, ICD10: R05.1 (primary diagnosis) 2. Wheeze - ICD9: 786.07, ICD10: R06.2 Patient reports she has asthma although not officially diagnosed in the chart. She would like to undergo steroid and follow-up for CXR if her cough is not improving. - PREDNISONE 10 MG TABLET taper. Denies side effects with prior use. - BENZONATATE 100 MG CAPSULE Follow up with worsening cough, worsening shortness of breath, increasing chest pain, or late onset fever. Iraj Talavera MD [facility] 01-22-2024 History of Present illness Narrative Patient presents with: Cough: Chest congestion x1.5 weeks, fever at start HPI: Coughing for 1 and half weeks. Initially had a fever which resolved. The cough has been worse the last 5 days and is disturbing her sleep because of persistence. Positive symptoms: dry Cough, wheezing, resolved Fever, slight sore throat, Negative symptoms: Shortness of breath, Chest pain, Sinus pressure, Nasal Congestion, Rhinorrhea, OTC: Robitussin, Delsym, inhaler MEDICATIONS: Current Outpatient Medications Medication Sig FLUoxetine (PROZAC) 40 mg capsule Take 1 capsule by mouth once daily. Take with the 20mg capsule for total daily dose of 60mg traZODone (DESYREL) 100 mg tablet Take 1 tablet by mouth daily at bedtime. meloxicam (MOBIC) 15 mg tablet TAKE 1 TABLET BY MOUTH EVERY DAY FOR 30 DAYS ezetimibe (ZETIA) 10 mg tablet Take 1 tablet by mouth once daily. rosuvastatin (CRESTOR) 40 mg tablet Take 1 tablet by mouth once daily. gabapentin (NEURONTIN) 600 mg tablet Take 2 tablets by mouth three times a day for 180 days. hydroCHLOROthiazide 25 mg tablet Take 1 tablet by mouth once daily. For blood pressure potassium chloride ER (KLOR-CON) 20 mEq tablet Take 2 tablets by mouth once daily. albuterol HFA (PROVENTIL HFA, VENTOLIN HFA) 90 mcg/actuation inhaler Inhale 2 Puffs as instructed every 4 hours as needed. FLUoxetine (PROZAC) 20 mg capsule Take 1 capsule by mouth once daily. Take in addition to the 40mg cap for total dose of 60mg cyclobenzaprine (FLEXERIL) 10 mg tablet Take 1 tablet by mouth three times daily as needed. Fenofibrate (LOFIBRA) 160 mg tablet Take 1 tablet by mouth once daily. guaiFENesin (MUCINEX) 600 mg 12 hr tablet Take 2 tablets by mouth twice daily. (Patient taking differently: Take 1,200 mg by mouth two times a day. PRN) traMADol (ULTRAM) 50 mg tablet Take 50 mg by mouth twice daily. TENS unit and electrodes cmpk For daily use as directed GLUCOSAMINE SULFATE (GLUCOSAMINE ORAL) Take by mouth four times daily. omega-3 fatty acids 1,000 mg cap Take 2 capsules by mouth twice daily. No current facility-administered medications for this visit. ALLERGIES: ALLERGIES Allergen Reactions Lipitor [Atorvastat* Other: See Comments elevated LFT's VITALS: BP 146/86 Pulse 88 Temp 36.9 C (98.4 F) Resp 20 Wt 78.5 kg (173 lb 1 oz) LMP 09/25/2009 SpO2 95% BMI 32.17 kg/m PHYSICAL EXAM: GEN: mildly ill appearing HEENT: PERRL, EOMI, conjunctiva clear Ears: Right canal impacted with cerumen. Left canal clear. LTM without erythema, bulge, or effusion Sinuses: non-tender frontal sinus, non-tender maxillary sinuses Throat: moist mucous membranes, mild erythema, no exudate Neck: supple, no thyromegaly, no lymphadenopathy HEART: regular rate and rhythm, no murmurs LUNGS: Coarse wheezes throughout, no increased WOB; nonproductive frequent cough ASSESSMENT/PLAN: 1. Acute cough - ICD9: 786.2, ICD10: R05.1 (primary diagnosis) 2. Wheeze - ICD9: 786.07, ICD10: R06.2 Patient reports she has asthma although not officially diagnosed in the chart. She would like to undergo steroid and follow-up for CXR if her cough is not improving. - PREDNISONE 10 MG TABLET taper. Denies side effects with prior use. - BENZONATATE 100 MG CAPSULE Follow up with worsening cough, worsening shortness of breath, increasing chest pain, or late onset fever. Iraj Talavera MD documented in this encounter [facility] 12-03-2023 Telephone encounter Note The following approved medication requests have been transmitted electronically. Requested Prescriptions Signed Prescriptions Disp Refills FLUoxetine (PROZAC) 40 mg capsule 90 capsule 1 Sig: Take 1 capsule by mouth once daily. Take with the 20mg capsule for total daily dose of 60mg Authorizing Provider: DAVID LONGORIA traZODone (DESYREL) 100 mg tablet 90 tablet 1 Sig: Take 1 tablet by mouth daily at bedtime. Authorizing Provider: DAVID LONGORIA MD [facility] 12-03-2023 Miscellaneous Notes The following approved medication requests have been transmitted electronically. Requested Prescriptions Signed Prescriptions Disp Refills FLUoxetine (PROZAC) 40 mg capsule 90 capsule 1 Sig: Take 1 capsule by mouth once daily. Take with the 20mg capsule for total daily dose of 60mg Authorizing Provider: DAVID LONGORIA traZODone (DESYREL) 100 mg tablet 90 tablet 1 Sig: Take 1 tablet by mouth daily at bedtime. Authorizing Provider: DAVID LONGORIA MD Prescription Refill Information The patient has been identified by name and date of : Yes Caregiver verified no other encounters exist for this prescription request: Yes Caregiver confirmed with patient/requestor that no other refills are due, in the near future, with this provider at this time: Yes The last office visit in the department: 10/07/23 Does the patient have a future office visit with this provider/department: Yes 04/11/24 Requested Prescriptions Pending Prescriptions Disp Refills FLUoxetine (PROZAC) 40 mg capsule 90 capsule 1 Sig: Take 1 capsule by mouth once daily. Take with the 20mg capsule for total daily dose of 60mg traZODone (DESYREL) 100 mg tablet 90 tablet 1 Sig: Take 1 tablet by mouth daily at bedtime. Yessenia Wu LPN December 03, 2023 7:16 AM documented in this encounter [facility] 12-03-2023 Telephone encounter Note Prescription Refill Information The patient has been identified by name and date of : Yes Caregiver verified no other encounters exist for this prescription request: Yes Caregiver confirmed with patient/requestor that no other refills are due, in the near future, with this provider at this time: Yes The last office visit in the department: 10/07/23 Does the patient have a future office visit with this provider/department: Yes 04/11/24 Requested Prescriptions Pending Prescriptions Disp Refills FLUoxetine (PROZAC) 40 mg capsule 90 capsule 1 Sig: Take 1 capsule by mouth once daily. Take with the 20mg capsule for total daily dose of 60mg traZODone (DESYREL) 100 mg tablet 90 tablet 1 Sig: Take 1 tablet by mouth daily at bedtime. Yessenia Wu LPN December 03, 2023 7:16 AM [facility] 10-08-2023 Telephone encounter Note Pt notified of results via [employer]. Rosanne Aly Ma [facility] 10-08-2023 Miscellaneous Notes Pt notified of results via [employer]. Rosanne Aly Ma Please let patient know their labs are stable. documented in this encounter [facility] 10-08-2023 Telephone encounter Note Please let patient know their labs are stable. [facility] 10-07-2023 History of Present illness Narrative Chief Complaint Patient presents with: 6 Month Exam HPI Bety Perales is a 63 year old female who presents here today for Above Complaints.. Patient presents for routine follow up. Patient states she is doing well and has no complaints or concerns regarding her health. Past medical history, appointments, medications, allergies reviewed. Previous Medical History PAST MEDICAL HISTORY Diagnosis Date Adrenal adenoma 10/17/2013 Arthritis of both knees 06/12/2013 Backache, unspecified 01/19/2008 Brachial neuritis or radiculitis NOS 01/17/2014 Cervical radiculopathy Cervicogenic headache 11/07/2014 Cholelithiasis 07/24/2013 Chronic pain syndrome 01/02/2015 [facility] Dr. Bradshaw. Was instructed needed to get pain meds through one of them DDD (degenerative disc disease), cervical 12/22/2013 DDD (degenerative disc disease), lumbar 03/28/2014 Depression 11/03/2013 Dysthymia 08/22/2015 Elevated alkaline phosphatase level 02/24/2016 Neg w/u Elevated LFTs 09/23/2015 Elevated serum GGT level 03/03/[address] Wayne Essential hypertension, benign 06/12/2013 Hepatic encephalopathy (HCC) 06/29/2017 Hepatitis B immune 09/27/2015 History of COVID-19 03/31/202103/2021 History of shingles 09/07/201908/2019 Hyperammonemia (HCC) 06/23/2017 Hypokalemia 07/24/2013 Insomnia 11/03/2013 Lumbago 01/17/2014 Lumbar radiculopathy 12/22/2013 Lumbar spondylosis 12/22/2013 Medicare annual wellness visit, initial 07/01/2018 Last done 07/01/18 Medicare eligible 09/12/2016 Mixed hyperlipidemia 01/02/2015 Myofascial pain 12/22/2013 Osteoarthritis of spine with radiculopathy, lumbar region 11/07/2014 Osteopenia after menopause 06/21/2023 Spinal stenosis of cervical region 06/12/2013 Sprain of neck 01/19/2008 Weakness of right lower extremity 09/17/2021 Chronic from low back diease. Previous Surgical History PAST SURGICAL HISTORY Procedure Laterality Date CORTISONE, SERUM Neck and Spine injections ESOPHAGOGASTRODUODENOSCOPY TRANSORAL DIAGNOSTIC 11/01/2017 EGD EXTRACTION, ERUPTED TOOTH OR EXPOSED ROOT (ELEVATION AND/OR FORCEPS REMOVAL) complete teeth extraction upper and lower FECAL OCCULT BLOOD TEST 09/07/2016 negative LIG/TRNSXJ FLP TUBE ABDL/VAG APPR UNI/BI STRESS TEST 09/07/2016 WNL TONSILLECTOMY PRIMARY/SECONDARY <AGE 11 Tonsillectomy Family History FAMILY HISTORY Problem Relation Age of Onset Blood Disease Mother anemic No Known Problems Brother No Known Problems Brother Hypertension Maternal Grandmother Asthma Maternal Grandfather Diabetes Maternal Uncle Patient Allergies ALLERGIES Allergen Reactions Lipitor [Atorvastat* Other: See Comments elevated LFT's Current Medications Current Outpatient Medications on File Prior to Visit Medication Sig meloxicam (MOBIC) 15 mg tablet TAKE 1 TABLET BY MOUTH EVERY DAY FOR 30 DAYS ezetimibe (ZETIA) 10 mg tablet Take 1 tablet by mouth once daily. rosuvastatin (CRESTOR) 40 mg tablet Take 1 tablet by mouth once daily. gabapentin (NEURONTIN) 600 mg tablet Take 2 tablets by mouth three times a day for 180 days. hydroCHLOROthiazide 25 mg tablet Take 1 tablet by mouth once daily. For blood pressure potassium chloride ER (KLOR-CON) 20 mEq tablet Take 2 tablets by mouth once daily. albuterol HFA (PROVENTIL HFA, VENTOLIN HFA) 90 mcg/actuation inhaler Inhale 2 Puffs as instructed every 4 hours as needed. FLUoxetine (PROZAC) 20 mg capsule Take 1 capsule by mouth once daily. Take in addition to the 40mg cap for total dose of 60mg FLUoxetine (PROZAC) 40 mg capsule Take 1 capsule by mouth once daily. Take with the 20mg capsule for total daily dose of 60mg traZODone (DESYREL) 100 mg tablet Take 1 tablet by mouth daily at bedtime. cyclobenzaprine (FLEXERIL) 10 mg tablet Take 1 tablet by mouth three times daily as needed. Fenofibrate (LOFIBRA) 160 mg tablet Take 1 tablet by mouth once daily. guaiFENesin (MUCINEX) 600 mg 12 hr tablet Take 2 tablets by mouth twice daily. (Patient taking differently: Take 1,200 mg by mouth two times a day. PRN) traMADol (ULTRAM) 50 mg tablet Take 50 mg by mouth twice daily. TENS unit and electrodes cmpk For daily use as directed GLUCOSAMINE SULFATE (GLUCOSAMINE ORAL) Take by mouth four times daily. omega-3 fatty acids 1,000 mg cap Take 2 capsules by mouth twice daily. No current facility-administered medications on file prior to visit. Social History Social History Tobacco Use Smoking status: Never Passive exposure: Never Smokeless tobacco: Never Vaping Use Vaping Use: Never used Substance Use Topics Alcohol use: No Drug use: No Review of Symptoms REVIEW OF SYSTEMS SEE HPI EXAM: BP 121/83 Pulse 87 Resp 14 Wt 78.9 kg (174 lb) LMP 09/25/2009 BMI 32.34 kg/m General Appearance: Well appearing, alert, in no acute distress, well-hydrated, well nourished.. Lungs: Lungs clear to auscultation. No wheezing, rhonchi, rales.. Heart: RRR without murmur, gallop, or rubs. No ectopy. Peripheral Pulses: Normal. Health Maintenance List Anxiety Screening Never done RSV Vaccine(1 - 1-dose 60+ series) Never done DTaP,Tdap,Td Vaccine(2 - Td or Tdap) due on 06/13/2023 Colorectal Cancer Screening due on 10/13/2023 Mammogram Screening due on 11/11/2023 Pneumococcal Vaccine(1 of 2 - PCV) due on 09/12/2025 Influenza Vaccine(1) due on 11/14/2023 Annual PCP Team Chronic Disease Visit due on 04/08/2024 BP Controlled (<130/80) due on 05/24/2024 Diabetes Screening due on 04/08/2026 Lipid Screening due on 04/08/2028 Cervical Cancer Screening due on 05/24/2028 Hepatitis A Vaccine Completed Hepatitis C Screening Completed Shingrix Vaccine Completed Covid-19 Vaccine Completed HIV Screening Discontinued ASSESSMENT/PLAN: 1. Encounter for screening examination for other mental health and behavioral disorders - ICD9: V79.8, ICD10: Z13.39 -Anxiety screen completed 2. Essential hypertension, benign - ICD9: 401.1, ICD10: I10 - Controlled - Continue current medications - Recommend home blood pressure monitoring, to bring results to next visit - Encouraged sodium restriction, DASH or Mediterranean diet - Recommend regular aerobic exercise - Discussed need for and benefit of weight loss. BMI 32.34 kg/(m^2) - COMPREHENSIVE METABOLIC PANEL 3. Mixed hyperlipidemia - ICD9: 272.2, ICD10: E78.2 - Control undetermined, due for labs - Continue current medications - Counseled on healthy diet and regular exercise - LIPID PANEL, NONFASTING 4. NAFLD (nonalcoholic fatty liver disease) - ICD9: 571.8, ICD10: K76.0 - COMPREHENSIVE METABOLIC PANEL 5. Medication management - ICD9: V58.69, ICD10: Z79.899 - COMPREHENSIVE METABOLIC PANEL 6. Elevated hemoglobin A1c - ICD9: 790.29, ICD10: R73.09 - HEMOGLOBIN A1C 7. Subclinical hypothyroidism - ICD9: 244.8, ICD10: E03.8 - Instructed patient on importance of taking on an empty stomach either first thing in the morning or at bedtime. - check TSH today - THYROID STIMULATING HORMONE 8. Encounter for immunization - ICD9: V03.89, ICD10: Z23 -Informed patient due for TdaP and RSV, verbalized understanding, will get at pharmacy. Piper Monge APRN.ZION documented in this encounter [facility] 10-04-2023 Telephone encounter Note Prescription Refill Information The patient has been identified by name and date of : Yes Caregiver verified no other encounters exist for this prescription request: Yes Caregiver confirmed with patient/requestor that no other refills are due, in the near future, with this provider at this time: Yes The last office visit in the department: 03/2023 Does the patient have a future office visit with this provider/department: Yes 09/2023 Last refill: 04/2023 Requested Prescriptions Pending Prescriptions Disp Refills meloxicam (MOBIC) 15 mg tablet 30 tablet 3 Sig: TAKE 1 TABLET BY MOUTH EVERY DAY FOR 30 DAYS Angeline Hoffman MA October 04, 2023 9:25 AM [facility] 10-04-2023 Miscellaneous Notes Prescription Refill Information The patient has been identified by name and date of : Yes Caregiver verified no other encounters exist for this prescription request: Yes Caregiver confirmed with patient/requestor that no other refills are due, in the near future, with this provider at this time: Yes The last office visit in the department: 03/2023 Does the patient have a future office visit with this provider/department: Yes 09/2023 Last refill: 04/2023 Requested Prescriptions Pending Prescriptions Disp Refills meloxicam (MOBIC) 15 mg tablet 30 tablet 3 Sig: TAKE 1 TABLET BY MOUTH EVERY DAY FOR 30 DAYS Angeline Hoffman MA October 04, 2023 9:25 AM documented in this encounter [facility] 10-04-2023 Telephone encounter Note Prescription Refill Information The patient has been identified by name and date of : Yes Caregiver verified no other encounters exist for this prescription request: Yes Caregiver confirmed with patient/requestor that no other refills are due, in the near future, with this provider at this time: Yes The last office visit in the department: 03/2023 Does the patient have a future office visit with this provider/department: Yes 09/2023 Requested Prescriptions Pending Prescriptions Disp Refills ezetimibe (ZETIA) 10 mg tablet 90 tablet 1 Sig: Take 1 tablet by mouth once daily. rosuvastatin (CRESTOR) 40 mg tablet 90 tablet 1 Sig: Take 1 tablet by mouth once daily. Angeline Hoffman MA October 04, 2023 9:24 AM [facility] 10-04-2023 Miscellaneous Notes Prescription Refill Information The patient has been identified by name and date of : Yes Caregiver verified no other encounters exist for this prescription request: Yes Caregiver confirmed with patient/requestor that no other refills are due, in the near future, with this provider at this time: Yes The last office visit in the department: 03/2023 Does the patient have a future office visit with this provider/department: Yes 09/2023 Requested Prescriptions Pending Prescriptions Disp Refills ezetimibe (ZETIA) 10 mg tablet 90 tablet 1 Sig: Take 1 tablet by mouth once daily. rosuvastatin (CRESTOR) 40 mg tablet 90 tablet 1 Sig: Take 1 tablet by mouth once daily. Angeline Hoffman MA October 04, 2023 9:24 AM documented in this encounter [facility] 09-02-2023 Telephone encounter Note Prescription Refill Information The patient has been identified by name and date of : Yes Caregiver verified no other encounters exist for this prescription request: Yes Caregiver confirmed with patient/requestor that no other refills are due, in the near future, with this provider at this time: Yes The last office visit in the department: 04/08/23 Does the patient have a future office visit with this provider/department: Yes 10/07/23 Requested Prescriptions Pending Prescriptions Disp Refills gabapentin (NEURONTIN) 600 mg tablet 180 tablet 5 Sig: Take 2 tablets by mouth three times a day for 180 days. Idalia Cool LPN September 02, 2023 1:53 PM [facility] 09-02-2023 Miscellaneous Notes Prescription Refill Information The patient has been identified by name and date of : Yes Caregiver verified no other encounters exist for this prescription request: Yes Caregiver confirmed with patient/requestor that no other refills are due, in the near future, with this provider at this time: Yes The last office visit in the department: 04/08/23 Does the patient have a future office visit with this provider/department: Yes 10/07/23 Requested Prescriptions Pending Prescriptions Disp Refills gabapentin (NEURONTIN) 600 mg tablet 180 tablet 5 Sig: Take 2 tablets by mouth three times a day for 180 days. Idalia Cool LPN September 02, 2023 1:53 PM documented in this encounter [facility] 08-03-2023 Telephone encounter Note JOSE: 04/08/23-Medicare Wellness with RR NOV: 10/07/23-6 month F/U with DK Adela Caceres MA [facility] 08-03-2023 Miscellaneous Notes JOSE: 04/08/23-Medicare Wellness with RR NOV: 10/07/23-6 month F/U with KIRSTIN Caceres MA documented in this encounter [facility] 06-17-2023 History of Present illness Narrative Radiology Service Progress Note PATIENT NAME: Bety Perales DATE OF SERVICE: June 17, 2023 TIME: 9:33 AM PATIENT IDENTITY VERIFICATION COMPLETED USING TWO (2) IDENTIFIERS: Name and Date of confirmed by patient verbally. FALL SCREENING: Has the patient had 2 falls in the last year or 1 fall with injury or currently using an Ambulatory Assistive Device (Walker, Cane, Wheelchair, Crutches, etc.)? No PATIENT GENDER DATA: Female. status: : No status: NO. PATIENT RELEVANT IMPLANT DATA REVIEWED: Not Applicable PATIENT PRESENTS WITH AN IMPLANTABLE OR ATTACHED PAINT ROLLER COVERS SUPERVISOR: No RADIOLOGY DEPARTMENT: Bone Density PERIPHERAL IV DATA: Not applicable SIGNED BY: RT Bayron(R) June 17, 2023 9:33 AM documented in this encounter [facility] 05-25-2023 History of Present illness Narrative Nurse Administrator offered: Patient declines. Bety is a 62 year old who presents for an annual gynecologic exam without complaints. Postmenopausal: Yes since 2009 HRT use: No. Last Pap: 11/09/2017 normal HPV: 06/30/2013 negative History of abnormal pap: No Last mammogram: 2022 normal History of abnormal mammogram: Yes Sexually active: No Hot flashes: No Night sweats: No OB History T0 L2 SAB1 IAB0 Ectopic0 Multiple0 Live Births0 Incident Response Consultant History LMP: 09/25/2009, Postmenopausal Age at Menarche: Age at First : Age at Menopause: Incident Response Consultant History Comments: Sexual Activity: Not Currently; Male; Postmenopausal Contraception: Tubal Ligation PAST MEDICAL HISTORY Diagnosis Date Adrenal adenoma 10/17/2013 Arthritis of both knees 06/12/2013 Backache, unspecified 01/19/2008 Brachial neuritis or radiculitis NOS 01/17/2014 Cervical radiculopathy Cervicogenic headache 11/07/2014 Cholelithiasis 07/24/2013 Chronic pain syndrome 01/02/2015 [facility] Dr. Bradshaw. Was instructed needed to get pain meds through one of them DDD (degenerative disc disease), cervical 12/22/2013 DDD (degenerative disc disease), lumbar 03/28/2014 Depression 11/03/2013 Dysthymia 08/22/2015 Elevated alkaline phosphatase level 02/24/2016 Neg w/u Elevated LFTs 09/23/2015 Elevated serum GGT level 03/03/[address] Wayne Essential hypertension, benign 06/12/2013 Hepatic encephalopathy (HCC) 06/29/2017 Hepatitis B immune 09/27/2015 History of COVID-19 03/31/202103/2021 History of shingles 09/07/201908/2019 Hyperammonemia (HCC) 06/23/2017 Hypokalemia 07/24/2013 Insomnia 11/03/2013 Lumbago 01/17/2014 Lumbar radiculopathy 12/22/2013 Lumbar spondylosis 12/22/2013 Medicare annual wellness visit, initial 07/01/2018 Last done 07/01/18 Medicare eligible 09/12/2016 Mixed hyperlipidemia 01/02/2015 Myofascial pain 12/22/2013 Osteoarthritis of spine with radiculopathy, lumbar region 11/07/2014 Spinal stenosis of cervical region 06/12/2013 Sprain of neck 01/19/2008 Weakness of right lower extremity 09/17/2021 Chronic from low back diease. PAST SURGICAL HISTORY Procedure Laterality Date CORTISONE, SERUM Neck and Spine injections ESOPHAGOGASTRODUODENOSCOPY TRANSORAL DIAGNOSTIC 11/01/2017 EGD EXTRACTION, ERUPTED TOOTH OR EXPOSED ROOT (ELEVATION AND/OR FORCEPS REMOVAL) complete teeth extraction upper and lower FECAL OCCULT BLOOD TEST 09/07/2016 negative LIG/TRNSXJ FLP TUBE ABDL/VAG APPR UNI/BI STRESS TEST 09/07/2016 WNL TONSILLECTOMY PRIMARY/SECONDARY <AGE 12 Tonsillectomy FAMILY HISTORY Problem Relation Age of Onset Blood Disease Mother anemic No Known Problems Brother No Known Problems Brother Hypertension Maternal Grandmother Asthma Maternal Grandfather Diabetes Maternal Uncle SOCIAL HISTORY Social History Tobacco Use Smoking status: Never Passive exposure: Never Smokeless tobacco: Never Vaping Use Vaping Use: Never used Substance Use Topics Alcohol use: No Drug use: No REVIEW OF SYSTEMS Abdomen: No abdominal pain, nausea, vomiting, diarrhea, or constipation. No bloating, early satiety, indigestion, or increased flatulence. Bladder: No dysuria, gross hematuria, urinary frequency, urinary urgency, or incontinence Breast: No breast lumps, nipple d/c, overlying skin changes, redness or skin retraction Allergies and current medication updated:Yes EXAM: Ht 5' 1.5 (1.56m) Wt 166 lb (75.3kg) LMP 09/25/2009 BMI 30.86 kg/(m^2). GENERAL: pleasant, female in no apparent distress HEENT: Normocephalic, atraumatic, mucus membranes moist, and no lesions NECK: Supple, full range of motion, no adenopathy, and thyroid normal DERMATOLOGY: Normal, without lesions, non-icteric, and non-hirsute BREAST: soft, non-tender, symmetric, no dominant mass, normal nipple-areolar complex, no lymphadenopathy, and no nipple discharge CHEST: Normal inspiratory effort ABDOMEN: soft, non-tender, and no masses PELVIC: external genitalia normal, normal Bartholin's glands, urethra, Stillmore's glands, no vulvar lesions, no cervical lesions, physiologic discharge present, normal appearing perineal body and perianal region BIMANUAL: uterus normal size, shape and consistency, no adnexal masses, and non-tender NEURO: alert and oriented x3,exam grossly non-focal EXTREMITIES: normal ASSESSMENT/PLAN: 1) Health maintenance: Pap done with HPV. Mammogram ordered Mammogram up to date Nutrition, exercise and routine health maintenance exams reviewed. Calcium/Vitamin D supplementation information provided. BMD: ordered 2) Follow up one year or sooner as needed Audelia Weir APRN.ZION documented in this encounter [facility] 05-05-2023 Miscellaneous Notes The following approved medication requests have been transmitted electronically. Requested Prescriptions Signed Prescriptions Disp Refills FLUoxetine (PROZAC) 20 mg capsule 90 capsule 1 Sig: Take 1 capsule by mouth once daily. Take in addition to the 40mg cap for total dose of 60mg Authorizing Provider: DAVID LONGORIA FLUoxetine (PROZAC) 40 mg capsule 90 capsule 1 Sig: Take 1 capsule by mouth once daily. Take with the 20mg capsule for total daily dose of 60mg Authorizing Provider: DAVID LONGORIA traZODone (DESYREL) 100 mg tablet 90 tablet 1 Sig: Take 1 tablet by mouth daily at bedtime. Authorizing Provider: DAVID LONGORIA MD JOSE-04/08/23 Labs-04/08/23Jan-10/07/23 Yessenia Wu LPN documented in this encounter [facility] 05-05-2023 Miscellaneous Notes The following approved medication requests have been transmitted electronically. Requested Prescriptions Signed Prescriptions Disp Refills meloxicam (MOBIC) 15 mg tablet 30 tablet 3 Sig: TAKE 1 TABLET BY MOUTH EVERY DAY FOR 30 DAYS Authorizing Provider: DAVID LONGORIA MD JOSE-04/08/23 Labs-04/08/23Jan-10/07/23 Yessenia Wu LPN documented in this encounter [facility] 02-05-2023 Miscellaneous Notes The following approved medication requests have been transmitted electronically. Requested Prescriptions Signed Prescriptions Disp Refills gabapentin (NEURONTIN) 600 mg tablet 180 tablet 5 Sig: Take 2 tablets by mouth three times a day for 180 days. Authorizing Provider: DAVID LONGORIA MD Last refill 08/06/22 Qty: 180 with 5 refills [facility] 09/28/22 NOV 04/08/22 Riky Menchaca LPN documented in this encounter [facility] 02-03-2023 Miscellaneous Notes JOSE-09/28/22 Labs-8Jan-04/08/23 Yessenia Wu LPN documented in this encounter [facility] 02-03-2023 Miscellaneous Notes [facility]-09/28/22 Labs-10/30/22Jan-04/08/23 Yessenia Wu LPN documented in this encounter [facility] 01-04-2023 Miscellaneous Notes The following approved medication requests have been transmitted electronically. Requested Prescriptions Signed Prescriptions Disp Refills meloxicam (MOBIC) 15 mg tablet 30 tablet 3 Sig: TAKE 1 TABLET BY MOUTH EVERY DAY FOR 30 DAYS Authorizing Provider: DAVID LONGORIA MD Last refill 6/26/23 Qty: 30 with 3 refills [facility] 09/28/22 NOV 04/08/23 Riky Menchaca [employer] documented in this encounter [facility] 12-07-2022 Miscellaneous Notes Pt notified via mychart that she should have a refill remaining at [facility] in [place] for the Crestor. Rosanne Aly Ma documented in this encounter [facility] 11-10-2022 Miscellaneous Notes Pt notified of same. Riky Menchaca [employer] ----- Message from Trang Berkowitz PA-C sent at 11/10/2022 11:15 AM EDT ----- Normal diagnostic mammogram. Return to yearly screenings. aDysi Costello documented in this encounter [facility] 11-10-2022 History of Present illness Narrative Radiology Service Progress Note PATIENT NAME: Bety Perales DATE OF SERVICE: November 10, 2022 TIME: 10:13 AM PATIENT IDENTITY VERIFICATION COMPLETED USING TWO (2) IDENTIFIERS: Name and Date of confirmed by patient verbally. FALL SCREENING: Has the patient had 2 falls in the last year or 1 fall with injury or currently using an Ambulatory Assistive Device (Walker, Cane, Wheelchair, Crutches, etc.)? No PATIENT GENDER DATA: Female. status: : No status: NO. PATIENT RELEVANT IMPLANT DATA REVIEWED: Not Applicable RADIOLOGY DEPARTMENT: Mammography PERIPHERAL IV DATA: Not applicable SIGNED BY: Yennifer Finch November 10, 2022 10:13 AM documented in this encounter [facility] 11-02-2022 Miscellaneous Notes TC to patient who verbalized understanding of providers message and has no questions at this time. ALYSE Gardner ----- Message from Trang Berkowitz PA-C sent at 10/31/2022 8:36 AM EDT ----- Thyroid labs are all normal documented in this encounter [facility] 09-29-2022 Miscellaneous Notes The following approved medication requests have been transmitted electronically. Requested Prescriptions Signed Prescriptions Disp Refills ezetimibe (ZETIA) 10 mg tablet 90 tablet 1 Sig: Take 1 tablet by mouth once daily. Authorizing Provider: TRANG BERKOWITZ PA-C Reviewed Trang's message with pt. Pt verbalizes understanding. Pt is willing to try taking zetia. Please send to [facility]. Riky Menchaca LPN Crestor 40mg is max dose. So she needs to work on her diet more. We could consider adding zetia. Is this something she would be willing to try? Trang Berkowitz PA-C Patient notified of results and provider's instructions. Patient verbalizes understanding. Pt advises she has been taking her Crestor as prescribed. Has not missed doses. Advised pt she would be contacted if any additional instructions are sent by Trang. Riky Menchaca [employer]M [employer]ER Let patient know that her TSH is just borderline high. Will recheck it with a couple other labs in 1 month. A1c is 6%. This puts her at prediabetes level. Normal is under 5.7 and diabetes is at 6.5%. need to start watching carbs/sugars. Metabolic panel appears stable. Cholesterol is still high. Is she taking her crestor as prescribed? She has had no improvement in her levels. documented in this encounter [facility] 09-28-2022 History of Present illness Narrative Chief Complaint Patient presents with: 6 Month Exam HPI Bety Perales is a 62 year old female who presents here today for Chronic Medical Conditions.. Patient with hx of HTN, Hyperlipidemia, Dysthymia, insomnia, ORELLANA with hx of encephalopathy and hyperammonemia seeing Gastro, chronic pain form arthritis and DDD seeing pain management As well as those reviewed and addressed below and in ROS. Patient overall doing well. Denies specific concerns today. Has noted some hot flashes recently. But not too bothersome. Past medical history, appointments, medications, allergies reviewed. Previous Medical History PAST MEDICAL HISTORY Diagnosis Date Adrenal adenoma 10/17/2013 Arthritis of both knees 06/12/2013 Backache, unspecified 01/19/2008 Brachial neuritis or radiculitis NOS 01/17/2014 Cervical radiculopathy Cervicogenic headache 11/07/2014 Cholelithiasis 07/24/2013 Chronic pain syndrome 01/02/2015 [facility] Dr. Bradshaw. Was instructed needed to get pain meds through one of them DDD (degenerative disc disease), cervical 12/22/2013 DDD (degenerative disc disease), lumbar 03/28/2014 Depression 11/03/2013 Dysthymia 08/22/2015 Elevated alkaline phosphatase level 02/24/2016 Neg w/u Elevated LFTs 09/23/2015 Elevated serum GGT level 03/03/[address] Wayne Essential hypertension, benign 06/12/2013 Hepatic encephalopathy (HCC) 06/29/2017 Hepatitis B immune 09/27/2015 History of COVID-19 03/31/202103/2021 History of shingles 09/07/201908/2019 Hyperammonemia (HCC) 06/23/2017 Hypokalemia 07/24/2013 Insomnia 11/03/2013 Lumbago 01/17/2014 Lumbar radiculopathy 12/22/2013 Lumbar spondylosis 12/22/2013 Medicare annual wellness visit, initial 07/01/2018 Last done 07/01/18 Medicare eligible 09/12/2016 Mixed hyperlipidemia 01/02/2015 Myofascial pain 12/22/2013 Osteoarthritis of spine with radiculopathy, lumbar region 11/07/2014 Spinal stenosis of cervical region 06/12/2013 Sprain of neck 01/19/2008 Weakness of right lower extremity 09/17/2021 Chronic from low back diease. Previous Surgical History PAST SURGICAL HISTORY Procedure Laterality Date CORTISONE, SERUM Neck and Spine injections ESOPHAGOGASTRODUODENOSCOPY TRANSORAL DIAGNOSTIC 11/01/2017 EGD EXTRACTION, ERUPTED TOOTH OR EXPOSED ROOT (ELEVATION AND/OR FORCEPS REMOVAL) complete teeth extraction upper and lower FECAL OCCULT BLOOD TEST 09/07/2016 negative LIG/TRNSXJ FLP TUBE ABDL/VAG APPR UNI/BI STRESS TEST 09/07/2016 WNL TONSILLECTOMY PRIMARY/SECONDARY <AGE 12 Tonsillectomy Family History FAMILY HISTORY Problem Relation Age of Onset Blood Disease Mother anemic Diabetes Maternal Uncle Hypertension Maternal Grandmother Asthma Maternal Grandfather Patient Allergies ALLERGIES Allergen Reactions Lipitor [Atorvastat* Other: See Comments elevated LFT's Current Medications Current Outpatient Medications on File Prior to Visit Medication Sig meloxicam (MOBIC) 15 mg tablet TAKE 1 TABLET BY MOUTH EVERY DAY FOR 30 DAYS Fenofibrate (LOFIBRA) 160 mg tablet Take 1 tablet by mouth once daily. cyclobenzaprine (FLEXERIL) 10 mg tablet Take 1 tablet by mouth three times daily as needed. albuterol HFA (PROVENTIL HFA, VENTOLIN HFA) 90 mcg/actuation inhaler Inhale 2 Puffs as instructed every 4 hours as needed. FLUoxetine (PROZAC) 20 mg capsule Take 1 capsule by mouth once daily. Take in addition to the 40mg cap for total dose of 60mg gabapentin (NEURONTIN) 600 mg tablet Take 2 tablets by mouth three times daily for 180 days. potassium chloride ER (KLOR-CON) 20 mEq tablet Take 2 tablets by mouth once daily. hydroCHLOROthiazide 25 mg tablet Take 1 tablet by mouth once daily. For blood pressure FLUoxetine (PROZAC) 40 mg capsule Take 1 capsule by mouth once daily. Take with the 20mg capsule for total daily dose of 60mg traZODone (DESYREL) 100 mg tablet Take 1 tablet by mouth daily at bedtime. rosuvastatin (CRESTOR) 40 mg tablet Take 1 tablet by mouth once daily. guaiFENesin (MUCINEX) 600 mg 12 hr tablet Take 2 tablets by mouth twice daily. (Patient taking differently: Take 1,200 mg by mouth twice daily. PRN) traMADol (ULTRAM) 50 mg tablet Take 50 mg by mouth twice daily. TENS unit and electrodes cmpk For daily use as directed GLUCOSAMINE SULFATE (GLUCOSAMINE ORAL) Take by mouth four times daily. omega-3 fatty acids 1,000 mg cap Take 2 capsules by mouth twice daily. No current facility-administered medications on file prior to visit. Social History Social History Tobacco Use Smoking status: Never Smokeless tobacco: Never Vaping Use Vaping Use: Never used Substance Use Topics Alcohol use: No Drug use: No Review of Symptoms REVIEW OF SYSTEMS GENERAL: No weight loss, malaise or fevers NECK: Negative for lumps, goiter, pain and significant neck swelling RESPIRATORY: Negative for cough, hemoptysis, wheezing, COPD, dyspnea or shortness of breath CARDIOVASCULAR: Negative for chest pain, leg swelling, hypertension, CHF or palpitations NEURO: +n/t in hand and feet chronically- stable. No history of headaches, syncope, paralysis, seizures or tremors EXAM: BP 110/82 (BP Site: Left Arm, BP Position: Sitting, BP Cuff Size: Large Adult) Pulse 80 Temp 37.2 C (99 F) Resp 16 Wt 77.6 kg (171 lb) LMP 09/25/2009 BMI 30.68 kg/m Last 3 Encounter Wt Readings: Date: Wt: 09/28/2022 77.6 kg (171 lb) 03/31/2022 77 kg (169 lb 12.8 oz) 09/17/2021 77.1 kg (170 lb) General Appearance: Well appearing, alert, in no acute distress, well-hydrated, well nourished..obese Neck: Supple, no adenopathy; thyroid symmetric, normal size, no bruits. Lungs: Lungs clear to auscultation. No wheezing, rhonchi, rales.. Heart: RRR without murmur, gallop, or rubs. No ectopy. Extremities: No deformities, edema, skin discoloration, clubbing or cyanosis. Good capillary refill. . Peripheral Pulses: Normal. Health Maintenance List BP CONTROLLED (<130/80) due on 09/17/2022 PAP TESTING due on 10/29/2022 HPV TESTING due on 10/29/2022 MAMMOGRAM due on 10/30/2022 PNEUMOCOCCAL(1 - PCV) due on 09/12/2025 INFLUENZA(1) due on 11/13/2022 ANNUAL PCP TEAM CHRONIC DISEASE VISIT due on 03/31/2023 DTAP,TDAP,TD(2 - Td or Tdap) due on 06/13/2023 COLORECTAL CANCER SCREENING due on 10/13/2023 DIABETES SCREEN due on 03/31/2025 LIPID SCREEN due on 03/31/2027 HEPATITIS A Completed HEPATITIS C SCREENING Completed SHINGRIX VACCINE Completed COVID-19 VACCINE Completed HIV SCREENING Discontinued Data reviewed N/a ASSESSMENT/PLAN: 1. Mixed hyperlipidemia - ICD9: 272.2, ICD10: E78.2 (primary diagnosis) - Control undetermined, due for labs - Continue current medications - Counseled on healthy diet and regular exercise - LIPID PANEL, NONFASTING 2. Essential hypertension, benign - ICD9: 401.1, ICD10: I10 - Controlled - Continue current medications - Recommend home blood pressure monitoring, to bring results to next visit - Encouraged sodium restriction, DASH or Mediterranean diet - Recommend regular aerobic exercise - COMP METABOLIC PANEL - HGB A1C 3. Chronic pain syndrome - ICD9: 338.4, ICD10: G89.4 Cont with pain med 4. Hepatic encephalopathy (HCC) - ICD9: 572.2, ICD10: K76.82 Cont with pipe washer. 5. NAFLD (nonalcoholic fatty liver disease) - ICD9: 571.8, ICD10: K76.0 As #4 6. 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 Hyperammonemia (HCC) - ICD9: 270.6, ICD10: E72.20 As #4 8. Screening for diabetes mellitus - ICD9: V77.1, ICD10: Z13.1 Check: - HGB A1C 9. Hot flash, menopausal - ICD9: 627.2, ICD10: N95.1 Check: - TSH BLD Patient advised to set up the diagnostic mamm that was recommended last year. Follow up 6 months for wellness. Trang Berkowitz PA-C documented in this encounter [facility] 09-09-2022 Miscellaneous Notes Rx's refilled on 08/06/22 for 6 months. Should have refills left. Pt notified via [facility]. Riky Menchaca LPN documented in this encounter [facility] 09-07-2022 Miscellaneous Notes The following approved medication requests have been transmitted electronically. Requested Prescriptions Signed Prescriptions Disp Refills meloxicam (MOBIC) 15 mg tablet 30 tablet 3 Sig: TAKE 1 TABLET BY MOUTH EVERY DAY FOR 30 DAYS Authorizing Provider: DAVID LONGORIA MD Last office visit: 03/31/22 F/u scheduled: 09/28/22 Rosanne Aly Ma documented in this encounter [facility] 09-07-2022 Miscellaneous Notes The following approved medication requests have been transmitted electronically. Requested Prescriptions Signed Prescriptions Disp Refills Fenofibrate (LOFIBRA) 160 mg tablet 30 tablet 5 Sig: Take 1 tablet by mouth once daily. Authorizing Provider: DAVID LONGORIA MD Last office visit: 03/31/22 F/u scheduled: 09/28/22 Rosanne Aly Ma documented in this encounter [facility] 07-09-2022 History of Present illness Narrative Scan on 07/09/2022 11:14 AM by External Provider, JR: Miscellaneous Lab Angeline Hoffman MA documented in this encounter [facility] 06-22-2022 History of Present illness Narrative Scan on 06/22/2022 11:39 AM by External Provider: Miscellaneous Lab documented in this encounter [facility] 04-08-2022 Miscellaneous Notes The following approved medication requests have been transmitted electronically. Requested Prescriptions Signed Prescriptions Disp Refills rosuvastatin (CRESTOR) 40 mg tablet 90 tablet 1 Sig: Take 1 tablet by mouth once daily. Authorizing Provider: DAVID LONGORIA MD Patient has been identified by name and date of : Yes Requested Prescriptions Pending Prescriptions Disp Refills rosuvastatin (CRESTOR) 40 mg tablet 90 tablet 1 Sig: Take 1 tablet by mouth once daily. RX INSTRUCTIONS: Patient aware RX will be sent to pharmacy. No need to notify patient. Angeline Hoffman MA Jose: 03/2022 Nov: 09/2022 Last refill; 09/2021 documented in this encounter [facility] 04-02-2022 Miscellaneous Notes Patient notified and voiced understanding. Angeline Hoffman MA Correct. I was just confirming that this was the dosing. It's the max dose. not much more that we can do medication cortez. Need to work on diet. When I spoke with her earlier. She indicated that she was already taking 1000 mg (2) capsules twice a day. Angeline Hoffman MA Yes. 1000mg capsules and taking 2 BID (total of 4 capsules) would be equivalent to 2000mg (2g) BID. Trang Berkowitz PA-C Spoke with patient and gave her results. Patient voiced understanding and she is taking all 3 medications. Fish oil she is taking 1000 mg 2 capsules twice per day. I am sure if 2g? Can notify via [employer] clarification Mailed cholesterol information to patient. Angeline Hoffman MA Let patient know that her cholesterol is stil quite high and her trigs are in mid 400s still. Make sure she is taking her crestor, fenofibrate and fish oil. If yes, she can try to increase fish oil to 2g BID as tolerated. Her metabolic panel appears stable. Urine is wnl. Thanks. Trang Berkowitz PA-C documented in this encounter [facility] 03-31-2022 History of Present illness Narrative Medicare Yearly Visit Medical B eligibilty date09/12/16 Date of last exam 03/18/21 PAST MEDICAL HISTORY Diagnosis Date Adrenal adenoma 10/17/2013 Arthritis of both knees 06/12/2013 Backache, unspecified 01/19/2008 Brachial neuritis or radiculitis NOS 01/17/2014 Cervical radiculopathy Cervicogenic headache 11/07/2014 Cholelithiasis 07/24/2013 Chronic pain syndrome 01/02/2015 [facility]. Bradshaw. Was instructed needed to get pain meds through one of them DDD (degenerative disc disease), cervical 12/22/2013 DDD (degenerative disc disease), lumbar 03/28/2014 Depression 11/03/2013 Dysthymia 08/22/2015 Elevated alkaline phosphatase level 02/24/2016 Neg w/u Elevated LFTs 09/23/2015 Elevated serum GGT level 03/03/[address] Wayne Essential hypertension, benign 06/12/2013 Hepatic encephalopathy 06/29/2017 Hepatitis B immune 09/27/2015 History of COVID-19 03/31/202103/2021 History of shingles 09/07/201908/2019 Hyperammonemia (HCC) 06/23/2017 Hypokalemia 07/24/2013 Insomnia 11/03/2013 Lumbago 01/17/2014 Lumbar radiculopathy 12/22/2013 Lumbar spondylosis 12/22/2013 Medicare annual wellness visit, initial 07/01/2018 Last done 07/01/18 Medicare eligible 09/12/2016 Mixed hyperlipidemia 01/02/2015 Myofascial pain 12/22/2013 Osteoarthritis of spine with radiculopathy, lumbar region 11/07/2014 Spinal stenosis of cervical region 06/12/2013 Sprain of neck 01/19/2008 Weakness of right lower extremity 09/17/2021 Chronic from low back diease. PAST SURGICAL HISTORY Procedure Laterality Date CORTISONE, SERUM Neck and Spine injections ESOPHAGOGASTRODUODENOSCOPY TRANSORAL DIAGNOSTIC 11/01/2017 EGD EXTRACTION, ERUPTED TOOTH OR EXPOSED ROOT (ELEVATION AND/OR FORCEPS REMOVAL) complete teeth extraction upper and lower FECAL OCCULT BLOOD TEST 09/07/2016 negative LIG/TRNSXJ FLP TUBE ABDL/VAG APPR UNI/BI STRESS TEST 09/07/2016 WNL TONSILLECTOMY PRIMARY/SECONDARY <AGE 12 Tonsillectomy ALLERGIES: Lipitor [Atorvastatin Calcium] Medications reviewed: Yes FAMILY HISTORY Problem Relation Age of Onset Blood Disease Mother anemic Diabetes Maternal Uncle Hypertension Maternal Grandmother Asthma Maternal Grandfather SOCIAL HISTORY: Social History Tobacco Use Smoking status: Never Smokeless tobacco: Never Vaping Use Vaping Use: Never used Substance Use Topics Alcohol use: No Drug use: No Bety likes to exercise by walking and band exercises. She watches her diet for sodium, low fat and low cholesterol most of the time. List of current specialists seen: Hepatology Pain management. End of Live Planning discussed including patients advanced directive wishes: Yes I am willing to follow Bety's advanced directives. PHQ-2 / Depression screen She in the past two weeks denies having felt down, depressed, hopeless, or with little interest or pleasure in doing things. Functional Ability/Safety Screen 1. Was the patient's timed Up and Go test unsteady or longer than 30 seconds? No 2. Does the patient need help with the phone, transportation, shopping,preparing meals, housework, laundry, medications or managing money? No 3. Does your home have rugs in the hallway, lack of grab bars in the bathroom, lack of handrails on the stairs or have poor lighting? No Hearing Evaluation: normal PHYSICAL EXAM BP 134/78 Pulse 81 Resp 14 Ht 159 cm (5' 2.6) Wt 77 kg (169 lb 12.8 oz) LMP 09/25/2009 SpO2 93% BMI 30.47 kg/m Alert and oriented X 3: YES Body mass index is 30.47 kg/m . Visual acuity: sees opto ASSESSMENT/PLAN: 61 year old female The following prevention plan was discussed during the office visit and provided to the patient: See below. Trang Berkowitz PA-C Chief Complaint Patient presents with: Yearly Exam: & Hep A vaccine Immunizations: Flu vaccination HPI Bety Perales is a 61 year old female who presents here today for extensive exam. Patient with hx of HTN, Hyperlipidemia, Dysthymia, insomnia, ORELLANA with hx of encephalopathy and hyperammonemia seeing Gastro, chronic pain form arthritis and DDD seeing pain management As well as those reviewed and addressed below and in ROS. No concerns today. Patient overall doing well. Past medical history, appointments, medications, allergies reviewed. Previous Medical History PAST MEDICAL HISTORY Diagnosis Date Adrenal adenoma 10/17/2013 Arthritis of both knees 06/12/2013 Backache, unspecified 01/19/2008 Brachial neuritis or radiculitis NOS 01/17/2014 Cervical radiculopathy Cervicogenic headache 11/07/2014 Cholelithiasis 07/24/2013 Chronic pain syndrome 01/02/[address] [facility] [address]. Bradshaw. Was instructed needed to get pain meds through one of them DDD (degenerative disc disease), cervical 12/22/2013 DDD (degenerative disc disease), lumbar 03/28/2014 Depression 11/03/2013 Dysthymia 08/22/2015 Elevated alkaline phosphatase level 02/24/2016 Neg w/u Elevated LFTs 09/23/2015 Elevated serum GGT level 03/03/[address] Wayne Essential hypertension, benign 06/12/2013 Hepatic encephalopathy 06/29/2017 Hepatitis B immune 09/27/2015 History of COVID-19 03/31/202103/2021 History of shingles 09/07/201908/2019 Hyperammonemia (HCC) 06/23/2017 Hypokalemia 07/24/2013 Insomnia 11/03/2013 Lumbago 01/17/2014 Lumbar radiculopathy 12/22/2013 Lumbar spondylosis 12/22/2013 Medicare annual wellness visit, initial 07/01/2018 Last done 07/01/18 Medicare eligible 09/12/2016 Mixed hyperlipidemia 01/02/2015 Myofascial pain 12/22/2013 Osteoarthritis of spine with radiculopathy, lumbar region 11/07/2014 Spinal stenosis of cervical region 06/12/2013 Sprain of neck 01/19/2008 Weakness of right lower extremity 09/17/2021 Chronic from low back diease. Previous Surgical History PAST SURGICAL HISTORY Procedure Laterality Date CORTISONE, SERUM Neck and Spine injections ESOPHAGOGASTRODUODENOSCOPY TRANSORAL DIAGNOSTIC 11/01/2017 EGD EXTRACTION, ERUPTED TOOTH OR EXPOSED ROOT (ELEVATION AND/OR FORCEPS REMOVAL) complete teeth extraction upper and lower FECAL OCCULT BLOOD TEST 09/07/2016 negative LIG/TRNSXJ FLP TUBE ABDL/VAG APPR UNI/BI STRESS TEST 09/07/2016 WNL TONSILLECTOMY PRIMARY/SECONDARY <AGE 12 Tonsillectomy Family History FAMILY HISTORY Problem Relation Age of Onset Blood Disease Mother anemic Diabetes Maternal Uncle Hypertension Maternal Grandmother Asthma Maternal Grandfather Patient Allergies ALLERGIES Allergen Reactions Lipitor [Atorvastat* Other: See Comments elevated LFT's Current Medications Current Outpatient Medications on File Prior to Visit Medication Sig meloxicam (MOBIC) 15 mg tablet TAKE 1 TABLET BY MOUTH EVERY DAY FOR 30 DAYS Fenofibrate (LOFIBRA) 160 mg tablet Take 1 tablet by mouth once daily. FLUoxetine (PROZAC) 20 mg capsule Take 1 capsule by mouth once daily. Take in addition to the 40mg cap for total dose of 60mg gabapentin (NEURONTIN) 600 mg tablet Take 2 tablets by mouth three times daily for 180 days. potassium chloride ER (K-DUR, KLOR-CON) 20 mEq tablet Take 2 tablets by mouth once daily. hydroCHLOROthiazide (HYDRODIURIL, ESIDRIX) 25 mg tablet Take 1 tablet by mouth once daily. For blood pressure FLUoxetine (PROZAC) 40 mg capsule Take 1 capsule by mouth once daily. Take with the 20mg capsule for total daily dose of 60mg traZODone (DESYREL) 100 mg tablet Take 1 tablet by mouth daily at bedtime. cyclobenzaprine (FLEXERIL) 10 mg tablet Take 1 tablet by mouth three times daily as needed. rosuvastatin (CRESTOR) 40 mg tablet Take 1 tablet by mouth once daily. albuterol HFA (PROVENTIL HFA, VENTOLIN HFA) 90 mcg/actuation inhaler Inhale 2 Puffs as instructed every 4 hours as needed. guaiFENesin (MUCINEX) 600 mg 12 hr tablet Take 2 tablets by mouth twice daily. (Patient taking differently: Take 1,200 mg by mouth twice daily. PRN) traMADol (ULTRAM) 50 mg tablet Take 50 mg by mouth twice daily. TENS unit and electrodes cmpk For daily use as directed GLUCOSAMINE SULFATE (GLUCOSAMINE ORAL) Take by mouth four times daily. omega-3 fatty acids 1,000 mg cap Take 2 capsules by mouth twice daily. No current facility-administered medications on file prior to visit. Social History Social History Tobacco Use Smoking status: Never Smokeless tobacco: Never Vaping Use Vaping Use: Never used Substance Use Topics Alcohol use: No Drug use: No Review of Symptoms REVIEW OF SYSTEMS GENERAL: No weight loss, malaise or fevers HEENT: No changes in hearing or vision, no nose bleeds or other nasal problems NECK: Negative for lumps, goiter, pain and significant neck swelling RESPIRATORY: Negative for cough, hemoptysis, wheezing, COPD, dyspnea or shortness of breath CARDIOVASCULAR: Negative for chest pain, leg swelling, CHF or palpitations GI: Negative for abdominal discomfort, blood in stools or black stools, change in bowel habit, heart burn, nausea, vomiting : No history of dysuria, frequency or incontinence [employer] SANITARIAN: Negative for abnormal vaginal bleeding, abnormal vaginal discharge MUSCULOSKELETAL: chronic SKIN: Negative for lesions, rash, and itching PSYCH: Negative for sleep disturbance, mood disorder and recent psychosocial stressors HEMATOLOGY/LYMPHOLOGY: Negative for prolonged bleeding, bruising easily or swollen nodes ENDOCRINE: Negative for cold or heat intolerance, polyuria, polydipsia and goiter NEURO: No history of headaches, syncope, paralysis, seizures or tremors EXAM: BP 134/78 Pulse 81 Resp 14 Ht 159 cm (5' 2.6) Wt 77 kg (169 lb 12.8 oz) LMP 09/25/2009 SpO2 93% BMI 30.47 kg/m General Appearance: Well appearing, alert, in no acute distress, well-hydrated, well nourished. and Overweight. Skin: Skin color, texture, turgor normal, no suspicious rashes or lesions on exposed skin Head: Normocephalic, no masses, lesions, tenderness or abnormalities. Eyes: Anicteric sclera. Pupils are equally round and reactive to light. Extraocular movements are intact. . Ears: R canal with cerumen impaction, External ears normal, L canals clear. L tm pearly santos Neck: Supple, no adenopathy; thyroid symmetric, normal size, no bruits. Lungs: Lungs clear to auscultation. No wheezing, rhonchi, rales.. Heart: RRR without murmur, gallop, or rubs. No ectopy. Abdomen: Normal abdominal exam, Abdomen soft, non-tender. Bowel sounds normal. No masses, organomegaly. Extremities: No deformities, edema, skin discoloration, clubbing or cyanosis. Good capillary refill. . Peripheral Pulses: Normal. Neurologic: Gait normal. Reflexes normal and symmetric. Sensation grossly intact.. Health Maintenance List COVID-19 VACCINE(5 - Booster for Moderna series) due on 10/23/2021 INFLUENZA(1) due on 11/13/2021 HEPATITIS A(2 of 2 - Risk 2-dose series) due on 03/20/2022 PNEUMOCOCCAL(1 - PCV) due on 09/12/2025 ANNUAL PCP TEAM CHRONIC DISEASE VISIT due on 09/17/2022 BP CONTROLLED (<130/80) due on 09/17/2022 PAP TESTING due on 10/29/2022 HPV TESTING due on 10/29/2022 MAMMOGRAM due on 10/30/2022 DTAP,TDAP,TD(2 - Td or Tdap) due on 06/13/2023 COLORECTAL CANCER SCREENING due on 10/13/2023 DIABETES SCREEN due on 10/21/2024 LIPID SCREEN due on 09/19/2026 HEPATITIS C SCREENING Completed SHINGRIX VACCINE Completed HIV SCREENING Discontinued Data reviewed N/a ASSESSMENT/PLAN: 1. Medicare annual wellness visit, subsequent - ICD9: V70.0, ICD10: Z00.00 (primary diagnosis) - Counseled on healthy diet and regular exercise - Calcium intake with supplements or by diet of 1000 mg/day for under 50, 0809-2868 mg/day for 50+ - Discussed need and benefit for weight loss. BMI 30.47 kg/(m^2) - Patient was counseled [id number] by myself (the billing provider) for the following immunizations and vaccine components, including side effects: COVID-19, Hep A Vaccine, and Influenza. Patient consents for immunization and understands risks and benefits. A VIS sheet on each immunization was given to the patient. 2. Essential hypertension, benign - ICD9: 401.1, ICD10: I10 - good control - Continue current medication(s) - Recommended regular aerobic exercise. - Recommend home blood pressure monitoring, to bring results in on next visit - Goal of BP <130/80 - COMP METABOLIC PANEL - URINALYSIS, WITH MICROSCOPIC 3. Mixed hyperlipidemia - ICD9: 272.2, ICD10: E78.2 - to be determined upon return of lab results - Encouraged following a low carbohydrate, healthy oil intake diet. - Continue current therapy. - LIPID PANEL, NONFASTING 4. 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 NAFLD (nonalcoholic fatty liver disease) - ICD9: 571.8, ICD10: K76.0 Cont with gastro 6. Hyperammonemia (HCC) - ICD9: 270.6, ICD10: E72.20 Cont with gastro 7. DDD (degenerative disc disease), lumbar - ICD9: 722.52, ICD10: M51.36 Continue with pain management 8. Lumbar spondylosis - ICD9: 721.3, ICD10: M47.816 Continue with pain management 9. Spinal stenosis of cervical region - ICD9: 723.0, ICD10: M48.02 Continue with pain management 10. Dysthymia - ICD9: 300.4, ICD10: F34.1 stable 11. Chronic pain syndrome - ICD9: 338.4, ICD10: G89.4 Continue with pain management 12. Osteoarthritis of spine with radiculopathy, lumbar region - ICD9: 721.3, ICD10: M47.26 Continue with pain management 13. Need for COVID-19 vaccine - ICD9: V04.89, ICD10: Z23 - PFIZER-BIONTECH COVID-19 BIVALENT BOOSTER VACCINE, AGE 12+ YR 14. Need for influenza vaccination - ICD9: V04.81, ICD10: Z23 - INFLUENZA VACCINE QUADRIVALENT 6 MO - 64 YRS IM 15. Impacted cerumen of right ear - ICD9: 380.4, ICD10: H61.21 Patient prefers to continue OTC and self management with peroxide/water. Follow up routine in 6 months. Trang Berkowitz PA-C documented in this encounter [facility] 03-10-2022 Miscellaneous Notes The following approved medication requests have been transmitted electronically. Requested Prescriptions Signed Prescriptions Disp Refills Fenofibrate (LOFIBRA) 160 mg tablet 30 tablet 5 Sig: Take 1 tablet by mouth once daily. Authorizing Provider: PIPER MONGE meloxicam (MOBIC) 15 mg tablet 30 tablet 3 Sig: TAKE 1 TABLET BY MOUTH EVERY DAY FOR 30 DAYS Authorizing Provider: TRANG BERKOWITZ PA-C JOSE: 09/17/21-with PCP NOV: 03/20/22-Medicare Wellness with PCP documented in this encounter [facility] 11-24-2021 Miscellaneous Notes Received request from [facility] requesting scripts for topical lidocaine and Prilocaine cream script for lidocaine spray and alcohol pads to be signed. Patient called and was informed company contacted her and told her these would be free. Patient was advised that I was not willing to sign off since tend not to be helpful. documented in this encounter [facility] 11-07-2021 Miscellaneous Notes The following approved medication requests have been transmitted electronically. Requested Prescriptions Signed Prescriptions Disp Refills meloxicam (MOBIC) 15 mg tablet 30 tablet 3 Sig: TAKE 1 TABLET BY MOUTH EVERY DAY FOR 30 DAYS Authorizing Provider: DAVID LONGORIA cyclobenzaprine (FLEXERIL) 10 mg tablet 90 tablet 3 Sig: Take 1 tablet by mouth three times daily as needed. Authorizing Provider: DAVID LONGORIA MD Last refill 07/10/21 Qty: 30 with 3 refills JOSE 09/17/21 NOV 03/20/22 Pt also requesting flexeril Last refill 07/10/21 pt takes three times daily as needed. Qty: 60Changed quanity on refill request to 90 tablets. with 3 refills Riky Menchaca LPN documented in this encounter [facility] 11-07-2021 Miscellaneous Notes Rx request sent in other refill request form 11/07/21. Riky Menchaca LPN documented in this encounter [facility] 10-30-2021 Miscellaneous Notes October 30, 2021 PID: [id number] Bety Perales [address] [facility] [address] [place] [id number] Dear Ms. Perales, Your recent breast imaging exam on 10/30/2021 showed a possible finding that requires additional imaging studies for a complete evaluation. Most such findings are probably benign (not cancer). Your mammogram demonstrates that you have dense breast tissue, which could hide abnormalities. Dense breast tissue, in and of itself, is a relatively common condition. Therefore, this information is not provided to cause undue concern; rather, it is to raise your awareness and promote discussion with your health care provider regarding the presence of dense breast tissue in addition to other risk factors. If you have a healthcare provider who ordered/prescribed your screening mammogram: Please call [phone] or EXT: [phone] to schedule an appointment for your additional imaging (if you have not already done so). If you DO NOT have a healthcare provider (ie you did not have an order/prescription for your screening mammogram): Please call to schedule an appointment for your additional imaging (if you have not already done so). You must have an order/prescription from your physician when calling to schedule your appointment. If your order/prescription is not electronic, you must bring the hard copy with you on the day of your exam to avoid delays. Your imaging studies and reports are kept on file at [facility] as part of your permanent medical record, and are available for your continuing care. Thank you for allowing us to help in meeting your health care needs. Sincerely, Dr. Warner Interpreting Radiologist (Additional imaging) documented in this encounter [facility] 10-30-2021 Miscellaneous Notes Patient called to ask should she follow up with you sooner per biopsy results or should she expect to see you in 6mos as noted in her AVS from your visit last month. documented in this encounter [facility] 10-09-2021 Miscellaneous Notes Patient phones requesting refills as follows: Pending Prescriptions Disp Refills ROSUVASTATIN 40 MG TABLET 90 tablet 1 Sig: Take 1 tablet by mouth once daily. BRIE: No JOSE-09/17/21 Labs-09/19/21 NOV-03/20/22 med filled 03/21/21 Please review and advise. Yessenia Wu LPN documented in this encounter [facility] 10-08-2021 History of Present illness Narrative POPULATION HEALTH NAVIGATION OUTREACH Action/FYI Spoke with patient and schedule mammogram on 10/30/21. PCP 09/17 & 03/20/22 Sent AD via my chart. Pt identified by name and : YES, via phone Outreach Outcome/Action Spoke to patient or caregiver: Patient scheduled MyChart message sent Advance Directives sent Did you use a PCP flex slot to schedule this appointment? N/A Reason for Outreach Care Gap or Scheduling/Wellness visits Payer: Payor: [facility] MEDICARE / Plan: [facility] DUAL COMPLETE HMO SNP / Product Type: Medicare / Care Gap Reviewed:: Breast Cancer screening Reminder: Reminder note to check Health Maintenance for items below Health Maintenance items due: MAMMOGRAM due on 08/19/2021 Message Sent to Practice: No Navigation Signature: Amy Davila MA October 08, 2021 1:01 PM documented in this encounter [facility] 09-23-2021 Miscellaneous Notes Phoned patient and given provider's message below with verbalized understanding. Advise patient to bump her fish oil to 1000 mg two twice a day. Pt notified of results. Reports that she is taking fish oil 1000 mg twice daily. Any further instructions. Pt aware she will only be contacted if any. Pt wanted to let you know she is having her biopsy on the . Riky Menchaca LPN Let patient know her lipid panel shows improvement in numbers for Trigs (was 524 now 375, goal<150). See if taking fish oil? If not advise 1000 mg two a day. BMP, A1c and CBC were all ok. documented in this encounter [facility] 09-19-2021 Miscellaneous Notes Patient called back and I relayed your message to her and then connected her through to IR for scheduling. documented in this encounter [facility] 09-19-2021 History of Present illness Narrative Patient fasting for 3 hours:Yes Any implanted devices:No Possibility of :No Fibroscan was performed on Wednesday09/19/21, by Rosario Echevarria LPN and results are interpreted by Julianne Garza PA-C Diagnosis: NAFLD (nonalcoholic fatty liver disease) - Primary K76.0 Please refer to get images report for individual readings Number of readings: 10 IQR 14% E (kpa): 12.1 CAP: 298 Impression The reading was adequate, and corresponds to Fibrosis stage F4 and steatosis grade of S3. Julianne Garza PA-C Grade CAP value up to 237 dB/M corresponds to S0 (< 10 % Fat) CAP value between (238 - 258 dB/M) corresponds to S1 (>/= 11 % Fat) CAP value between (259 - 289 dB/M) corresponds to S2 (>/= 33 % Fat) CAP value > 290dB/M corresponds to S3 (>/= 67 % Fat) stage 0 ( S0:< 10 % steatosis) stage 1 (>/= S1: 11%-33% steatosis) stage 2 (>/= S2: 34%-66% steatosis) stage 3 (>/= S3: > 66% steatosis) Int J Clin Exp Med. 2015; 8(10): [id number]. documented in this encounter [facility] 09-17-2021 History of Present illness Narrative Chief Complaint Patient presents with: Recheck: 6 months HPI Bety Perales is a 61 year old female who presents here today for Chronic Medical Conditions/6 month follow up. Patient with hx of HTN, Hyperlipidemia, Dysthymia, insomnia, ORELLANA with hx of encephalopathy and hyperammonemia seeing Gastro, chronic pain form arthritis and DDD seeing pain management As well as those reviewed and addressed below and in ROS. Past medical history, appointments, medications, allergies reviewed. Previous Medical History PAST MEDICAL HISTORY Diagnosis Date Adrenal adenoma 10/17/2013 Arthritis of both knees 06/12/2013 Backache, unspecified 01/19/2008 Brachial neuritis or radiculitis NOS 01/17/2014 Cervical radiculopathy Cervicogenic headache 11/07/2014 Cholelithiasis 07/24/2013 Chronic pain syndrome 01/02/[facility] Dr. Bradshaw. Was instructed needed to get pain meds through one of them COVID-19 virus infection 03/31/202103/2021 DDD (degenerative disc disease), cervical 12/22/2013 DDD (degenerative disc disease), lumbar 03/28/2014 Depression 11/03/2013 Dysthymia 08/22/2015 Elevated alkaline phosphatase level 02/24/2016 Neg w/u Elevated LFTs 09/23/2015 Elevated serum GGT level 03/03/[address] Wayne Essential hypertension, benign 06/12/2013 Fatty liver 09/27/2015 Hepatic encephalopathy (HCC) 06/29/2017 Hepatitis B immune 09/27/2015 History of shingles 09/07/201908/2019 Hyperammonemia (HCC) 06/23/2017 Hypokalemia 07/24/2013 Insomnia 11/03/2013 Lumbago 01/17/2014 Lumbar radiculopathy 12/22/2013 Lumbar spondylosis 12/22/2013 Medicare annual wellness visit, initial 07/01/2018 Last done 07/01/18 Medicare eligible 09/12/2016 Mixed hyperlipidemia 01/02/2015 Myofascial pain 12/22/2013 Osteoarthritis of spine with radiculopathy, lumbar region 11/07/2014 Spinal stenosis of cervical region 06/12/2013 Sprain of neck 01/19/2008 Previous Surgical History PAST SURGICAL HISTORY Procedure Laterality Date CORTISONE, SERUM Neck and Spine injections ESOPHAGOGASTRODUODENOSCOPY TRANSORAL DIAGNOSTIC 11/01/2017 EGD EXTRACTION, ERUPTED TOOTH OR EXPOSED ROOT (ELEVATION AND/OR FORCEPS REMOVAL) complete teeth extraction upper and lower FECAL OCCULT BLOOD TEST 09/07/2016 negative LIG/TRNSXJ FLP TUBE ABDL/VAG APPR UNI/BI STRESS TEST 09/07/2016 WNL TONSILLECTOMY PRIMARY/SECONDARY <AGE 12 Tonsillectomy Family History FAMILY HISTORY Problem Relation Age of Onset Blood Disease Mother anemic Diabetes Maternal Uncle Hypertension Maternal Grandmother Asthma Maternal Grandfather Patient Allergies ALLERGIES Allergen Reactions Lipitor [Atorvastat* Other: See Comments elevated LFT's Current Medications Current Outpatient Medications on File Prior to Visit Medication Sig Fenofibrate (LOFIBRA) 160 mg tablet Take 1 tablet by mouth once daily. potassium chloride ER (K-DUR, KLOR-CON) 20 mEq tablet Take 2 tablets by mouth once daily. hydroCHLOROthiazide (HYDRODIURIL, ESIDRIX) 25 mg tablet Take 1 tablet by mouth once daily. For blood pressure FLUoxetine (PROZAC) 40 mg capsule Take 1 capsule by mouth once daily. Take with the 20mg capsule for total daily dose of 60mg traZODone (DESYREL) 100 mg tablet Take 1 tablet by mouth daily at bedtime. albuterol HFA (PROVENTIL HFA, VENTOLIN HFA) 90 mcg/actuation inhaler Inhale 2 Puffs as instructed every 4 hours as needed. cyclobenzaprine (FLEXERIL) 10 mg tablet Take 1 tablet by mouth three times daily as needed. meloxicam (MOBIC) 15 mg tablet TAKE 1 TABLET BY MOUTH EVERY DAY FOR 30 DAYS gabapentin (NEURONTIN) 600 mg tablet Take 2 tablets by mouth three times daily for 180 days. rosuvastatin (CRESTOR) 40 mg tablet Take 1 tablet by mouth once daily. FLUoxetine (PROZAC) 20 mg capsule Take 1 capsule by mouth once daily. Take in addition to the 40mg cap for total dose of 60mg guaiFENesin (MUCINEX) 600 mg 12 hr tablet Take 2 tablets by mouth twice daily. (Patient taking differently: Take 1,200 mg by mouth twice daily. PRN ) traMADol (ULTRAM) 50 mg tablet Take 50 mg by mouth twice daily. TENS unit and electrodes cmpk For daily use as directed GLUCOSAMINE SULFATE (GLUCOSAMINE ORAL) Take by mouth four times daily. omega-3 fatty acids 1,000 mg cap Take 2 capsules by mouth twice daily. No current facility-administered medications on file prior to visit. Social History Social History Tobacco Use Smoking status: Never Smoker Smokeless tobacco: Never Used Substance Use Topics Alcohol use: No Drug use: No Review of Symptoms REVIEW OF SYSTEMS GENERAL: No weight loss, malaise or fevers NECK: Negative for lumps, goiter, pain and significant neck swelling RESPIRATORY: Negative for cough, hemoptysis, wheezing, COPD, dyspnea or shortness of breath CARDIOVASCULAR: Negative for chest pain, increased leg swelling, hypertension, CHF or palpitations GI: No nausea, vomiting, or diarrhea and No heartburn or reflux symptoms : No history of dysuria, blood ENDOCRINE: Negative for cold or heat intolerance, polyuria, polydipsia and goiter NEURO: No history of headaches, syncope, paralysis, seizures or tremors Psych: Still benefiting from the trazodone and the Prozac. No concerns EXAM: BP 136/80 Pulse 60 Resp 14 Wt 77.1 kg (170 lb) LMP 09/25/2009 BMI 30.11 kg/m Last 5 Encounter Wt Readings: Date: Wt: 09/17/2021 77.1 kg (170 lb) 09/05/2021 76.6 kg (168 lb 12.8 oz) 03/29/2021 78.4 kg (172 lb 12.8 oz) 03/18/2021 77.6 kg (171 lb) 09/12/2020 75.8 kg (167 lb) General Appearance: Well appearing, alert, in no acute distress, well-hydrated, well nourished. and Overweight. Eyes: Anicteric sclera. Pupils are equally round. Extraocular movements are intact. . Neck: Supple, no adenopathy; thyroid symmetric, normal size, no bruits. Lungs: Lungs clear to auscultation. No wheezing, rhonchi, rales.. Heart: RRR without murmur, gallop, or rubs. No ectopy. Abdomen: Normal abdominal exam, Abdomen soft, non-tender. Bowel sounds normal. No masses, organomegaly. Extremities: No deformities, edema, skin discoloration, Musculoskeletal: . Muscular strength intact with chronic right LE weakness at 3/5. Peripheral Pulses: Normal. Health Maintenance List HEPATITIS A(1 of 2 - Risk 2-dose series) Never done BP CONTROLLED (<130/80) due on 09/25/2020 MAMMOGRAM due on 08/19/2021 PNEUMOCOCCAL(1 - PCV) due on 09/12/2025 INFLUENZA(1) due on 11/13/2021 ANNUAL PCP TEAM CHRONIC DISEASE VISIT due on 03/18/2022 PAP TESTING due on 10/29/2022 HPV TESTING due on 10/29/2022 DTAP,TDAP,TD(2 - Td or Tdap) due on 06/13/2023 COLORECTAL CANCER SCREENING due on 10/13/2023 DIABETES SCREEN due on 03/18/2024 LIPID SCREEN due on 03/18/2026 HEPATITIS C SCREENING Completed SHINGRIX VACCINE Completed COVID-19 VACCINE Completed HIV SCREENING Discontinued Data reviewed A/P ASSESSMENT/PLAN: 1. Essential hypertension, benign - ICD9: 401.1, ICD10: I10 (primary diagnosis) - good control - Continue current medication(s) - Recommended regular aerobic exercise. - Recommend home blood pressure monitoring, to bring results in on next visit - Goal of BP <130/80 2. Mixed hyperlipidemia - ICD9: 272.2, ICD10: E78.2 - to be determined upon return of lab results - Encouraged following a low fat, low cholesterol diet. - Discussed the benefits of regular aerobic exercise and weight loss. - Encouraged following a low carbohydrate, healthy oil intake diet. - Continue current therapy. 3. Dysthymia - ICD9: 300.4, ICD10: F34.1 - Stable with prozac 4. NAFLD (nonalcoholic fatty liver disease) - ICD9: 571.8, ICD10: K76.0 - Cont management with hepatology - HEPATITIS A VACCINE ADULT IM 5. Cervicogenic headache - ICD9: 784.0, ICD10: G44.86 - Stable no issues 6. Insomnia, unspecified type - ICD9: 780.52, ICD10: G47.00 - Stable with trazodone. 7. Elevated serum GGT level - ICD9: 790.5, ICD10: R74.8 - Seeing hepatology 8. 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 Chronic pain syndrome - ICD9: 338.4, ICD10: G89.4 - Seeing pain management 10. Hepatic encephalopathy (HCC) - ICD9: 572.2, ICD10: K72.90 - Resolved. 11. Hyperammonemia (HCC) - ICD9: 270.6, ICD10: E72.20 - resolved 12. Weakness of right lower extremity - ICD9: 729.89, ICD10: R29.898 - Chronic and stable 13. Need for vaccination - ICD9: V05.9, ICD10: Z23 - HEPATITIS A VACCINE ADULT IM; Needs second dose in 6 months 14. Encounter for screening mammogram for breast cancer - ICD9: V76.12, ICD10: Z12.31 Check - ÁLVARO SCREENING Getting labs done Wednesday09/19/2021 F/u 6 moths extensive and Hep A #2 David Longoria MD documented in this encounter [facility] 09-05-2021 History of Present illness Narrative Hepatology Clinic New Consult Date of visit: 09/05/21 CC: NAFLD with possible advanced fibrosis HPI: Bety Perales is a 61 year old woman with NAFLD With respect to her liver disease, she has known about her NAFLD for some time. RUQ US in 2013 with hepatic steatosis. Eventually referred to Dr. Wayne in 2018 for this Fibroscan in 2018 with F3/S3 IQR:10% E (kpa):9.2 CAP:337 EGD without portal hypertensive gastropathy or varices She has had an elevated ammonia in the past and for this was started on lactulose and rifaximin. However, she did not ever report having confusion. Denies any swelling, jaundice, pruritis. No confusion The patient walks for exercise every day Started eating more organic fruits and vegetables. Eats chicken, pork chops. Chooses lean red meat when she does Cut back on soda- was drinking 3 bottles/day, now drinks 1 bottle/day. Does not eat bread or pasta She had lost 20 pounds in the last 3-4 months, goal is to get down to 125 lbs. Review of Systems: Constitutional: No fevers, chills, nightsweats, unintended weight loss HEENT: Denies frequent or severe heaches, nasal congestion/sinus symptoms, difficulty swallowing Eyes: No diplopia or blurry vision; no conjunctival icterus, no eye pain Integumentary: No jaundice, telangiectasias, palmar erythema, lesions/rashes Cardiovascular: No chest pain, dyspnea, palpitations, orthopnea, lower extremity swelling Pulmonary: No dyspnea, cough, wheezing Gastrointestinal: see note Genitourinary: No dysuria, gross hematuria or pyuria. Neurologic: No confusion, altered mental status, difficulty with balance, dizziness Musculoskeletal: No new joint pain, swelling, or erythema Psychiatric: No depressed mood, anxiety, irritability Past Medical History: PAST MEDICAL HISTORY Diagnosis Date Adrenal adenoma 10/17/2013 Arthritis of both knees 06/12/2013 Backache, unspecified 01/19/2008 Brachial neuritis or radiculitis NOS 01/17/2014 Cervical radiculopathy Cervicogenic headache 11/07/2014 Cholelithiasis 07/24/2013 Chronic pain syndrome 01/02/[address] [facility] Dr. Bradshaw. Was instructed needed to get pain meds through one of them COVID-19 virus infection 03/31/202103/2021 DDD (degenerative disc disease), cervical 12/22/2013 DDD (degenerative disc disease), lumbar 03/28/2014 Depression 11/03/2013 Dysthymia 08/22/2015 Elevated alkaline phosphatase level 02/24/2016 Neg w/u Elevated LFTs 09/23/2015 Elevated serum GGT level 03/03/[address] Wayne Essential hypertension, benign 06/12/2013 Fatty liver 09/27/2015 Hepatic encephalopathy (HCC) 06/29/2017 Hepatitis B immune 09/27/2015 History of shingles 09/07/201908/2019 Hyperammonemia (HCC) 06/23/2017 Hypokalemia 07/24/2013 Insomnia 11/03/2013 Lumbago 01/17/2014 Lumbar radiculopathy 12/22/2013 Lumbar spondylosis 12/22/2013 Medicare annual wellness visit, initial 07/01/2018 Last done 07/01/18 Medicare eligible 09/12/2016 Mixed hyperlipidemia 01/02/2015 Myofascial pain 12/22/2013 Osteoarthritis of spine with radiculopathy, lumbar region 11/07/2014 Spinal stenosis of cervical region 06/12/2013 Sprain of neck 01/19/2008 Past Surgical History: PAST SURGICAL HISTORY Procedure Laterality Date CORTISONE, SERUM Neck and Spine injections ESOPHAGOGASTRODUODENOSCOPY TRANSORAL DIAGNOSTIC 11/01/2017 EGD EXTRACTION, ERUPTED TOOTH OR EXPOSED ROOT (ELEVATION AND/OR FORCEPS REMOVAL) complete teeth extraction upper and lower FECAL OCCULT BLOOD TEST 09/07/2016 negative LIG/TRNSXJ FLP TUBE ABDL/VAG APPR UNI/BI STRESS TEST 09/07/2016 WNL TONSILLECTOMY PRIMARY/SECONDARY <AGE 12 Tonsillectomy Family History: FAMILY HISTORY Problem Relation Age of Onset Blood Disease Mother anemic Diabetes Maternal Uncle Hypertension Maternal Grandmother Asthma Maternal Grandfather Social History: Employment status: disability Tobacco: denies EtOH: denies Drugs: denies I have confirmed and edited as necessary, the PFSH and ROS obtained by others. Outpatient medications: Current Outpatient Medications on File Prior to Visit Medication Sig potassium chloride ER (K-DUR, KLOR-CON) 20 mEq tablet Take 2 tablets by mouth once daily. hydroCHLOROthiazide (HYDRODIURIL, ESIDRIX) 25 mg tablet Take 1 tablet by mouth once daily. For blood pressure FLUoxetine (PROZAC) 40 mg capsule Take 1 capsule by mouth once daily. Take with the 20mg capsule for total daily dose of 60mg traZODone (DESYREL) 100 mg tablet Take 1 tablet by mouth daily at bedtime. albuterol HFA (PROVENTIL HFA, VENTOLIN HFA) 90 mcg/actuation inhaler Inhale 2 Puffs as instructed every 4 hours as needed. cyclobenzaprine (FLEXERIL) 10 mg tablet Take 1 tablet by mouth three times daily as needed. meloxicam (MOBIC) 15 mg tablet TAKE 1 TABLET BY MOUTH EVERY DAY FOR 30 DAYS gabapentin (NEURONTIN) 600 mg tablet Take 2 tablets by mouth three times daily for 180 days. rosuvastatin (CRESTOR) 40 mg tablet Take 1 tablet by mouth once daily. FLUoxetine (PROZAC) 20 mg capsule Take 1 capsule by mouth once daily. Take in addition to the 40mg cap for total dose of 60mg Fenofibrate (LOFIBRA) 160 mg tablet Take 1 tablet by mouth once daily. guaiFENesin (MUCINEX) 600 mg 12 hr tablet Take 2 tablets by mouth twice daily. (Patient taking differently: Take 1,200 mg by mouth twice daily. PRN ) traMADol (ULTRAM) 50 mg tablet Take 50 mg by mouth twice daily. TENS unit and electrodes cmpk For daily use as directed GLUCOSAMINE SULFATE (GLUCOSAMINE ORAL) Take by mouth four times daily. omega-3 fatty acids 1,000 mg cap Take 2 capsules by mouth twice daily. No current facility-administered medications on file prior to visit. Vitals: BP 149/88 Pulse 80 Temp (Src) 97.6 (Temporal) Ht 5' 3 (1.60m) Wt 168 lb 12.8 oz (76.6kg) SpO2 96% LMP 09/25/2009 BMI 29.91 kg/(m^2). Physical Exam: General: pleasant, conversant, in no apparent distress HENT: atraumatic, oropharynx clear, mucous membranes moist, normal dentition Eye: conjunctiva anicteric, no swelling of globe, pupils equal round and reactive to light Lungs: clear to auscultation bilaterally with no wheezes/rhonchi, normal respiratory effort Cardiac: regular rate and rhythm, normal S1, S2, no murmurs/rubs/gallops Abdomen: abdomen soft without abdominal distention, hepatosplenomegaly, or rebound/rigidity/guarding Extremities: no peripheral edema, no lymphadenopathy Skin: normal temperature and turgor, no jaundice/rashes/lesions Neuro: Aox3, no asterixis/milkmaids Psych: appropriate affect Laboratory: Endoscopy: EGD 2018: Findings: The examined esophagus was normal. No evidence of varices The entire examined stomach was normal. Biopsies were taken with a cold forceps for histology. Estimated blood loss was minimal. There was no evidence of portal gastropathy The examined duodenum was normal. Imaging: MRI Liver 2017: NO STONES ARE SEEN IN THE COMMON BILE DUCT. GALLSTONE AGAIN SEEN IN THE GALLBLADDER. HEPATIC STEATOSIS AND HEPATIC LESIONS APPEAR STABLE. SMALL LEFT ADRENAL ADENOMA. Assessment and Plan: In conclusion, Bety Perales is a 61 year old woman with HLD, NAFLD and suggestion of advanced fibrosis on fibroscan 2018, here for further evaluation as to whether or not she has underlying ORELLANA-related cirrhosis. So far with the information that I have, I cannot say that she has cirrhosis for sure at this point. Not sure why her ammonia was ever checked in the past, but she has never endorsed any episodes to me that sound like hepatic encephalopathy thus I told her she should not be taking HE therapy at the moment. Need to get updated bloodwork, fibroscan, and imaging to make the determination whether she has cirrhosis or not. Her fibroscan in 2018 suggested possible advanced fibrosis, but luckily since then she has made some significant lifestyle modifications and has lost 20 pounds which likely improved her underlying histology. Once we have this information, we will make determination as to whether or not biopsy or further imaging is needed to be more certain about the status of her underlying liver disease. Labs indicate not immune to HAV- need to start this vaccination series She is immune to HBV RTC: 6 months I spent a total of 45 minutes on the date of the service which included preparing to see the patient, [id number] patient care, completing clinical documentation, obtaining and/or reviewing separately obtained history, performing a medically appropriate examination, counseling and educating the patient/family/caregiver and ordering medications, tests, or procedures. Mabel Jo MD Associate Staff, Department of Gastroenterology and Hepatology [facility] [place] - ASSESSMENT/PLAN: 1. NAFLD (nonalcoholic fatty liver disease) - ICD9: 571.8, ICD10: K76.0 (primary diagnosis) - HEPATIC FUNCTION PNL - CBC + DIFF - PROTHROMBIN TIME/PT - HGB A1C - BASIC METABOLIC PNL - DDI VIBRATION CONTROLLED TRANSIENT ELASTOGRAPHY (VCTE) - US ABD RT UPPER QUADRANT - LIPID PANEL BASIC 2. 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 Riky Menchaca LPN documented in this encounter [facility] 07-10-2021 Miscellaneous Notes Pt has appointment 09/17/21 Riky Menchaca LPN documented in this encounter [facility] 07-02-2021 Miscellaneous Notes Called Bety Perales to remind them of an appointment with Dr. Jo on 07/07/2021. Left Message for patient. 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) Other chronic nonalcoholic liver disease [facility] Diagnosis NAFLD (nonalcoholic fatty liver disease) Other chronic nonalcoholic liver disease [facility] NAFLD (nonalcoholic fatty liver disease)- Primary Other chronic nonalcoholic liver disease [facility] Diagnosis NAFLD (nonalcoholic fatty liver disease) Other chronic nonalcoholic liver disease [facility] Diagnosis Essential hypertension, benign- Primary Mixed hyperlipidemia Dysthymia Dysthymic disorder NAFLD (nonalcoholic fatty liver disease) Other chronic nonalcoholic liver disease Cervicogenic headache Headache Insomnia, unspecified type Elevated serum GGT level Other nonspecific abnormal serum enzyme levels 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) Other chronic nonalcoholic liver disease Chronic pain syndrome Hepatic encephalopathy (HCC) Hepatic encephalopathy Hyperammonemia (HCC) Disorders of urea cycle metabolism Weakness of right lower extremity Need for vaccination Need for prophylactic vaccination and inoculation against unspecified single disease Encounter for screening mammogram for breast cancer [facility] Diagnosis NAFLD (nonalcoholic fatty liver disease)- Primary Other chronic nonalcoholic liver disease NAFLD (nonalcoholic fatty liver disease) Other chronic nonalcoholic liver disease [facility] Osteoarthritis of spine with radiculopathy, lumbar region [facility] Diagnosis Osteoarthritis of spine with radiculopathy, lumbar region [facility] noteNo assessment information availableWSt. 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) Other chronic nonalcoholic liver disease NAFLD (nonalcoholic fatty liver disease) Other chronic nonalcoholic liver disease Hyperammonemia (HCC) Disorders of urea cycle metabolism DDD (degenerative disc disease), lumbar Degeneration of lumbar or lumbosacral intervertebral disc Lumbar spondylosis Lumbosacral spondylosis without myelopathy Spinal stenosis of cervical region Spinal stenosis in cervical region Dysthymia Dysthymic disorder Chronic pain syndrome Osteoarthritis of spine with radiculopathy, lumbar region Need for COVID-19 vaccine Need for influenza vaccination Need for prophylactic vaccination and inoculation against influenza Impacted cerumen of right ear Impacted cerumen [facility] Diagnosis Mixed hyperlipidemia- Primary Essential hypertension, benign Chronic pain syndrome Hepatic encephalopathy (HCC) Hepatic encephalopathy NAFLD (nonalcoholic fatty liver disease) Other chronic nonalcoholic liver disease 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) Other chronic nonalcoholic liver disease Hyperammonemia (HCC) Disorders of urea cycle metabolism Screening for diabetes mellitus Hot flash, menopausal Symptomatic menopausal or female climacteric states [facility] Diagnosis Subclinical hypothyroidism- Primary Other specified acquired hypothyroidism Elevated hemoglobin A1c Other abnormal blood chemistry [facility] Diagnosis Abnormal mammogram Abnormal mammogram, unspecified [facility] Diagnosis Osteoarthritis of spine with radiculopathy, lumbar region [facility] Diagnosis Encounter for gynecological examination (general) (routine) without abnormal findings- Primary Well woman exam Routine general medical examination at a health care facility Encounter for screening for human papillomavirus (HPV) Special screening examination for human papillomavirus (HPV) Pap smear for cervical cancer screening Screening for malignant neoplasm of the cervix Encounter for screening mammogram for breast cancer Dense breast tissue Osteopenia of neck of left femur [facility] Diagnosis Osteopenia of neck of left femur [facility] Diagnosis Osteoarthritis of spine with radiculopathy, lumbar region [facility] Diagnosis Encounter for screening examination for other mental health and behavioral disorders- Primary Essential hypertension, benign Mixed hyperlipidemia NAFLD (nonalcoholic fatty liver disease) Other chronic nonalcoholic liver disease Medication management Encounter for long-term (current) use of other medications Elevated hemoglobin A1c Other abnormal blood chemistry Subclinical hypothyroidism Other specified acquired hypothyroidism Encounter for immunization Need for other specified prophylactic vaccination against single bacterial disease [facility] Diagnosis Acute cough- Primary Wheeze Wheezing [facility] Diagnosis Acute cough- Primary URI, acute Acute upper respiratory infections of unspecified site Acute cough [facility] Diagnosis Acute [facility] Diagnosis Moderate persistent asthma with (acute) exacerbation- Primary [facility] Diagnosis Acute cough Wheezing SOB (shortness of breath) Shortness of breath [facility] Diagnosis Acute cough- Primary Wheezing SOB (shortness of breath) Shortness of breath Acute cough Wheezing SOB (shortness of breath) Shortness of breath [facility] Diagnosis Osteoarthritis of spine with radiculopathy, lumbar region [facility] Diagnosis Medicare annual wellness visit, subsequent- Primary Routine general medical examination at a health care facility Essential hypertension, benign Mixed hyperlipidemia Elevated hemoglobin A1c Other abnormal blood chemistry Dysthymia Dysthymic disorder Insomnia, unspecified type NAFLD (nonalcoholic fatty liver disease) Other chronic nonalcoholic liver disease 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) Other chronic nonalcoholic liver disease Hyperammonemia (HCC) Disorders of urea cycle metabolism Hepatic encephalopathy (HCC) Hepatic encephalopathy Chronic pain syndrome Advanced care planning/counseling discussion Other specified counseling Medication management Encounter for long-term (current) use of other medications Screening for colon cancer Special screening for malignant neoplasms, colon documented in this encounter [facility] note* Diagnosis NAFLD (nonalcoholic fatty liver disease)- Primary Other chronic nonalcoholic liver disease Hyperammonemia (HCC) Disorders of urea cycle metabolism Hepatic encephalopathy (HCC) Hepatic encephalopathy 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) Other chronic nonalcoholic liver disease Elevated serum protein level Other nonspecific findings on examination of blood Hypercalcemia documented in this encounter [facility] note* Diagnosis Hypercalcemia- Primary documented in this encounter [facility] note* Diagnosis Hypercalcemia- Primary documented in this encounter [facility] note* Diagnosis Encounter for screening mammogram for breast cancer documented in this encounter [facility] note* Diagnosis Osteoarthritis of spine with radiculopathy, lumbar region documented in this encounter [facility] note* Diagnosis Osteoarthritis of spine with radiculopathy, lumbar region documented in this encounter [facility] for referral (narrative)* Diagnostic Procedure Only (Routine) - Authorized Specialty Diagnoses / Procedures Referred By Contac t Referred To Contact [facility] Diagnoses NAFLD (nonalcoholic fatty liver disease) Procedures US ABD RT UPPER QUADRANT US ABDOMINAL REAL TIME W/IMAGE LIMITED Mabel Jo MD [address] [place] [address] Us [facility] Referral ID Status Reason Start Date Expiration Date Visits Requested Visits Authorized [id number] Authorized Auto-Generat ed Referral 09/05/2021 10/05/2022 1 1 * Outpatient Procedure (Routine) - Authorized Specialty Diagnoses / Procedures Referred By Contac t Referred To Contact [facility] Diagnoses NAFLD (nonalcoholic fatty liver disease) Procedures DDI VIBRATION CONTROLLED TRANSIENT ELASTOGRAPHY (VCTE) LIVER ELASTOGRAPHY W/O IMAG W/I&R Mabel Jo MD [address] [place] [id number] [facility] [place] [address] [place] [address] Referral ID Status Reason Start Date Expiration Date Visits Requested Visits Authorized [id number] Authorized Auto-Generat ed Referral 09/05/2021 09/05/2022 1 1 T [facility] for referral (narrative)* Diagnostic Procedure Only (Routine) - Closed Specialty Diagnoses / Procedures Referred By Kelly jackson Referred To Contact [facility] Diagnoses NAFLD (nonalcoholic fatty liver disease) Procedures US ABD RT UPPER QUADRANT US ABDOMINAL REAL TIME W/IMAGE LIMITED Mabel Jo MD [address] [place] [address] Us Imaging Referral ID Status Reason Start Date Expiration Date V isits Requested Visits Authorized [id number] Closed Auto-Generate d Referral 09/05/2021 10/05/2022 1 1 [facility] for referral (narrative)* Diagnostic Procedure Only (Routine) - Authorized Specialty Diagnoses / Procedures Referred By Kelly jackson Referred To Contact [facility] Diagnoses Encounter for screening mammogram for breast cancer Procedures ÁLVARO SCREENING SCREENING MAMMOGRAPHY BI 2-VIEW BREAST INC CAD David Longoria MD [address] [place] [address] [facility] [address] [place] [phone] Referral ID Status Reason Start Date Expiration Date Visits Requested Visits Authorized [id number] Authorized Auto-Generat ed Referral 09/23/2021 03/14/2022 1 1 T [facility] for referral (narrative)* Diagnostic Procedure Only (Routine) - Pending Review Specialty Diagnoses / Procedures Referred By Kelly jackson Referred To Contact [facility] Diagnoses Encounter for screening mammogram for breast cancer Dense breast tissue Procedures ÁLVARO SCREENING W TIMBO SCREENING DIGITAL BREAST TOMOSYNTHESIS BI SCREENING MAMMOGRAPHY BI 2-VIEW BREAST INC CAD Audelia Weir, MADISYN.SEWING MACHINE ADJUSTER [address] [place] [address] [facility] [address] [place] [phone] Referral ID Status Reason Start Date Expiration Date Visits Requested Visits Authorized [id number] Pending Review Auto-Generat ed Referral 05/25/2023 06/23/2024 1 1 [facility] for visit Narrative* Outpatient Procedure (Routine) - Closed Specialty Diagnoses / Procedures Referred By Contac t Referred To Contact [facility] Diagnoses NAFLD (nonalcoholic fatty liver disease) Procedures DDI VIBRATION CONTROLLED TRANSIENT ELASTOGRAPHY (VCTE) LIVER ELASTOGRAPHY W/O IMAG W/I&[place] [address] [place] [id number] [facility] [place] [address] [place] [id number] Referral ID Status Reason Start Date Expiration Date V isits Requested Visits Authorized [id number] Closed Auto-Generate d Referral 09/05/2021 09/05/2022 1 1 [facility] for visit Narrative* Diagnostic Procedure Only (Routine) - Closed Specialty Diagnoses / Procedures Referred By Kelly t Referred To Contact [facility] Diagnoses NAFLD (nonalcoholic fatty liver disease) Procedures US ABD RT UPPER QUADRANT US ABDOMINAL REAL TIME W/IMAGE LIMITED Mabel Jo MD [address] [place] [address] [facility] Imaging Referral ID Status Reason Start Date Expiration Date V isits Requested Visits Authorized [id number] Closed Auto-Generate d Referral 09/05/2021 10/05/2022 1 1 [facility] for visit Narrative* Diagnostic Procedure Only (Routine) - Closed Specialty Diagnoses / Procedures Referred By Contac t Referred To Contact [facility] Diagnoses Abnormal mammogram Procedures ÁLVARO DIAGNOSTIC BILATERAL DIAGNOSTIC MAMMOGRAPHY COMPUTER-AIDED DETCJ Trang Scales PA-C [address] [place] [address] [facility] [address] [place] [phone] Referral ID Status Reason Start Date Expiration Date V isits Requested Visits Authorized [id number] Closed Auto-Generate d Referral 10/23/2022 11/22/2023 1 1 [facility] Advance Directives No Advanced Directives Records FoundDocuments on File Type Date Recorded 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 Advance Directive(s) Advance Directive(s) 06/10/2018 12:08 PM Advance Directive(s) 11/01/2017 10:49 AM Documents on File Type Date Recorded 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 Advance Directive(s) Advance Directive(s) 06/10/2018 12:08 PM Advance Directive(s) 11/01/2017 10:49 AM Documents on File Type Date Recorded 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 Advance Directive(s) Advance Directive(s) 10/02/2021 4:29 PM Advance Directive(s) 06/10/2018 12:08 PM Advance Directive(s) 11/01/2017 10:49 AM Advance Directive Response Recorded Date/ Time Living Will No September 07, 2019 3:44pm Power of Hot End Operator No September 06 0 3:44pm Chief Complaint and Reason for Visit Chief Complaint Opioid dependence, u ncomplicated Summary Purpose Family History No Family History Records FoundNo Family History Records Found Additional Source Comments Source Comments (unrecognize d section and content) In the event this informatio n is protected by the Federal Confidentiality of Alcohol and Drug Abuse Patient Records regulations: The Federal rules restrict any use of the information to criminally investigate or prosecute any alcohol or drug abuse patient.[facility] the event this information is protected by the Federal Confidentiality of Alcohol and Drug Abuse Patient Records regulations: The Federal rules restrict any use of the information to criminally investigate or prosecute any alcohol or drug abuse patient.[facility] the event this information is protected by the Federal Confidentiality of Alcohol and Drug Abuse Patient Records regulations: The Federal rules restrict any use of the information to criminally investigate or prosecute any alcohol or drug abuse patient.[facility] the event this information is protected by the Federal Confidentiality of Alcohol and Drug Abuse Patient Records regulations: The Federal rules restrict any use of the information to criminally investigate or prosecute any alcohol or drug abuse patient.[facility] the event this information is protected by the Federal Confidentiality of Alcohol and Drug Abuse Patient Records regulations: The Federal rules restrict any use of the information to criminally investigate or prosecute any alcohol or drug abuse patient.[facility] the event this information is protected by the Federal Confidentiality of Alcohol and Drug Abuse Patient Records regulations: The Federal rules restrict any use of the information to criminally investigate or prosecute any alcohol or drug abuse patient.[facility] the event this information is protected by the Federal Confidentiality of Alcohol and Drug Abuse Patient Records regulations: The Federal rules restrict any use of the information to criminally investigate or prosecute any alcohol or drug abuse patient.[facility] the event this information is protected by the Federal Confidentiality of Alcohol and Drug Abuse Patient Records regulations: The Federal rules restrict any use of the information to criminally investigate or prosecute any alcohol or drug abuse patient.[facility] the event this information is protected by the Federal Confidentiality of Alcohol and Drug Abuse Patient Records regulations: The Federal rules restrict any use of the information to criminally investigate or prosecute any alcohol or drug abuse patient.[facility] the event this information is protected by the Federal Confidentiality of Alcohol and Drug Abuse Patient Records regulations: The Federal rules restrict any use of the information to criminally investigate or prosecute any alcohol or drug abuse patient.[facility] the event this information is protected by the Federal Confidentiality of Alcohol and Drug Abuse Patient Records regulations: The Federal rules restrict any use of the information to criminally investigate or prosecute any alcohol or drug abuse patient.[facility] the event this information is protected by the Federal Confidentiality of Alcohol and Drug Abuse Patient Records regulations: The Federal rules restrict any use of the information to criminally investigate or prosecute any alcohol or drug abuse patient.[facility] the event this information is protected by the Federal Confidentiality of Alcohol and Drug Abuse Patient Records regulations: The Federal rules restrict any use of the information to criminally investigate or prosecute any alcohol or drug abuse patient.[facility] the event this information is protected by the Federal Confidentiality of Alcohol and Drug Abuse Patient Records regulations: The Federal rules restrict any use of the information to criminally investigate or prosecute any alcohol or drug abuse patient.[facility] the event this information is protected by the Federal Confidentiality of Alcohol and Drug Abuse Patient Records regulations: The Federal rules restrict any use of the information to criminally investigate or prosecute any alcohol or drug abuse patient.[facility] the event this information is protected by the Federal Confidentiality of Alcohol and Drug Abuse Patient Records regulations: The Federal rules restrict any use of the information to criminally investigate or prosecute any alcohol or drug abuse patient.[facility] the event this information is protected by the Federal Confidentiality of Alcohol and Drug Abuse Patient Records regulations: The Federal rules restrict any use of the information to criminally investigate or prosecute any alcohol or drug abuse patient.[facility] the event this information is protected by the Federal Confidentiality of Alcohol and Drug Abuse Patient Records regulations: The Federal rules restrict any use of the information to criminally investigate or prosecute any alcohol or drug abuse patient.[facility] the event this information is protected by the Federal Confidentiality of Alcohol and Drug Abuse Patient Records regulations: The Federal rules restrict any use of the information to criminally investigate or prosecute any alcohol or drug abuse patient.[facility] the event this information is protected by the Federal Confidentiality of Alcohol and Drug Abuse Patient Records regulations: The Federal rules restrict any use of the information to criminally investigate or prosecute any alcohol or drug abuse patient.[facility] the event this information is protected by the Federal Confidentiality of Alcohol and Drug Abuse Patient Records regulations: The Federal rules restrict any use of the information to criminally investigate or prosecute any alcohol or drug abuse patient.[facility] the event this information is protected by the Federal Confidentiality of Alcohol and Drug Abuse Patient Records regulations: The Federal rules restrict any use of the information to criminally investigate or prosecute any alcohol or drug abuse patient.[facility] the event this information is protected by the Federal Confidentiality of Alcohol and Drug Abuse Patient Records regulations: The Federal rules restrict any use of the information to criminally investigate or prosecute any alcohol or drug abuse patient.[facility] the event this information is protected by the Federal Confidentiality of Alcohol and Drug Abuse Patient Records regulations: The Federal rules restrict any use of the information to criminally investigate or prosecute any alcohol or drug abuse patient.[facility] the event this information is protected by the Federal Confidentiality of Alcohol and Drug Abuse Patient Records regulations: The Federal rules restrict any use of the information to criminally investigate or prosecute any alcohol or drug abuse patient.[facility] the event this information is protected by the Federal Confidentiality of Alcohol and Drug Abuse Patient Records regulations: The Federal rules restrict any use of the information to criminally investigate or prosecute any alcohol or drug abuse patient.[facility] the event this information is protected by the Federal Confidentiality of Alcohol and Drug Abuse Patient Records regulations: The Federal rules restrict any use of the information to criminally investigate or prosecute any alcohol or drug abuse patient.[facility] the event this information is protected by the Federal Confidentiality of Alcohol and Drug Abuse Patient Records regulations: The Federal rules restrict any use of the information to criminally investigate or prosecute any alcohol or drug abuse patient.[facility] the event this information is protected by the Federal Confidentiality of Alcohol and Drug Abuse Patient Records regulations: The Federal rules restrict any use of the information to criminally investigate or prosecute any alcohol or drug abuse patient.[facility] the event this information is protected by the Federal Confidentiality of Alcohol and Drug Abuse Patient Records regulations: The Federal rules restrict any use of the information to criminally investigate or prosecute any alcohol or drug abuse patient.[facility] the event this information is protected by the Federal Confidentiality of Alcohol and Drug Abuse Patient Records regulations: The Federal rules restrict any use of the information to criminally investigate or prosecute any alcohol or drug abuse patient.[facility] the event this information is protected by the Federal Confidentiality of Alcohol and Drug Abuse Patient Records regulations: The Federal rules restrict any use of the information to criminally investigate or prosecute any alcohol or drug abuse patient.[facility] the event this information is protected by the Federal Confidentiality of Alcohol and Drug Abuse Patient Records regulations: The Federal rules restrict any use of the information to criminally investigate or prosecute any alcohol or drug abuse patient.[facility] the event this information is protected by the Federal Confidentiality of Alcohol and Drug Abuse Patient Records regulations: The Federal rules restrict any use of the information to criminally investigate or prosecute any alcohol or drug abuse patient.[facility] the event this information is protected by the Federal Confidentiality of Alcohol and Drug Abuse Patient Records regulations: The Federal rules restrict any use of the information to criminally investigate or prosecute any alcohol or drug abuse patient.[facility] the event this information is protected by the Federal Confidentiality of Alcohol and Drug Abuse Patient Records regulations: The Federal rules restrict any use of the information to criminally investigate or prosecute any alcohol or drug abuse patient.[facility] the event this information is protected by the Federal Confidentiality of Alcohol and Drug Abuse Patient Records regulations: The Federal rules restrict any use of the information to criminally investigate or prosecute any alcohol or drug abuse patient.[facility] the event this information is protected by the Federal Confidentiality of Alcohol and Drug Abuse Patient Records regulations: The Federal rules restrict any use of the information to criminally investigate or prosecute any alcohol or drug abuse patient.[facility] the event this information is protected by the Federal Confidentiality of Alcohol and Drug Abuse Patient Records regulations: The Federal rules restrict any use of the information to criminally investigate or prosecute any alcohol or drug abuse patient.[facility] the event this information is protected by the Federal Confidentiality of Alcohol and Drug Abuse Patient Records regulations: The Federal rules restrict any use of the information to criminally investigate or prosecute any alcohol or drug abuse patient.[facility] the event this information is protected by the Federal Confidentiality of Alcohol and Drug Abuse Patient Records regulations: The Federal rules restrict any use of the information to criminally investigate or prosecute any alcohol or drug abuse patient.[facility] the event this information is protected by the Federal Confidentiality of Alcohol and Drug Abuse Patient Records regulations: The Federal rules restrict any use of the information to criminally investigate or prosecute any alcohol or drug abuse patient.[facility] HospitalIn the event this information is protected by the Federal Confidentiality of Alcohol and Drug Abuse Patient Records regulations: The Federal rules restrict any use of the information to criminally investigate or prosecute any alcohol or drug abuse patient.[facility] HospitalIn the event this information is protected by the Federal Confidentiality of Alcohol and Drug Abuse Patient Records regulations: The Federal rules restrict any use of the information to criminally investigate or prosecute any alcohol or drug abuse patient.[facility] HospitalIn the event this information is protected by the Federal Confidentiality of Alcohol and Drug Abuse Patient Records regulations: The Federal rules restrict any use of the information to criminally investigate or prosecute any alcohol or drug abuse patient.[facility] HospitalIn the event this information is protected by the Federal Confidentiality of Alcohol and Drug Abuse Patient Records regulations: The Federal rules restrict any use of the information to criminally investigate or prosecute any alcohol or drug abuse patient.[facility] HospitalIn the event this information is protected by the Federal Confidentiality of Alcohol and Drug Abuse Patient Records regulations: The Federal rules restrict any use of the information to criminally investigate or prosecute any alcohol or drug abuse patient.[facility] HospitalIn the event this information is protected by the Federal Confidentiality of Alcohol and Drug Abuse Patient Records regulations: The Federal rules restrict any use of the information to criminally investigate or prosecute any alcohol or drug abuse patient.[facility] HospitalIn the event this information is protected by the Federal Confidentiality of Alcohol and Drug Abuse Patient Records regulations: The Federal rules restrict any use of the information to criminally investigate or prosecute any alcohol or drug abuse patient.[facility] HospitalIn the event this information is protected by the Federal Confidentiality of Alcohol and Drug Abuse Patient Records regulations: The Federal rules restrict any use of the information to criminally investigate or prosecute any alcohol or drug abuse patient.[facility] HospitalIn the event this information is protected by the Federal Confidentiality of Alcohol and Drug Abuse Patient Records regulations: The Federal rules restrict any use of the information to criminally investigate or prosecute any alcohol or drug abuse patient.[facility] HospitalIn the event this information is protected by the Federal Confidentiality of Alcohol and Drug Abuse Patient Records regulations: The Federal rules restrict any use of the information to criminally investigate or prosecute any alcohol or drug abuse patient.[facility] HospitalIn the event this information is protected by the Federal Confidentiality of Alcohol and Drug Abuse Patient Records regulations: The Federal rules restrict any use of the information to criminally investigate or prosecute any alcohol or drug abuse patient.[facility] HospitalIn the event this information is protected by the Federal Confidentiality of Alcohol and Drug Abuse Patient Records regulations: The Federal rules restrict any use of the information to criminally investigate or prosecute any alcohol or drug abuse patient.[facility] HospitalIn the event this information is protected by the Federal Confidentiality of Alcohol and Drug Abuse Patient Records regulations: The Federal rules restrict any use of the information to criminally investigate or prosecute any alcohol or drug abuse patient.[facility] HospitalIn the event this information is protected by the Federal Confidentiality of Alcohol and Drug Abuse Patient Records regulations: The Federal rules restrict any use of the information to criminally investigate or prosecute any alcohol or drug abuse patient.[facility] HospitalIn the event this information is protected by the Federal Confidentiality of Alcohol and Drug Abuse Patient Records regulations: The Federal rules restrict any use of the information to criminally investigate or prosecute any alcohol or drug abuse patient.[facility] HospitalIn the event this information is protected by the Federal Confidentiality of Alcohol and Drug Abuse Patient Records regulations: The Federal rules restrict any use of the information to criminally investigate or prosecute any alcohol or drug abuse patient.[facility] HospitalIn the event this information is protected by the Federal Confidentiality of Alcohol and Drug Abuse Patient Records regulations: The Federal rules restrict any use of the information to criminally investigate or prosecute any alcohol or drug abuse patient.[facility] HospitalIn the event this information is protected by the Federal Confidentiality of Alcohol and Drug Abuse Patient Records regulations: The Federal rules restrict any use of the information to criminally investigate or prosecute any alcohol or drug abuse patient.[facility]In the event this information is protected by the Federal Confidentiality of Alcohol and Drug Abuse Patient Records regulations: The Federal rules restrict any use of the information to criminally investigate or prosecute any alcohol or drug abuse patient.[facility] HospitalIn the event this information is protected by the Federal Confidentiality of Alcohol and Drug Abuse Patient Records regulations: The Federal rules restrict any use of the information to criminally investigate or prosecute any alcohol or drug abuse patient.[facility] HospitalIn the event this information is protected by the Federal Confidentiality of Alcohol and Drug Abuse Patient Records regulations: The Federal rules restrict any use of the information to criminally investigate or prosecute any alcohol or drug abuse patient.[facility] HospitalIn the event this information is protected by the Federal Confidentiality of Alcohol and Drug Abuse Patient Records regulations: The Federal rules restrict any use of the information to criminally investigate or prosecute any alcohol or drug abuse patient.[facility] HospitalIn the event this information is protected by the Federal Confidentiality of Alcohol and Drug Abuse Patient Records regulations: The Federal rules restrict any use of the information to criminally investigate or prosecute any alcohol or drug abuse patient.[facility] HospitalIn the event this information is protected by the Federal Confidentiality of Alcohol and Drug Abuse Patient Records regulations: The Federal rules restrict any use of the information to criminally investigate or prosecute any alcohol or drug abuse patient.[facility] HospitalIn the event this information is protected by the Federal Confidentiality of Alcohol and Drug Abuse Patient Records regulations: The Federal rules restrict any use of the information to criminally investigate or prosecute any alcohol or drug abuse patient.[facility] HospitalIn the event this information is protected by the Federal Confidentiality of Alcohol and Drug Abuse Patient Records regulations: The Federal rules restrict any use of the information to criminally investigate or prosecute any alcohol or drug abuse patient.[facility] HospitalIn the event this information is protected by the Federal Confidentiality of Alcohol and Drug Abuse Patient Records regulations: The Federal rules restrict any use of the information to criminally investigate or prosecute any alcohol or drug abuse patient.[facility] HospitalIn the event this information is protected by the Federal Confidentiality of Alcohol and Drug Abuse Patient Records regulations: The Federal rules restrict any use of the information to criminally investigate or prosecute any alcohol or drug abuse patient.[facility] HospitalIn the event this information is protected by the Federal Confidentiality of Alcohol and Drug Abuse Patient Records regulations: The Federal rules restrict any use of the information to criminally investigate or prosecute any alcohol or drug abuse patient.[facility] HospitalIn the event this information is protected by the Federal Confidentiality of Alcohol and Drug Abuse Patient Records regulations: The Federal rules restrict any use of the information to criminally investigate or prosecute any alcohol or drug abuse patient.[facility] HospitalIn the event this information is protected by the Federal Confidentiality of Alcohol and Drug Abuse Patient Records regulations: The Federal rules restrict any use of the information to criminally investigate or prosecute any alcohol or drug abuse patient.[facility] HospitalIn the event this information is protected by the Federal Confidentiality of Alcohol and Drug Abuse Patient Records regulations: The Federal rules restrict any use of the information to criminally investigate or prosecute any alcohol or drug abuse patient.[facility] HospitalIn the event this information is protected by the Federal Confidentiality of Alcohol and Drug Abuse Patient Records regulations: The Federal rules restrict any use of the information to criminally investigate or prosecute any alcohol or drug abuse patient.[facility] HospitalIn the event this information is protected by the Federal Confidentiality of Alcohol and Drug Abuse Patient Records regulations: The Federal rules restrict any use of the information to criminally investigate or prosecute any alcohol or drug abuse patient.[facility] HospitalIn the event this information is protected by the Federal Confidentiality of Alcohol and Drug Abuse Patient Records regulations: The Federal rules restrict any use of the information to criminally investigate or prosecute any alcohol or drug abuse patient.[facility] Reason for Visit (unrecogniz ed section and content) Reason Comments Appointment Reason Onset Date Comments Refill Request 07/09/2021 Reason Onset Date Comments Refill Request 08/08/2021 Reason Comments New Patient liver cirrhosis Specialty Diagnoses / Procedures Referred By Contronald t Referred To Contact Diagnoses 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) Procedures CONSULT TO HEPATOLOGY NEW PATIENT VISIT LEVEL 5 Trang Berkowitz PA-C [address] [place] [address] Referral ID Status Reason Start Date Expiration Date V isits Requested Visits Authorized [id number] Closed PCP Requested Referral 03/18/2021 03/18/2022 1 1 Reason Comments Recheck 6 months Specialty Diagnoses / Procedures Referred By Contac t Referred To Contact Family Practice / FAMILY MEDICINE Diagnoses Follow-up examination 6 month f/u Procedures OFFICE/OUTPATIENT ESTABLISHED MOD MDM 30-39 MIN 4C EST Trang Berkowitz PA-C [address] [place] [address] David Longoria MD [address] [place] [address] Referral ID Status Reason Start Date Expiration Date Visits Re quested Visits Authorized [id number] Closed 09/17/2021 03/14/2022 1 1 Reason Comments Results Reason Onset Date Comments Population Health Navigation Outreach 10/08/2021 [facility] care gaps Reason Onset Date Comments Refill Request 10/09/2021 Reason Onset Date Comments Refill Request 11/07/2021 Reason Comments Patient Update Reason Onset Date Comments Refill Request 03/06/2022 Reason Onset Date Comments Yearly Exam & Hep A vaccine Immunizations 03/31/2022 Flu vaccination Reason Onset Date Comments Refill Request 04/08/2022 Reason Comments Outside Lab Results Reason Comments Results, Lab Reason Onset Date Comments Refill Request 09/05/2022 Reason Onset Date Comments Refill Request 09/09/2022 Reason Comments 6 Month Exam Reason Onset Date Comments Refill Request 12/07/2022 Reason Onset Date Comments Refill Request 01/04/2023 Reason Onset Date Comments Refill Request 02/03/2023 Reason Onset Date Comments Refill Request 02/05/2023 Reason Onset Date Comments Refill Request 05/05/2023 Reason Comments Yearly Exam Specialty Diagnoses / Procedures Referred By Kelly jackson Referred To Contact Gynecology Diagnoses Well woman exam Procedures CONSULT TO GYNECOLOGY OFFICE/OUTPATIENT [facility] 60 MINUTES Trang Berkowitz PA-C [address] [place] [address] Referral ID Status Reason Start Date Expiration Date V isits Requested Visits Authorized [id number] Closed PCP Requested Referral Auto-Generated Referral 04/08/2023 04/07/2024 1 1 Reason Onset Date Comments Refill Request 08/03/2023 Reason Onset Date Comments Refill Request 09/02/2023 Reason Onset Date Comments Refill Request 10/02/2023 Reason Onset Date Comments Refill Request 12/02/2023 Reason Comments Cough Chest congestion x1. 5 weeks, fever at start Reason Comments Cough Chest congestion, so re throat, sob x 2 weeks Reason Onset Date Comments Refill Request 01/31/2024 Reason Comments Cough Breathing Problem Reason Onset Date Comments Refill Request 03/01/2024 Reason Onset Date Comments Refill Request 04/02/2024 Reason Comments Medicare Wellness Exam Reason Onset Date Comments Results 04/24/2024 Reason Onset Date Comments Results 05/15/2024 Reason Onset Date Comments Refill Request 06/01/2024 Reason Onset Date Comments Refill Request 06/30/2024 Reason Onset Date Comments Refill Request 07/31/2024 Reason Onset Date Comments Refill Request 08/29/2024 Reason Onset Date Comments Refill Request 09/30/2024 Care Teams (unrecognized sec tion and content) Supervisor Inventory Merchandising Relationship Specialty Start Date End Date David Longoria MD [address] [facility] [place] [address] PCP - General Family Practice 05/16/14 Supervisor Inventory Merchandising Relationship Specialty Start Date End Date David Longoria MD [address] [place] [address], [place] [address] PCP - General Family Practice 05/16/14 Supervisor Inventory Merchandising Relationship Specialty Start Date End Date David Longoria MD [address] [place] [address], [place] [address] PCP - General Family Practice 05/16/14 Supervisor Inventory Merchandising Relationship Specialty Start Date End Date David Longoria MD [address] [place] [address], [place] [address] PCP - General Family Practice 05/16/14 Supervisor Inventory Merchandising Relationship Specialty Start Date End Date David Longoria MD [address] [place] [address], [place] [address] PCP - General Family Practice 05/16/14 Supervisor Inventory Merchandising Relationship Specialty Start Date End Date David Longoria MD [address] [place] [address], [place] [address] PCP - General Family Practice 05/16/14 Supervisor Inventory Merchandising Relationship Specialty Start Date End Date David Longoria MD [address] [place] [address], [place] [address] PCP - General Family Practice 05/16/14 Supervisor Inventory Merchandising Relationship Specialty Start Date End Date David Longoria MD [address] [place] [address], [place] [address] PCP - General Family Practice 05/16/14 Supervisor Inventory Merchandising Relationship Specialty Start Date End Date David Longoria MD [address] [facility] [place] [address] PCP - General Family Practice 05/16/14 Supervisor Inventory Merchandising Relationship Specialty Start Date End Date David Longoria MD [address] [facility] [place] [address] PCP - General Family Practice 05/16/14 Supervisor Inventory Merchandising Relationship Specialty Start Date End Date David Longoria MD [facility] [place] [address] PCP - General Family Practice 05/16/14 Supervisor Inventory Merchandising Relationship Specialty Start Date End Date David Longoria MD [address] [place] [address], [place] [address] PCP - General Family Practice 05/16/14 Supervisor Inventory Merchandising Relationship Specialty Start Date End Date David Longoria MD [facility] [place] [address] PCP - General Family Practice 05/16/14 Supervisor Inventory Merchandising Relationship Specialty Start Date End Date David Longoria MD [facility] [place] [address] PCP - General Family Practice 05/16/14 Supervisor Inventory Merchandising Relationship Specialty Start Date End Date David Longoria MD [facility] [place] [address] PCP - General Family Medicine 05/16/14 Supervisor Inventory Merchandising Relationship Specialty Start Date End Date David Longoria MD [facility] [place] [address] PCP - General Family Medicine 05/16/14 Supervisor Inventory Merchandising Relationship Specialty Start Date End Date David Longoria MD [address] [place] [address], [place] [address] PCP - General Family Medicine 05/16/14 Supervisor Inventory Merchandising Relationship Specialty Start Date End Date David Longoria MD [address] [place] [address] PCP - General Family Medicine 05/16/14 Supervisor Inventory Merchandising Relationship Specialty Start Date End Date David Longoria MD [address] [place] [address] PCP - General Family Medicine 05/16/14 Supervisor Inventory Merchandising Relationship Specialty Start Date End Date David Longoria MD [address] [place] [address] PCP - General Family Medicine 05/16/14 Team Status: Active Member Role Status Dates Dr. David Longoria MD Family Provider Active Dr. David Longoria MD Primary Care Provider Active Team Status: Inactive Member Role Status Dates Dr. David Longoria MD Primary Care Provider Active Dr. Negra Watson MD Attending Provider, Referring Pr ovider Active Supervisor Inventory Merchandising Relationship Specialty Start Date End Date David Longoria MD [address] [place] [address] PCP - General Family Medicine 05/16/14 Supervisor Inventory Merchandising Relationship Specialty Start Date End Date David Longoria MD [address] [place] [address] PCP - General Family Medicine 05/16/14 Supervisor Inventory Merchandising Relationship Specialty Start Date End Date David Longoria MD [address] [place] [address] PCP - General Family Medicine 05/16/14 Supervisor Inventory Merchandising Relationship Specialty Start Date End Date David Longoria MD [address] [place] [address] PCP - General Family Medicine 05/16/14 Supervisor Inventory Merchandising Relationship Specialty Start Date End Date David Longoria MD [address] [place] [address] PCP - General Family Medicine 05/16/14 Supervisor Inventory Merchandising Relationship Specialty Start Date End Date David Longoria MD [address] [place] [address] PCP - General Family Medicine 05/16/14 Supervisor Inventory Merchandising Relationship Specialty Start Date End Date David Longoria MD [address] [place] [address] PCP - General Family Medicine 05/16/14 Supervisor Inventory Merchandising Relationship Specialty Start Date End Date David Longoria MD [address] [place] [address] PCP - General Family Medicine 05/16/14 Supervisor Inventory Merchandising Relationship Specialty Start Date End Date David Longoria MD [address] [place] [address] PCP - General Family Medicine 05/16/14 Supervisor Inventory Merchandising Relationship Specialty Start Date End Date David Longoria MD [address] [place] [address] PCP - General Family Medicine 05/16/14 Supervisor Inventory Merchandising Relationship Specialty Start Date End Date David Longoria MD [address] [place] [address] PCP - General Family Medicine 05/16/14 Supervisor Inventory Merchandising Relationship Specialty Start Date End Date David Longoria MD [address] [place] [address] PCP - General Family Medicine 05/16/14 Supervisor Inventory Merchandising Relationship Specialty Start Date End Date David Longoria MD [address] [place] [address] PCP - General Family Medicine 05/16/14 Supervisor Inventory Merchandising Relationship Specialty Start Date End Date David Longoria MD [address] [place] [address] PCP - General Family Medicine 05/16/14 Supervisor Inventory Merchandising Relationship Specialty Start Date End Date David Longoria MD [address] [place] [address] PCP - General Family Medicine 05/16/14 Supervisor Inventory Merchandising Relationship Specialty Start Date End Date David Longoria MD [address] [place] [address] PCP - General Family Medicine 05/16/14 Supervisor Inventory Merchandising Relationship Specialty Start Date End Date David Longoria MD [address] [place] [address] PCP - General Family Medicine 05/16/14 Supervisor Inventory Merchandising Relationship Specialty Start Date End Date David Longoria MD [address] [place] [address] PCP - General Family Medicine 05/16/14 Supervisor Inventory Merchandising Relationship Specialty Start Date End Date David Longoria MD [address] [place] [address] PCP - General Family Medicine 05/16/14 Piper Monge, MADISYN.SEWING MACHINE ADJUSTER [address] [place] [address] [facility] 02/19/24 Trang Berkowitz PA-C [address] [place] [address] [facility] 02/19/24 Supervisor Inventory Merchandising Relationship Specialty Start Date End Date David Longoria MD [address] [place] [address] PCP - General Family Medicine 05/16/14 Piper Monge APRN.SEWING MACHINE ADJUSTER [address] [place] [address] [facility] 02/19/24 Trang Berkowitz PA-C [address] [place] [address] [facility] 02/19/24 Supervisor Inventory Merchandising Relationship Specialty Start Date End Date David Longoria MD [address] [place] [address] PCP - General Family Medicine 05/16/14 Piper Monge APRN.SEWING MACHINE ADJUSTER [address] [place] [address] [facility] 02/19/24 Trang Berkowitz PA-C [address] [place] [address] [facility] 02/19/24 Supervisor Inventory Merchandising Relationship Specialty Start Date End Date David Longoria MD [address] [place] [address] PCP - General Family Medicine 05/16/14 Piper Monge, VACUUM FRAME OPERATOR.SEWING MACHINE ADJUSTER [address] [place] [address] [facility] 02/19/24 Trang Berkowitz PA-C [address] [place] [address] [facility] 02/19/24 Supervisor Inventory Merchandising Relationship Specialty Start Date End Date David Longoria MD [address] [place] [address] PCP - General Family Medicine 05/16/14 Piper Monge, VACUUM FRAME OPERATOR.SEWING MACHINE ADJUSTER [address] [place] [address] [facility] 02/19/24 Trang Berkowitz PA-C [address] [place] [address] [facility] 02/19/24 Supervisor Inventory Merchandising Relationship Specialty Start Date End Date David Longoria MD [address] [place] [address] PCP - General Family Medicine 05/16/14 Piper Monge, VACUUM FRAME OPERATOR.SEWING MACHINE ADJUSTER [address] [place] [address] [facility] 02/19/24 Trang Berkowitz PA-C [address] [place] [address] [facility] 02/19/24 Supervisor Inventory Merchandising Relationship Specialty Start Date End Date David Longoria MD [address] [place] [address] PCP - General Family Medicine 05/16/14 Piper Monge APRN.SEWING MACHINE ADJUSTER [address] [place] [address] [facility] 02/19/24 Trang Berkowitz PA-C [address] [place] [address] [facility] 02/19/24 Supervisor Inventory Merchandising Relationship Specialty Start Date End Date David Longoria MD [address] [place] [address] PCP - General Family Medicine 05/16/14 Piper Moneg APRN.SEWING MACHINE ADJUSTER [address] [place] [address] [facility] 02/19/24 Trang Berkowitz PA-C [address] [place] [address] [facility] 02/19/24 Supervisor Inventory Merchandising Relationship Specialty Start Date End Date David Longoria MD [address] [place] [address] PCP - General Family Medicine 05/16/14 Trang Berkowitz PA-C [address] [place] [address] [facility] 02/19/24 Supervisor Inventory Merchandising Relationship Specialty Start Date End Date David Longoria MD [address] [place] [address] PCP - General Family Medicine 05/16/14 Piper Monge, MADISYN.SEWING MACHINE ADJUSTER [address] [place] [address] [facility] Trang Berkowitz PA-C [address] [place] [address] Formerly [facility] 08/14/24 Supervisor Inventory Merchandising Relationship Specialty Start Date End Date David Longoria MD [address] [place] [address] PCP - General Family Medicine 05/16/14 Piper Monge, MADISYN.SEWING MACHINE ADJUSTER [address] [place] [address] [facility] Medicine 08/14/24 Trang Berkowitz PA-C [address] [place] [address] Formerly [facility] 08/14/24 Supervisor Inventory Merchandising Relationship Specialty Start Date End Date David Longoria MD [address] [place] [address] PCP - General Family Medicine 05/16/14 Piper Monge, VACUUM FRAME OPERATOR.SEWING MACHINE ADJUSTER [address] [place] [address] [facility] Medicine 08/14/24 Trang Berkowitz PA-C [address] [place] [address] [facility] Medicine 08/14/24 Goals (unrecognized section and content) Goals may be documented in a n alternate sectionGoals may be documented in an alternate section INFORMATION SOURCE (unrecogn ized section and content) DATE CREATED AUTHOR 07/16/2022 [facility] DATE CREATED AUTHOR AUTHOR'Diana GALAN 10/21/2024 [facility] FOR RECORDS PERTAINING TO PATIENTS WHO ARE OR HAVE BEEN ENROLLED IN A CHEMICAL DEPENDENCY/SUBSTANCEABUSE PROGRAM, SOME INFORMATION MAY BE OMITTED. This clinical summary was aggregated from multiple sources. Caution should be exercised in using it in the provision of clinical care. This summary normalizes information from multiple sources, and as a consequence, information in this document may materially change the coding, format and clinical context of patient data. In addition, data may be omitted in some cases. CLINICAL DECISIONS SHOULD BE BASED ON THE PRIMARY CLINICAL RECORDS. [employer] provides no warranty or guarantee of the accuracy or completeness of information in this document.
--- NOTE | 2024-12-02 01:06 | EX.ED.UPPERE ---
HPI History of Present Illness Chief Complaint: Laceration Informant: patient Narrative Narrative: 64-year-old female accidentally cut her left thumb while cutting apples when her dog jumped on her. It was a kitchen knife that was clean. Last tetanus unknown. [id number]. Takes no anticoagulants. No other injuries. Tetanus Immunization: >10 years [facility] Medical History (Updated 12/02/24 @ 02:[address] Morgan Rizo MD) Degenerative disc disease Fibromyalgia Arthritis Hypertension Asthma Home Medications ?Medication ?Instructions ?Recorded ?Last Taken ?Type cyclobenzaprine 10 mg tablet 10 mg PO 4X/DAY PRN Muscle Spasm 05/29/13 09/07/19 History fluoxetine 40 mg capsule 40 mg PO DAILY DEPRESSION 04/24/18 09/07/19 History gabapentin 600 mg tablet 1,200 mg PO TID NERVE PAIN 04/24/18 09/07/19 History hydrochlorothiazide 25 mg tablet 25 mg PO DAILY BP 04/24/18 09/07/19 History meloxicam 15 mg tablet 15 mg PO DAILY PAIN 04/24/18 09/07/19 History trazodone 100 mg tablet 100 mg PO QHS SLEEP 04/24/18 09/06/19 History albuterol sulfate 90 mcg/actuation 2 puff inhalation Q4H PRN PRN Sob 09/07/19 09/02/19 History aerosol inhaler &/Or Wheezing fluoxetine 20 mg capsule 20 mg PO DAILY DEPRESSION 09/07/19 09/07/19 History ergocalciferol (vitamin D2) 1,250 1,250 mcg PO QWEEK 12/02/24 Unknown History mcg (50,000 unit) capsule ezetimibe 10 mg tablet 10 mg PO DAILY 12/02/24 Unknown History potassium chloride 20 mEq 20 meq PO BID 12/02/24 Unknown History tablet,extended release(part/cryst) rosuvastatin 40 mg tablet 40 mg PO DAILY 12/02/24 Unknown History Allergy/AdvReac Type Severity Reaction Status Date / Time atorvastatin (From Lipitor) Allergy Rash Verified 12/01/24 20:22 Surgical History (Updated 12/02/24 @ 01:15 by Lovely Obando) Hx of tonsillectomy Social History Smoking Status: Never smoker ROS ROS ED Constitutional Constitutional ED: Denies chills or fever(s) Musculoskeletal Musculoskeletal: Reports extremity pain; Denies neck pain Integumentary Reports laceration; Denies Abrasions or rash Neurologic Neurologic: Denies paresthesias or weakness EXAM Physical Exam Const Vital Signs: 12/01/24 20:19 12/02/24 00:27 Temperature 98.9 F Temperature Source Oral Pulse Rate 91 77 Respiratory Rate 18 20 H Blood Pressure 197/102 H 146/86 H Blood Pressure Mean 133 106 Pulse Ox 98 100 Oxygen Delivery Method Room Air Room Air Positive well nourished and well developed General Appearance ED: well developed and NAD Neck full ROM and supple Back/Spine normal ROM and normal to inspection Extremity Extremity Narrative: 1.5 cm clean, linear, full-thickness laceration to the pad of the left thumb. No nail damage. Nailbed intact no damage. Oozing blood and not pulsatile. Neuro oriented x3, no focal motor deficits and no sensory deficits noted Sensorium / Orientation: alert Psych mental status grossly normal and thought process normal Skin no wounds Rashes: no rashes MDM MDM MDM Narrative Medical decision making narrative: patient's tetanus was updated at her request, and laceration was repaired, see the procedure note. Discussed cleansing and sutures should come out in about 1 week. Procedures Lacerations L thumb pad: Length: 1.5 cm Depth: Sub Q Shape: Linear Prep: Sterile Conditions and Chlorhexadine (scrubbed) Laceration repair: Lidocaine (1cc, 1%), Local and Skin sutures Number of Sutures/[place]: 3 Suture Information: Ethilon, Simple and 5-0 Discharge Plan Triage Chief Complaint: Laceration ED Provider: Morgan Rizo Dx/Rx/DC Orders Clinical Impression: Laceration of left thumb without foreign body without damage to nail, Immunization, tetanus-diphtheria Instructions: ED Hand Laceration- All Closures Prescriptions: No Action cyclobenzaprine 10 MG tablet 10 mg PO 4X/DAY PRN (Reason: Muscle Spasm) fluoxetine 40 MG capsule 40 mg PO DAILY Patient Comments: TAKE 1 CAPSULE ONCE DAILY gabapentin 600 MG tablet 1,200 mg PO TID Patient Comments: TAKE 2 TABLETS THREE TIMES DAILY FOR 30 DAYS meloxicam 15 MG tablet 15 mg PO DAILY Patient Comments: TAKE 1 TABLET BY MOUTH EVERY DAY FOR 30 DAYS trazodone 100 MG tablet 100 mg PO QHS hydrochlorothiazide 25 MG tablet 25 mg PO DAILY Patient Comments: TAKE 1 TABLET ONCE DAILY FOR BLOOD PRESSURE albuterol sulfate 90 mcg/actuation HFA aerosol inhaler 2 puff inhalation Q4H PRN PRN (Reason: Sob &/Or Wheezing) Patient Comments: Inhale 2 Puffs as instructed every 4 hours as needed. fluoxetine 20 MG capsule 20 mg PO DAILY potassium chloride 20 mEq tablet,ER particles/crystals 20 meq PO BID ergocalciferol (vitamin D2) 1,250 mcg (50,000 unit) capsule 1,250 mcg PO QWEEK ezetimibe 10 mg tablet 10 mg PO DAILY rosuvastatin 40 mg tablet 40 mg PO DAILY Primary Care Provider: David Rico Referrals: David Rico MD [Primary Care Provider, Family Practice] - 7 Days for suture removal Referral Note: Or urgent care/ER Print Language: Latvian Disposition Disposition: Home, Self Care
[2024-12-02] MEDS: Lidocaine/Epi/Tetracaine 50 ML 1 APPLIC TOPICAL (01:48)
[2024-12-02 02:35] VITALS: BP 145/84; PULSE 76; RESP 16; TEMP 36.6; O2SAT 97
== END 2024-12-02 02:36 | disposition home or self-care (01) ==
PROVIDERS: Emergency Provider Emergency Medicine; PCP Family Medicine; Visit Provider Emergency Medicine
DX: S61.012A Laceration without foreign body of left thumb without damage to nail, initial encounter (principal); I10 Essential (primary) hypertension; J45.909 Unspecified asthma, uncomplicated; W26.0XXA Contact with knife, initial encounter; Z79.899 Other long term (current) drug therapy; Z23 Encounter for immunization
CPT/HCPCS: 12001; 90471; 90715; 99284